=== PATIENT | male | born 1950 | race Native Hawaiian/Other Pacific Islander ===

== ENCOUNTER 2016-12-21 11:11 | Inpatient (IN) | payer OTHER ==
[2016-12-21 12:47] LABS: BASO % 1.1 % (0.0-2.0); EOS # 0.1 K/uL (0.0-0.7); EOS % 1.8 % (0.0-4.0); HEMATOCRIT 31.7 % (35.0-51.0); LYMPH # 0.8 K/uL (1.0-4.3); LYMPH % 20.2 % (20.0-40.0); MEAN CELL VOLUME 88.6 fL (80.0-94.0); MEAN CORPUSCULAR HGB CONC 32.8 g/dL (33.0-37.0); MEAN PLATELET VOLUME 7.1 fL (7.2-11.7); MONO # 0.7 K/uL (0.0-0.8); MONO % 18.1 % (0.0-10.0); NRBC % 0.1 % (0.0-2.0); RED CELL DISTRIBUTION WIDTH 14.4 % (11.5-14.5); WHITE BLOOD COUNT 4.1 K/uL (4.8-10.8)
[2016-12-21 12:57] LABS: INR 1.2
--- NOTE | 2016-12-21 13:04 | C.PDOC ---
History Of Present Illness 66 year old male with Hx of psoriasis, DM, HTN presents to the ED c/o SOB when walking for about a week. Patient was hospitalized on the [facility] for pneumonia approximately 2-3 weeks ago, was D/C there and states he felt better. He arrived in the [place] on Wednesday and since then he has been feeling SOB. Patient had the toes of his left foot amputated because of his DM 5 years ago. Time Seen by Provider: 12/21/16 11:57 Chief Complaint (Nursing): Shortness Of Breath History Per: Patient History/Exam Limitations: no limitations Onset/Duration Of Symptoms: Days Current Symptoms Are (Timing): Still Present Exacerbating Factor(s): Exertion Associated Symptoms: denies: Fever, Chills, Sweating, Dizziness, Tingling In Hands Or Face Reports Recently: Hospitalized (In the [facility] for pneumonia 2/3 weeks ago) Recent travel outside of the [facility]: Yes (Arrived from the [facility] on Wednesday) Additional History Per: Patient Past Medical History Reviewed: Historical Data, Nursing Documentation, Vital Signs Vital Signs: Last Vital Signs Temp 101.3 F H 12/21/16 11:29 Pulse 98 H 12/21/16 18:31 Resp 22 12/21/16 18:31 BP 166/83 H 12/21/16 18:31 Pulse Ox 98 12/21/16 18:31 - Medical History PMH: HTN, Hyperlipidemia, Pneumonia Other Surgeries: Left toes of foot amputated Family History: States: Unknown Family Hx - Social History Hx Alcohol Use: No Hx Substance Use: No Review Of Systems Constitutional: Negative for: Fever, Chills Cardiovascular: Negative for: Chest Pain, Palpitations Respiratory: Positive for: Cough, SOB with Excertion. Negative for: Sputum Gastrointestinal: Negative for: Nausea, Vomiting, Abdominal Pain Physical Exam - Physical Exam Appears: Non-toxic, No Acute Distress Skin: Other (Psoriasis on both lower extremities) Head: Atraumatic, Normacephalic Oral Mucosa: Moist Neck: Normal ROM, Supple Chest: Symmetrical Cardiovascular: Rhythm Regular, No Murmur Respiratory: Decreased Breath Sounds (Bilaterally ), No Accessory Muscle Use, No Rales, No Rhonchi, No Wheezing Gastrointestinal/Abdominal: Soft, No Tenderness Extremity: Normal ROM, Pedal Edema, Other (Lower extremities discoloration) Neurological/Psych: Oriented x3, Normal Speech, Normal Cognition ED Course And Treatment - Laboratory Results Result Diagrams: 12/21/16 12:42 12/21/16 12:42 O2 Sat by Pulse Oximetry: 99 (On RA) Pulse Ox Interpretation: Normal Progress Note: Plan: -EKG, blood work, CXR, ansd UA ordered. -Tylenol 650 mg PO given. -Blood culture collected. -O2 nasal cannula placed - Physician Consult Information Physician Contacted: Chevy Ruelas Outcome Of Conversation: accepted patient for an admission Disposition - Disposition Disposition: HOSPITALIZED Disposition Time: 16:26 Condition: FAIR - Clinical Impression Clinical Impression: Pneumonia - PA / COVER SEAMER / Resident Statement MD/DO has reviewed & agrees with the documentation as recorded. - Scribe Statement The provider has reviewed the documentation as recorded by the Scribe Kevon Guzman All medical record entries made by the Scribe were at my direction and personally dictated by me. I have reviewed the chart and agree that the record accurately reflects my personal performance of the history, physical exam, medical decision making, and the department course for this patient. I have also personally directed, reviewed, and agree with the discharge instructions and disposition. Decision To Admit - Pt Status Changed To: Hospital Disposition Of: Inpatient - Admit Certification Admit to Inpatient:: After my assessment, the patient will require hospitalization for at least two midnights. This is because of the severity of symptoms shown, intensity of services needed, and/or the medical risk in this patient being treated as an outpatient. - InPatient: Physician Admission Certification: I certify that this patient requires 2 or more midnights of care for the following reason:: pt with pneumonia will need more than 2 days of hospitalization - . Bed Request Type: Regular Admitting Physician: Chevy Ruelas Patient Diagnosis: Pneumonia
[2016-12-21 13:07] LABS: CHLORIDE 99 mmol/L (98-107)
[2016-12-21 13:08] LABS: POTASSIUM 3.9 mmol/L (3.6-5.2); SODIUM 131 mmol/L (132-148)
[2016-12-21 13:11] LABS: ALB/GLOB RATIO 0.8 (1.0-2.1); ALKALINE PHOSPHATASE 52 U/L (38-126); ALT/SGPT 42 U/L (21-72); AST/SGOT 31 U/L (17-59); BILIRUBIN,TOTAL 0.7 mg/dL (0.2-1.3); BLOOD UREA NITROGEN 16 mg/dL (9-20); CALCIUM 7.9 mg/dl (8.6-10.4); CARBON DIOXIDE 23 mmol/L (22-30); GFR AFRICAN-AMERICAN > 60; GLUCOSE,RANDOM 193 mg/dL (75-110); TOTAL PROTEIN 7.7 g/dL (6.3-8.3)
[2016-12-21] MEDS ORDERED: Moxifloxacin IV 400mg/250ml NS 400 MG/250 ML BAG IV STA (14:10)
[2016-12-21] MEDS ORDERED: Iodixanol 320 MG/ML 100 ML BOTTLE IV ONE (15:08)
--- NOTE | 2016-12-21 15:13 | RAD ---
HISTORY: SOB, fever COMPARISON: No prior. TECHNIQUE: Chest PA and lateral FINDINGS: LUNGS: Prominent diffuse increased interstitial lung markings throughout both lungs which may represent underlying infiltrate and or edema. More patchy areas of consolidative change seen within the right hilar region and bilateral lung bases. Biapical pleural thickening with upper lobe granulomatous changes. Few scattered nodular densities in both lungs. Bilateral hilar prominence. PLEURA: As above. CARDIOVASCULAR: Mild cardiomegaly. Tortuous ectatic aorta. OSSEOUS STRUCTURES: Degenerative changes in the spine with paravertebral osteophytes. VISUALIZED UPPER ABDOMEN: Normal. OTHER FINDINGS: None. IMPRESSION: Prominent diffuse increased interstitial lung markings throughout both lungs which may represent underlying infiltrate and or edema. More patchy areas of consolidative change seen within the right hilar region and bilateral lung bases. Biapical pleural thickening with upper lobe granulomatous changes. Few scattered nodular densities in both lungs. Bilateral hilar prominence.
--- NOTE | 2016-12-21 16:12 | CT ---
PROCEDURE: CT Chest with contrast (Pulmonary Angiogram) HISTORY: sob, fever, recent long travel, elevated D dimer COMPARISON: None available. TECHNIQUE: Axial computed tomography images were obtained of the chest in the pulmonary arterial phase of enhancement. Coronal and sagittal reformatted images were created and reviewed. Intravenous contrast dose: 100 mL Visipaque 320 Radiation dose: Total exam DLP = 618.58 mGy-cm. This CT exam was performed using one or more of the following dose reduction techniques: Automated exposure control, adjustment of the mA and/or kV according to patient size, and/or use of iterative reconstruction technique. FINDINGS: PULMONARY ARTERIES: Evaluation limited due to timing of scan relative to contrast bolus. Limited evaluation of segmental and subsegmental pulmonary artery branches. No central or lobar pulmonary arterial filling defect identified. AORTA: No acute findings. No thoracic aortic aneurysm. LUNGS: Multifocal infiltrate involving right and left upper and lower lobe sparing only the right middle lobe. Predominantly right upper and lower lobe. No pulmonary mass. PLEURAL SPACES: Small right pleural effusion. No left pleural effusion. No pneumothorax. HEART: Unremarkable. No cardiomegaly. No significant pericardial effusion. LYMPH NODES: Solitary right peritracheal lymph node, 1.9 cm short axis, with central fatty hilum. No other significant mediastinal or hilar lymphadenopathy. BONES, CHEST WALL: Unremarkable. No fracture or destructive lesion OTHER FINDINGS: Unremarkable. IMPRESSION: Limited examination. No evidence of large central pulmonary embolus. Unable to adequately evaluate segmental and subsegmental pulmonary artery branches. Small right pleural effusion. Multifocal bilateral pulmonary infiltrate.
[2016-12-21] MEDS ORDERED: Azithromycin 500 MG in Sodium Chloride 0.9% 250 ML IVPB SCH (18:00)
[2016-12-21 18:07] LABS: RBC URINE 3 /hpf (0-3); URINE BACTERIA RARE (<OCC); URINE BILIRUBIN NEGATIVE (NEGATIVE); URINE COLOR Straw (YELLOW); URINE GLUCOSE (UA) NORMAL (Normal); URINE KETONE NEGATIVE (NEGATIVE); URINE LEUKOCYTE ESTERASE NEG Leu/uL (Negative); URINE PROTEIN 2+ mg/dL (NEGATIVE); URINE UROBILINOGEN NORMAL mg/dL (0.2-1.0); WBC URINE 1 /hpf (0-5)
[2016-12-21 18:18] LABS: URINE BLOOD TRACE (NEGATIVE)
[2016-12-21] MEDS: Piperacill/Tazo 3.375gm in Dex 3.375 GM/50 ML BAG IVPB SCH (18:31)
--- NOTE | 2016-12-21 18:44 | CP.PCM.HP ---
History of Present Illness - History of Present Illness History of Present Illness: Medicine H/P CC: SOB HPI: 66 year old Lebanese male with past medical history of HTN, DM, psoriasis who immigrated from the [facility] 5 years ago is presenting with worsening shortness of breath and cough. The productive cough has worsened 2 weeks ago when the patient went to the [facility]. There he had a hospitalization of 5 days. 3 days in the ICU and 2 days on floor being treated for Community Acquired Pneumonia. During his course he was given antibiotics for 5 days. He was also diagnosed with Congestive Heart Failure in the [facility]. 2D ECHO revealed ejection fraction of >55% and Mitral Valve Prolapse with mild Mitral Regurgitation. Patient states he came back to the [facility] last Wednesday. Patient states his shortness of breath and cough continued to worsen and last Wednesday as he was using the stairs he was really working hard to breathe. The cough is productive and patient states he products small amounts of white sputum. Lemon mykel in hot water improves his cough and shortness of breath while physical activity worsens his symptoms. Patient also states he sleeps using 3 pillows. Patient uses a cane to ambulate and has not had any falls recently. Patient became more SOB as i was examining him. I placed the patient on NC @ 5 liters. He continued to work hard to breath so I called the lockstitch binder to examine the patient. Patient was seen by the intesivist, given 20mg of lasix and started on Vanco and Zosyn. An ABG was ordered and he was placed on BiPAP. ROS: * Complains of: cough (productive), sputum production, shortness of breath, decrease in taste * Denies: fever, chills, nausea, vomiting, constipation, diarrhea, chest pain, palpitations, headaches, weakness, dizziness, change in vision, change in weight , dysphagia, dysuria, change in urinary frequency, hematuria, numbness, tingling PMHx: Community Acquired Pneumonia, Pulmonary Edema, CHF, HTN, CAD, DM, Psiorasis PSHx: Amputation of Toes (digits 1,2,3) of Right Foot (2011) Allergies: NKDA Social: Patient quit smoking 27 years ago. Patient smoked for 22 years (1.5 packs per day) (33 pack year). Patient drinks alcohol socially and denies recreational drug use. Works as an security patrol driver. Lives in an apartment with his and 1 child. Patient has 5 children in total. Family Hx: Mother - denies, DM; Father - lung cancer Code: Full Code Present on Admission - Present on Admission Any Indicators Present on Admission: No Review of Systems - Review of Systems All systems: reviewed and no additional remarkable complaints except (per hpi) Past Patient History - Past Social History Smoking Status: Never Smoked - CARDIAC Hx Hypertension: Yes - PULMONARY Hx Pneumonia: Yes - PSYCHIATRIC Hx Substance Use: No - SURGICAL HISTORY Hx Surgeries: Yes Other/Comment: Right foot - ANESTHESIA Hx Anesthesia: Yes Hx Anesthesia Reactions: No Meds Allergies/Adverse Reactions: Allergies Allergy/AdvReac Type Severity Reaction Status Date / Time No Known Allergies Allergy Unverified 12/21/16 11:26 Physical Exam - Constitutional Appears: Chronically Ill - Head Exam Head Exam: ATRAUMATIC, NORMAL INSPECTION, NORMOCEPHALIC - Eye Exam Eye Exam: EOMI, Normal appearance Pupil Exam: NORMAL ACCOMODATION, PERRL - ENT Exam ENT Exam: Mucous Membranes Moist - Respiratory Exam Respiratory Exam: Accessory Muscle Use, Rales, Rhonchi, Wheezes - Cardiovascular Exam Cardiovascular Exam: Tachycardia, REGULAR RHYTHM - GI/Abdominal Exam GI & Abdominal Exam: Normal Bowel Sounds, Soft. absent: Distended, Tenderness - Extremities Exam Additional comments: psoriasis b/l lower extrem - Neurological Exam Neurological exam: Alert, Oriented x3 - Psychiatric Exam Psychiatric exam: Normal Affect, Normal Mood - Skin Skin Exam: Rash (psoriatic changes), Warm Results - Vital Signs Recent Vital Signs: Last Vital Signs Temp 101.3 F H 12/21/16 11:29 Pulse 94 H 12/21/16 18:07 Resp 26 H 12/21/16 18:07 BP 185/88 H 12/21/16 18:07 Pulse Ox 98 12/21/16 18:07 - Labs Result Diagrams: 12/21/16 12:42 12/21/16 12:42 Labs: Laboratory Results - last 24 hr 12/21/16 12/21/16 12/21/16 12:42 12:42 12:42 WBC 4.1 L RBC 3.58 L Hgb 10.4 L Hct 31.7 L MCV 88.6 MCH 29.0 MCHC 32.8 L RDW 14.4 Plt Count 219 MPV 7.1 L Neut % (Auto) 58.8 Lymph % (Auto) 20.2 Nelson % (Auto) 18.1 H Eos % (Auto) 1.8 Baso % (Auto) 1.1 Neut # 2.4 Lymph # 0.8 L Nelson # 0.7 Eos # 0.1 Baso # 0.0 PT INR APTT D-Dimer, Quantitative Sodium 131 L Potassium 3.9 Chloride 99 Carbon Dioxide 23 Anion Gap 12 BUN 16 Creatinine 1.4 Est GFR ( Amer) > 60 Est GFR (Non-Af Amer) 51 Random Glucose 193 H Lactic Acid 1.1 Calcium 7.9 L Total Bilirubin 0.7 AST 31 ALT 42 Alkaline Phosphatase 52 Total Creatine Kinase 102 CK-MB (Mass) 0.78 Troponin I 0.0770 NT-Pro-B Natriuret Pep 1280 H Total Protein 7.7 Albumin 3.4 L Globulin 4.3 H Albumin/Globulin Ratio 0.8 L Urine Color Urine Clarity Urine pH Ur Specific Bourg Urine Protein Urine Glucose (UA) Urine Ketones Urine Blood Urine Nitrate Urine Bilirubin Urine Urobilinogen Ur Leukocyte Esterase Urine WBC (Auto) Urine RBC (Auto) Urine Bacteria 12/21/16 12/21/16 12:42 17:51 WBC RBC Hgb Hct MCV MCH MCHC RDW Plt Count MPV Neut % (Auto) Lymph % (Auto) Nelson % (Auto) Eos % (Auto) Baso % (Auto) Neut # Lymph # Nelson # Eos # Baso # PT 13.3 H INR 1.2 APTT 36 H D-Dimer, Quantitative 552 H Sodium Potassium Chloride Carbon Dioxide Anion Gap BUN Creatinine Est GFR ( Amer) Est GFR (Non-Af Amer) Random Glucose Lactic Acid Calcium Total Bilirubin AST ALT Alkaline Phosphatase Total Creatine Kinase CK-MB (Mass) Troponin I NT-Pro-B Natriuret Pep Total Protein Albumin Globulin Albumin/Globulin Ratio Urine Color Straw Urine Clarity Clear Urine pH 6.0 Ur Specific Bourg 1.017 Urine Protein 2+ H Urine Glucose (UA) Normal Urine Ketones Negative Urine Blood Trace H Urine Nitrate Negative Urine Bilirubin Negative Urine Urobilinogen Normal Ur Leukocyte Esterase Neg Urine WBC (Auto) 1 Urine RBC (Auto) 3 Urine Bacteria Rare Assessment & Plan (1) Diastolic CHF Assessment and Plan: F/U DORON * 1 - 0.07 * 2 - * 3 - Echo (record in paper chart) - EF 55%, MVP Lipid Panel * TG * Chol * LDL * HDL Meds: * Spironolactone 25mg PO QD * Lasix 20 IV Once * Nitropaste * Crestor 10 PO HS Status: Acute Priority: High (2) Pneumonia Assessment and Plan: ABG - F/U Flu - F/U Blood culture - F/U Sputum culture - F/U Procal - F/U Meds: * Avelox given in ER * Vanco * Zosyn Status: Acute Priority: High (3) Diabetes Assessment and Plan: A1C - F/U ISS High Accucheck Status: Chronic Priority: Medium (4) Prophylactic measure Assessment and Plan: heparin 5000 AC Q12 Status: Chronic Priority: Low
[2016-12-21 20:09] LABS: ABG ALLEN TEST POS; ARTERIAL BLOOD GAS MODE BiPAP; ARTERIAL BLOOD HGB O2 SAT 95.6 % (95.0-98.0); CARBOXYHEMOGLOBIN 1.9 % (0.5-1.5); DRAW SITE RRA; HHB 1.3 % (0.0-5.0); METHEMOGLOBIN 1.2 % (0.0-3.0)
[2016-12-21] MEDS: Vancomycin 1 gm/NS 200 ml 1 GM/200 ML BAG IVPB SCH (21:16)
[2016-12-21] MEDS: (Novolin R) Insulin Human Regular 100 units/ml vial SC SCH (21:17)
[2016-12-22 04:22] LABS: POTASSIUM 4.2 mmol/L (3.6-5.2)
[2016-12-22 04:23] LABS: BASO % 0.5 % (0.0-2.0); EOS % 0.9 % (0.0-4.0); HEMATOCRIT 34.4 % (35.0-51.0); LYMPH # 0.9 K/uL (1.0-4.3); LYMPH % 24.3 % (20.0-40.0); MEAN CELL VOLUME 88.2 fL (80.0-94.0); MEAN CORPUSCULAR HEMOGLOBIN 29.1 pg (27.0-31.0); MEAN PLATELET VOLUME 6.8 fL (7.2-11.7); MONO # 0.6 K/uL (0.0-0.8); MONO % 16.6 % (0.0-10.0); NRBC % 0.1 % (0.0-2.0); RED CELL DISTRIBUTION WIDTH 14.1 % (11.5-14.5); WHITE BLOOD COUNT 3.5 K/uL (4.8-10.8)
[2016-12-22 04:24] LABS: ALB/GLOB RATIO 0.8 (1.0-2.1); TOTAL PROTEIN 7.8 g/dL (6.3-8.3)
[2016-12-22 04:25] LABS: CALCIUM 7.7 mg/dl (8.6-10.4)
[2016-12-22] MEDS: Piperacill/Tazo 3.375gm in Dex 3.375 GM/50 ML BAG IVPB SCH ×3 (05:03→17:38)
[2016-12-22] MEDS: (Novolin R) Insulin Human Regular 100 units/ml vial SC SCH ×4 (07:47→21:38)
[2016-12-22] MEDS ORDERED: Nitroglycerin 0.1 mg/hr Top Patch TD SCH (10:00)
--- NOTE | 2016-12-22 10:59 | CP.PCM.PN ---
Subjective - Date & Time of Evaluation Date of Evaluation: 12/22/16 Time of Evaluation: 10:56 - Subjective Subjective: Patient seen and examined clinically much improved. Working much less hard to breath States he feels much better with less SOB, no other complaints at this time Had a LGF overnight consulted cardio ([place]) continue abx Objective - Vital Signs/Intake and Output Vital Signs (last 24 hours): Temp Pulse Resp BP Pulse Ox 98 F 96 H 18 129/79 98 12/22/16 09:58 12/22/16 07:43 12/22/16 07:20 12/22/16 07:20 12/22/16 07:20 - Medications Medications: Current Medications Acetaminophen (Tylenol 325mg Tab) 650 mg PO Q6 PRN PRN Reason: Fever >100.4 F Last Admin: 12/22/16 08:14 Dose: 650 mg Amlodipine Besylate (Norvasc) 2.5 mg PO DAILY [facility] Last Admin: 12/22/16 09:54 Dose: 2.5 mg Docusate Sodium (Colace) 100 mg PO BID PRN PRN Reason: Constipation Heparin Sodium (Porcine) (Heparin) 5,000 units SC Q12 [facility] Last Admin: 12/22/16 09:55 Dose: 5,000 units Piperacillin Sod/Tazobactam Sod (Zosyn 3.375 Gm Iv Premix) 3.375 gm in 50 mls @ 200 mls/hr IVPB Q8H [facility] Last Admin: 12/22/16 09:56 Dose: 200 mls/hr Vancomycin/Sodium Chloride (Vancomycin 1 Gm/Ns 200 Ml) 1 gm in 200 mls @ 166.7 mls/hr IVPB Q24H [facility] Stop: 12/26/16 19:01 Last Admin: 12/21/16 21:16 Dose: 166.7 mls/hr Ibuprofen (Motrin Tab) 400 mg PO Q6 PRN PRN Reason: Pain, moderate (4-7) Insulin Human Regular (Novolin R) 0 unit SC ACHS [facility] PRN Reason: Protocol Last Admin: 12/22/16 07:47 Dose: Not Given Losartan Potassium (Cozaar) 100 mg PO DAILY [facility] Last Admin: 12/22/16 09:54 Dose: 100 mg Nitroglycerin (Nitro-Dur 0.1 Mg/Hr Patch) 1 patch TD DAILY [facility] Last Admin: 12/22/16 09:55 Dose: 1 patch Ondansetron HCl (Zofran Inj) 4 mg IVP Q6 PRN PRN Reason: Nausea/Vomiting Rosuvastatin Calcium (Crestor) 20 mg PO HS [facility] Last Admin: 12/21/16 22:02 Dose: 20 mg Spironolactone (Aldactone) 25 mg PO DAILY [facility] Last Admin: 12/22/16 09:54 Dose: 25 mg - Labs Labs: 12/22/16 04:08 12/22/16 04:08 PT 13.3 SECONDS (9.7-12.2) H 12/21/16 12:42 INR 1.2 12/21/16 12:42 APTT 36 SECONDS (21-34) H 12/21/16 12:42 - Constitutional Appears: No Acute Distress - Head Exam Head Exam: ATRAUMATIC, NORMAL INSPECTION, NORMOCEPHALIC - Eye Exam Eye Exam: EOMI Pupil Exam: NORMAL ACCOMODATION - ENT Exam ENT Exam: Mucous Membranes Moist - Respiratory Exam Respiratory Exam: Rhonchi, NORMAL BREATHING PATTERN - Cardiovascular Exam Cardiovascular Exam: REGULAR RHYTHM - GI/Abdominal Exam GI & Abdominal Exam: Soft, Normal Bowel Sounds. absent: Distended, Tenderness - Extremities Exam Extremities Exam: Joint Swelling (non pittine edema bilaterly LE) Additional comments: Psoriatic changes bl LE - Neurological Exam Neurological Exam: Alert, Awake, Oriented x3 - Psychiatric Exam Psychiatric exam: Normal Affect, Normal Mood - Skin Skin Exam: Dry, Intact, Normal Color, Warm Assessment and Plan (1) Diastolic CHF Assessment & Plan: Trop * 1 - 0.07 * 2 - 0.07 * 3 - 0.08 Echo (record in paper chart) - EF 55%, MVP Lipid Panel * TG - 58 * Chol - 109Nitro 0.1 TD QD * LDL - 72 * HDL - 28 Meds * Lopressor 25 PO BID * Cozaar 100 PO QD * Aldactone 25 PO QD * Nitro 0.1 TD QD Status: Acute (2) Pneumonia Assessment & Plan: ABG - 7.43, CO2 35, O2 113, Bicarb 24.3 Flu - F/U Blood culture - F/U Sputum culture - F/U Procal - 0.15 Meds: * Avelox given in ER * Vanco * Zosyn Status: Acute (3) Diabetes Assessment & Plan: A1C - 7.5 ISS High Accucheck Status: Chronic (4) Prophylactic measure Assessment & Plan: heparin 5000 AC Q12 Status: Chronic
--- NOTE | 2016-12-22 12:31 | CARD ---
APPROVED REPORT EKG Measurement Heart [id number] <Conclusion> Sinus rhythm with occasional premature ventricular complexes Right bundle branch block Abnormal ECG
[2016-12-22] MEDS ORDERED: Moxifloxacin IV 400mg/250ml NS 400 MG/250 ML BAG IVPB SCH (14:00)
--- NOTE | 2016-12-22 17:46 | CP.PCM.CON ---
History of Present Illness - History of Present Illness History of Present Illness: Cardiology consult note for Dr. Clayton Bermeo DO, PGY-0 Reason For Consult: SOB HPI: 66 singaporean M pertinent PMHx HTN DM, presents with worsening sob and cough. Pt was in [facility] two weeks ago, where he developed similar symptoms and was hospitalized for 5 days. ECHO there showed mild MR and MVP with 55% EF. He states that the doctor there told him to 'travel carefully and not exert himself ,' when he was d/c'd with a dx of CHF. This episode of sob started day before yesterday, and progressively got worse. Pt stated that walking up the stairs made it worse, and since he was working so hard to breathe, he decided to come to the hospital. Of note, patient sleeps using three pillows. Cough is productive with white sputum. Also of note, patient was febrile, was placed on BiPAP, as well as 20 mg of lasix and started on Vanc and Zosyn, when first admitted. At this time, pt denies f/ch/cp/n/v/d/dysuria/frequency/urgency/hematuria/ hematochezia/hematemesis. Is still mildly sob, but feels better. PSHx: Amputation of Toes (digits 1,2,3) of Right Foot (2011) PMHx: Community Acquired Pneumonia, Pulmonary Edema, CHF, HTN, CAD, DM, Psoriasis All: NKDA SocHx: Patient quit smoking 27 years ago. Patient smoked for 22 years (1.5 packs per day) (33 pack year); +social etoh; denies illicits [facility], for URI VS PNA FamHx: Lung CA Meds: ABG ROS: Const'l: pt denies fever, chills, generalized weakness ENT: pt denies dysphagia, otalgia, hearing deficit, rhinorrhea Eyes: pt denies sudden loss of vision, diplopia, blurred vision MSK: pt denies muscle stiffness, joint pain, extremity cramping Cardio: + see hpi Pulm: + productive cough; denies hemoptysis, wheeze GI: pt denies loss of appetite, abdominal pain, constipation, melena, n/v/d : pt denies burning on urination, urinary frequency, hematuria, urinary urgency Neuro: pt denies paresis, paresthesia, dizziness, hanson, numbness, tingling Derm: pt denies skin changes, lesions, nail changes Endo: pt denies intolerance to heat/cold, diaphoresis, night sweats, polydipsia Psych: pt denies anxiety, depression, mood changes Past Patient History - Past Social History Smoking Status: Former Smoker - CARDIAC Hx Hypertension: Yes - PULMONARY Hx Pneumonia: Yes - NEUROLOGICAL Hx Neurological Disorder: No - HEENT Hx HEENT Problems: No - RENAL Hx Chronic Kidney Disease: No - ENDOCRINE/METABOLIC Hx Diabetes Mellitus Type 2: Yes - HEMATOLOGICAL/ONCOLOGICAL Hx Blood Transfusions: No - INTEGUMENTARY Other/Comment: psoriasis. LE color brownish - MUSCULOSKELETAL/RHEUMATOLOGICAL Hx Falls: No - GASTROINTESTINAL Hx Gastrointestinal Disorders: No - GENITOURINARY/GYNECOLOGICAL Hx Genitourinary Disorders: No - PSYCHIATRIC Hx Substance Use: No - SURGICAL HISTORY Hx Surgeries: Yes Other/Comment: Right foot - ANESTHESIA Hx Anesthesia: Yes Hx Anesthesia Reactions: No Hx Malignant Hyperthermia: No Has any member of the family had a problem w/ anesthesia?: No Meds Allergies/Adverse Reactions: Allergies Allergy/AdvReac Type Severity Reaction Status Date / Time No Known Allergies Allergy Unverified 12/21/16 11:26 - Medications Medications: Current Medications Acetaminophen (Tylenol 325mg Tab) 650 mg PO Q6 PRN PRN Reason: Fever >100.4 F Last Admin: 12/22/16 08:14 Dose: 650 mg Docusate Sodium (Colace) 100 mg PO BID PRN PRN Reason: Constipation Furosemide (Lasix) 20 mg IVP DAILY [facility] Heparin Sodium (Porcine) (Heparin) 5,000 units SC Q8 [facility] Last Admin: 12/22/16 14:33 Dose: 5,000 units Piperacillin Sod/Tazobactam Sod (Zosyn 3.375 Gm Iv Premix) 3.375 gm in 50 mls @ 200 mls/hr IVPB Q8H [facility] Last Admin: 12/22/16 17:38 Dose: 200 mls/hr Vancomycin/Sodium Chloride (Vancomycin 1 Gm/Ns 200 Ml) 1 gm in 200 mls @ 166.7 mls/hr IVPB Q24H [facility] Stop: 12/26/16 19:01 Last Admin: 12/21/16 21:16 Dose: 166.7 mls/hr Ibuprofen (Motrin Tab) 400 mg PO Q6 PRN PRN Reason: Pain, moderate (4-7) Insulin Human Regular (Novolin R) 0 unit SC ACHS [facility] PRN Reason: Protocol Last Admin: 12/22/16 17:38 Dose: Not Given Losartan Potassium (Cozaar) 100 mg PO DAILY [facility] Last Admin: 12/22/16 09:54 Dose: 100 mg Metoprolol Tartrate (Lopressor) 25 mg PO BID [facility] Mupirocin (Bactroban Ointment) 1 gm TOP BID [facility] Last Admin: 12/22/16 17:38 Dose: 1 applic Ondansetron HCl (Zofran Inj) 4 mg IVP Q6 PRN PRN Reason: Nausea/Vomiting Rosuvastatin Calcium (Crestor) 20 mg PO HS [facility] Last Admin: 12/21/16 22:02 Dose: 20 mg Spironolactone (Aldactone) 25 mg PO DAILY [facility] Last Admin: 12/22/16 09:54 Dose: 25 mg Physical Exam - Additional Findings Additional findings: Phys Exam: VS as below Const'l: a&o x 4, nad Head/Neck: neck supple, no jvd, trachea midline, carotid midline, no cervical /head mass Eyes: dash, nonicteric sclera, eom intact ENT: auditory acuity grossly intact, throat not congested, no nasal deformity Cardio: rrr, no m/r/g, no carotid bruit, nml s1, s2 Pulm: +2L NC; +Expiratory wheezes diffusely; no accessory muscle use, equal nml breath sounds bilaterally, ctab Abd: s/nt/nd, nbs x 4 q, no palpable masses Derm: no rashes, no ulcers, no lesions Extr: no edema, no cyanosis, no calf tenderness, no lesions, no varicosities Neuro: cn II-XII grossly intact, ue and le 5/5 muscle strength bilaterally, no los ue, le bilaterally and core Results - Vital Signs Recent Vital Signs: Last Vital Signs Temp 98.6 F 12/22/16 15:00 Pulse 20 L 12/22/16 15:00 Resp 20 12/22/16 15:00 BP 94/60 L 12/22/16 15:00 Pulse Ox 98 12/22/16 15:00 - Labs Result Diagrams: 12/23/16 06:47 12/23/16 06:47 Labs: Laboratory Results - last 24 hr 12/21/16 12/21/16 12/21/16 17:51 20:00 20:51 WBC RBC Hgb Hct MCV MCH MCHC RDW Plt Count MPV Neut % (Auto) Lymph % (Auto) [place] % (Auto) Eos % (Auto) Baso % (Auto) Neut # Lymph # [place] # Eos # Baso # Puncture Site Rra pCO2 35 pO2 113 H HCO3 24.3 ABG pH 7.43 ABG Total CO2 24.3 ABG O2 Saturation 98.7 H ABG Base Excess -0.8 ABG Hemoglobin 10.2 L ABG Carboxyhemoglobin 1.9 H POC ABG HHb (Measured) 1.3 ABG Methemoglobin 1.2 Dax Test Pos A-a O2 Difference 57.0 Respiratory Index 0.5 Hgb O2 Saturation 95.6 Vent Mode Bipap FiO2 30.0 Inspiratory BiPAP 12 Expiratory BiPAP 6 Sodium Potassium Chloride Carbon Dioxide Anion Gap BUN Creatinine Est GFR ( Amer) Est GFR (Non-Af Amer) POC Glucose (mg/dL) 135 H Random Glucose Hemoglobin A1c Calcium Total Bilirubin AST ALT Alkaline Phosphatase Total Creatine Kinase CK-MB (Mass) Troponin I, Quant Total Protein Albumin Globulin Albumin/Globulin Ratio Triglycerides Cholesterol LDL Cholesterol Direct HDL Cholesterol Procalcitonin Urine Color Straw Urine Clarity Clear Urine pH 6.0 Ur Specific Custer 1.017 Urine Protein 2+ H Urine Glucose (UA) Normal Urine Ketones Negative Urine Blood Trace H Urine Nitrate Negative Urine Bilirubin Negative Urine Urobilinogen Normal Ur Leukocyte Esterase Neg Urine WBC (Auto) 1 Urine RBC (Auto) 3 Urine Bacteria Rare 12/21/16 12/21/16 12/22/16 21:15 21:15 04:00 WBC RBC Hgb Hct MCV MCH MCHC RDW Plt Count MPV Neut % (Auto) Lymph % (Auto) [place] % (Auto) Eos % (Auto) Baso % (Auto) Neut # Lymph # [place] # Eos # Baso # Puncture Site pCO2 pO2 HCO3 ABG pH ABG Total CO2 ABG O2 Saturation ABG Base Excess ABG Hemoglobin ABG Carboxyhemoglobin POC ABG HHb (Measured) ABG Methemoglobin Dax Test A-a O2 Difference Respiratory Index Hgb O2 Saturation Vent Mode FiO2 Inspiratory BiPAP Expiratory BiPAP Sodium Potassium Chloride Carbon Dioxide Anion Gap BUN Creatinine Est GFR ( Amer) Est GFR (Non-Af Amer) POC Glucose (mg/dL) Random Glucose Hemoglobin A1c 7.5 H Calcium Total Bilirubin AST ALT Alkaline Phosphatase Total Creatine Kinase 149 CK-MB (Mass) 1.14 Troponin I, Quant 0.0750 Total Protein Albumin Globulin Albumin/Globulin Ratio Triglycerides Cholesterol LDL Cholesterol Direct HDL Cholesterol Procalcitonin 0.15 L Urine Color Urine Clarity Urine pH Ur Specific [place] Urine Protein Urine Glucose (UA) Urine Ketones Urine Blood Urine Nitrate Urine Bilirubin Urine Urobilinogen Ur Leukocyte Esterase Urine WBC (Auto) Urine RBC (Auto) Urine Bacteria 12/22/16 12/22/16 12/22/16 04:08 04:08 04:08 WBC 3.5 L RBC 3.90 L Hgb 11.3 L Hct 34.4 L MCV 88.2 MCH 29.1 MCHC 33.0 RDW 14.1 Plt Count 185 MPV 6.8 L Neut % (Auto) 57.7 Lymph % (Auto) 24.3 [place] % (Auto) 16.6 H Eos % (Auto) 0.9 Baso % (Auto) 0.5 Neut # 2.0 Lymph # 0.9 L [place] # 0.6 Eos # 0.0 Baso # 0.0 Puncture Site pCO2 pO2 HCO3 ABG pH ABG Total CO2 ABG O2 Saturation ABG Base Excess ABG Hemoglobin ABG Carboxyhemoglobin POC ABG HHb (Measured) ABG Methemoglobin Dax Test A-a O2 Difference Respiratory Index Hgb O2 Saturation Vent Mode FiO2 Inspiratory BiPAP Expiratory BiPAP Sodium 132 Potassium 4.2 Chloride 100 Carbon Dioxide 23 Anion Gap 13 BUN 16 Creatinine 1.5 Est GFR ( Amer) 57 Est GFR (Non-Af Amer) 47 POC Glucose (mg/dL) Random Glucose 111 H Hemoglobin A1c Calcium 7.7 L Total Bilirubin 1.0 AST 33 ALT 42 Alkaline Phosphatase 51 Total Creatine Kinase 108 CK-MB (Mass) 1.04 Troponin I, Quant 0.0860 Total Protein 7.8 Albumin 3.4 L Globulin 4.4 H Albumin/Globulin Ratio 0.8 L Triglycerides 58 Cholesterol 109 LDL Cholesterol Direct 72 HDL Cholesterol 28 L Procalcitonin Urine Color Urine Clarity Urine pH Ur Specific Custer Urine Protein Urine Glucose (UA) Urine Ketones Urine Blood Urine Nitrate Urine Bilirubin Urine Urobilinogen Ur Leukocyte Esterase Urine WBC (Auto) Urine RBC (Auto) Urine Bacteria 12/22/16 12/22/16 12/22/16 06:31 11:44 16:17 WBC RBC Hgb Hct MCV MCH MCHC RDW Plt Count MPV Neut % (Auto) Lymph % (Auto) [place] % (Auto) Eos % (Auto) Baso % (Auto) Neut # Lymph # [place] # Eos # Baso # Puncture Site pCO2 pO2 HCO3 ABG pH ABG Total CO2 ABG O2 Saturation ABG Base Excess ABG Hemoglobin ABG Carboxyhemoglobin POC ABG HHb (Measured) ABG Methemoglobin Dax Test A-a O2 Difference Respiratory Index Hgb O2 Saturation Vent Mode FiO2 Inspiratory BiPAP Expiratory BiPAP Sodium Potassium Chloride Carbon Dioxide Anion Gap BUN Creatinine Est GFR ( Amer) Est GFR (Non-Af Amer) POC Glucose (mg/dL) 104 159 H 133 H Random Glucose Hemoglobin A1c Calcium Total Bilirubin AST ALT Alkaline Phosphatase Total Creatine Kinase CK-MB (Mass) Troponin I, Quant Total Protein Albumin Globulin Albumin/Globulin Ratio Triglycerides Cholesterol LDL Cholesterol Direct HDL Cholesterol Procalcitonin Urine Color Urine Clarity Urine pH Ur Specific [place] Urine Protein Urine Glucose (UA) Urine Ketones Urine Blood Urine Nitrate Urine Bilirubin Urine Urobilinogen Ur Leukocyte Esterase Urine WBC (Auto) Urine RBC (Auto) Urine Bacteria Assessment & Plan - Assessment and Plan (Free Text) Assessment: A/P 66 M with PMHx pertinent for CHF, HTN, CAD, DM, presenting with SOB. Pt 98% satting on 2L NC. Possible superimposed PNA SOB, likely 2/2 CHF Exacerbation with superimposed PNA - Continue GDMT - ECHO - Will reassess Thank you for this interesting consult. Pawel Bermeo DO, PGY - 1, d/w Dr. Arnold
[2016-12-22] MEDS: Vancomycin 1 gm/NS 200 ml 1 GM/200 ML BAG IVPB SCH (20:00)
[2016-12-23] MEDS: Piperacill/Tazo 3.375gm in Dex 3.375 GM/50 ML BAG IVPB SCH ×2 (03:15→09:37)
[2016-12-23 07:06] LABS: BASO % 0.5 % (0.0-2.0); EOS # 0.2 K/uL (0.0-0.7); EOS % 5.6 % (0.0-4.0); LYMPH # 1.7 K/uL (1.0-4.3); LYMPH % 38.1 % (20.0-40.0); MEAN CELL VOLUME 87.7 fL (80.0-94.0); MEAN CORPUSCULAR HEMOGLOBIN 29.3 pg (27.0-31.0); MEAN CORPUSCULAR HGB CONC 33.4 g/dL (33.0-37.0); MEAN PLATELET VOLUME 7.1 fL (7.2-11.7); MONO # 0.5 K/uL (0.0-0.8); MONO % 12.3 % (0.0-10.0); RED CELL DISTRIBUTION WIDTH 13.9 % (11.5-14.5); WHITE BLOOD COUNT 4.4 K/uL (4.8-10.8)
--- NOTE | 2016-12-23 07:33 | CP.PCM.PN ---
<Everton Mcconnell - Last Filed: 12/23/16 14:41> Subjective - Date & Time of Evaluation Date of Evaluation: 12/23/16 Time of Evaluation: 07:33 - Subjective Subjective: Patient seen and examined at bedside sitting in chair looking comfortable doing well with no complaints at this time wants to get better so he can start work No N/V/D/F, chills, SOB, chest pain Objective - Vital Signs/Intake and Output Vital Signs (last 24 hours): Temp Pulse Resp BP Pulse Ox 98.3 F 73 20 108/77 97 12/22/16 23:45 12/22/16 23:45 12/22/16 23:45 12/22/16 23:45 12/22/16 23:45 Intake and Output: 12/23/16 12/23/16 06:59 18:59 Intake Total 290 Balance 290 - Medications Medications: Current Medications Acetaminophen (Tylenol 325mg Tab) 650 mg PO Q6 PRN PRN Reason: Fever >100.4 F Last Admin: 12/22/16 08:14 Dose: 650 mg Docusate Sodium (Colace) 100 mg PO BID PRN PRN Reason: Constipation Furosemide (Lasix) 20 mg IVP DAILY [facility] Heparin Sodium (Porcine) (Heparin) 5,000 units SC Q8 [facility] Last Admin: 12/23/16 05:54 Dose: 5,000 units Piperacillin Sod/Tazobactam Sod (Zosyn 3.375 Gm Iv Premix) 3.375 gm in 50 mls @ 200 mls/hr IVPB Q8H [facility] Last Admin: 12/23/16 03:15 Dose: 200 mls/hr Vancomycin/Sodium Chloride (Vancomycin 1 Gm/Ns 200 Ml) 1 gm in 200 mls @ 166.7 mls/hr IVPB Q24H [facility] Stop: 12/26/16 19:01 Last Admin: 12/22/16 20:00 Dose: 166.7 mls/hr Ibuprofen (Motrin Tab) 400 mg PO Q6 PRN PRN Reason: Pain, moderate (4-7) Insulin Human Regular (Novolin R) 0 unit SC ACHS [facility] PRN Reason: Protocol Last Admin: 12/22/16 21:38 Dose: Not Given Losartan Potassium (Cozaar) 100 mg PO DAILY [facility] Last Admin: 11/14/17 09:54 Dose: 100 mg Metoprolol Tartrate (Lopressor) 25 mg PO BID [facility] Mupirocin (Bactroban Ointment) 1 gm TOP BID [facility] Last Admin: 12/22/16 17:38 Dose: 1 applic Ondansetron HCl (Zofran Inj) 4 mg IVP Q6 PRN PRN Reason: Nausea/Vomiting Rosuvastatin Calcium (Crestor) 20 mg PO HS [facility] Last Admin: 12/22/16 21:45 Dose: 20 mg Spironolactone (Aldactone) 25 mg PO DAILY [facility] Last Admin: 12/22/16 09:54 Dose: 25 mg - Labs Labs: 12/23/16 06:47 12/22/16 04:08 PT 13.3 SECONDS (9.7-12.2) H 12/21/16 12:42 INR 1.2 12/21/16 12:42 APTT 36 SECONDS (21-34) H 12/21/16 12:42 - Additional Findings Additional findings: - Constitutional Appears: No Acute Distress - Head Exam Head Exam: ATRAUMATIC, NORMAL INSPECTION, NORMOCEPHALIC - Eye Exam Eye Exam: EOMI Pupil Exam: NORMAL ACCOMODATION - ENT Exam ENT Exam: Mucous Membranes Moist - Respiratory Exam Respiratory Exam: Rhonchi, NORMAL BREATHING PATTERN - Cardiovascular Exam Cardiovascular Exam: REGULAR RHYTHM - GI/Abdominal Exam GI & Abdominal Exam: Soft, Normal Bowel Sounds. absent: Distended, Tenderness - Extremities Exam Extremities Exam: Joint Swelling (non pittine edema bilaterly LE) Additional comments: Psoriatic changes bl LE - Neurological Exam Neurological Exam: Alert, Awake, Oriented x3 - Psychiatric Exam Psychiatric exam: Normal Affect, Normal Mood - Skin Skin Exam: Dry, Intact, Normal Color, Warm Assessment and Plan (1) Diastolic CHF Assessment & Plan: Cards (Clayton) Trop * 1 - 0.07 * 2 - 0.07 * 3 - 0.08 Echo (record in paper chart) - EF 55%, MVP F/U Repeat Echo Lipid Panel * TG - 58 * Chol - 109Nitro 0.1 TD QD * LDL - 72 * HDL - 28 Meds * Lopressor 25 PO BID * Cozaar 100 PO QD * Aldactone 25 PO QD * Nitro 0.1 TD QD Status: Acute (2) Pneumonia Assessment & Plan: ABG - 7.43, CO2 35, O2 113, Bicarb 24.3 Blood culture - negative x 24 Sputum culture - negative x 24 Procal - 0.15 Meds: * Avelox given in ER * Vanco * Zosyn Status: Acute (3) CKD stage 3 due to type 2 diabetes mellitus Assessment & Plan: Nephro (Leonidas) F/U Reccs Status: Chronic (4) Diabetes Assessment & Plan: A1C - 7.5 ISS High Accucheck Status: Chronic (5) Prophylactic measure Assessment & Plan: heparin 5000 AC Q8 Status: Chronic <Charissa Webster V - Last Filed: 12/23/16 19:25> Objective - Vital Signs/Intake and Output Vital Signs (last 24 hours): Temp Pulse Resp BP Pulse Ox 98.8 F 58 L 20 104/66 99 12/23/16 15:32 12/23/16 15:32 12/23/16 15:32 12/23/16 18:38 12/23/16 15:32 Intake and Output: 12/23/16 12/24/16 18:59 06:59 Intake Total 750 Balance 750 - Medications Medications: Current Medications Acetaminophen (Tylenol 325mg Tab) 650 mg PO Q6 PRN PRN Reason: Fever >100.4 F Last Admin: 12/22/16 08:14 Dose: 650 mg Albuterol/Ipratropium (Duoneb 3 Mg/0.5 Mg (3 Ml) Ud) 3 ml INH RQ6 [facility] Docusate Sodium (Colace) 100 mg PO BID PRN PRN Reason: Constipation Furosemide (Lasix) 20 mg IVP DAILY [facility] Last Admin: 12/23/16 10:50 Dose: 20 mg Heparin Sodium (Porcine) (Heparin) 5,000 units SC Q8 [facility] Last Admin: 12/23/16 13:38 Dose: 5,000 units Piperacillin Sod/Tazobactam Sod (Zosyn 2.25 Gm Iv Premix) 2.25 gm in 50 mls @ 100 mls/hr IVPB Q8H [facility] Last Admin: 12/23/16 18:39 Dose: 100 mls/hr Linezolid (Zyvox 600mg/300ml D5w) 600 mg in 300 mls @ 200 mls/hr IVPB Q12 [facility] Insulin Human Regular (Novolin R) 0 unit SC ACHS [facility] PRN Reason: Protocol Last Admin: 12/23/16 18:39 Dose: Not Given Metoprolol Tartrate (Lopressor) 25 mg PO BID [facility] Last Admin: 12/23/16 18:38 Dose: Not Given Mupirocin (Bactroban Ointment) 1 gm TOP BID [facility] Last Admin: 12/23/16 18:37 Dose: Not Given Promethazine HCl/Codeine (Phenergan/Codeine Oral Syrup) 5 ml PO Q4 PRN PRN Reason: Cough Last Admin: 12/23/16 18:45 Dose: 5 ml Rosuvastatin Calcium (Crestor) 20 mg PO HS [facility] Last Admin: 12/22/16 21:45 Dose: 20 mg Saccharomyces Boulardii (Florastor) 250 mg PO BID [facility] Last Admin: 12/23/16 18:38 Dose: 250 mg - Labs Labs: 12/23/16 06:47 12/23/16 06:47 PT 13.3 SECONDS (9.7-12.2) H 12/21/16 12:42 INR 1.2 12/21/16 12:42 APTT 36 SECONDS (21-34) H 12/21/16 12:42 Attending/Attestation - Attestation I have personally seen and examined this patient.: Yes I have fully participated in the care of the patient.: Yes I have reviewed all pertinent clinical information, including history, physical exam and plan: Yes Notes (Text): Patient seen, examined, and case discussed with day-time resident. This is my first encounter with the patient. Patient is pleasant fellow with known history of psoarsis, hx of diastolic chf, mitral valve prolapse, recently hospitalized in the [facility] for pneumonia requiring ICU admission but not intubated, who comes in with worsening shortness of breathe, orthopnea. Patient seen today; patient reports breathing is much better. Patient reports he is urinating well, denies difficulty with flow nor dribbling. patient does not take any immunosuppressant therapy for his psoarsis. Upon review of labs, patient Cr alma between yesterday and today; Nephrology consult on the case; discussed with Dr. Lauren who is covering Dr. Deutsch. Given rise of Cr, Vancomycin was discontinued, random Vanco level drawn which was normal and Zosyn was renally dosed. Infectious Disease consult given patient 's pneumonia has not resolved; started on Zyvox. Patient is pending for echocardiogram which is awaiting report. Assessment and Plan (1) Diastolic Congestive Heart Failure, Acute on Chronic Assessment & Plan: * Cardiology on consult (Dr. Arnold)-->help appreciated * Measure daily weight * measure intake and output * DORON: 0.0860-->0.01263-->0770 * Echo (record in paper chart) - EF 55%, MVP * Pending report echocardiogram report * Lipid Panel * TG - 58 * Chol - 109 * LDL - 72 * HDL - 28 Meds * Lopressor 25 PO BID-->switch to Toprol XL 50mg PO daily (equivalent dose) * d/c Cozaar 100 PO QD given acute renal failure * d/c Aldactone 25 PO QD given acute renal failure * Aspirin 81mg PO daily * Lasix 20mg IV daily * Crestor 20mg POqHS Status: Acute (2) Pneumonia Assessment & Plan: * Infectious Disease (Dr. Santoyo) on the case-->help appreciated * Start on Zyvox (active since 12/23/16) * History of pneumonia; requiring ICU admission recently; Treat as health care acquired pneumonia * ABG - 7.43, CO2 35, O2 113, Bicarb 24.3 * Duonebs 3ml INH RQ6H PRN shortness of breathe * Phenergan w codeine 5ml PO Q 4H PRN cough * Blood culture X2 - negative x 48 hours * Sputum culture - negative x 24 * Procal - 0.15 * Meds: * Avelox given in ER * Vanco * Zosyn Status: Acute (3) Acute on Chronic Renal Failure Assessment & Plan: * Nephrology (Dr. Deutsch/Leonidas) on board * held NSAIDS, d/c arb/jairo, d/c vanco * undergoing 24 hours urine * f/u renal US Status: Chronic (4) Diabetes Assessment & Plan: * A1C - 7.5 * ISS High * Accucheck QAC and HS * Crestor 20mg POqHS Status: Chronic (5) Prophylactic measure Assessment & Plan: * heparin 5000 AC Q8H for DVT ppx * protonic 40mg IV q daily for GI ppx * Daily weights * intake and outputs Status: Chronic
[2016-12-23 07:45] LABS: CALCIUM 7.5 mg/dl (8.6-10.4); POTASSIUM 4.3 mmol/L (3.6-5.2); TOTAL PROTEIN 6.9 g/dL (6.3-8.3)
[2016-12-23] MEDS: (Novolin R) Insulin Human Regular 100 units/ml vial SC SCH ×4 (08:18→22:20)
[2016-12-23 08:28] LABS: MAGNESIUM 1.7 mg/dL (1.6-2.3); PHOSPHOROUS 4.9 mg/dL (2.5-4.5)
--- NOTE | 2016-12-23 09:47 | CP.PCM.PN ---
Subjective - Date & Time of Evaluation Date of Evaluation: 12/23/16 Time of Evaluation: 09:45 - Subjective Subjective: Cardiology progress note for Dr. Clayton Bermeo DO PGY - Pt s/e bedside. Still feeling sob, but feels better. No further complaints at this time. Objective - Vital Signs/Intake and Output Vital Signs (last 24 hours): Temp Pulse Resp BP Pulse Ox 98.1 F 70 20 105/64 98 12/23/16 07:20 12/23/16 07:20 12/23/16 07:20 12/23/16 07:20 12/23/16 07:20 Intake and Output: 12/23/16 12/23/16 06:59 18:59 Intake Total 290 Balance 290 - Medications Medications: Current Medications Acetaminophen (Tylenol 325mg Tab) 650 mg PO Q6 PRN PRN Reason: Fever >100.4 F Last Admin: 12/22/16 08:14 Dose: 650 mg Docusate Sodium (Colace) 100 mg PO BID PRN PRN Reason: Constipation Furosemide (Lasix) 20 mg IVP DAILY [facility] Heparin Sodium (Porcine) (Heparin) 5,000 units SC Q8 [facility] Last Admin: 12/23/16 05:54 Dose: 5,000 units Piperacillin Sod/Tazobactam Sod (Zosyn 3.375 Gm Iv Premix) 3.375 gm in 50 mls @ 200 mls/hr IVPB Q8H [facility] Last Admin: 12/23/16 03:15 Dose: 200 mls/hr Vancomycin/Sodium Chloride (Vancomycin 1 Gm/Ns 200 Ml) 1 gm in 200 mls @ 166.7 mls/hr IVPB Q24H [facility] Stop: 12/26/16 19:01 Last Admin: 12/22/16 20:00 Dose: 166.7 mls/hr Ibuprofen (Motrin Tab) 400 mg PO Q6 PRN PRN Reason: Pain, moderate (4-7) Insulin Human Regular (Novolin R) 0 unit SC ACHS [facility] PRN Reason: Protocol Last Admin: 12/23/16 08:18 Dose: Not Given Losartan Potassium (Cozaar) 100 mg PO DAILY [facility] Last Admin: 12/22/16 09:54 Dose: 100 mg Metoprolol Tartrate (Lopressor) 25 mg PO BID [facility] Mupirocin (Bactroban Ointment) 1 gm TOP BID [facility] Last Admin: 12/22/16 17:38 Dose: 1 applic Ondansetron HCl (Zofran Inj) 4 mg IVP Q6 PRN PRN Reason: Nausea/Vomiting Rosuvastatin Calcium (Crestor) 20 mg PO HS [facility] Last Admin: 12/22/16 21:45 Dose: 20 mg Saccharomyces Boulardii (Florastor) 250 mg PO BID [facility] Spironolactone (Aldactone) 25 mg PO DAILY [facility] Last Admin: 12/22/16 09:54 Dose: 25 mg - Labs Labs: 12/23/16 06:47 12/23/16 06:47 PT 13.3 SECONDS (9.7-12.2) H 12/21/16 12:42 INR 1.2 12/21/16 12:42 APTT 36 SECONDS (21-34) H 12/21/16 12:42 - Additional Findings Additional findings: Phys Exam: VS as below Const'l: a&o x 4, nad Head/Neck: neck supple, no jvd, trachea midline, carotid midline, no cervical /head mass Eyes: dash, nonicteric sclera, eom intact ENT: auditory acuity grossly intact, throat not congested, no nasal deformity Cardio: rrr, no m/r/g, no carotid bruit, nml s1, s2 Pulm: +2L NC; +Expiratory wheezes diffusely; no accessory muscle use, equal nml breath sounds bilaterally, ctab Abd: s/nt/nd, nbs x 4 q, no palpable masses Derm: no rashes, no ulcers, no lesions Extr: no edema, no cyanosis, no calf tenderness, no lesions, no varicosities Neuro: cn II-XII grossly intact, ue and le 5/5 muscle strength bilaterally, no los ue, le bilaterally and core Assessment and Plan - Assessment and Plan (Free Text) Assessment: A/P 66 M with PMHx pertinent for CHF, HTN, CAD, DM, presenting with SOB. Pt 98% satting on 2L NC. Possible superimposed PNA SOB, likely 2/2 CHF Exacerbation with superimposed PNA - Continue GDMT - ECHO - Will reassess Thank you for this interesting consult. Pawel Bermeo DO, PGY - 1, d/w Dr. Arnold
[2016-12-23] MEDS ORDERED: Influenza Vaccine 60 mcg/0.5 mL SYR (4YR UP) IM ONE (10:00)
[2016-12-23] MEDS: Piperacill/Tazo 2.25gm in Dex 2.25 GM/50 ML BAG IVPB SCH ×2 (10:49→18:39)
[2016-12-23] MEDS: Saccharomyces Boulardi 250 mg Cap PO SCH ×2 (10:52→18:38)
[2016-12-23 12:36] LABS: TROPONIN I 0.053 ng/mL (0.00-0.120)
--- NOTE | 2016-12-23 14:33 | CP.PCM.CON ---
History of Present Illness - History of Present Illness History of Present Illness: HPI: 66 [place] island[place] M pertinent PMHx HTN DM, presents with worsening sob and cough. Pt was in [facility] two weeks ago, where he developed similar symptoms and was hospitalized for 5 days. ECHO there showed mild MR and MVP with 55% EF. He states that the doctor there told him to 'travel carefully and not exert himself ,' when he was d/c'd with a dx of CHF. This episode of sob started day before yesterday, and progressively got worse. Pt stated that walking up the stairs made it worse, and since he was working so hard to breathe, he decided to come to the hospital. Of note, patient sleeps using three pillows. Cough is productive with white sputum. Also of note, patient was febrile, was placed on BiPAP, as well as 20 mg of lasix and started on Vanc and Zosyn, when first admitted. At this time, pt denies f/ch/cp/n/v/d/dysuria/frequency/urgency/hematuria/ hematochezia/hematemesis. Is still mildly sob, but feels better. PSHx: Amputation of Toes (digits 1,2,3) of Right Foot (2011) PMHx: Community Acquired Pneumonia, Pulmonary Edema, CHF, HTN, CAD, DM 2, Psoriasis, /ckd and proteinuria All: NKDA SocHx: Patient quit smoking 27 years ago. Patient smoked for 22 years (1.5 packs per day) (33 pack year); +social etoh; denies illicits Hosp: [facility], two weeks ago, for URI VS PNA FamHx: Lung CA; no CKD Hosp course- s/p CTA- no pulminary emboli Initial CXR consistent with CHF Review of Systems - Constitutional Constitutional: Weight Gain, Weakness - EENT Eyes: absent: As Per HPI, Blind Spots, Blurred Vision, Change in Vision, Decreased Night Vision, Diplopia, Discharge, Dry Eye, Exophthalmos, Floaters, Irritation, Itchy Eyes, Loss of Peripheral Vision, Pain, Photophobia, Requires Corrective Lenses, Sees Flashes, Spots in Vision, Tunnel Vision, Other Visual Disturbances, Loss of Vision, Other Ears: absent: As Per HPI, Decreased Hearing, Ear Discharge, Ear Pain, Tinnitus, Abnormal Hearing, Disequilibrium, Dizziness, Other Nose/Mouth/Throat: absent: As Per HPI, Epistaxis, Nasal Congestion, Nasal Discharge, Nasal Obstruction, Nasal Trauma, Nose Pain, Post Nasal Drip, Sinus Pain, Sinus Pressure, Bleeding Gums, Change in Voice, Dental Pain, Dry Mouth, Dysphagia, Halitosis, Hoarsness, Lip Swelling, Mouth Lesions, Mouth Pain, Odynophagia, Sore Throat, Throat Swelling, Tongue Swelling, Facial Pain, Neck Pain, Neck Mass, Other - Cardiovascular Cardiovascular: Dyspnea on Exertion, Leg Edema - Respiratory Respiratory: As Per HPI - Gastrointestinal Gastrointestinal: Bloating, Nausea - Genitourinary Genitourinary: Voiding Freq/Small Amts - Musculoskeletal Musculoskeletal: Muscle Weakness, Myalgias - Integumentary Integumentary: absent: As Per HPI, Acne, Alopecia, Bleeding Lesions, Change in Hair, Change in Nails, Change in Pigmentation, Changing Lesions, Dry Skin, Erythema, Furuncle, Hirsutism, Lesions, New Lesions, Non-Healing Lesions, Photosensitivity, Pruritus, Rash, Skin Pain, Skin Ulcer, Sores, Striae, Swelling , Unusual Bruising, Wounds, Jaundice, Other - Neurological Neurological: absent: As Per HPI, Abnormal Gait, Abnormal Hearing, Abnormal Movements, Abnormal Speech, Behavioral Changes, Burning Sensations, Confusion, Convulsions, Disequilibrium, Dizziness, Numbness, Focal Weakness, Frequent Falls , Headaches, Lack of Coordination, Loss of Vision, Memory Loss, Paresthesias, Radicular Pain, Restless Legs, Sensory Deficit, Syncope, Tingling, Tremor, Vertigo, Weakness, Other Visual Disturbances, Other Past Patient History - Past Medical History & Family History Past Family History: Reviewed and not pertinent Pertinent Family History: no CKD - Past Social History Smoking Status: Former Smoker Chewing Tobacco Use: No Cigar Use: No Alcohol: Occasional Drugs: Denies - CARDIAC Hx Hypertension: Yes - PULMONARY Hx Pneumonia: Yes - NEUROLOGICAL Hx Neurological Disorder: No - HEENT Hx HEENT Problems: No - RENAL Hx Chronic Kidney Disease: No - ENDOCRINE/METABOLIC Hx Diabetes Mellitus Type 2: Yes - HEMATOLOGICAL/ONCOLOGICAL Hx Blood Transfusions: No - INTEGUMENTARY Other/Comment: psoriasis. LE color brownish - MUSCULOSKELETAL/RHEUMATOLOGICAL Hx Falls: No - GASTROINTESTINAL Hx Gastrointestinal Disorders: No - GENITOURINARY/GYNECOLOGICAL Hx Genitourinary Disorders: No - PSYCHIATRIC Hx Substance Use: No - SURGICAL HISTORY Hx Surgeries: Yes Other/Comment: Right foot - ANESTHESIA Hx Anesthesia: Yes Hx Anesthesia Reactions: No Hx Malignant Hyperthermia: No Has any member of the family had a problem w/ anesthesia?: No Meds Allergies/Adverse Reactions: Allergies Allergy/AdvReac Type Severity Reaction Status Date / Time No Known Allergies Allergy Unverified 12/21/16 11:26 - Medications Medications: Current Medications Acetaminophen (Tylenol 325mg Tab) 650 mg PO Q6 PRN PRN Reason: Fever >100.4 F Last Admin: 12/22/16 08:14 Dose: 650 mg Docusate Sodium (Colace) 100 mg PO BID PRN PRN Reason: Constipation Furosemide (Lasix) 20 mg IVP DAILY [facility] Last Admin: 12/23/16 10:50 Dose: 20 mg Heparin Sodium (Porcine) (Heparin) 5,000 units SC Q8 [facility] Last Admin: 12/23/16 13:38 Dose: 5,000 units Piperacillin Sod/Tazobactam Sod (Zosyn 2.25 Gm Iv Premix) 2.25 gm in 50 mls @ 100 mls/hr IVPB Q8H [facility] Last Admin: 12/23/16 10:49 Dose: 100 mls/hr Ibuprofen (Motrin Tab) 400 mg PO Q6 PRN PRN Reason: Pain, moderate (4-7) Insulin Human Regular (Novolin R) 0 unit SC ACHS [facility] PRN Reason: Protocol Last Admin: 12/23/16 12:47 Dose: Not Given Losartan Potassium (Cozaar) 100 mg PO DAILY [facility] Last Admin: 12/23/16 10:50 Dose: 100 mg Metoprolol Tartrate (Lopressor) 25 mg PO BID [facility] Last Admin: 12/23/16 10:50 Dose: 25 mg Mupirocin (Bactroban Ointment) 1 gm TOP BID [facility] Last Admin: 12/23/16 10:54 Dose: 1 applic Ondansetron HCl (Zofran Inj) 4 mg IVP Q6 PRN PRN Reason: Nausea/Vomiting Rosuvastatin Calcium (Crestor) 20 mg PO HS [facility] Last Admin: 12/22/16 21:45 Dose: 20 mg Saccharomyces Boulardii (Florastor) 250 mg PO BID [facility] Last Admin: 12/23/16 10:52 Dose: 250 mg Spironolactone (Aldactone) 25 mg PO DAILY [facility] Last Admin: 12/23/16 10:50 Dose: 25 mg Physical Exam - Constitutional Appears: Non-toxic, No Acute Distress, Chronically Ill - Head Exam Head Exam: ATRAUMATIC, NORMAL INSPECTION - Eye Exam Eye Exam: EOMI, Normal appearance - Neck Exam Neck exam: Positive for: Normal Inspection. Negative for: Tenderness - Respiratory Exam Respiratory Exam: Rhonchi, NORMAL BREATHING PATTERN - Cardiovascular Exam Cardiovascular Exam: REGULAR RHYTHM, +S1 - GI/Abdominal Exam GI & Abdominal Exam: Distended, Soft - Extremities Exam Extremities exam: Positive for: pedal edema, tenderness - Neurological Exam Neurological exam: CN II-XII Intact, Oriented x3 - Skin Skin Exam: Rash, Warm Results - Vital Signs Recent Vital Signs: Last Vital Signs Temp 98.1 F 12/23/16 07:20 Pulse 81 12/23/16 13:35 Resp 20 12/23/16 07:20 BP 127/89 12/23/16 10:50 Pulse Ox 98 12/23/16 07:20 - Labs Result Diagrams: 12/23/16 06:47 12/23/16 06:47 Labs: Laboratory Results - last 24 hr 12/22/16 12/22/16 12/23/16 16:17 21:14 06:25 WBC RBC Hgb Hct MCV MCH MCHC RDW Plt Count MPV Neut % (Auto) Lymph % (Auto) Bond % (Auto) Eos % (Auto) Baso % (Auto) Neut # Lymph # Bond # Eos # Baso # Sodium Potassium Chloride Carbon Dioxide Anion Gap BUN Creatinine Est GFR ( Amer) Est GFR (Non-Af Amer) POC Glucose (mg/dL) 133 H 142 H 92 Random Glucose Calcium Phosphorus Magnesium Total Bilirubin AST ALT Alkaline Phosphatase Troponin I NT-Pro-B Natriuret Pep Total Protein Albumin Globulin Albumin/Globulin Ratio Random Vancomycin 12/23/16 12/23/16 12/23/16 06:47 06:47 12:01 WBC 4.4 L RBC 3.65 L Hgb 10.7 L Hct 32.0 L MCV 87.7 MCH 29.3 MCHC 33.4 RDW 13.9 Plt Count 207 MPV 7.1 L Neut % (Auto) 43.5 L Lymph % (Auto) 38.1 Bond % (Auto) 12.3 H Eos % (Auto) 5.6 H Baso % (Auto) 0.5 Neut # 1.9 Lymph # 1.7 Bond # 0.5 Eos # 0.2 Baso # 0.0 Sodium 132 Potassium 4.3 Chloride 98 Carbon Dioxide 24 Anion Gap 13 BUN 25 H Creatinine 2.7 H Est GFR ( Amer) 29 Est GFR (Non-Af Amer) 24 POC Glucose (mg/dL) Random Glucose 93 Calcium 7.5 L Phosphorus 4.9 H Magnesium 1.7 Total Bilirubin 1.0 AST 34 ALT 39 Alkaline Phosphatase 54 Troponin I 0.0530 NT-Pro-B Natriuret Pep 480 Total Protein 6.9 Albumin 3.5 Globulin 3.4 Albumin/Globulin Ratio 1.0 Random Vancomycin 12/23/16 12:39 WBC RBC Hgb Hct MCV MCH MCHC RDW Plt Count MPV Neut % (Auto) Lymph % (Auto) Bond % (Auto) Eos % (Auto) Baso % (Auto) Neut # Lymph # Bond # Eos # Baso # Sodium Potassium Chloride Carbon Dioxide Anion Gap BUN Creatinine Est GFR ( Amer) Est GFR (Non-Af Amer) POC Glucose (mg/dL) Random Glucose Calcium Phosphorus Magnesium Total Bilirubin AST ALT Alkaline Phosphatase Troponin I NT-Pro-B Natriuret Pep Total Protein Albumin Globulin Albumin/Globulin Ratio Random Vancomycin 11.77 Assessment & Plan (1) CKD stage 3 due to type 2 diabetes mellitus Status: Acute (2) PVD (peripheral vascular disease) Status: Acute (3) Diastolic CHF Status: Acute Priority: High (4) Proteinuria Status: Acute - Assessment and Plan (Free Text) Assessment: AMPARO likely from contrast dye from CTA r/o nephrotic syndrome from DM has CKD 3 from DM 2 presentation consistent with CHF Plan: Stop NSAIDs Stop MARLEN I for now Serial chemistries renal US protein excretion rate
--- NOTE | 2016-12-23 16:38 | CP.PCM.CON ---
History of Present Illness - History of Present Illness History of Present Illness: PATIENT REFERRED FOR ID EVAL OF PNEUMONIA 66 year old Malian male is presenting with worsening shortness of breath and cough which worsened 2 weeks ago when the patient went to the [facility]. There he had a hospitalization of 5 days where he was given antibiotics for 5 days. There he was also diagnosed with Congestive Heart Failure Patient states he came [place] to the [place] last Wednesday and his shortness of breath and cough continued to worsen The cough is productive of small amounts of white sputum. Because of recent hospitalization, broad spectrum rx for HCAP was ordered and ID consult requested PMHx: Community Acquired Pneumonia, Pulmonary Edema, CHF, HTN, CAD, DM, Psiorasis PSHx: Amputation of Toes (digits 1,2,3) of Right Foot (2011) Allergies: NKDA Social: Patient quit smoking 27 years ago. Patient smoked for 22 years (1.5 packs per day) (33 pack year). Patient drinks alcohol socially and denies recreational drug use. Works as an storeperson. Lives in an apartment with his and 1 child. Patient has 5 children in total. Family Hx: Mother - denies, DM; Father - lung cancer Review of Systems - Constitutional Constitutional: As Per HPI, Chills, Fever, Malaise - EENT Eyes: absent: As Per HPI, Blind Spots, Blurred Vision, Change in Vision, Decreased Night Vision, Diplopia, Discharge, Dry Eye, Exophthalmos, Floaters, Irritation, Itchy Eyes, Loss of Peripheral Vision, Pain, Photophobia, Requires Corrective Lenses, Sees Flashes, Spots in Vision, Tunnel Vision, Other Visual Disturbances, Loss of Vision, Other Ears: absent: As Per HPI, Decreased Hearing, Ear Discharge, Ear Pain, Tinnitus, Abnormal Hearing, Disequilibrium, Dizziness, Other Nose/Mouth/Throat: absent: As Per HPI, Epistaxis, Nasal Congestion, Nasal Discharge, Nasal Obstruction, Nasal Trauma, Nose Pain, Post Nasal Drip, Sinus Pain, Sinus Pressure, Bleeding Gums, Change in Voice, Dental Pain, Dry Mouth, Dysphagia, Halitosis, Hoarsness, Lip Swelling, Mouth Lesions, Mouth Pain, Odynophagia, Sore Throat, Throat Swelling, Tongue Swelling, Facial Pain, Neck Pain, Neck Mass, Other - Cardiovascular Cardiovascular: As Per HPI - Respiratory Respiratory: As Per HPI, Cough, Dyspnea. absent: Hemoptysis - Gastrointestinal Gastrointestinal: absent: As Per HPI, Abdominal Pain, Belching, Bloating, Change in Bowel Habits, Change in Stool Character, Coffee Ground Emesis, Constipation, Cramping, Diarrhea, Dyspepsia, Dysphagia, Early Satiety, Excessive Flatus, Fecal Incontinence, Heartburn, Hematemesis, Hematochezia, Loose Stools, Melena, Nausea, Odynophagia, Temesmus, Vomiting, Other - Genitourinary Genitourinary: absent: As Per HPI, Change in Urinary Stream, Difficulty Urinating, Dysuria, Flank Pain, Hematuria, Pyuria, Nocturia, Urinary Incontinence, Urinary Frequency, Urinary Hesitance, Urinary Urgency, Voiding Freq/Small Amts, Freq UTI, Hx Renal/Bladder Calculi, Hx /Renal Surgery, Bladder Distension, Other - Musculoskeletal Musculoskeletal: absent: As Per HPI, Abnormal Gait, Arthralgias, Atrophy, Back Pain, Deformity, Joint Swelling, Limited Range of Motion, Loss of Height, Muscle Cramps, Muscle Weakness, Myalgias, Neck Pain, Numbness, Radiating Pain into Limb, Stiffness, Tingling, Other - Integumentary Integumentary: absent: As Per HPI, Acne, Alopecia, Bleeding Lesions, Change in Hair, Change in Nails, Change in Pigmentation, Changing Lesions, Dry Skin, Erythema, Furuncle, Hirsutism, Lesions, New Lesions, Non-Healing Lesions, Photosensitivity, Pruritus, Rash, Skin Pain, Skin Ulcer, Sores, Striae, Swelling , Unusual Bruising, Wounds, Jaundice, Other - Neurological Neurological: absent: As Per HPI, Abnormal Gait, Abnormal Hearing, Abnormal Movements, Abnormal Speech, Behavioral Changes, Burning Sensations, Confusion, Convulsions, Disequilibrium, Dizziness, Numbness, Focal Weakness, Frequent Falls , Headaches, Lack of Coordination, Loss of Vision, Memory Loss, Paresthesias, Radicular Pain, Restless Legs, Sensory Deficit, Syncope, Tingling, Tremor, Vertigo, Weakness, Other Visual Disturbances, Other - Psychiatric Psychiatric: absent: As Per HPI, Abnormal Sleep Pattern, Anhedonia, Anxiety, Auditory Hallucinations, Behavioral Changes, Change in Appetite, Change in Libido, Confusion, Depression, Difficulty Concentrating, Hallucinations, Homicidal Ideation, Hopelessness, Irritability, Memory Loss, Mood Swings, Panic Attacks, Paranoia, Suicidal Ideation, Visual Hallucinations, Tactile Hallucinations, Other - Endocrine Endocrine: absent: As Per HPI, Change in Body Appearance, Change in Libido, Cold Intolorance, Deepening of Voice, Excessive Sweating, Fatigue, Flushing, Heat Intolorance, Increase in Ring/Shoe/Hat Size, Palpitations, Polydipsia, Polyphagia, Polyuria, Other - Hematologic/Lymphatic Hematologic: absent: As Per HPI, Easy Bleeding, Easy Bruising, Lymphadenopathy, Other Past Patient History - Past Medical History & Family History Past Family History: Reviewed and not pertinent - Past Social History Smoking Status: Former Smoker Chewing Tobacco Use: No Cigar Use: No Alcohol: Occasional Drugs: Denies - CARDIAC Hx Hypertension: Yes - PULMONARY Hx Pneumonia: Yes - NEUROLOGICAL Hx Neurological Disorder: No - HEENT Hx HEENT Problems: No - RENAL Hx Chronic Kidney Disease: No - ENDOCRINE/METABOLIC Hx Diabetes Mellitus Type 2: Yes - HEMATOLOGICAL/ONCOLOGICAL Hx Blood Transfusions: No - INTEGUMENTARY Other/Comment: psoriasis. LE color brownish - MUSCULOSKELETAL/RHEUMATOLOGICAL Hx Falls: No - GASTROINTESTINAL Hx Gastrointestinal Disorders: No - GENITOURINARY/GYNECOLOGICAL Hx Genitourinary Disorders: No - PSYCHIATRIC Hx Substance Use: No - SURGICAL HISTORY Hx Surgeries: Yes Other/Comment: Right foot - ANESTHESIA Hx Anesthesia: Yes Hx Anesthesia Reactions: No Hx Malignant Hyperthermia: No Has any member of the family had a problem w/ anesthesia?: No Meds Allergies/Adverse Reactions: Allergies Allergy/AdvReac Type Severity Reaction Status Date / Time No Known Allergies Allergy Unverified 12/21/16 11:26 - Medications Medications: Current Medications Acetaminophen (Tylenol 325mg Tab) 650 mg PO Q6 PRN PRN Reason: Fever >100.4 F Last Admin: 12/22/16 08:14 Dose: 650 mg Albuterol/Ipratropium (Duoneb 3 Mg/0.5 Mg (3 Ml) Ud) 3 ml INH RQ6 [facility] Docusate Sodium (Colace) 100 mg PO BID PRN PRN Reason: Constipation Furosemide (Lasix) 20 mg IVP DAILY [facility] Last Admin: 12/23/16 10:50 Dose: 20 mg Heparin Sodium (Porcine) (Heparin) 5,000 units SC Q8 [facility] Last Admin: 12/23/16 13:38 Dose: 5,000 units Piperacillin Sod/Tazobactam Sod (Zosyn 2.25 Gm Iv Premix) 2.25 gm in 50 mls @ 100 mls/hr IVPB Q8H [facility] Last Admin: 12/23/16 10:49 Dose: 100 mls/hr Insulin Human Regular (Novolin R) 0 unit SC ACHS [facility] PRN Reason: Protocol Last Admin: 12/23/16 12:47 Dose: Not Given Metoprolol Tartrate (Lopressor) 25 mg PO BID [facility] Last Admin: 12/23/16 10:50 Dose: 25 mg Mupirocin (Bactroban Ointment) 1 gm TOP BID [facility] Last Admin: 12/23/16 10:54 Dose: 1 applic Ondansetron HCl (Zofran Inj) 4 mg IVP Q6 PRN PRN Reason: Nausea/Vomiting Promethazine HCl/Codeine (Phenergan/Codeine Oral Syrup) 5 ml PO Q4 PRN PRN Reason: Cough Rosuvastatin Calcium (Crestor) 20 mg PO HS [facility] Last Admin: 12/22/16 21:45 Dose: 20 mg Saccharomyces Boulardii (Florastor) 250 mg PO BID [facility] Last Admin: 12/23/16 10:52 Dose: 250 mg Physical Exam - Constitutional Appears: Non-toxic, Chronically Ill - Head Exam Head Exam: NORMOCEPHALIC - Eye Exam Eye Exam: PERRL. absent: Scleral icterus - ENT Exam ENT Exam: Mucous Membranes Dry, Normal External Ear Exam - Neck Exam Neck exam: Negative for: Lymphadenopathy, Thyromegaly - Respiratory Exam Respiratory Exam: Decreased Breath Sounds, Clear to Auscultation Bilateral - Cardiovascular Exam Cardiovascular Exam: Tachycardia, REGULAR RHYTHM, +S1, +S2, Systolic Murmur - GI/Abdominal Exam GI & Abdominal Exam: Diminished Bowel Sounds, Distended, Soft. absent: Guarding , Rebound, Rigid, Tenderness - Rectal Exam Rectal Exam: Deferred - Exam Exam: NORMAL INSPECTION - Extremities Exam Extremities exam: Positive for: pedal edema, pedal pulses present. Negative for : calf tenderness, tenderness Additional comments: dark discoloration of skin both lower extremities - Back Exam Back exam: absent: CVA tenderness (L), CVA tenderness (R), paraspinal tenderness - Neurological Exam Neurological exam: Alert, CN II-XII Intact, Oriented x3, Reflexes Normal - Psychiatric Exam Psychiatric exam: Normal Affect - Skin Skin Exam: Dry Results - Vital Signs Recent Vital Signs: Last Vital Signs Temp 98.1 F 12/23/16 07:20 Pulse 81 12/23/16 13:35 Resp 20 12/23/16 07:20 BP 127/89 12/23/16 10:50 Pulse Ox 98 12/23/16 07:20 - Labs Result Diagrams: 12/23/16 06:47 12/23/16 06:47 Labs: Laboratory Results - last 24 hr 12/22/16 12/23/16 12/23/16 21:14 06:25 06:47 WBC 4.4 L RBC 3.65 L Hgb 10.7 L Hct 32.0 L MCV 87.7 MCH 29.3 MCHC 33.4 RDW 13.9 Plt Count 207 MPV 7.1 L Neut % (Auto) 43.5 L Lymph % (Auto) 38.1 [place] % (Auto) 12.3 H Eos % (Auto) 5.6 H Baso % (Auto) 0.5 Neut # 1.9 Lymph # 1.7 [place] # 0.5 Eos # 0.2 Baso # 0.0 Sodium Potassium Chloride Carbon Dioxide Anion Gap BUN Creatinine Est GFR ( Amer) Est GFR (Non-Af Amer) POC Glucose (mg/dL) 142 H 92 Random Glucose Calcium Phosphorus Magnesium Total Bilirubin AST ALT Alkaline Phosphatase Troponin I NT-Pro-B Natriuret Pep Total Protein Albumin Globulin Albumin/Globulin Ratio Random Vancomycin 12/23/16 12/23/16 12/23/16 06:47 11:11 12:01 WBC RBC Hgb Hct MCV MCH MCHC RDW Plt Count MPV Neut % (Auto) Lymph % (Auto) [place] % (Auto) Eos % (Auto) Baso % (Auto) Neut # Lymph # [place] # Eos # Baso # Sodium 132 Potassium 4.3 Chloride 98 Carbon Dioxide 24 Anion Gap 13 BUN 25 H Creatinine 2.7 H Est GFR ( Amer) 29 Est GFR (Non-Af Amer) 24 POC Glucose (mg/dL) 127 H Random Glucose 93 Calcium 7.5 L Phosphorus 4.9 H Magnesium 1.7 Total Bilirubin 1.0 AST 34 ALT 39 Alkaline Phosphatase 54 Troponin I 0.0530 NT-Pro-B Natriuret Pep 480 Total Protein 6.9 Albumin 3.5 Globulin 3.4 Albumin/Globulin Ratio 1.0 Random Vancomycin 12/23/16 12:39 WBC RBC Hgb Hct MCV MCH MCHC RDW Plt Count MPV Neut % (Auto) Lymph % (Auto) [place] % (Auto) Eos % (Auto) Baso % (Auto) Neut # Lymph # [place] # Eos # Baso # Sodium Potassium Chloride Carbon Dioxide Anion Gap BUN Creatinine Est GFR ( Amer) Est GFR (Non-Af Amer) POC Glucose (mg/dL) Random Glucose Calcium Phosphorus Magnesium Total Bilirubin AST ALT Alkaline Phosphatase Troponin I NT-Pro-B Natriuret Pep Total Protein Albumin Globulin Albumin/Globulin Ratio Random Vancomycin 11.77 Assessment & Plan (1) Diastolic CHF Status: Acute Priority: High (2) PVD (peripheral vascular disease) Status: Acute (3) Pneumonia Status: Acute Priority: High (4) Proteinuria Status: Acute (5) CKD stage 3 due to type 2 diabetes mellitus Status: Chronic (6) Diabetes Status: Chronic Priority: Medium - Assessment and Plan (Free Text) Assessment: add zyvox to cover MRSA for HCAP pending cultures in view or renal impairment
--- NOTE | 2016-12-23 18:08 | US ---
EXAM: US Retroperitoneal Complete, Renal EXAM DATE/TIME: 12/23/2016 2:40 PM CLINICAL HISTORY: 66 years old, male; Signs and symptoms; Other: Bakari TECHNIQUE: Real-time ultrasound of the retroperitoneum (complete) with image documentation. COMPARISON: There are no prior studies for comparison. FINDINGS: Aorta: Aorta is obscured by bowel gas. Right kidney: Right kidney measures approximately 12.2 x 4.8 x 6 cm.Corticomedullary differentiation is not visualized. There is no pelvocaliectasis. Left kidney: Left kidney measures approximately 11 x 5.5 x 5.5 cm. Cortical medullary differentiation is poorly visualized.There is no pelvocaliectasis. Bladder: Bladder is empty IMPRESSION: Normal size no hydronephrosis; slightly limited evaluation secondary to body habitus
[2016-12-23] MEDS: Promethazine/Cod 6.25mg-10mg/5ml Syr UD PO PRN (18:45)
[2016-12-23] MEDS: Albuterol-Ipratrop 3 mg / 0.5 (3 ml) UD INH SCH (19:56)
[2016-12-23 20:30] LABS: PROCALCITONIN SERUM 0.13 NG/ML (0.19-0.49)
[2016-12-23 20:33] LABS: LEGIONELLA AG URINE NEGATIVE (NEGATIVE)
[2016-12-23] MEDS: Linezolid 600 mg in D5W 300 ml 600 MG/300 ML BAG IVPB SCH (22:22)
[2016-12-24] MEDS: Albuterol-Ipratrop 3 mg / 0.5 (3 ml) UD INH SCH ×4 (01:13→19:34)
[2016-12-24] MEDS: Piperacill/Tazo 2.25gm in Dex 2.25 GM/50 ML BAG IVPB SCH ×3 (02:10→18:09)
[2016-12-24] MEDS: Promethazine/Cod 6.25mg-10mg/5ml Syr UD PO PRN ×2 (02:53→09:49)
--- NOTE | 2016-12-24 05:59 | CARD ---
APPROVED REPORT EXAM: Two-dimensional and M-mode echocardiogram with Doppler and color Doppler. Other Information Quality : GoodRhythm : NSR INDICATION Dyspnea Congestive Heart Failure PNEUMONIA RISK FACTORS Diabetes M-Mode DIMENSIONS RVDd2.50 (2.1-3.2cm)Left Atrium (MM)4.50 (2.5-4.0cm) IVSd1.56 (0.7-1.1cm)Aortic Root3.50 (2.2-3.7cm) LVDd6.29 (4.0-5.6cm)Aortic Cusp Exc.2.33 (1.5-2.0cm) PWd1.21 (0.7-1.1cm)FS (%) 34 % LVDs4.14 (2.0-3.8cm)LVEF (%)62 (>50%) Mitral Valve MV E [id number]/sMV A Zbpaziie50.3cm/sE/A ratio1.5 TDI E/Lateral E'0.0E/Medial E'0.0 Tricuspid Valve TR Peak [id number]/sTR Peak [id number] LEFT VENTRICLE The left ventricle is normal size. There is mild to moderate concentric left ventricular hypertrophy. Left ventricle systolic function is normal. The Ejection Fraction is 60-65%. There is normal LV segmental wall motion. The left ventricular diastolic function is normal. RIGHT VENTRICLE The right ventricle is normal size. There is normal right ventricular wall thickness. The right ventricular systolic function is normal. ATRIA The left atrium is mildly dilated. The right atrium size is normal. The interatrial septum is intact with no evidence for an atrial septal defect. AORTIC VALVE The aortic valve is normal in structure. No aortic regurgitation is present. There is no aortic valvular stenosis. MITRAL VALVE The mitral valve is normal in structure. There is no evidence of mitral valve prolapse. There is no mitral valve stenosis. Mitral regurgitation is mild. TRICUSPID VALVE The tricuspid valve is normal in structure. There is mild tricuspid regurgitation. Right ventricular systolic pressure is estimated at 30-40 mmHg. There is mild pulmonary hypertension. PULMONIC VALVE The pulmonic valve is not well visualized. There is no pulmonic valvular regurgitation. GREAT VESSELS The aortic root is normal in size. PERICARDIAL EFFUSION There is no significant pericardial effusion. <Conclusion> Left ventricle systolic function is normal. The Ejection Fraction is 60-65%. Hypertensive heart disease. No aortic regurgitation is present. Mitral regurgitation is mild. There is mild tricuspid regurgitation. There is mild pulmonary hypertension. There is no pulmonic valvular regurgitation.
[2016-12-24 07:29] LABS: BASO % 0.4 % (0.0-2.0); EOS # 0.3 K/uL (0.0-0.7); EOS % 8.3 % (0.0-4.0); HEMATOCRIT 32.2 % (35.0-51.0); LYMPH # 1.2 K/uL (1.0-4.3); LYMPH % 33.4 % (20.0-40.0); MEAN CELL VOLUME 88.5 fL (80.0-94.0); MEAN CORPUSCULAR HEMOGLOBIN 28.6 pg (27.0-31.0); MEAN CORPUSCULAR HGB CONC 32.4 g/dL (33.0-37.0); MEAN PLATELET VOLUME 7.2 fL (7.2-11.7); MONO # 0.4 K/uL (0.0-0.8); NRBC % 0.1 % (0.0-2.0); RED CELL DISTRIBUTION WIDTH 13.9 % (11.5-14.5); WHITE BLOOD COUNT 3.7 K/uL (4.8-10.8)
--- NOTE | 2016-12-24 07:41 | CP.PCM.PN ---
<Everton Mcconnell - Last Filed: 12/24/16 13:40> Subjective - Date & Time of Evaluation Date of Evaluation: 12/24/16 Time of Evaluation: 07:36 - Subjective Subjective: Patient seen and examined. Breathing much better Still complaining of dry cough No other complaints at this time Objective - Vital Signs/Intake and Output Vital Signs (last 24 hours): Temp Pulse Resp BP Pulse Ox 97.8 F 64 20 102/64 100 12/23/16 23:08 12/23/16 23:36 12/23/16 23:08 12/23/16 23:08 12/23/16 23:08 Intake and Output: 12/24/16 12/24/16 06:59 18:59 Intake Total 410 Balance 410 - Medications Medications: Current Medications Acetaminophen (Tylenol 325mg Tab) 650 mg PO Q6 PRN PRN Reason: Fever >100.4 F Last Admin: 12/22/16 08:14 Dose: 650 mg Albuterol/Ipratropium (Duoneb 3 Mg/0.5 Mg (3 Ml) Ud) 3 ml INH RQ6 [facility] Last Admin: 12/24/16 07:23 Dose: 3 ml Aspirin (Aspirin Chewable) 81 mg PO DAILY [facility] Docusate Sodium (Colace) 100 mg PO BID PRN PRN Reason: Constipation Furosemide (Lasix) 20 mg IVP DAILY [facility] Last Admin: 12/23/16 10:50 Dose: 20 mg Heparin Sodium (Porcine) (Heparin) 5,000 units SC Q8 [facility] Last Admin: 12/24/16 05:43 Dose: 5,000 units Piperacillin Sod/Tazobactam Sod (Zosyn 2.25 Gm Iv Premix) 2.25 gm in 50 mls @ 100 mls/hr IVPB Q8H [facility] Last Admin: 12/24/16 02:10 Dose: 100 mls/hr Linezolid (Zyvox 600mg/300ml D5w) 600 mg in 300 mls @ 200 mls/hr IVPB Q12 [facility] Last Admin: 12/23/16 22:22 Dose: 200 mls/hr Insulin Human Regular (Novolin R) 0 unit SC ACHS [facility] PRN Reason: Protocol Last Admin: 12/23/16 22:20 Dose: Not Given Metoprolol Succinate (Toprol Xl) 50 mg PO DAILY [facility] Mupirocin (Bactroban Ointment) 1 gm TOP BID [facility] Last Admin: 12/23/16 18:37 Dose: Not Given Pantoprazole Sodium (Protonix Ec Tab) 40 mg PO DAILY [facility] Promethazine HCl/Codeine (Phenergan/Codeine Oral Syrup) 5 ml PO Q4 PRN PRN Reason: Cough Last Admin: 12/24/16 02:53 Dose: 5 ml Rosuvastatin Calcium (Crestor) 20 mg PO HS [facility] Last Admin: 12/23/16 22:21 Dose: 20 mg Saccharomyces Boulardii (Florastor) 250 mg PO BID [facility] Last Admin: 12/23/16 18:38 Dose: 250 mg - Labs Labs: 12/23/16 06:47 12/23/16 06:47 PT 13.3 SECONDS (9.7-12.2) H 12/21/16 12:42 INR 1.2 12/21/16 12:42 APTT 36 SECONDS (21-34) H 12/21/16 12:42 - Additional Findings Additional findings: - Additional Findings Additional findings: - Constitutional Appears: No Acute Distress - Head Exam Head Exam: ATRAUMATIC, NORMAL INSPECTION, NORMOCEPHALIC - Eye Exam Eye Exam: EOMI Pupil Exam: NORMAL ACCOMODATION - ENT Exam ENT Exam: Mucous Membranes Moist - Respiratory Exam Respiratory Exam: Rhonchi, NORMAL BREATHING PATTERN - Cardiovascular Exam Cardiovascular Exam: REGULAR RHYTHM - GI/Abdominal Exam GI & Abdominal Exam: Soft, Normal Bowel Sounds. absent: Distended, Tenderness - Extremities Exam Extremities Exam: Joint Swelling (non pittine edema bilaterly LE) Additional comments: Psoriatic changes bl LE - Neurological Exam Neurological Exam: Alert, Awake, Oriented x3 - Psychiatric Exam Psychiatric exam: Normal Affect, Normal Mood - Skin Skin Exam: Dry, Intact, Normal Color, Warm Assessment and Plan (1) Hypertensive heart and chronic kidney disease stage 3 Assessment & Plan: Nephro (Leonidas) ARF due to CTA dye Renal US negative Cards (Clayton) Trop * 1 - 0.07 * 2 - 0.07 * 3 - 0.08 Echo (record in paper chart) - EF 55%, MVP Repeat Echo - No MVP, EF 60-65 Lipid Panel * TG - 58 * Chol - 109Nitro 0.1 TD QD * LDL - 72 * HDL - 28 Meds * Toprol 50 PO QD Status: Chronic (2) Pneumonia Assessment & Plan: ABG - 7.43, CO2 35, O2 113, Bicarb 24.3 Blood culture - negative x 48 Sputum culture - negative x 48 Procal - 0.15 Meds: * Zosyn * Zyvox Status: Acute (3) Diabetes Assessment & Plan: A1C - 7.5 ISS High Accucheck Status: Chronic (4) Prophylactic measure Assessment & Plan: heparin 5000 AC Q8 Status: Chronic <Charissa Webster V - Last Filed: 12/24/16 22:49> Objective - Vital Signs/Intake and Output Vital Signs (last 24 hours): Temp Pulse Resp BP Pulse Ox 97.8 F 67 20 107/69 100 12/24/16 15:48 12/24/16 15:48 12/24/16 15:48 12/24/16 15:48 12/24/16 15:48 Intake and Output: 12/24/16 12/25/16 18:59 06:59 Intake Total 1050 Output Total 800 Balance 250 - Medications Medications: Current Medications Acetaminophen (Tylenol 325mg Tab) 650 mg PO Q6 PRN PRN Reason: Fever >100.4 F Last Admin: 12/22/16 08:14 Dose: 650 mg Albuterol/Ipratropium (Duoneb 3 Mg/0.5 Mg (3 Ml) Ud) 3 ml INH RQ6 [facility] Last Admin: 12/24/16 19:34 Dose: 3 ml Aspirin (Aspirin Chewable) 81 mg PO DAILY [facility] Last Admin: 12/24/16 09:38 Dose: 81 mg Docusate Sodium (Colace) 100 mg PO BID PRN PRN Reason: Constipation Furosemide (Lasix) 20 mg IVP DAILY [facility] Last Admin: 12/24/16 09:38 Dose: 20 mg Heparin Sodium (Porcine) (Heparin) 5,000 units SC Q8 [facility] Last Admin: 12/24/16 21:14 Dose: 5,000 units Insulin Human Regular (Novolin R) 0 unit SC ACHS [facility] PRN Reason: Protocol Last Admin: 12/24/16 21:13 Dose: Not Given Metoprolol Succinate (Toprol Xl) 50 mg PO DAILY [facility] Last Admin: 12/24/16 09:38 Dose: 50 mg Moxifloxacin HCl (Avelox) 400 mg PO DAILY [facility] Stop: 12/31/16 10:01 Mupirocin (Bactroban Ointment) 1 gm TOP BID [facility] Last Admin: 12/24/16 21:20 Dose: 1 applic Pantoprazole Sodium (Protonix Ec Tab) 40 mg PO DAILY [facility] Last Admin: 12/24/16 09:38 Dose: 40 mg Promethazine HCl/Codeine (Phenergan/Codeine Oral Syrup) 5 ml PO Q4 PRN PRN Reason: Cough Last Admin: 12/24/16 09:49 Dose: 5 ml Rosuvastatin Calcium (Crestor) 20 mg PO HS [facility] Last Admin: 12/23/16 22:21 Dose: 20 mg Saccharomyces Boulardii (Florastor) 250 mg PO BID [facility] Last Admin: 12/24/16 18:09 Dose: 250 mg - Labs Labs: 12/24/16 07:20 12/24/16 07:20 PT 13.3 SECONDS (9.7-12.2) H 12/21/16 12:42 INR 1.2 12/21/16 12:42 APTT 36 SECONDS (21-34) H 12/21/16 12:42 Attending/Attestation - Attestation I have personally seen and examined this patient.: Yes I have fully participated in the care of the patient.: Yes I have reviewed all pertinent clinical information, including history, physical exam and plan: Yes Notes (Text): Patient seen, examined, and case discussed with day-time resident. Patient is pleasant fellow with known history of psoarsis, hx of diastolic chf, mitral valve prolapse, recently hospitalized in the [facility] for pneumonia requiring ICU admission but not intubated, who comes in with worsening shortness of breathe, orthopnea. Patient seen this morning. Undergoing 24 hours urine collection. Patient reports breathing is much better since nebulizer treatments and likewise on my exam, patient has improved airway exchange compared to the day prior. Echocardiogram was repeated. EF improved and no comment regarding mitral valve prolapse. Read ID recommendations, stopped Zosyn and Zyvox this evening, started for Avelox in the morning Per nephrology, patient has chronic kidney disease given renal US result; patient to complete 24hour urine collection. Note: I believe weight recording is inaccurate. i do not believe he has gained 9lbs worth of fluid given he is clincially improving, no edema noted on exam and lung exam is improved compared to yesterday. Will follow-up with cardiology, nephrology, and infectious disease in regards to discharge planning. Assessment and Plan (1) Diastolic Congestive Heart Failure, Acute on Chronic Assessment & Plan: * Cardiology on consult (Dr. Arnold)-->help appreciated * Measure daily weight * measure intake and output * DORON: 0.0860-->0.41012-->0770 * Echo (record in paper chart) - EF 55%, MVP * Pending report echocardiogram report * Lipid Panel * TG - 58 * Chol - 109 * LDL - 72 * HDL - 28 Meds * Lopressor 25 PO BID-->switch to Toprol XL 50mg PO daily (equivalent dose) * d/c Cozaar 100 PO QD given acute renal failure * d/c Aldactone 25 PO QD given acute renal failure * Aspirin 81mg PO daily * Lasix 20mg IV daily * Crestor 20mg POqHS Status: Acute (2) Pneumonia Assessment & Plan: * Infectious Disease (Dr. Santoyo) on the case-->help appreciated * Start on Zyvox (active since 12/23/16)-->discontinued * Switched Avelox 400mg PO daily for 7 days (start 12/25/16) * History of pneumonia; requiring ICU admission recently; Treat as health care acquired pneumonia * ABG - 7.43, CO2 35, O2 113, Bicarb 24.3 * Duonebs 3ml INH RQ6H PRN shortness of breathe * Phenergan w codeine 5ml PO Q 4H PRN cough * Blood culture X2 - negative x 3 days X2 * Sputum culture -pending * Mrsa not detected * Procal - 0.15 Status: Acute (3) Acute on Chronic Renal Failure Assessment & Plan: * Nephrology (Dr. Deutsch/Leonidas) on board * held NSAIDS, d/c arb/jairo, d/c vanco * undergoing 24 hours urine * Renal US completed and reviewed by nephrology Status: Chronic (4) Diabetes Assessment & Plan: * A1C - 7.5 * ISS High * Accucheck QAC and HS * Crestor 20mg POqHS Status: Chronic (5) Prophylactic measure Assessment & Plan: * heparin 5000 AC Q8H for DVT ppx * protonic 40mg IV q daily for GI ppx * Daily weights * intake and outputs Status: Chronic
[2016-12-24 08:07] LABS: BILIRUBIN,TOTAL 0.8 mg/dL (0.2-1.3); CALCIUM 7.5 mg/dl (8.6-10.4); PHOSPHOROUS 4.7 mg/dL (2.5-4.5); POTASSIUM 4.1 mmol/L (3.6-5.2)
[2016-12-24] MEDS: (Novolin R) Insulin Human Regular 100 units/ml vial SC SCH ×4 (08:31→21:13)
[2016-12-24] MEDS: Linezolid 600 mg in D5W 300 ml 600 MG/300 ML BAG IVPB SCH ×2 (09:00→21:14)
[2016-12-24] MEDS: Saccharomyces Boulardi 250 mg Cap PO SCH ×2 (09:38→18:09)
[2016-12-24] MEDS: Metoprolol Succinate 50 mg XL Tab PO SCH (09:38)
[2016-12-24] MEDS: Pantoprazole 40 mg EC Tab PO SCH (09:38)
--- NOTE | 2016-12-24 10:18 | CP.PCM.PN ---
Subjective - Date & Time of Evaluation Date of Evaluation: 12/24/16 Time of Evaluation: 10:18 - Subjective Subjective: Cardiology progress note for Dr. Clayton eBrmeo DO PGY - Pt s/e bedside. Still feeling sob, but feels better. COugh has improved. No further complaints at this time. Objective - Vital Signs/Intake and Output Vital Signs (last 24 hours): Temp Pulse Resp BP Pulse Ox 98.0 F 74 20 117/72 99 12/24/16 08:45 12/24/16 08:45 12/24/16 08:45 12/24/16 09:38 12/24/16 08:45 Intake and Output: 12/24/16 12/24/16 06:59 18:59 Intake Total 410 Balance 410 - Medications Medications: Current Medications Acetaminophen (Tylenol 325mg Tab) 650 mg PO Q6 PRN PRN Reason: Fever >100.4 F Last Admin: 12/22/16 08:14 Dose: 650 mg Albuterol/Ipratropium (Duoneb 3 Mg/0.5 Mg (3 Ml) Ud) 3 ml INH RQ6 [facility] Last Admin: 12/24/16 07:23 Dose: 3 ml Aspirin (Aspirin Chewable) 81 mg PO DAILY [facility] Last Admin: 12/24/16 09:38 Dose: 81 mg Docusate Sodium (Colace) 100 mg PO BID PRN PRN Reason: Constipation Furosemide (Lasix) 20 mg IVP DAILY [facility] Last Admin: 12/24/16 09:38 Dose: 20 mg Heparin Sodium (Porcine) (Heparin) 5,000 units SC Q8 [facility] Last Admin: 12/24/16 05:43 Dose: 5,000 units Piperacillin Sod/Tazobactam Sod (Zosyn 2.25 Gm Iv Premix) 2.25 gm in 50 mls @ 100 mls/hr IVPB Q8H [facility] Last Admin: 12/24/16 09:39 Dose: 100 mls/hr Linezolid (Zyvox 600mg/300ml D5w) 600 mg in 300 mls @ 200 mls/hr IVPB Q12 [facility] Last Admin: 12/24/16 09:00 Dose: 200 mls/hr Insulin Human Regular (Novolin R) 0 unit SC ACHS [facility] PRN Reason: Protocol Last Admin: 12/24/16 08:31 Dose: Not Given Metoprolol Succinate (Toprol Xl) 50 mg PO DAILY [facility] Last Admin: 12/24/16 09:38 Dose: 50 mg Mupirocin (Bactroban Ointment) 1 gm TOP BID [facility] Last Admin: 12/23/16 18:37 Dose: Not Given Pantoprazole Sodium (Protonix Ec Tab) 40 mg PO DAILY [facility] Last Admin: 12/24/16 09:38 Dose: 40 mg Promethazine HCl/Codeine (Phenergan/Codeine Oral Syrup) 5 ml PO Q4 PRN PRN Reason: Cough Last Admin: 12/24/16 09:49 Dose: 5 ml Rosuvastatin Calcium (Crestor) 20 mg PO HS [facility] Last Admin: 12/23/16 22:21 Dose: 20 mg Saccharomyces Boulardii (Florastor) 250 mg PO BID [facility] Last Admin: 12/24/16 09:38 Dose: 250 mg - Labs Labs: 12/24/16 07:20 12/24/16 07:20 PT 13.3 SECONDS (9.7-12.2) H 12/21/16 12:42 INR 1.2 12/21/16 12:42 APTT 36 SECONDS (21-34) H 12/21/16 12:42 - Additional Findings Additional findings: Phys Exam: VS as below Const'l: a&o x 4, nad Head/Neck: neck supple, no jvd, trachea midline, carotid midline, no cervical /head mass Eyes: dash, nonicteric sclera, eom intact ENT: auditory acuity grossly intact, throat not congested, no nasal deformity Cardio: rrr, no m/r/g, no carotid bruit, nml s1, s2 Pulm: +2L NC; +Expiratory wheezes diffusely; no accessory muscle use, equal nml breath sounds bilaterally, ctab Abd: s/nt/nd, nbs x 4 q, no palpable masses Derm: no rashes, no ulcers, no lesions Extr: no edema, no cyanosis, no calf tenderness, no lesions, no varicosities Neuro: cn II-XII grossly intact, ue and le 5/5 muscle strength bilaterally, no los ue, le bilaterally and core Assessment and Plan - Assessment and Plan (Free Text) Assessment: A/P 66 M with PMHx pertinent for CHF, HTN, CAD, DM, presenting with SOB. Pt 98% satting on 2L NC. Possible superimposed PNA SOB, likely 2/2 CHF Exacerbation with superimposed PNA - Continue GDMT - per Nephro, stop MARLEN - I at this time 2/2 AMPARO - ECHO: 62% EF, LV Systolic NML; HTNsive heart dz, No AR, Mild MR, Mild TR, Mild Pulm HTN. - Will reassess Thank you for this interesting consult. Pawel Bermeo DO, PGY - 1, d/w Dr. Arnold
--- NOTE | 2016-12-24 10:45 | CP.PCM.PN ---
Subjective - Date & Time of Evaluation Date of Evaluation: 12/24/16 Time of Evaluation: 10:43 - Subjective Subjective: Alert; no new complaint Less dyspnea UO not recorded Creat sl decrease to 2.5 Renal US- no medullary-cortical differentiation- consistent with CKD Objective - Vital Signs/Intake and Output Vital Signs (last 24 hours): Temp Pulse Resp BP Pulse Ox 98.0 F 74 20 117/72 99 12/24/16 08:45 12/24/16 08:45 12/24/16 08:45 12/24/16 09:38 12/24/16 08:45 Intake and Output: 12/24/16 12/24/16 06:59 18:59 Intake Total 410 Balance 410 - Medications Medications: Current Medications Acetaminophen (Tylenol 325mg Tab) 650 mg PO Q6 PRN PRN Reason: Fever >100.4 F Last Admin: 12/22/16 08:14 Dose: 650 mg Albuterol/Ipratropium (Duoneb 3 Mg/0.5 Mg (3 Ml) Ud) 3 ml INH RQ6 [facility] Last Admin: 12/24/16 07:23 Dose: 3 ml Aspirin (Aspirin Chewable) 81 mg PO DAILY [facility] Last Admin: 12/24/16 09:38 Dose: 81 mg Docusate Sodium (Colace) 100 mg PO BID PRN PRN Reason: Constipation Furosemide (Lasix) 20 mg IVP DAILY [facility] Last Admin: 12/24/16 09:38 Dose: 20 mg Heparin Sodium (Porcine) (Heparin) 5,000 units SC Q8 [facility] Last Admin: 12/24/16 05:43 Dose: 5,000 units Piperacillin Sod/Tazobactam Sod (Zosyn 2.25 Gm Iv Premix) 2.25 gm in 50 mls @ 100 mls/hr IVPB Q8H [facility] Last Admin: 12/24/16 09:39 Dose: 100 mls/hr Linezolid (Zyvox 600mg/300ml D5w) 600 mg in 300 mls @ 200 mls/hr IVPB Q12 [facility] Last Admin: 12/24/16 09:00 Dose: 200 mls/hr Insulin Human Regular (Novolin R) 0 unit SC ACHS [facility] PRN Reason: Protocol Last Admin: 12/24/16 08:31 Dose: Not Given Metoprolol Succinate (Toprol Xl) 50 mg PO DAILY [facility] Last Admin: 12/24/16 09:38 Dose: 50 mg Mupirocin (Bactroban Ointment) 1 gm TOP BID [facility] Last Admin: 12/23/16 18:37 Dose: Not Given Pantoprazole Sodium (Protonix Ec Tab) 40 mg PO DAILY [facility] Last Admin: 12/24/16 09:38 Dose: 40 mg Promethazine HCl/Codeine (Phenergan/Codeine Oral Syrup) 5 ml PO Q4 PRN PRN Reason: Cough Last Admin: 12/24/16 09:49 Dose: 5 ml Rosuvastatin Calcium (Crestor) 20 mg PO HS [facility] Last Admin: 12/23/16 22:21 Dose: 20 mg Saccharomyces Boulardii (Florastor) 250 mg PO BID [facility] Last Admin: 12/24/16 09:38 Dose: 250 mg - Labs Labs: 12/24/16 07:20 12/24/16 07:20 PT 13.3 SECONDS (9.7-12.2) H 12/21/16 12:42 INR 1.2 12/21/16 12:42 APTT 36 SECONDS (21-34) H 12/21/16 12:42 - Constitutional Appears: No Acute Distress, Chronically Ill - Head Exam Head Exam: ATRAUMATIC, NORMAL INSPECTION - Eye Exam Eye Exam: EOMI, Normal appearance - Neck Exam Neck Exam: Normal Inspection. absent: Tenderness - Respiratory Exam Respiratory Exam: Rhonchi, NORMAL BREATHING PATTERN - Cardiovascular Exam Cardiovascular Exam: REGULAR RHYTHM, +S1 - GI/Abdominal Exam GI & Abdominal Exam: Soft. absent: Tenderness - Extremities Exam Extremities Exam: Pedal Edema. absent: Tenderness - Neurological Exam Neurological Exam: Alert, CN II-XII Intact - Skin Skin Exam: Dry, Warm Assessment and Plan (1) CKD stage 3 due to type 2 diabetes mellitus Status: Deleted (2) PVD (peripheral vascular disease) Status: Acute (3) Diastolic CHF Status: Deleted (4) Proteinuria Status: Acute (5) AMPARO (acute kidney injury) Status: Acute - Assessment and Plan (Free Text) Plan: Continue renal workup Hold MARLEN I Small dose lasix due to AMPARO will follow up results
--- NOTE | 2016-12-24 18:29 | CP.PCM.PN ---
Subjective - Date & Time of Evaluation Date of Evaluation: 12/24/16 Time of Evaluation: 10:00 - Subjective Subjective: afebrile alert NAD denies fever no sputum Objective - Vital Signs/Intake and Output Vital Signs (last 24 hours): Temp Pulse Resp BP Pulse Ox 97.8 F 67 20 107/69 100 12/24/16 15:48 12/24/16 15:48 12/24/16 15:48 12/24/16 15:48 12/24/16 15:48 Intake and Output: 12/24/16 12/24/16 06:59 18:59 Intake Total 410 1050 Output Total 800 Balance 410 250 - Medications Medications: Current Medications Acetaminophen (Tylenol 325mg Tab) 650 mg PO Q6 PRN PRN Reason: Fever >100.4 F Last Admin: 12/22/16 08:14 Dose: 650 mg Albuterol/Ipratropium (Duoneb 3 Mg/0.5 Mg (3 Ml) Ud) 3 ml INH RQ6 [facility] Last Admin: 12/24/16 13:33 Dose: 3 ml Aspirin (Aspirin Chewable) 81 mg PO DAILY [facility] Last Admin: 12/24/16 09:38 Dose: 81 mg Docusate Sodium (Colace) 100 mg PO BID PRN PRN Reason: Constipation Furosemide (Lasix) 20 mg IVP DAILY [facility] Last Admin: 12/24/16 09:38 Dose: 20 mg Heparin Sodium (Porcine) (Heparin) 5,000 units SC Q8 [facility] Last Admin: 12/24/16 13:01 Dose: 5,000 units Piperacillin Sod/Tazobactam Sod (Zosyn 2.25 Gm Iv Premix) 2.25 gm in 50 mls @ 100 mls/hr IVPB Q8H [facility] Last Admin: 12/24/16 18:09 Dose: 100 mls/hr Linezolid (Zyvox 600mg/300ml D5w) 600 mg in 300 mls @ 200 mls/hr IVPB Q12 [facility] Last Admin: 12/24/16 09:00 Dose: 200 mls/hr Insulin Human Regular (Novolin R) 0 unit SC ACHS [facility] PRN Reason: Protocol Last Admin: 12/24/16 18:08 Dose: Not Given Metoprolol Succinate (Toprol Xl) 50 mg PO DAILY [facility] Last Admin: 12/24/16 09:38 Dose: 50 mg Mupirocin (Bactroban Ointment) 1 gm TOP BID [facility] Last Admin: 12/24/16 18:08 Dose: Not Given Pantoprazole Sodium (Protonix Ec Tab) 40 mg PO DAILY [facility] Last Admin: 12/24/16 09:38 Dose: 40 mg Promethazine HCl/Codeine (Phenergan/Codeine Oral Syrup) 5 ml PO Q4 PRN PRN Reason: Cough Last Admin: 12/24/16 09:49 Dose: 5 ml Rosuvastatin Calcium (Crestor) 20 mg PO HS [facility] Last Admin: 12/23/16 22:21 Dose: 20 mg Saccharomyces Boulardii (Florastor) 250 mg PO BID [facility] Last Admin: 12/24/16 18:09 Dose: 250 mg - Labs Labs: 12/24/16 07:20 12/24/16 07:20 PT 13.3 SECONDS (9.7-12.2) H 12/21/16 12:42 INR 1.2 12/21/16 12:42 APTT 36 SECONDS (21-34) H 12/21/16 12:42 - Constitutional Appears: Non-toxic, Chronically Ill - Head Exam Head Exam: NORMOCEPHALIC - Eye Exam Eye Exam: PERRL - ENT Exam ENT Exam: Mucous Membranes Dry - Neck Exam Neck Exam: absent: Lymphadenopathy - Respiratory Exam Respiratory Exam: Decreased Breath Sounds - Cardiovascular Exam Cardiovascular Exam: REGULAR RHYTHM - GI/Abdominal Exam GI & Abdominal Exam: Distended - Rectal Exam Rectal Exam: Deferred - Exam Exam: NORMAL INSPECTION - Extremities Exam Extremities Exam: absent: Pedal Edema - Back Exam Back Exam: absent: CVA tenderness (L), CVA tenderness (R) - Neurological Exam Neurological Exam: Alert, Awake, Oriented x3 - Psychiatric Exam Psychiatric exam: Depressed - Skin Skin Exam: Dry Assessment and Plan (1) Diastolic CHF Status: Deleted (2) PVD (peripheral vascular disease) Status: Acute (3) Pneumonia Status: Acute (4) Proteinuria Status: Acute (5) CKD stage 3 due to type 2 diabetes mellitus Status: Deleted (6) Diabetes Status: Chronic - Assessment and Plan (Free Text) Assessment: CHF resolving all cultures neg consider switch to po avelox
[2016-12-25] MEDS: Promethazine/Cod 6.25mg-10mg/5ml Syr UD PO PRN ×2 (00:07→09:26)
[2016-12-25] MEDS: Albuterol-Ipratrop 3 mg / 0.5 (3 ml) UD INH SCH ×3 (01:09→13:30)
--- NOTE | 2016-12-25 02:37 | CP.PCM.PN ---
Subjective - Date & Time of Evaluation Date of Evaluation: 12/25/16 Time of Evaluation: 06:30 - Subjective Subjective: Cardiology progress note for Dr. Clayton Bermeo DO PGY - Pt s/e bedside. Still feeling sob, but feels better. COugh has improved. No further complaints at this time. Objective - Vital Signs/Intake and Output Vital Signs (last 24 hours): Temp Pulse Resp BP Pulse Ox 97.8 F 68 20 117/22 L 100 12/24/16 23:10 12/25/16 00:23 12/24/16 23:10 12/24/16 23:10 12/24/16 23:10 Intake and Output: 12/24/16 12/25/16 18:59 06:59 Intake Total 1050 Output Total 800 Balance 250 - Medications Medications: Current Medications Acetaminophen (Tylenol 325mg Tab) 650 mg PO Q6 PRN PRN Reason: Fever >100.4 F Last Admin: 12/22/16 08:14 Dose: 650 mg Albuterol/Ipratropium (Duoneb 3 Mg/0.5 Mg (3 Ml) Ud) 3 ml INH RQ6 [facility] Last Admin: 12/25/16 01:09 Dose: 3 ml Aspirin (Aspirin Chewable) 81 mg PO DAILY [facility] Last Admin: 12/24/16 09:38 Dose: 81 mg Docusate Sodium (Colace) 100 mg PO BID PRN PRN Reason: Constipation Furosemide (Lasix) 20 mg IVP DAILY [facility] Last Admin: 12/24/16 09:38 Dose: 20 mg Heparin Sodium (Porcine) (Heparin) 5,000 units SC Q8 [facility] Last Admin: 12/24/16 21:14 Dose: 5,000 units Insulin Human Regular (Novolin R) 0 unit SC ACHS [facility] PRN Reason: Protocol Last Admin: 12/24/16 21:13 Dose: Not Given Metoprolol Succinate (Toprol Xl) 50 mg PO DAILY [facility] Last Admin: 12/24/16 09:38 Dose: 50 mg Moxifloxacin HCl (Avelox) 400 mg PO DAILY [facility] Stop: 12/31/16 10:01 Mupirocin (Bactroban Ointment) 1 gm TOP BID [facility] Last Admin: 12/24/16 21:20 Dose: 1 applic Pantoprazole Sodium (Protonix Ec Tab) 40 mg PO DAILY [facility] Last Admin: 12/24/16 09:38 Dose: 40 mg Promethazine HCl/Codeine (Phenergan/Codeine Oral Syrup) 5 ml PO Q4 PRN PRN Reason: Cough Last Admin: 12/25/16 00:07 Dose: 5 ml Rosuvastatin Calcium (Crestor) 20 mg PO HS [facility] Last Admin: 12/24/16 23:05 Dose: Not Given Saccharomyces Boulardii (Florastor) 250 mg PO BID [facility] Last Admin: 12/24/16 18:09 Dose: 250 mg - Labs Labs: 12/24/16 07:20 12/24/16 07:20 PT 13.3 SECONDS (9.7-12.2) H 12/21/16 12:42 INR 1.2 12/21/16 12:42 APTT 36 SECONDS (21-34) H 12/21/16 12:42 - Additional Findings Additional findings: Phys Exam: VS as below Const'l: a&o x 4, nad Head/Neck: neck supple, no jvd, trachea midline, carotid midline, no cervical /head mass Eyes: dash, nonicteric sclera, eom intact ENT: auditory acuity grossly intact, throat not congested, no nasal deformity Cardio: rrr, no m/r/g, no carotid bruit, nml s1, s2 Pulm: +2L NC; +Expiratory wheezes diffusely; no accessory muscle use, equal nml breath sounds bilaterally, ctab Abd: s/nt/nd, nbs x 4 q, no palpable masses Derm: no rashes, no ulcers, no lesions Extr: no edema, no cyanosis, no calf tenderness, no lesions, no varicosities Neuro: cn II-XII grossly intact, ue and le 5/5 muscle strength bilaterally, no los ue, le bilaterally and core Assessment and Plan - Assessment and Plan (Free Text) Assessment: 66 M with PMHx pertinent for CHF, HTN, CAD, DM, presenting with SOB. Pt 98% satting on 2L NC. Possible superimposed PNA SOB, likely 2/2 CHF Exacerbation with superimposed PNA - Continue GDMT - per Nephro, stop MARLEN - I at this time 2/2 AMPARO - ECHO: 62% EF, LV Systolic NML; HTNsive heart dz, No AR, Mild MR, Mild TR, Mild Pulm HTN. - BNP on admission - 1280; went down to 480 HTN - Continue GDMT - Hold MARLEN - I in light of AMPARO CAD - Continue GDMT DM - Continue GDMT Dispo: At this time, no further cardiac intervention. Pt will follow outpatient with Dr. Arnold Thank you for this interesting consult. Pawel Bermeo DO, PGY - 1, d/w Dr. Arnold
[2016-12-25] MEDS: (Novolin R) Insulin Human Regular 100 units/ml vial SC SCH ×3 (07:57→16:54)
[2016-12-25 08:17] LABS: BASO % 0.5 % (0.0-2.0); EOS # 0.3 K/uL (0.0-0.7); EOS % 6.8 % (0.0-4.0); HEMATOCRIT 29.8 % (35.0-51.0); LYMPH # 1.5 K/uL (1.0-4.3); LYMPH % 36.5 % (20.0-40.0); MEAN CELL VOLUME 87.5 fL (80.0-94.0); MEAN CORPUSCULAR HEMOGLOBIN 29.6 pg (27.0-31.0); MEAN CORPUSCULAR HGB CONC 33.8 g/dL (33.0-37.0); MEAN PLATELET VOLUME 7.2 fL (7.2-11.7); MONO # 0.5 K/uL (0.0-0.8); MONO % 11.6 % (0.0-10.0); NRBC % 0.1 % (0.0-2.0); RED CELL DISTRIBUTION WIDTH 13.7 % (11.5-14.5); WHITE BLOOD COUNT 4.1 K/uL (4.8-10.8)
[2016-12-25 08:41] LABS: ALB/GLOB RATIO 1.1 (1.0-2.1); BILIRUBIN,TOTAL 0.8 mg/dL (0.2-1.3); CALCIUM 7.8 mg/dl (8.6-10.4); MAGNESIUM 1.9 mg/dL (1.6-2.3); PHOSPHOROUS 3.7 mg/dL (2.5-4.5); POTASSIUM 4.3 mmol/L (3.6-5.2)
[2016-12-25] MEDS: Pantoprazole 40 mg EC Tab PO SCH (09:26)
[2016-12-25] MEDS: Metoprolol Succinate 50 mg XL Tab PO SCH (09:26)
[2016-12-25] MEDS: Saccharomyces Boulardi 250 mg Cap PO SCH ×2 (09:26→17:52)
--- NOTE | 2016-12-25 14:22 | CP.PCM.PN ---
Subjective - Date & Time of Evaluation Date of Evaluation: 12/25/16 Time of Evaluation: 14:18 - Subjective Subjective: Less dyspneic; feels better creat decreased to 2.3 has non-nephrotic range proteinuria likrly has CKD 3 no other new complaits Objective - Vital Signs/Intake and Output Vital Signs (last 24 hours): Temp Pulse Resp BP Pulse Ox 97.9 F 70 18 127/80 100 12/25/16 08:12 12/25/16 11:58 12/25/16 08:12 12/25/16 09:27 12/25/16 08:12 Intake and Output: 12/25/16 12/25/16 06:59 18:59 Intake Total 240 Balance 240 - Medications Medications: Current Medications Acetaminophen (Tylenol 325mg Tab) 650 mg PO Q6 PRN PRN Reason: Fever >100.4 F Last Admin: 12/22/16 08:14 Dose: 650 mg Albuterol/Ipratropium (Duoneb 3 Mg/0.5 Mg (3 Ml) Ud) 3 ml INH RQ6 [facility] Last Admin: 12/25/16 13:30 Dose: 3 ml Aspirin (Aspirin Chewable) 81 mg PO DAILY [facility] Last Admin: 12/25/16 09:26 Dose: 81 mg Docusate Sodium (Colace) 100 mg PO BID PRN PRN Reason: Constipation Furosemide (Lasix) 20 mg IVP DAILY [facility] Last Admin: 12/25/16 09:27 Dose: 20 mg Heparin Sodium (Porcine) (Heparin) 5,000 units SC Q8 [facility] Last Admin: 12/25/16 14:17 Dose: 5,000 units Insulin Human Regular (Novolin R) 0 unit SC ACHS [facility] PRN Reason: Protocol Last Admin: 12/25/16 11:51 Dose: Not Given Metoprolol Succinate (Toprol Xl) 50 mg PO DAILY [facility] Last Admin: 12/25/16 09:26 Dose: 50 mg Moxifloxacin HCl (Avelox) 400 mg PO DAILY [facility] Stop: 12/31/16 10:01 Last Admin: 12/25/16 09:26 Dose: 400 mg Mupirocin (Bactroban Ointment) 1 gm TOP BID [facility] Last Admin: 12/25/16 09:27 Dose: 1 applic Pantoprazole Sodium (Protonix Ec Tab) 40 mg PO DAILY [facility] Last Admin: 12/25/16 09:26 Dose: 40 mg Promethazine HCl/Codeine (Phenergan/Codeine Oral Syrup) 5 ml PO Q4 PRN PRN Reason: Cough Last Admin: 12/25/16 09:26 Dose: 5 ml Rosuvastatin Calcium (Crestor) 20 mg PO HS [facility] Last Admin: 12/24/16 23:05 Dose: Not Given Saccharomyces Boulardii (Florastor) 250 mg PO BID [facility] Last Admin: 12/25/16 09:26 Dose: 250 mg - Labs Labs: 12/25/16 08:08 12/25/16 08:08 PT 13.3 SECONDS (9.7-12.2) H 12/21/16 12:42 INR 1.2 12/21/16 12:42 APTT 36 SECONDS (21-34) H 12/21/16 12:42 - Constitutional Appears: No Acute Distress, Chronically Ill - Head Exam Head Exam: ATRAUMATIC, NORMAL INSPECTION - Eye Exam Eye Exam: EOMI, Normal appearance - Neck Exam Neck Exam: Normal Inspection. absent: Tenderness - Respiratory Exam Respiratory Exam: Clear to Ausculation Bilateral, NORMAL BREATHING PATTERN - Cardiovascular Exam Cardiovascular Exam: REGULAR RHYTHM, +S1 - GI/Abdominal Exam GI & Abdominal Exam: Soft. absent: Tenderness - Extremities Exam Extremities Exam: Normal Inspection. absent: Tenderness - Neurological Exam Neurological Exam: Alert, CN II-XII Intact - Skin Skin Exam: Dry, Warm Assessment and Plan (1) CKD stage 3 due to type 2 diabetes mellitus Status: Deleted (2) PVD (peripheral vascular disease) Status: Acute (3) Diastolic CHF Status: Deleted (4) Proteinuria Status: Acute (5) AMPARO (acute kidney injury) Status: Acute - Assessment and Plan (Free Text) Plan: Continue to avoid MARLEN I Low dose diuretics- eventually switch to oral lasix; renal function slowly improving Recommended renal follow up as outpatient
--- NOTE | 2016-12-25 14:26 | CP.PCM.DIS ---
Provider - Provider Date of Admission: 12/21/16 16:25 Attending physician: Charissa Webster DO Consults: Cards: Claytno Chouro: ghazal Time Spent in preparation of Discharge (in minutes): 45 Diagnosis - Discharge Diagnosis (1) Hypertensive heart and chronic kidney disease stage 3 Status: Chronic (2) Pneumonia Status: Resolved Priority: High (3) Diabetes Status: Chronic Priority: Medium (4) Prophylactic measure Status: Chronic Priority: Low Hospital Course - Lab Results Lab Results: Micro Results 12/23/16 20:22 Sputum Gram Stain - Final 12/23/16 20:22 Sputum Sputum Culture - Final NORMAL ORAL ROB 12/21/16 12:00 Blood Blood Culture - Preliminary NO GROWTH AFTER 3 DAYS 12/21/16 12:30 Blood Blood Culture - Preliminary NO GROWTH AFTER 3 DAYS 12/23/16 20:00 Naris MRSA Culture (Admit) - Final MRSA NOT DETECTED Most Recent Lab Values WBC 4.1 K/uL (4.8-10.8) L 12/25/16 08:08 RBC 3.40 Mil/uL (4.40-5.90) L 12/25/16 08:08 Hgb 10.1 g/dL (12.0-18.0) L 12/25/16 08:08 Hct 29.8 % (35.0-51.0) L 12/25/16 08:08 MCV 87.5 fL (80.0-94.0) 12/25/16 08:08 MCH 29.6 pg (27.0-31.0) 12/25/16 08:08 MCHC 33.8 g/dL (33.0-37.0) 12/25/16 08:08 RDW 13.7 % (11.5-14.5) 12/25/16 08:08 Plt Count 199 K/uL (130-400) 12/25/16 08:08 MPV 7.2 fL (7.2-11.7) 12/25/16 08:08 Neut % (Auto) 44.6 % (50.0-75.0) L 12/25/16 08:08 Lymph % (Auto) 36.5 % (20.0-40.0) 12/25/16 08:08 Butler % (Auto) 11.6 % (0.0-10.0) H 12/25/16 08:08 Eos % (Auto) 6.8 % (0.0-4.0) H 12/25/16 08:08 Baso % (Auto) 0.5 % (0.0-2.0) 12/25/16 08:08 Neut # 1.8 K/uL (1.8-7.0) 12/25/16 08:08 Lymph # 1.5 K/uL (1.0-4.3) 12/25/16 08:08 Butler # 0.5 K/uL (0.0-0.8) 12/25/16 08:08 Eos # 0.3 K/uL (0.0-0.7) 12/25/16 08:08 Baso # 0.0 K/uL (0.0-0.2) 12/25/16 08:08 PT 13.3 SECONDS (9.7-12.2) H 12/21/16 12:42 INR 1.2 12/21/16 12:42 APTT 36 SECONDS (21-34) H 12/21/16 12:42 D-Dimer, Quantitative 552 ng/mlDDU (0-243) H 12/21/16 12:42 Puncture Site Rra 12/21/16 20:00 pCO2 35 mm/Hg (35-45) 12/21/16 20:00 pO2 113 mm/Hg (80-100) H 12/21/16 20:00 HCO3 24.3 mmol/L (21-28) 12/21/16 20:00 ABG pH 7.43 (7.35-7.45) 12/21/16 20:00 ABG Total CO2 24.3 mmol/L (22-28) 12/21/16 20:00 ABG O2 Saturation 98.7 % (95-98) H 12/21/16 20:00 ABG Base Excess -0.8 mmol/L (-2.0-3.0) 12/21/16 20:00 ABG Hemoglobin 10.2 g/dL (11.7-17.4) L 12/21/16 20:00 ABG Carboxyhemoglobin 1.9 % (0.5-1.5) H 12/21/16 20:00 POC ABG HHb (Measured) 1.3 % (0.0-5.0) 12/21/16 20:00 ABG Methemoglobin 1.2 % (0.0-3.0) 12/21/16 20:00 Dax Test Pos 12/21/16 20:00 A-a O2 Difference 57.0 mm/Hg 12/21/16 20:00 Respiratory Index 0.5 12/21/16 20:00 Hgb O2 Saturation 95.6 % (95.0-98.0) 12/21/16 20:00 Vent Mode Bipap 12/21/16 20:00 FiO2 30.0 % 12/21/16 20:00 Inspiratory BiPAP 12 12/21/16 20:00 Expiratory BiPAP 6 12/21/16 20:00 Sodium 131 mmol/L (132-148) L 12/25/16 08:08 Potassium 4.3 mmol/L (3.6-5.2) 12/25/16 08:08 Chloride 95 mmol/L (98-107) L 12/25/16 08:08 Carbon Dioxide 27 mmol/L (22-30) 12/25/16 08:08 Anion Gap 13 (10-20) 12/25/16 08:08 BUN 22 mg/dL (9-20) H 12/25/16 08:08 Creatinine 2.3 mg/dL (0.8-1.5) H 12/25/16 08:08 Est GFR ( Amer) 35 12/25/16 08:08 Est GFR (Non-Af Amer) 29 12/25/16 08:08 POC Glucose (mg/dL) 123 mg/dL (65-110) H 12/25/16 11:29 Random Glucose 103 mg/dL (75-110) 12/25/16 08:08 Hemoglobin A1c 7.5 % (4.2-6.5) H 12/22/16 04:00 Lactic Acid 1.1 mmol/L (0.7-2.1) 12/21/16 12:42 Calcium 7.8 mg/dl (8.6-10.4) L 12/25/16 08:08 Phosphorus 3.7 mg/dL (2.5-4.5) 12/25/16 08:08 Magnesium 1.9 mg/dL (1.6-2.3) 12/25/16 08:08 Total Bilirubin 0.8 mg/dL (0.2-1.3) 12/25/16 08:08 AST 69 U/L (17-59) H D 12/25/16 08:08 ALT 62 U/L (21-72) 12/25/16 08:08 Alkaline Phosphatase 56 U/L (38-126) 12/25/16 08:08 Total Creatine Kinase 108 U/L (55-170) 12/22/16 04:08 CK-MB (Mass) 1.04 ng/mL (0.0-3.38) 12/22/16 04:08 Troponin I 0.0530 ng/mL (0.00-0.120) 12/23/16 12:01 Troponin I, Quant 0.0860 ng/mL (0.00-0.120) 12/22/16 04:08 NT-Pro-B Natriuret Pep 480 pg/mL (0-900) 12/23/16 12:01 Total Protein 7.0 g/dL (6.3-8.3) 12/25/16 08:08 Albumin 3.6 g/dL (3.5-5.0) 12/25/16 08:08 Globulin 3.3 gm/dL (2.2-3.9) 12/25/16 08:08 Albumin/Globulin Ratio 1.1 (1.0-2.1) 12/25/16 08:08 Triglycerides 58 mg/dL (0-149) 12/22/16 04:08 Cholesterol 109 mg/dL (0-199) 12/22/16 04:08 LDL Cholesterol Direct 72 mg/dL (0-129) 12/22/16 04:08 HDL Cholesterol 28 mg/dL (30-70) L 12/22/16 04:08 Procalcitonin 0.13 NG/ML (0.19-0.49) L 12/23/16 19:33 Urine Color Straw (YELLOW) 12/21/16 17:51 Urine Clarity Clear (Clear) 12/21/16 17:51 Urine pH 6.0 (5.0-8.0) 12/21/16 17:51 Ur Specific [place] 1.017 (1.003-1.030) 12/21/16 17:51 Urine Protein 2+ mg/dL (NEGATIVE) H 12/21/16 17:51 Urine Glucose (UA) Normal mg/dL (Normal) 12/21/16 17:51 Urine Ketones Negative mg/dL (NEGATIVE) 12/21/16 17:51 Urine Blood Trace (NEGATIVE) H 12/21/16 17:51 Urine Nitrate Negative (NEGATIVE) 12/21/16 17:51 Urine Bilirubin Negative (NEGATIVE) 12/21/16 17:51 Urine Urobilinogen Normal mg/dL (0.2-1.0) 12/21/16 17:51 Ur Leukocyte Esterase Neg Armando/uL (Negative) 12/21/16 17:51 Urine WBC (Auto) 1 /hpf (0-5) 12/21/16 17:51 Urine RBC (Auto) 3 /hpf (0-3) 12/21/16 17:51 Urine Bacteria Rare (<OCC) 12/21/16 17:51 Urine Collection Time 24 HRS 12/24/16 15:55 Urine Total Volume 2350 mL 12/24/16 15:55 Ur Protein 24 Hr Calc 587.5 mg/24hr (42-225) H 12/24/16 15:55 Random Vancomycin 11.77 ug/mL 12/23/16 12:39 HIV 1&2 Antibody Screen Negative (NEGATIVE) 12/23/16 20:55 Influenza Typ A,B (EIA) Negative for flu a/b (NEGATIVE) 12/23/16 19:33 Ur L.pneumophila Ag Negative (NEGATIVE) 12/23/16 12:01 Mycoplasma pneumon IgM Negative (NEGATIVE) 12/23/16 12:01 - Hospital Course Hospital Course: On Admission: 66 year old [place] male with past medical history of HTN, DM, psoriasis who immigrated from the [facility] 5 years ago is presenting with worsening shortness of breath and cough. The productive cough has worsened 2 weeks ago when the patient went to the [facility]. There he had a hospitalization of 5 days. 3 days in the ICU and 2 days on floor being treated for Community Acquired Pneumonia. During his course he was given antibiotics for 5 days. He was also diagnosed with Congestive Heart Failure in the [facility]. 2D ECHO revealed ejection fraction of >55% and Mitral Valve Prolapse with mild Mitral Regurgitation. Patient states he came back to the [place] last Wednesday. Patient states his shortness of breath and cough continued to worsen and last Wednesday as he was using the stairs he was really working hard to breathe. The cough is productive and patient states he products small amounts of white sputum. Lemon mykel in hot water improves his cough and shortness of breath while physical activity worsens his symptoms. Patient also states he sleeps using 3 pillows. Patient uses a cane to ambulate and has not had any falls recently. Patient became more SOB as i was examining him. I placed the patient on NC @ 5 liters. He continued to work hard to breath so I called the nurse liaison to examine the patient. Patient was seen by the intesivist, given 20mg of lasix and started on Vanco and Zosyn. An ABG was ordered and he was placed on BiPAP. Patient was breathing much better thru the night. The patient was seen by cards and they ordered an echo that showed hypertensive disease with normal valves. The patient was seen by Infectious disease that started him on antibiotics for his pneumonia. The patient went into ARF from the [facility] but his kidney function continued to improve. Nephro was asked to see the patient and later cleared him. The patient continued to improve clinically and was discharged. Discharge Exam - Head Exam Head Exam: ATRAUMATIC, NORMAL INSPECTION, NORMOCEPHALIC - Eye Exam Eye Exam: EOMI Pupil Exam: NORMAL ACCOMODATION - ENT Exam ENT Exam: Mucous Membranes Moist - Respiratory Exam Respiratory Exam: Clear to PA & Lateral, UNREMARKABLE - Cardiovascular Exam Cardiovascular Exam: REGULAR RHYTHM - GI/Abdominal Exam GI & Abdominal Exam: Normal Bowel Sounds, Soft, Unremarkable. absent: Distended , Tenderness - Neurological Exam Neurological exam: Alert, CN II-XII Intact, Oriented x3 - Psychiatric Exam Psychiatric exam: Normal Affect, Normal Mood - Skin Skin Exam: Dry, Intact, Normal Color, Warm Discharge Plan - Discharge Medications Prescriptions: Allopurinol [Zyloprim] 300 mg PO DAILY #30 tab amLODIPine [Norvasc] 2.5 mg PO DAILY #30 tab Aspirin [Aspirin Chewable] 81 mg PO DAILY #30 chew Losartan Potassium 100 mg PO DAILY #30 tablet Moxifloxacin [Avelox] 400 mg PO DAILY #6 tab Simvastatin 40 mg PO DAILY #30 tablet Spironolactone [Aldactone] 25 mg PO DAILY #30 tab - Follow Up Plan Condition: STABLE Disposition: HOME/ ROUTINE Instructions: Allopurinol (By mouth), Spironolactone (By mouth), Aspirin (By mouth), Amlodipine (By mouth), Simvastatin (By mouth), Losartan (By mouth), Moxifloxacin (By mouth), Heart Healthy Diet (DC), Pneumonia (DC) Additional Instructions: Stable and clear for d/c Follow up with Dr. Arnold in his office in 7-10 days. The number to the office is [phone]. Please call to make an appointment. Follow up with Dr. Lauren in his office in 7-10 days. The number to the office is [phone]. Please call to make an appointment. Since you do not have a primary care doctor you may follow up with Dr. Lopez in his office. The number to the office is [phone]. Please come back to the ED if you continue to have symptoms. Referrals: Mayito Lauren MD [Staff Provider] - Corky Arnold MD [Staff Provider] - Da Lopez MD [Staff Provider] -
--- NOTE | 2016-12-25 15:10 | CP.PCM.PN ---
Subjective - Date & Time of Evaluation Date of Evaluation: 12/25/16 Time of Evaluation: 09:00 - Subjective Subjective: improving Objective - Vital Signs/Intake and Output Vital Signs (last 24 hours): Temp Pulse Resp BP Pulse Ox 97.9 F 70 18 127/80 100 12/25/16 08:12 12/25/16 11:58 12/25/16 08:12 12/25/16 09:27 12/25/16 08:12 Intake and Output: 12/25/16 12/25/16 06:59 18:59 Intake Total 240 700 Balance 240 700 - Medications Medications: Current Medications Acetaminophen (Tylenol 325mg Tab) 650 mg PO Q6 PRN PRN Reason: Fever >100.4 F Last Admin: 12/22/16 08:14 Dose: 650 mg Albuterol/Ipratropium (Duoneb 3 Mg/0.5 Mg (3 Ml) Ud) 3 ml INH RQ6 [facility] Last Admin: 12/25/16 13:30 Dose: 3 ml Aspirin (Aspirin Chewable) 81 mg PO DAILY [facility] Last Admin: 12/25/16 09:26 Dose: 81 mg Docusate Sodium (Colace) 100 mg PO BID PRN PRN Reason: Constipation Furosemide (Lasix) 20 mg IVP DAILY [facility] Last Admin: 12/25/16 09:27 Dose: 20 mg Heparin Sodium (Porcine) (Heparin) 5,000 units SC Q8 [facility] Last Admin: 12/25/16 14:17 Dose: 5,000 units Insulin Human Regular (Novolin R) 0 unit SC ACHS [facility] PRN Reason: Protocol Last Admin: 12/25/16 11:51 Dose: Not Given Metoprolol Succinate (Toprol Xl) 50 mg PO DAILY [facility] Last Admin: 12/25/16 09:26 Dose: 50 mg Moxifloxacin HCl (Avelox) 400 mg PO DAILY [facility] Stop: 12/31/16 10:01 Last Admin: 12/25/16 09:26 Dose: 400 mg Mupirocin (Bactroban Ointment) 1 gm TOP BID [facility] Last Admin: 12/25/16 09:27 Dose: 1 applic Pantoprazole Sodium (Protonix Ec Tab) 40 mg PO DAILY [facility] Last Admin: 12/25/16 09:26 Dose: 40 mg Promethazine HCl/Codeine (Phenergan/Codeine Oral Syrup) 5 ml PO Q4 PRN PRN Reason: Cough Last Admin: 12/25/16 09:26 Dose: 5 ml Rosuvastatin Calcium (Crestor) 20 mg PO [facility] Last Admin: 12/24/16 23:05 Dose: Not Given Saccharomyces Boulardii (Florastor) 250 mg PO BID [facility] Last Admin: 12/25/16 09:26 Dose: 250 mg - Labs Labs: 12/25/16 08:08 12/25/16 08:08 PT 13.3 SECONDS (9.7-12.2) H 12/21/16 12:42 INR 1.2 12/21/16 12:42 APTT 36 SECONDS (21-34) H 12/21/16 12:42 - Constitutional Appears: Non-toxic, Chronically Ill - Head Exam Head Exam: NORMOCEPHALIC - Eye Exam Eye Exam: PERRL - ENT Exam ENT Exam: Mucous Membranes Dry - Neck Exam Neck Exam: absent: Lymphadenopathy - Respiratory Exam Respiratory Exam: Decreased Breath Sounds - Cardiovascular Exam Cardiovascular Exam: REGULAR RHYTHM - GI/Abdominal Exam GI & Abdominal Exam: Distended, Soft Assessment and Plan (1) Diastolic CHF Status: Deleted (2) PVD (peripheral vascular disease) Status: Acute (3) Pneumonia Status: Acute (4) Proteinuria Status: Acute (5) CKD stage 3 due to type 2 diabetes mellitus Status: Deleted (6) Diabetes Status: Chronic - Assessment and Plan (Free Text) Assessment: cont rx as out pt
[2016-12-25 15:53] VITALS: BP 150/81; PULSE 89; RESP 20; TEMP 97.8; O2SAT 93
== END 2016-12-25 20:06 | disposition home or self-care (01) | DRG 541 ==
LOC: C.ER 11:11 → C.9E 16:25 → C.6T 18:52
PROVIDERS: ADMIT Internal Medicine; ATTEND Hospitalist
DX: J18.9 Pneumonia, unspecified organism (principal); I50.33 Acute on chronic diastolic (congestive) heart failure; N17.9 Acute kidney failure, unspecified; E11.22 Type 2 diabetes mellitus with diabetic chronic kidney disease; E11.51 Type 2 diabetes mellitus with diabetic peripheral angiopathy without gangrene; N18.3 Chronic kidney disease, stage 3 (moderate); I13.0 Hypertensive heart and chronic kidney disease with heart failure and stage 1 through stage 4 chronic kidney disease, or unspecified chronic kidney disease; T50.8X1A Poisoning by diagnostic agents, accidental (unintentional), initial encounter; N14.4 Toxic nephropathy, not elsewhere classified; E78.5 Hyperlipidemia, unspecified; I25.10 Atherosclerotic heart disease of native coronary artery without angina pectoris; I34.0 Nonrheumatic mitral (valve) insufficiency; I34.1 Nonrheumatic mitral (valve) prolapse; Z80.1 Family history of malignant neoplasm of trachea, bronchus and lung; Z83.3 Family history of diabetes mellitus; Z87.891 Personal history of nicotine dependence

== ENCOUNTER 2017-03-29 14:13 | Emergency (ER) | payer OTHER ==
[2017-03-29 14:30] VITALS: BP 178/83; PULSE 93; RESP 24; TEMP 98.3; O2SAT 95
--- NOTE | 2017-03-29 18:08 | C.PDOC ---
History Of Present Illness 66 year old male presents to the ED seeking medication refills for 7 medications. Patient states that he was discharged from here with medications for CHF, DM, and gout. He states that he ran out of these medications a month ago. Time Seen by Provider: 03/29/17 18:02 Chief Complaint (Nursing): Shortness Of Breath History Per: Patient History/Exam Limitations: no limitations Onset/Duration Of Symptoms: Days Current Respiratory Medications: See Home Med List Past Medical History Reviewed: Historical Data, Nursing Documentation, Vital Signs Vital Signs: Last Vital Signs Temp 98.3 F 03/29/17 14:27 Pulse 93 H 03/29/17 14:27 Resp 24 03/29/17 14:27 BP 178/83 H 03/29/17 14:27 Pulse Ox 95 03/29/17 18:14 - Medical History PMH: HTN, Hyperlipidemia, Pneumonia Denies: Chronic Kidney Disease Family History: States: Unknown Family Hx - Social History Hx Alcohol Use: No Hx Substance Use: No Review Of Systems Except As Marked, All Systems Reviewed And Found Negative. Constitutional: Negative for: Fever, Chills ENT: Negative for: Ear Pain, Throat Pain Cardiovascular: Negative for: Chest Pain Respiratory: Negative for: Shortness of Breath Gastrointestinal: Negative for: Nausea, Vomiting, Abdominal Pain, Diarrhea Skin: Negative for: Rash Neurological: Negative for: Headache Physical Exam - Physical Exam Appears: Well, No Acute Distress, Other (Tall, morbidly obese ) Skin: Normal Color, Warm, Dry Head: Atraumatic, Normacephalic Eye(s): bilateral: Normal Inspection, PERRL, EOMI Oral Mucosa: Moist Tongue: Normal Appearing Lips: Normal Appearing Neck: Normal, Normal ROM, Other Cardiovascular: Rhythm Regular Respiratory: Normal Breath Sounds Gastrointestinal/Abdominal: Soft (obese ), No Tenderness Extremity: Normal ROM, No Deformity, Other (chronic 4/4 pitting edema, bilateral lower extremities with venous stasis dermatitis ) Neurological/Psych: Oriented x3, Normal Speech ED Course And Treatment O2 Sat by Pulse Oximetry: 95 Medical Decision Making Medical Decision Making: med refills asymptomatic defer w/u for no acute issues and high risk exposures in ED during Flu epidemic. 7 meds refilled, hold metformin for creat >1.5 (2.3 prior eval) Disposition Doctor Will See Patient In The: Office Counseled Patient/Family Regarding: Studies Performed, Diagnosis - Disposition Referrals: [facility] [Outside] Disposition: HOME/ ROUTINE Disposition Time: 18:07 Condition: GOOD Additional Instructions: restart your daily meds Fluid restriction to avoid increasing leg edema. Metformin suspended for creat >1.5 (2.3 H) Follow-up in our outpatient Clinic as scheduled. Prescriptions: Allopurinol [Zyloprim] 300 mg PO DAILY #30 tab amLODIPine [Norvasc] 5 mg PO DAILY #30 tab Aspirin [Aspirin Chewable] 81 mg PO DAILY #30 ctb Losartan Potassium [Cozaar] 100 mg PO DAILY #30 tablet Pioglitazone [Actos] 30 mg PO DAILY #30 tab Simvastatin 40 mg PO HS #30 tablet Spironolactone [Aldactone] 25 mg PO DAILY #30 tablet Instructions: Type 2 Diabetes, High Blood Pressure (DC) Forms: [employer] (Surinamese) - Clinical Impression Clinical Impression: Medication refill - Scribe Statement The provider has reviewed the documentation as recorded by the Scribe The provider has reviewed the documentation as recorded by the Scribe (Dg Vail) Provider Attestation: All medical record entries made by the Scribe were at my direction and personally dictated by me. I have reviewed the chart and agree that the record accurately reflects my personal performance of the history, physical exam, medical decision making, and the department course for this patient. I have also personally directed, reviewed, and agree with the discharge instructions and disposition.
--- NOTE | 2017-03-30 12:31 | CARD ---
APPROVED REPORT EKG Measurement Heart [id number] <Conclusion> Sinus rhythm with 1st degree AV block Right bundle branch block Abnormal ECG
== END 2017-03-29 18:35 | disposition home or self-care (01) ==
LOC: C.ER 14:13
DX: Z76.0 Encounter for issue of repeat prescription (principal); I11.0 Hypertensive heart disease with heart failure; I50.9 Heart failure, unspecified; E11.9 Type 2 diabetes mellitus without complications; M10.9 Gout, unspecified; Z87.891 Personal history of nicotine dependence

== ENCOUNTER 2017-11-08 00:38 | Inpatient (IN) | payer MEDICAID, OTHER ==
[2017-11-08 01:19] LABS: HEMOGLOBIN 10.3 g/dL (12.0-18.0); LYMPH # 0.3 K/uL (1.0-4.3); LYMPH % 2.3 % (20.0-40.0); MEAN CELL VOLUME 88.7 fL (80.0-94.0); MEAN CORPUSCULAR HEMOGLOBIN 29.1 pg (27.0-31.0); MEAN CORPUSCULAR HGB CONC 32.8 g/dL (33.0-37.0); MEAN PLATELET VOLUME 8.1 fL (7.2-11.7); MONO # 0.6 K/uL (0.0-0.8); MONO % 5.6 % (0.0-10.0); NEUT # 10.2 K/uL (1.8-7.0); NEUT % 92.1 % (50.0-75.0); NRBC % 0.1 % (0.0-2.0); PLATELET COUNT 126 K/uL (130-400); RBC 3.53 Mil/uL (4.40-5.90); RED CELL DISTRIBUTION WIDTH 17.4 % (11.5-14.5); WHITE BLOOD COUNT 11.1 K/uL (4.8-10.8)
[2017-11-08 01:20] LABS: INR 1.4; PROTHROMBIN TIME 15.2 SECONDS (9.7-12.2)
--- NOTE | 2017-11-08 01:20 | C.PDOC ---
History Of Present Illness 67 year old male with PMHx CHF presents to the ED c/o SOB for the past few days that worsened tonight. Patient reports he took his diuretic. Patient denies fever, chills, nausea, vomit, recent travel, sick contacts. <Fabricio Morrison Ana - Last Filed: 11/08/17 06:04> History Per: Patient History/Exam Limitations: no limitations Onset/Duration Of Symptoms: Days Current Symptoms Are (Timing): Still Present Initiating Event: Upper Respiratory Illness Quality: Tightness Current Respiratory Medications: See Home Med List Associated Symptoms: Ankle/Leg Swelling Recent travel outside of the [place]: No Additional History Per: Patient <PrinceFabricio R - Last Filed: 11/08/17 06:04> <Nishi Adams - Last Filed: 11/10/17 07:42> Chief Complaint (Nursing): Shortness Of Breath Past Medical History Reviewed: Historical Data, Nursing Documentation, Vital Signs Vital Signs: Last Vital Signs Temp 98.6 F 11/08/17 00:50 Pulse 95 H 11/08/17 00:50 Resp 22 11/08/17 00:55 BP 90/56 L 11/08/17 00:50 Pulse Ox 95 11/08/17 00:55 - Medical History PMH: CHF, HTN, Hyperlipidemia, Pneumonia Denies: Chronic Kidney Disease Surgical History: No Surg Hx Family History: States: Unknown Family Hx - Social History Hx Alcohol Use: No Hx Substance Use: No - Immunization History Hx Tetanus Toxoid Vaccination: No Hx Influenza Vaccination: No Hx Pneumococcal Vaccination: No <MorrisonFabricio R - Last Filed: 11/08/17 06:04> Vital Signs: Last Vital Signs Temp 98.7 F 11/08/17 07:21 Pulse 60 11/08/17 07:21 Resp 17 11/08/17 07:21 BP 99/51 L 11/08/17 07:21 Pulse Ox 100 11/08/17 07:21 <Nishi Adams A - Last Filed: 11/10/17 07:42> Review Of Systems Constitutional: Negative for: Fever, Chills Cardiovascular: Negative for: Chest Pain Respiratory: Positive for: Shortness of Breath. Negative for: Cough Gastrointestinal: Negative for: Nausea, Vomiting, Abdominal Pain Musculoskeletal: Negative for: Leg Pain Skin: Negative for: Rash Neurological: Negative for: Weakness, Numbness <Fabricio Morrison R - Last Filed: 11/08/17 06:04> Physical Exam - Physical Exam Appears: Non-toxic, In Acute Distress Skin: Normal Color, Warm, Dry Head: Atraumatic, Normacephalic Eye(s): bilateral: Normal Inspection Oral Mucosa: Moist Neck: Normal ROM, Supple Chest: Symmetrical Cardiovascular: Rhythm Regular Respiratory: Rales (bilateral ), No Rhonchi, No Wheezing, Other (mild dyspnic) Gastrointestinal/Abdominal: Soft, No Tenderness, No Guarding, No Rebound Extremity: Normal ROM, No Tenderness, Pedal Edema (3+ bilaterally ), Capillary Refill (< 2 seconds) Neurological/Psych: Oriented x3, Normal Speech, Normal Cognition Gait: With Assistance (cane) <Fabricio Morrison - Last Filed: 11/08/17 06:04> ED Course And Treatment - Laboratory Results Result Diagrams: 11/08/17 01:09 11/08/17 01:09 ECG: Interpreted By Me, Viewed By Me ECG Rhythm: Sinus Rhythm, R BBB ECG Interpretation: No Acute Changes, Abnormal Interpretation Of ECG: NSR with PVC's, CRBBB with secondary ST-T changes., abnormal tracings. Rate From EC O2 Sat by Pulse Oximetry: 95 (ON RA) Pulse Ox Interpretation: Normal - Radiology CXR: Interpreted by Me, Viewed By Me CXR Interpretation: Yes: Cardiomegaly, Other (CHF) <Fabricio Morrison R - Last Filed: 11/08/17 06:04> - Laboratory Results Result Diagrams: 11/10/17 06:15 11/10/17 06:15 <Nishi Adams - Last Filed: 11/10/17 07:42> Central Line Placement - Central Line Placement Indication: Emergent IV Access Central Line Placement: Right: Femoral The Area Was Thoroughly Prepared With: Chlorhexidine Procedure: Triple Lumen, Placed Using Standard Seldinger Technique, Catheter Was Sewn Into Place, Sterile Dressing Placed Over Line, Procedure Tolerated Well <Nishi Adams - Last Filed: 11/10/17 07:42> Critical Care Time - Critical Care Note Total Time (in mins): 60 Documented critical care: time excludes all time spent performing seperately billable procedures. <Nishi Adams - Last Filed: 11/10/17 07:42> Medical Decision Making Medical Decision Making: Plan: * EKG * Labs * CXR Dr. Yaz tyler, states Dr. Lopez will see and evaluate the patient in the morning <Fabricio Morrison - Last Filed: 11/08/17 06:04> Disposition Discussed With Dr.: Kirk Monreal Doctor Will See Patient In The: Hospital Counseled Patient/Family Regarding: Diagnosis - Disposition Disposition Time: 05:27 <Fabricio Morrison - Last Filed: 11/08/17 06:04> <Nishi Adams - Last Filed: 11/10/17 07:42> - Disposition Disposition: HOSPITALIZED Condition: STABLE - Clinical Impression Clinical Impression: CHF (congestive heart failure), Chest pain, Non-ST elevation FL (NSTEMI), Diabetes mellitus, Renal insufficiency - Scribe Statement The provider has reviewed the documentation as recorded by the Scribe Kevon Guzman All medical record entries made by the Scribe were at my direction and personally dictated by me. I have reviewed the chart and agree that the record accurately reflects my personal performance of the history, physical exam, medical decision making, and the department course for this patient. I have also personally directed, reviewed, and agree with the discharge instructions and disposition. <Fabricio Morrison - Last Filed: 11/08/17 06:04> Addendum Addendum: 11/08/17 07:48 Patient signed out to be by Dr. Morrison. Currently resting comfortably, states he has been having exertional SOB since wednesday, denies any chest pain or palpitations. Pmhx of HTN, hyperlipidemia, CHF, pneumonia. EKG unchanged from prior 03/29/17 11/08/17 08:45 Discussed patient with hospitalist Dr. Webster, patient pending ICU by Dr. Lopez 11/08/17 09:53 Patient accepted for ICU admission by Dr. Lopez. 11/10/17 07:41 Correction- No central line placed in this patient, note added in error. <Nishi Adams - Last Filed: 11/10/17 07:42>
[2017-11-08 01:24] LABS: ALBUMIN 4.1 g/dL (3.5-5.0); CALCIUM 8.8 mg/dl (8.6-10.4)
[2017-11-08 01:44] LABS: TROPONIN I 0.346 ng/mL (0.00-0.120)
[2017-11-08 02:00] LABS: ANISOCYTOSIS SLIGHT; BANDS 2 % (0-2); LYMPHOCYTE 4 % (20-40); MONOCYTE 6 % (0-10); NEUTROPHIL 88 % (50-75); PLATELET ESTIMATE SLIGHTLY DECREASED (NORMAL); POIKILOCYTOSIS SLIGHT; TOTAL CELLS COUNTED 100
[2017-11-08 09:00] LABS: ABG ALLEN TEST POS; ARTERIAL BLOOD GAS HCO3 18.4 mmol/L (21-28); ARTERIAL BLOOD GAS PCO2 25 mm/Hg (35-45); ARTERIAL BLOOD GAS PH 7.38 (7.35-7.45); ARTERIAL BLOOD GAS PO2 163 mm/Hg (80-100); ARTERIAL BLOOD GAS TCO2 15.6 mmol/L (22-28)
[2017-11-08] MEDS ORDERED: Piperacill/Tazo 2.25gm in Dex 2.25 GM/50 ML BAG IVPB ONE (09:00)
--- NOTE | 2017-11-08 10:40 | RAD ---
Date of service: 11/08/2017 HISTORY: SOB COMPARISON: 12/21/2016. FINDINGS: LUNGS: The lungs are well inflated and clear. PLEURA: No significant pleural effusion identified, no pneumothorax apparent. CARDIOVASCULAR: There is severe cardiomegaly. OSSEOUS STRUCTURES: No significant abnormalities. VISUALIZED UPPER ABDOMEN: Normal. OTHER FINDINGS: None. IMPRESSION: Severe cardiomegaly. No acute findings.
--- NOTE | 2017-11-08 11:26 | CP.PCM.CON ---
History of Present Illness - History of Present Illness History of Present Illness: 67 y/o man presents with fevers, chills, SOB last PM and presents this AM with hypotension, possible pneumonia. Has vague h/o CKD per patient. PMH: DM 2 CHF HX HTN PVD DL PSH: 3 TOES AMPUTATED LEFT FOOT 2009 Review of Systems - Constitutional Constitutional: Chills, Fever, Weakness - EENT Eyes: absent: As Per HPI, Blind Spots, Blurred Vision, Change in Vision, Decreased Night Vision, Diplopia, Discharge, Dry Eye, Exophthalmos, Floaters, Irritation, Itchy Eyes, Loss of Peripheral Vision, Pain, Photophobia, Requires Corrective Lenses, Sees Flashes, Spots in Vision, Tunnel Vision, Other Visual Disturbances, Loss of Vision, Other Ears: absent: As Per HPI, Decreased Hearing, Ear Discharge, Ear Pain, Tinnitus, Abnormal Hearing, Disequilibrium, Dizziness, Other Nose/Mouth/Throat: absent: As Per HPI, Epistaxis, Nasal Congestion, Nasal Discharge, Nasal Obstruction, Nasal Trauma, Nose Pain, Post Nasal Drip, Sinus Pain, Sinus Pressure, Bleeding Gums, Change in Voice, Dental Pain, Dry Mouth, Dysphagia, Halitosis, Hoarsness, Lip Swelling, Mouth Lesions, Mouth Pain, Odynophagia, Sore Throat, Throat Swelling, Tongue Swelling, Facial Pain, Neck Pain, Neck Mass, Other - Cardiovascular Cardiovascular: Dyspnea on Exertion, Leg Edema - Respiratory Respiratory: Dyspnea on Exertion - Gastrointestinal Gastrointestinal: absent: As Per HPI, Abdominal Pain, Belching, Bloating, Change in Bowel Habits, Change in Stool Character, Coffee Ground Emesis, Constipation, Cramping, Diarrhea, Dyspepsia, Dysphagia, Early Satiety, Excessive Flatus, Fecal Incontinence, Heartburn, Hematemesis, Hematochezia, Loose Stools, Melena, Nausea, Odynophagia, Temesmus, Vomiting, Other - Genitourinary Genitourinary: Change in Urinary Stream - Musculoskeletal Musculoskeletal: Muscle Cramps, Muscle Weakness - Neurological Neurological: Weakness Past Patient History - Infectious Disease Hx of Infectious Diseases: None - Past Medical History & Family History Past Family History: Reviewed and not pertinent - Past Social History Smoking Status: Former Smoker Chewing Tobacco Use: No Cigar Use: No Alcohol: None Drugs: Denies - CARDIAC Hx Congestive Heart Failure: Yes Hx Hypertension: Yes - PULMONARY Hx Pneumonia: Yes - NEUROLOGICAL Hx Neurological Disorder: No - HEENT Hx HEENT Problems: No - RENAL Hx Chronic Kidney Disease: No - ENDOCRINE/METABOLIC Hx Diabetes Mellitus Type 2: Yes - HEMATOLOGICAL/ONCOLOGICAL Hx Blood Transfusions: No - INTEGUMENTARY Other/Comment: psoriasis. LE color brownish - MUSCULOSKELETAL/RHEUMATOLOGICAL Hx Falls: No - GASTROINTESTINAL Hx Gastrointestinal Disorders: No - GENITOURINARY/GYNECOLOGICAL Hx Genitourinary Disorders: No - PSYCHIATRIC Hx Substance Use: No - SURGICAL HISTORY Hx Surgeries: Yes Other/Comment: Right foot 3 DIGITS AMPUTATED - ANESTHESIA Hx Anesthesia: Yes Hx Anesthesia Reactions: No Hx Malignant Hyperthermia: No Meds Allergies/Adverse Reactions: Allergies Allergy/AdvReac Type Severity Reaction Status Date / Time No Known Allergies Allergy Unverified 11/08/17 00:47 - Medications Medications: Current Medications Allopurinol (Zyloprim) 150 mg PO DAILY [facility] Aspirin (Aspirin Chewable) 81 mg PO DAILY [facility] Clopidogrel Bisulfate (Plavix) 75 mg PO DAILY [facility] Heparin Sodium (Porcine) (Heparin) 5,000 units SC Q8 [facility] Home Med (Simvastatin [Simvastatin]) 40 mg PO HS [facility] Sodium Chloride (Sodium Chloride 0.9%) 1,000 mls @ 50 mls/hr IV .Q20H [facility] Piperacillin Sod/Tazobactam Sod (Zosyn 2.25 Gm Iv Premix) 2.25 gm in 50 mls @ 100 mls/hr IVPB Q8H [facility]; Protocol Physical Exam - Constitutional Appears: No Acute Distress, Chronically Ill - Head Exam Head Exam: ATRAUMATIC, NORMAL INSPECTION - Eye Exam Eye Exam: EOMI, Normal appearance - Neck Exam Neck exam: Positive for: Normal Inspection. Negative for: Tenderness - Respiratory Exam Respiratory Exam: Clear to Auscultation Bilateral, NORMAL BREATHING PATTERN - Cardiovascular Exam Cardiovascular Exam: REGULAR RHYTHM, +S1 - GI/Abdominal Exam GI & Abdominal Exam: Soft. absent: Tenderness - Extremities Exam Extremities exam: Positive for: normal inspection. Negative for: tenderness - Neurological Exam Neurological exam: Alert, CN II-XII Intact - Skin Skin Exam: Dry, Warm Results - Vital Signs Recent Vital Signs: Last Vital Signs Temp 102.3 F H 11/08/17 09:35 Pulse 88 11/08/17 09:50 Resp 20 11/08/17 09:50 BP 134/72 11/08/17 09:50 Pulse Ox 100 11/08/17 09:50 - Labs Result Diagrams: 11/08/17 01:09 11/08/17 01:09 Labs: Laboratory Results - last 24 hr 11/08/17 11/08/17 11/08/17 00:52 01:09 01:09 WBC 11.1 H D RBC 3.53 L Hgb 10.3 L Hct 31.4 L MCV 88.7 MCH 29.1 MCHC 32.8 L RDW 17.4 H Plt Count 126 L D MPV 8.1 Neut % (Auto) 92.1 H Lymph % (Auto) 2.3 L Davidson % (Auto) 5.6 Eos % (Auto) 0.0 Baso % (Auto) 0.0 Neut # (Auto) 10.2 H Lymph # (Auto) 0.3 L Davidson # (Auto) 0.6 Eos # (Auto) 0.0 Baso # (Auto) 0.0 Neutrophils % (Manual) 88 H Band Neutrophils % 2 Lymphocytes % (Manual) 4 L Monocytes % (Manual) 6 Platelet Estimate Slightly decreased L Poikilocytosis (manual Slight Anisocytosis (manual) Slight PT INR APTT Puncture Site pCO2 pO2 HCO3 ABG pH ABG Total CO2 ABG O2 Saturation ABG Base Excess Dax Test ABG Potassium A-a O2 Difference Respiratory Index Glucose Lactate Liter Flow FiO2 Sodium 138 Potassium 5.0 Chloride 109 H Carbon Dioxide 12 L Anion Gap 22 H BUN 43 H Creatinine 2.8 H Est GFR ( Amer) 28 Est GFR (Non-Af Amer) 23 POC Glucose (mg/dL) 148 H Random Glucose 147 H Calcium 8.8 Total Bilirubin 1.6 H AST 69 H ALT 36 Alkaline Phosphatase 120 Troponin I 0.3460 H* NT-Pro-B Natriuret Pep 84984 H Total Protein 7.9 Albumin 4.1 Globulin 3.9 Albumin/Globulin Ratio 1.0 Arterial Blood Potassium 11/08/17 11/08/17 01:09 08:54 WBC RBC Hgb Hct MCV MCH MCHC RDW Plt Count MPV Neut % (Auto) Lymph % (Auto) Davidson % (Auto) Eos % (Auto) Baso % (Auto) Neut # (Auto) Lymph # (Auto) Davidson # (Auto) Eos # (Auto) Baso # (Auto) Neutrophils % (Manual) Band Neutrophils % Lymphocytes % (Manual) Monocytes % (Manual) Platelet Estimate Poikilocytosis (manual Anisocytosis (manual) PT 15.2 H INR 1.4 APTT 35 H Puncture Site Lra pCO2 25 L pO2 163 H HCO3 18.4 L ABG pH 7.38 ABG Total CO2 15.6 L ABG O2 Saturation 100.0 H ABG Base Excess -8.5 L Dax Test Pos ABG Potassium 4.8 A-a O2 Difference 5.0 Respiratory Index 0 Glucose 129 H Lactate 1.0 Liter Flow 2.0 FiO2 28.0 Sodium 138.0 Potassium Chloride 110.0 H Carbon Dioxide Anion Gap BUN Creatinine Est GFR ( Amer) Est GFR (Non-Af Amer) POC Glucose (mg/dL) Random Glucose Calcium Total Bilirubin AST ALT Alkaline Phosphatase Troponin I NT-Pro-B Natriuret Pep Total Protein Albumin Globulin Albumin/Globulin Ratio Arterial Blood Potassium 4.8 Assessment & Plan (1) DM type 2 (diabetes mellitus, type 2) Status: Acute (2) CKD (chronic kidney disease) stage 3, GFR 30-59 ml/min Status: Acute (3) CHF (congestive heart failure) Status: Acute (4) Non-ST elevation FL (NSTEMI) Status: Acute (5) AMPARO (acute kidney injury) Status: Acute (6) PVD (peripheral vascular disease) Status: Acute (7) Pneumonia Status: Acute - Assessment and Plan (Free Text) Plan: treatment for pneumonia as per ICU team evaluate for AMI renal US check ua, urine na evaluate for proteinuria serial chemistries degree of AMPARO uncertain- stage CKD unclear ARB use might be exacerbating AMPARO- agree to hold this Milld IV fluids - monitor for CHF as pt with cardiomegaly
[2017-11-08] MEDS: Sodium Chloride 0.9% 1,000 ML IV SCH (11:35)
[2017-11-08] MEDS ORDERED: Piperacill/Tazo 2.25gm in Dex 2.25 GM/50 ML BAG IVPB SCH (12:00)
--- NOTE | 2017-11-08 12:55 | CP.PCM.HP ---
<Chandler Main - Last Filed: 11/08/17 14:37> History of Present Illness - History of Present Illness History of Present Illness: Resident History & Physical for Hospitalist Service Patient is a 67 year old male with past medical history of HTN, hyperlipidemia, T2DM, diastolic CHF, psoriasis, gout presenting with chief complaint of shortness of breath that began about two days prior, accompanied by a mildly productive cough, shortness of breath, subjective fever, and chills. He also admits to one episode of diarrhea yesterday. Patient has been admitted a year prior for similar symptoms and was treated for acute exacerbation of CHF and CAP. He has also been admitted to ICU in the [facility] for similar symptoms however was not intubated at that time. Patient does not follow up with a PMD secondary to insurance issues, however he is able to refill his medications by coming to the ED and states that he has been compliant. He denies nausea, vomiting, headache, chest pain, myalgias, abdominal pain, dysuria. 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 1.5 PPD for 22 years, quit 24 years ago. FHx: Father (lung cancer), Mother (none) Allergies: NKDA PMD: none Present on Admission - Present on Admission Any Indicators Present on Admission: No Review of Systems - Constitutional Constitutional: Chills, Fever. absent: Headache - EENT Eyes: absent: Change in Vision Ears: absent: Abnormal Hearing - Cardiovascular Cardiovascular: absent: Chest Pain, Diaphoresis, Palpitations - Respiratory Respiratory: Cough, Dyspnea - Gastrointestinal Gastrointestinal: Diarrhea. absent: Abdominal Pain, Hematochezia - Genitourinary Genitourinary: absent: Dysuria - Musculoskeletal Musculoskeletal: absent: Myalgias, Numbness, Tingling - Neurological Neurological: absent: Dizziness, Headaches, Syncope Past Patient History - Infectious Disease Hx of Infectious Diseases: None - Past Medical History & Family History Past Family History: Reviewed and not pertinent - Past Social History Smoking Status: Former Smoker Chewing Tobacco Use: No Cigar Use: No Alcohol: None Drugs: Denies - CARDIAC Hx Congestive Heart Failure: Yes Hx Hypertension: Yes - PULMONARY Hx Pneumonia: Yes - NEUROLOGICAL Hx Neurological Disorder: No - HEENT Hx HEENT Problems: No - RENAL Hx Chronic Kidney Disease: No - ENDOCRINE/METABOLIC Hx Diabetes Mellitus Type 2: Yes - HEMATOLOGICAL/ONCOLOGICAL Hx Blood Transfusions: No - INTEGUMENTARY Other/Comment: psoriasis. LE color brownish - MUSCULOSKELETAL/RHEUMATOLOGICAL Hx Falls: No - GASTROINTESTINAL Hx Gastrointestinal Disorders: No - GENITOURINARY/GYNECOLOGICAL Hx Genitourinary Disorders: No - PSYCHIATRIC Hx Substance Use: No - SURGICAL HISTORY Hx Surgeries: Yes Other/Comment: Right foot 3 DIGITS AMPUTATED - ANESTHESIA Hx Anesthesia: Yes Hx Anesthesia Reactions: No Hx Malignant Hyperthermia: No Meds Allergies/Adverse Reactions: Allergies Allergy/AdvReac Type Severity Reaction Status Date / Time No Known Allergies Allergy Unverified 11/08/17 00:47 Physical Exam - Constitutional Appears: Non-toxic, No Acute Distress - Head Exam Head Exam: ATRAUMATIC, NORMOCEPHALIC - Eye Exam Eye Exam: EOMI, Normal appearance, PERRL - ENT Exam ENT Exam: Mucous Membranes Moist, Normal Exam - Neck Exam Neck exam: Positive for: Normal Inspection. Negative for: Lymphadenopathy, Tenderness - Respiratory Exam Respiratory Exam: Decreased Breath Sounds (on the left), NORMAL BREATHING PATTERN - Cardiovascular Exam Cardiovascular Exam: RRR, +S1, +S2 - GI/Abdominal Exam GI & Abdominal Exam: Normal Bowel Sounds, Soft. absent: Distended, Rebound, Rigid, Tenderness - Extremities Exam Extremities exam: Positive for: pedal edema. Negative for: calf tenderness, tenderness Additional comments: chronic venous stasis changes - Neurological Exam Neurological exam: Alert, CN II-XII Intact, Oriented x3, Reflexes Normal - Psychiatric Exam Psychiatric exam: Normal Affect, Normal Mood - Skin Skin Exam: Dry, Intact, Warm Results - Vital Signs Recent Vital Signs: Last Vital Signs Temp 102.5 F H 11/08/17 12:40 Pulse 88 11/08/17 09:50 Resp 20 11/08/17 09:50 BP 134/72 11/08/17 09:50 Pulse Ox 100 11/08/17 09:50 - Labs Result Diagrams: 11/08/17 01:09 11/08/17 01:09 Labs: Laboratory Results - last 24 hr 11/08/17 11/08/17 11/08/17 00:52 01:09 01:09 WBC 11.1 H D RBC 3.53 L Hgb 10.3 L Hct 31.4 L MCV 88.7 MCH 29.1 MCHC 32.8 L RDW 17.4 H Plt Count 126 L D MPV 8.1 Neut % (Auto) 92.1 H Lymph % (Auto) 2.3 L Karnes % (Auto) 5.6 Eos % (Auto) 0.0 Baso % (Auto) 0.0 Neut # (Auto) 10.2 H Lymph # (Auto) 0.3 L Karnes # (Auto) 0.6 Eos # (Auto) 0.0 Baso # (Auto) 0.0 Neutrophils % (Manual) 88 H Band Neutrophils % 2 Lymphocytes % (Manual) 4 L Monocytes % (Manual) 6 Platelet Estimate Slightly decreased L Poikilocytosis (manual Slight Anisocytosis (manual) Slight PT INR APTT Puncture Site pCO2 pO2 HCO3 ABG pH ABG Total CO2 ABG O2 Saturation ABG Base Excess Dax Test ABG Potassium A-a O2 Difference Respiratory Index Glucose Lactate Liter Flow FiO2 Sodium 138 Potassium 5.0 Chloride 109 H Carbon Dioxide 12 L Anion Gap 22 H BUN 43 H Creatinine 2.8 H Est GFR ( Amer) 28 Est GFR (Non-Af Amer) 23 POC Glucose (mg/dL) 148 H Random Glucose 147 H Calcium 8.8 Total Bilirubin 1.6 H AST 69 H ALT 36 Alkaline Phosphatase 120 Troponin I 0.3460 H* NT-Pro-B Natriuret Pep 97762 H Total Protein 7.9 Albumin 4.1 Globulin 3.9 Albumin/Globulin Ratio 1.0 Arterial Blood Potassium 11/08/17 11/08/17 01:09 08:54 WBC RBC Hgb Hct MCV MCH MCHC RDW Plt Count MPV Neut % (Auto) Lymph % (Auto) Karnes % (Auto) Eos % (Auto) Baso % (Auto) Neut # (Auto) Lymph # (Auto) Karnes # (Auto) Eos # (Auto) Baso # (Auto) Neutrophils % (Manual) Band Neutrophils % Lymphocytes % (Manual) Monocytes % (Manual) Platelet Estimate Poikilocytosis (manual Anisocytosis (manual) PT 15.2 H INR 1.4 APTT 35 H Puncture Site Lra pCO2 25 L pO2 163 H HCO3 18.4 L ABG pH 7.38 ABG Total CO2 15.6 L ABG O2 Saturation 100.0 H ABG Base Excess -8.5 L Dax Test Pos ABG Potassium 4.8 A-a O2 Difference 5.0 Respiratory Index 0 Glucose 129 H Lactate 1.0 Liter Flow 2.0 FiO2 28.0 Sodium 138.0 Potassium Chloride 110.0 H Carbon Dioxide Anion Gap BUN Creatinine Est GFR ( Amer) Est GFR (Non-Af Amer) POC Glucose (mg/dL) Random Glucose Calcium Total Bilirubin AST ALT Alkaline Phosphatase Troponin I NT-Pro-B Natriuret Pep Total Protein Albumin Globulin Albumin/Globulin Ratio Arterial Blood Potassium 4.8 Assessment & Plan - Assessment and Plan (Free Text) Assessment: Patient is a 67 year old male with past medical history of HTN, hyperlipidemia, T2DM, diastolic CHF, psoriasis, gout presenting with chief complaint of shortness of breath that began about two days prior, accompanied by a mildly productive cough, shortness of breath, subjective fever, and chills. Plan: Dyspnea - Likely due to mixed acute on chronic diastolic CHF (acute on chronic) and CAP - Febrile at 102.5, WBC count 11.1 - Troponins elevated at 0.3460 - CXR shows severe cardiomegaly - Aspirin 81 mg PO daily - Plavix 75 mg PO daily - 1 dose of vancomycin 500 mg given - 1 dose of Lasix 20 mg given - Zosyn 2.25 gm IV Q8H - Tylenol 650 mg PO Q6 PRN for fever - Admitted to ICU, further management per ICU - Cardiology consulted. Appreciate recs. - Followup CT chest w/o contrast - Followup ECHO - Followup blood cultures, urine cultures - Followup DORON panel x2 CKD - Creatinine 2.8 - GFR 23 - NS at 50 ccs/hr - Nephrology consulted. Recs appreciated. - Followup UA, renal ultrasound results T2DM - Hgba1c in 2017 was 7.5 - ISS High - Accuchecks ACHS Hyperlipidemia - Continue home rosuvastatin 10 mg PO HS Gout - Continue home allopurinol 100 mg PO daily Prophylaxis - Heparin 5000 units SC Q8 - GI prophylaxis not indicated at this time Chandler Main PGY-1 - Date & Time Date: 11/08/17 Time: 12:00 <Charissa Webster V - Last Filed: 11/14/17 20:50> Results - Vital Signs Recent Vital Signs: Last Vital Signs Temp 97.7 F 11/14/17 20:00 Pulse 113 H 11/14/17 20:08 Resp 12 11/14/17 20:08 BP 114/60 11/14/17 20:08 Pulse Ox 99 11/14/17 20:08 - Labs Result Diagrams: 11/14/17 06:33 11/14/17 06:33 Labs: Laboratory Results - last 24 hr 11/13/17 11/14/17 11/14/17 21:44 06:33 06:33 WBC 7.7 RBC 3.75 L Hgb 10.4 L Hct 32.8 L MCV 87.4 MCH 27.8 MCHC 31.8 L RDW 17.2 H Plt Count 242 MPV 7.9 Neut % (Auto) 66.0 Lymph % (Auto) 16.3 L Karnes % (Auto) 15.6 H Eos % (Auto) 1.2 Baso % (Auto) 0.9 Neut # (Auto) 5.1 Lymph # (Auto) 1.2 Karnes # (Auto) 1.2 H Eos # (Auto) 0.1 Baso # (Auto) 0.1 Sodium 135 Potassium 3.8 Chloride 104 Carbon Dioxide 19 L Anion Gap 15 BUN 33 H Creatinine 1.7 H Est GFR ( Amer) 49 Est GFR (Non-Af Amer) 41 POC Glucose (mg/dL) 141 H Random Glucose 130 H Calcium 8.6 Phosphorus 3.5 Magnesium 1.7 Total Bilirubin 0.8 AST 90 H ALT 50 Alkaline Phosphatase 261 H Total Protein 6.6 Albumin 2.7 L Globulin 3.9 Albumin/Globulin Ratio 0.7 L 11/14/17 11/14/17 11/14/17 07:39 11:52 16:30 WBC RBC Hgb Hct MCV MCH MCHC RDW Plt Count MPV Neut % (Auto) Lymph % (Auto) Karnes % (Auto) Eos % (Auto) Baso % (Auto) Neut # (Auto) Lymph # (Auto) Karnes # (Auto) Eos # (Auto) Baso # (Auto) Sodium Potassium Chloride Carbon Dioxide Anion Gap BUN Creatinine Est GFR ( Amer) Est GFR (Non-Af Amer) POC Glucose (mg/dL) 132 H 194 H 164 H Random Glucose Calcium Phosphorus Magnesium Total Bilirubin AST ALT Alkaline Phosphatase Total Protein Albumin Globulin Albumin/Globulin Ratio Assessment & Plan (1) CKD (chronic kidney disease) stage 3, GFR 30-59 ml/min Status: Acute (2) DM type 2 (diabetes mellitus, type 2) Status: Acute (3) Pneumonia Status: Acute (4) Prophylactic measure Status: Chronic Priority: Low Attending/Attestation - Attestation I have personally seen and examined this patient.: Yes I have fully participated in the care of the patient.: Yes I have reviewed all pertinent clinical information: Yes Notes (Text): This is a late computer entry for 11/08/2017. Patient seen, examined, case discussed with medical assistant ob gyn. Patient came back from the [facility] approximately 1 month ago. Patient reporting for the past few days chest pain with associated chest congestion as well as chills. A she reports he went to [facility] but did not receive any pill for diuresis. Patient denies chest pain. Case discussed with ICU, will be admitted to ICU for acute on chronic diastolic congestive heart exacerbation, acute on chronic renal failure, suspicion of sepsis possible pneumonia. We'll consult both cardiology and nephrology. Patient received a small dose of Lasix has had about 10-20 mL output of urine. Will check bladder scan to make sure there is no urinary retention. Patient given for dose first doses of IV antibiotic to cover. We'll draw blood cultures and urine cultures well. Patient admitted to ICU ordered for CT chest and gentle hydration 1. Acute on chronic diastolic CHF exacerbation non-STEMI Assessment/plan * Cardiology asw/asuw tactical air controller help appreciated * CT chest without contrast * Order for new echo prior echo from one year ago shows diastolic congestive heart failure. * Initial Chacho is positive in light of renal failure we'll continue to trend * Continue aspirin 81 mg once a day * Continue Plavix 75 mg once a day * Unable to start beta nitin secondary to low blood pressure * Unable to start Yves/arb are given renal failure and low blood pressure * Monitor daily weights * Monitor intake and output * Patient received one dose of Lasix 20 milligram IV however given low to normal blood pressure and unable to diurese further 2. community-acquired pneumonia assessment/plan * Received first dose of Zosyn and vancomycin the ED * c/w IV abx * Order for blood cultures * chest x-ray showing cardiomegaly * order for strep pneumonia, legionella, mycoplasma IgM 3. acute on chronic renal disease assessment/plan * Creatinine 2.8 * GFR 23 * NS at 50 ccs/hr * Nephrology consulted. Recs appreciated. * Followup UA, renal ultrasound results * fall bladder scan * Risk factors hypertension, diabetes 4. T2DM assessment/plan * Hgba1c in 2017 was 7.5 * ISS High * Accuchecks ACHS * Continue home rosuvastatin 10 mg PO HS * Unable to start Yves/arb are given renal failure and low blood pressure 5. Hyperlipidemia assessment/plan * Continue home rosuvastatin 10 mg PO HS 6. Gout assessment/plan * Continue home allopurinol 100 mg PO daily 7. Prophylaxis * Heparin 5000 units SC Q8 * GI prophylaxis not indicated at this time
--- NOTE | 2017-11-08 14:40 | CP.PCM.CON ---
<Chandler Mani - Last Filed: 11/08/17 14:59> History of Present Illness - History of Present Illness History of Present Illness: Resident Critical Care Consult Note Patient is a 67 year old male with past medical history of HTN, hyperlipidemia, T2DM, diastolic CHF, psoriasis, gout presenting with chief complaint of shortness of breath that began about two days prior, accompanied by a mildly productive cough, shortness of breath, subjective fever, and chills. He also admits to one episode of diarrhea yesterday. Patient has been admitted a year prior for similar symptoms and was treated for acute exacerbation of CHF and CAP. He has also been admitted to ICU in the [facility] for similar symptoms however was not intubated at that time. Patient does not follow up with a PMD secondary to insurance issues, however he is able to refill his medications by coming to the ED and states that he has been compliant. He denies nausea, vomiting, headache, chest pain, myalgias, abdominal pain, dysuria. 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 1.5 PPD for 22 years, quit 24 years ago. FHx: Father (lung cancer), Mother (none) Allergies: NKDA PMD: none Review of Systems - Review of Systems All systems: reviewed and no additional remarkable complaints except (as stated in HPI) Past Patient History - Infectious Disease Hx of Infectious Diseases: None - Past Medical History & Family History Past Family History: Reviewed and not pertinent - Past Social History Smoking Status: Former Smoker Chewing Tobacco Use: No Cigar Use: No Alcohol: None Drugs: Denies - CARDIAC Hx Congestive Heart Failure: Yes Hx Hypertension: Yes - PULMONARY Hx Pneumonia: Yes - NEUROLOGICAL Hx Neurological Disorder: No - HEENT Hx HEENT Problems: No - RENAL Hx Chronic Kidney Disease: No - ENDOCRINE/METABOLIC Hx Diabetes Mellitus Type 2: Yes - HEMATOLOGICAL/ONCOLOGICAL Hx Blood Transfusions: No - INTEGUMENTARY Other/Comment: psoriasis. LE color brownish - MUSCULOSKELETAL/RHEUMATOLOGICAL Hx Falls: No - GASTROINTESTINAL Hx Gastrointestinal Disorders: No - GENITOURINARY/GYNECOLOGICAL Hx Genitourinary Disorders: No - PSYCHIATRIC Hx Substance Use: No - SURGICAL HISTORY Hx Surgeries: Yes Other/Comment: Right foot 3 DIGITS AMPUTATED - ANESTHESIA Hx Anesthesia: Yes Hx Anesthesia Reactions: No Hx Malignant Hyperthermia: No Meds Allergies/Adverse Reactions: Allergies Allergy/AdvReac Type Severity Reaction Status Date / Time No Known Allergies Allergy Unverified 11/08/17 00:47 - Medications Medications: Current Medications Acetaminophen (Tylenol 325mg Tab) 650 mg PO Q6 PRN PRN Reason: for temperature >100.4 Last Admin: 11/08/17 12:40 Dose: 650 mg Allopurinol (Zyloprim) 100 mg PO DAILY [facility] Last Admin: 11/08/17 14:32 Dose: 100 mg Aspirin (Aspirin Chewable) 81 mg PO DAILY [facility] Clopidogrel Bisulfate (Plavix) 75 mg PO DAILY [facility] Heparin Sodium (Porcine) (Heparin) 5,000 units SC Q8 [facility] Last Admin: 11/08/17 14:32 Dose: 5,000 units Sodium Chloride (Sodium Chloride 0.9%) 1,000 mls @ 50 mls/hr IV .Q20H [facility] Last Admin: 11/08/17 11:35 Dose: 50 mls/hr Piperacillin Sod/Tazobactam Sod (Zosyn 2.25 Gm Iv Premix) 2.25 gm in 50 mls @ 100 mls/hr IVPB Q8H [facility]; Protocol Rosuvastatin Calcium (Crestor) 10 mg PO HS [facility] Physical Exam - Constitutional Appears: Non-toxic, No Acute Distress - Head Exam Head Exam: ATRAUMATIC, NORMOCEPHALIC - Eye Exam Eye Exam: EOMI, Normal appearance, PERRL - ENT Exam ENT Exam: Mucous Membranes Moist, Normal Exam - Neck Exam Neck exam: Positive for: Normal Inspection. Negative for: Lymphadenopathy, Tenderness, Thyromegaly - Respiratory Exam Respiratory Exam: Decreased Breath Sounds (on left lower lung riley), NORMAL BREATHING PATTERN. absent: Accessory Muscle Use, Rales, Rhonchi, Wheezes, Respiratory Distress - Cardiovascular Exam Cardiovascular Exam: RRR, +S1, +S2 - GI/Abdominal Exam GI & Abdominal Exam: Normal Bowel Sounds, Soft. absent: Organomegaly, Rebound, Rigid, Tenderness - Extremities Exam Extremities exam: Positive for: pedal edema. Negative for: calf tenderness, tenderness Additional comments: chronic venous stasis changes - Neurological Exam Neurological exam: Alert, CN II-XII Intact, Oriented x3, Reflexes Normal - Psychiatric Exam Psychiatric exam: Normal Affect, Normal Mood - Skin Skin Exam: Dry, Intact, Warm Results - Vital Signs Recent Vital Signs: Last Vital Signs Temp 102.5 F H 11/08/17 12:40 Pulse 88 11/08/17 09:50 Resp 20 11/08/17 09:50 BP 134/72 11/08/17 09:50 Pulse Ox 100 11/08/17 09:50 - Labs Result Diagrams: 11/08/17 01:09 11/08/17 01:09 Labs: Laboratory Results - last 24 hr 11/08/17 11/08/17 11/08/17 00:52 01:09 01:09 WBC 11.1 H D RBC 3.53 L Hgb 10.3 L Hct 31.4 L MCV 88.7 MCH 29.1 MCHC 32.8 L RDW 17.4 H Plt Count 126 L D MPV 8.1 Neut % (Auto) 92.1 H Lymph % (Auto) 2.3 L [place] % (Auto) 5.6 Eos % (Auto) 0.0 Baso % (Auto) 0.0 Neut # (Auto) 10.2 H Lymph # (Auto) 0.3 L [place] # (Auto) 0.6 Eos # (Auto) 0.0 Baso # (Auto) 0.0 Neutrophils % (Manual) 88 H Band Neutrophils % 2 Lymphocytes % (Manual) 4 L Monocytes % (Manual) 6 Platelet Estimate Slightly decreased L Poikilocytosis (manual Slight Anisocytosis (manual) Slight PT INR APTT Puncture Site pCO2 pO2 HCO3 ABG pH ABG Total CO2 ABG O2 Saturation ABG Base Excess Dax Test ABG Potassium A-a O2 Difference Respiratory Index Glucose Lactate Liter Flow FiO2 Sodium 138 Potassium 5.0 Chloride 109 H Carbon Dioxide 12 L Anion Gap 22 H BUN 43 H Creatinine 2.8 H Est GFR ( Amer) 28 Est GFR (Non-Af Amer) 23 POC Glucose (mg/dL) 148 H Random Glucose 147 H Calcium 8.8 Total Bilirubin 1.6 H AST 69 H ALT 36 Alkaline Phosphatase 120 Troponin I 0.3460 H* NT-Pro-B Natriuret Pep 08640 H Total Protein 7.9 Albumin 4.1 Globulin 3.9 Albumin/Globulin Ratio 1.0 Arterial Blood Potassium Ur Random Sodium 11/08/17 11/08/17 11/08/17 01:09 08:54 13:39 WBC RBC Hgb Hct MCV MCH MCHC RDW Plt Count MPV Neut % (Auto) Lymph % (Auto) [place] % (Auto) Eos % (Auto) Baso % (Auto) Neut # (Auto) Lymph # (Auto) [place] # (Auto) Eos # (Auto) Baso # (Auto) Neutrophils % (Manual) Band Neutrophils % Lymphocytes % (Manual) Monocytes % (Manual) Platelet Estimate Poikilocytosis (manual Anisocytosis (manual) PT 15.2 H INR 1.4 APTT 35 H Puncture Site Lra pCO2 25 L pO2 163 H HCO3 18.4 L ABG pH 7.38 ABG Total CO2 15.6 L ABG O2 Saturation 100.0 H ABG Base Excess -8.5 L Dax Test Pos ABG Potassium 4.8 A-a O2 Difference 5.0 Respiratory Index 0 Glucose 129 H Lactate 1.0 Liter Flow 2.0 FiO2 28.0 Sodium 138.0 Potassium Chloride 110.0 H Carbon Dioxide Anion Gap BUN Creatinine Est GFR ( Amer) Est GFR (Non-Af Amer) POC Glucose (mg/dL) Random Glucose Calcium Total Bilirubin AST ALT Alkaline Phosphatase Troponin I NT-Pro-B Natriuret Pep Total Protein Albumin Globulin Albumin/Globulin Ratio Arterial Blood Potassium 4.8 Ur Random Sodium 49 Assessment & Plan - Assessment and Plan (Free Text) Assessment: Patient is a 67 year old male with past medical history of HTN, hyperlipidemia, T2DM, diastolic CHF, psoriasis, gout presenting with chief complaint of shortness of breath that began about two days prior, accompanied by a mildly productive cough, shortness of breath, subjective fever, and chills. Plan: Neuro: - AAO x3 Pulm: - SOB likely due to mixed acute on chronic diastolic CHF (acute on chronic) and CAP - 1 dose of Lasix 20 mg given - Nasal cannula as tolerated - Maintain SPO2 > 92% - Followup CT chest w/o contrast CV: - Currently hemodynamically stable - Troponins elevated at 0.3460 - CXR shows severe cardiomegaly - Continue home rosuvastatin 10 mg PO HS - Aspirin 81 mg PO daily - Plavix 75 mg PO daily - Cardiology consulted. Appreciate recs. - Followup ECHO - Followup DORON panel x2 GI: - HHD Renal: - CKD stage 3 - Creatinine 2.8, GFR 23 - NS at 50 ccs/hr - Followup UA, renal ultrasound results - Monitor I and O - Replete electrolytes as needed - Nephrology consulted. Recs appreciated. ID: - Febrile at 102.5, WBC count 11.1 - 1 dose of vancomycin 500 mg given - Zosyn 2.25 gm IV Q8H - Tylenol 650 mg PO Q6 PRN for fever - Followup blood cultures, urine cultures Heme/Onc - Monitor H&H Endo: - Maintain euglycemia PPX: Heparin 5000 units SC Q8, GI prophylaxis not indicated at this time Case and plan was reviewed and discussed with Dr. Jessica Main PGY-1 - Date & Time Date: 11/08/17 Time: 13:00 <Da Lopez - Last Filed: 11/08/17 19:24> Meds - Medications Medications: Current Medications Acetaminophen (Tylenol 325mg Tab) 650 mg PO Q6 PRN PRN Reason: for temperature >100.4 Last Admin: 11/08/17 12:40 Dose: 650 mg Allopurinol (Zyloprim) 100 mg PO DAILY [facility] Last Admin: 11/08/17 14:32 Dose: 100 mg Aspirin (Aspirin Chewable) 81 mg PO DAILY [facility] Clopidogrel Bisulfate (Plavix) 75 mg PO DAILY [facility] Heparin Sodium (Porcine) (Heparin) 5,000 units SC Q8 [facility] Last Admin: 11/08/17 14:32 Dose: 5,000 units Sodium Chloride (Sodium Chloride 0.9%) 1,000 mls @ 50 mls/hr IV .Q20H [facility] Last Admin: 11/08/17 11:35 Dose: 50 mls/hr Piperacillin Sod/Tazobactam Sod (Zosyn 2.25 Gm Iv Premix) 2.25 gm in 50 mls @ 100 mls/hr IVPB Q8H [facility]; Protocol Last Admin: 11/08/17 17:20 Dose: 100 mls/hr Influenza Virus Vaccine (Fluzone Quad [id number]) 60 mcg IM .ONCE ONE Stop: 11/11/17 10:01 Pneumococcal Polyvalent Vaccine (Pneumovax 23 Vaccine) 0.5 ml IM .ONCE ONE Stop: 11/11/17 10:01 Rosuvastatin Calcium (Crestor) 10 mg PO HS [facility] Results - Vital Signs Recent Vital Signs: Last Vital Signs Temp 99.2 F 11/08/17 16:00 Pulse 74 11/08/17 18:42 Resp 22 11/08/17 18:42 BP 98/53 L 11/08/17 18:42 Pulse Ox 99 11/08/17 18:42 - Labs Result Diagrams: 11/08/17 14:57 11/08/17 14:57 Labs: Laboratory Results - last 24 hr 11/08/17 11/08/17 11/08/17 00:52 01:09 01:09 WBC 11.1 H D RBC 3.53 L Hgb 10.3 L Hct 31.4 L MCV 88.7 MCH 29.1 MCHC 32.8 L RDW 17.4 H Plt Count 126 L D MPV 8.1 Neut % (Auto) 92.1 H Lymph % (Auto) 2.3 L [place] % (Auto) 5.6 Eos % (Auto) 0.0 Baso % (Auto) 0.0 Neut # (Auto) 10.2 H Lymph # (Auto) 0.3 L [place] # (Auto) 0.6 Eos # (Auto) 0.0 Baso # (Auto) 0.0 Neutrophils % (Manual) 88 H Band Neutrophils % 2 Lymphocytes % (Manual) 4 L Monocytes % (Manual) 6 Platelet Estimate Slightly decreased L Hypochromasia (manual) Poikilocytosis (manual Slight Anisocytosis (manual) Slight Ovalocytes [place] Cells PT INR APTT Puncture Site pCO2 pO2 HCO3 ABG pH ABG Total CO2 ABG O2 Saturation ABG Base Excess Dax Test ABG Potassium A-a O2 Difference Respiratory Index Glucose Lactate Liter Flow FiO2 Sodium 138 Potassium 5.0 Chloride 109 H Carbon Dioxide 12 L Anion Gap 22 H BUN 43 H Creatinine 2.8 H Est GFR ( Amer) 28 Est GFR (Non-Af Amer) 23 POC Glucose (mg/dL) 148 H Random Glucose 147 H Calcium 8.8 Phosphorus Magnesium Total Bilirubin 1.6 H AST 69 H ALT 36 Alkaline Phosphatase 120 Total Creatine Kinase CK-MB (Mass) Troponin I 0.3460 H* NT-Pro-B Natriuret Pep 85896 H Total Protein 7.9 Albumin 4.1 Globulin 3.9 Albumin/Globulin Ratio 1.0 Arterial Blood Potassium U Random Total Protein Ur Random Sodium 11/08/17 11/08/17 11/08/17 01:09 08:54 12:09 WBC RBC Hgb Hct MCV MCH MCHC RDW Plt Count MPV Neut % (Auto) Lymph % (Auto) [place] % (Auto) Eos % (Auto) Baso % (Auto) Neut # (Auto) Lymph # (Auto) [place] # (Auto) Eos # (Auto) Baso # (Auto) Neutrophils % (Manual) Band Neutrophils % Lymphocytes % (Manual) Monocytes % (Manual) Platelet Estimate Hypochromasia (manual) Poikilocytosis (manual Anisocytosis (manual) Ovalocytes Patti Cells PT 15.2 H INR 1.4 APTT 35 H Puncture Site Lra pCO2 25 L pO2 163 H HCO3 18.4 L ABG pH 7.38 ABG Total CO2 15.6 L ABG O2 Saturation 100.0 H ABG Base Excess -8.5 L Dax Test Pos ABG Potassium 4.8 A-a O2 Difference 5.0 Respiratory Index 0 Glucose 129 H Lactate 1.0 Liter Flow 2.0 FiO2 28.0 Sodium 138.0 Potassium Chloride 110.0 H Carbon Dioxide Anion Gap BUN Creatinine Est GFR ( Amer) Est GFR (Non-Af Amer) POC Glucose (mg/dL) 122 H Random Glucose Calcium Phosphorus Magnesium Total Bilirubin AST ALT Alkaline Phosphatase Total Creatine Kinase CK-MB (Mass) Troponin I NT-Pro-B Natriuret Pep Total Protein Albumin Globulin Albumin/Globulin Ratio Arterial Blood Potassium 4.8 U Random Total Protein Ur Random Sodium 11/08/17 11/08/17 11/08/17 13:39 13:39 14:57 WBC RBC Hgb Hct MCV MCH MCHC RDW Plt Count MPV Neut % (Auto) Lymph % (Auto) [place] % (Auto) Eos % (Auto) Baso % (Auto) Neut # (Auto) Lymph # (Auto) [place] # (Auto) Eos # (Auto) Baso # (Auto) Neutrophils % (Manual) Band Neutrophils % Lymphocytes % (Manual) Monocytes % (Manual) Platelet Estimate Hypochromasia (manual) Poikilocytosis (manual Anisocytosis (manual) Ovalocytes Patti Cells PT INR APTT Puncture Site pCO2 pO2 HCO3 ABG pH ABG Total CO2 ABG O2 Saturation ABG Base Excess Dax Test ABG Potassium A-a O2 Difference Respiratory Index Glucose Lactate Liter Flow FiO2 Sodium 136 Potassium 5.1 Chloride 108 H Carbon Dioxide 15 L Anion Gap 18 BUN 50 H Creatinine 2.8 H Est GFR ( Amer) 28 Est GFR (Non-Af Amer) 23 POC Glucose (mg/dL) Random Glucose 89 Calcium 8.4 L Phosphorus 3.5 Magnesium 1.9 Total Bilirubin 1.6 H AST 118 H D ALT 44 Alkaline Phosphatase 89 Total Creatine Kinase 4899 H CK-MB (Mass) 3.75 H Troponin I 0.2820 H* NT-Pro-B Natriuret Pep Total Protein 7.1 Albumin 3.4 L Globulin 3.7 Albumin/Globulin Ratio 0.9 L Arterial Blood Potassium U Random Total Protein Cancelled 156.0 H Ur Random Sodium 49 11/08/17 11/08/17 14:57 16:11 WBC 7.0 RBC 3.39 L Hgb 9.9 L Hct 30.0 L MCV 88.5 MCH 29.3 MCHC 33.1 RDW 17.3 H Plt Count 106 L D MPV 7.6 Neut % (Auto) 92.7 H Lymph % (Auto) 2.2 L [place] % (Auto) 4.8 Eos % (Auto) 0.0 Baso % (Auto) 0.3 Neut # (Auto) 6.5 Lymph # (Auto) 0.2 L [place] # (Auto) 0.3 Eos # (Auto) 0.0 Baso # (Auto) 0.0 Neutrophils % (Manual) 87 H Band Neutrophils % 9 H Lymphocytes % (Manual) 2 L Monocytes % (Manual) 2 Platelet Estimate Slightly decreased L Hypochromasia (manual) Slight Poikilocytosis (manual Slight Anisocytosis (manual) Slight Ovalocytes Slight Patti Cells Slight PT INR APTT Puncture Site pCO2 pO2 HCO3 ABG pH ABG Total CO2 ABG O2 Saturation ABG Base Excess Dax Test ABG Potassium A-a O2 Difference Respiratory Index Glucose Lactate Liter Flow FiO2 Sodium Potassium Chloride Carbon Dioxide Anion Gap BUN Creatinine Est GFR ( Amer) Est GFR (Non-Af Amer) POC Glucose (mg/dL) 100 Random Glucose Calcium Phosphorus Magnesium Total Bilirubin AST ALT Alkaline Phosphatase Total Creatine Kinase CK-MB (Mass) Troponin I NT-Pro-B Natriuret Pep Total Protein Albumin Globulin Albumin/Globulin Ratio Arterial Blood Potassium U Random Total Protein Ur Random Sodium Attending/Attestation - Attestation I have personally seen and examined this patient.: Yes I have fully participated in the care of the patient.: Yes I have reviewed all pertinent clinical information: Yes Notes (Text): 11/08/17 19:23 Patient admitted with a possibly pneumonia. Acute renal failure. Also admitted with a non-ST elevation ME. Possible heart failure. Currently an antibiotic. Gentle hydration. Renal function monitoring. ICU monitoring
--- NOTE | 2017-11-08 14:59 | CT ---
Date of service: 11/08/2017 PROCEDURE: CT Chest without contrast HISTORY: Evaluate pneumonia COMPARISON: Comparison made with prior chest CTA chest dated 12/21/2016. TECHNIQUE: Contiguous axial images were obtained through the chest without intravenous contrast enhancement. Sagittal and coronal reconstructions were performed. Radiation dose (DLP): 908.93 mGy-cm. This CT exam was performed using one or more of the following dose reduction techniques: Automated exposure control, adjustment of the mA and/or kV according to patient size, and/or use of iterative reconstruction technique. FINDINGS: LUNGS: Right-sided effusion and atelectasis as described below.. Trace left-sided effusion atelectasis and/or scarring changes left lingular region. MEDIASTINUM: Heart is enlarged. No significant pericardial effusion. Ascending thoracic aorta measures approximately 3.9 cm and descending thoracic aorta measures approximately 3.0 cm. Pulmonary trunk is dilated measuring approximately 4.5 cm; rule out underlying pulmonary arterial hypertension. The proximal/mid aspect of the right main pulmonary artery also exhibits large caliber There are multiple small nonspecific mediastinal lymph nodes. Evaluation for hilar adenopathy is limited due to the lack of circulating intravenous contrast material. Central airways midline and patent. No large central endoluminal lesions. Intermittent air seen throughout the esophagus. PLEURA: Small to medium size right-sided effusion with mild right basilar atelectasis. Trace left-sided effusion. Small amount of fluid is also seen along the superior margin right major fissure. No evidence of pneumothorax.. BONES: Mild multilevel degenerative spondylosis of the thoracic spine. There are no acute compression fractures no retropulsed fragments. Vertebral bodies exhibit normal stature. UPPER ABDOMEN: Grossly unremarkable. OTHER FINDINGS: Mild bilateral gynecomastia changes. IMPRESSION: Small to medium size right-sided effusion with mild right basilar atelectasis. Trace left effusion. Minor atelectasis and or scarring left lingular region. Cardiomegaly with mild dilatation of the ascending thoracic aorta. Marked enlargement of the pulmonary trunk; rule out underlying pulmonary arterial hypertension.
[2017-11-08 15:04] LABS: BASO % 0.3 % (0.0-2.0); HEMOGLOBIN 9.9 g/dL (12.0-18.0); LYMPH # 0.2 K/uL (1.0-4.3); LYMPH % 2.2 % (20.0-40.0); MEAN CELL VOLUME 88.5 fL (80.0-94.0); MEAN CORPUSCULAR HEMOGLOBIN 29.3 pg (27.0-31.0); MEAN CORPUSCULAR HGB CONC 33.1 g/dL (33.0-37.0); MEAN PLATELET VOLUME 7.6 fL (7.2-11.7); MONO # 0.3 K/uL (0.0-0.8); MONO % 4.8 % (0.0-10.0); NEUT # 6.5 K/uL (1.8-7.0); NEUT % 92.7 % (50.0-75.0); NRBC % 0.1 % (0.0-2.0); RBC 3.39 Mil/uL (4.40-5.90); RED CELL DISTRIBUTION WIDTH 17.3 % (11.5-14.5)
[2017-11-08 15:06] LABS: PLATELET COUNT 106 K/uL (130-400)
[2017-11-08 15:17] LABS: ALB/GLOB RATIO 0.9 (1.0-2.1); ALBUMIN 3.4 g/dL (3.5-5.0); CALCIUM 8.4 mg/dl (8.6-10.4)
[2017-11-08 15:35] LABS: ANISOCYTOSIS SLIGHT; BANDS 9 % (0-2); BURR CELLS SLIGHT; HYPOCHROMIC SLIGHT; LYMPHOCYTE 2 % (20-40); MONOCYTE 2 % (0-10); NEUTROPHIL 87 % (50-75); OVALOCYTES SLIGHT; PLATELET ESTIMATE SLIGHTLY DECREASED (NORMAL); POIKILOCYTOSIS SLIGHT; TOTAL CELLS COUNTED 100
[2017-11-08 15:42] LABS: CK-MB 3.75 ng/mL (0.0-3.38); TROPONIN I 0.282 ng/mL (0.00-0.120)
--- NOTE | 2017-11-08 16:12 | US ---
Renal ultrasound HISTORY: Acute renal insufficiency. COMPARISON: None available. TECHNIQUE: Real-time sonography was performed through the kidneys. FINDINGS: Right kidney: 10.9 x 5.6 x 5.2 centimeters. Increased echogenicity of the renal parenchymal cortex suggestive for medical renal disease. No calculi or hydronephrosis. Left Kidney: 11.4 x 5.8 x 5.5 centimeters. Increased echogenicity of the renal parenchymal cortex suggestive for medical renal disease. No calculi or hydronephrosis. Visualized aorta grossly preserved. Underdistended urinary bladder limits evaluation. IMPRESSION: 1. Increased echogenicity of the bilateral renal parenchymal cortices suggestive for medical renal disease. Clinical correlation. 2. Underdistended urinary bladder.
[2017-11-08] MEDS: Piperacill/Tazo 2.25gm in Dex 2.25 GM/50 ML BAG IVPB SCH (17:20)
[2017-11-08 19:54] VITALS: BMI 33.2
[2017-11-08 21:08] LABS: CK-MB 2.42 ng/mL (0.0-3.38)
[2017-11-08 21:11] LABS: TROPONIN I 0.228 ng/mL (0.00-0.120)
--- NOTE | 2017-11-08 23:55 | CP.PCM.CON ---
History of Present Illness - History of Present Illness History of Present Illness: 67 M with hx of CAD, diastolic CHF HTN, Diabetes admitted for dyspnea Elevated ProBNP and Abnromal Trops Check ECHO CHF/CAD/CKD mgt Past Patient History - Infectious Disease Hx of Infectious Diseases: None - Past Medical History & Family History Past Family History: Reviewed and not pertinent - Past Social History Smoking Status: Former Smoker Chewing Tobacco Use: No Cigar Use: No Alcohol: None Drugs: Denies - CARDIAC Hx Congestive Heart Failure: Yes Hx Hypertension: Yes - PULMONARY Hx Pneumonia: Yes - NEUROLOGICAL Hx Neurological Disorder: No - HEENT Hx HEENT Problems: No - RENAL Hx Chronic Kidney Disease: No - ENDOCRINE/METABOLIC Hx Diabetes Mellitus Type 2: Yes - HEMATOLOGICAL/ONCOLOGICAL Hx Blood Transfusions: No - INTEGUMENTARY Other/Comment: psoriasis. LE color brownish - MUSCULOSKELETAL/RHEUMATOLOGICAL Hx Falls: No - GASTROINTESTINAL Hx Gastrointestinal Disorders: No - GENITOURINARY/GYNECOLOGICAL Hx Genitourinary Disorders: No - PSYCHIATRIC Hx Substance Use: No - SURGICAL HISTORY Hx Surgeries: Yes Other/Comment: Right foot 3 DIGITS AMPUTATED - ANESTHESIA Hx Anesthesia: Yes Hx Anesthesia Reactions: No Hx Malignant Hyperthermia: No Meds Allergies/Adverse Reactions: Allergies Allergy/AdvReac Type Severity Reaction Status Date / Time No Known Allergies Allergy Unverified 11/08/17 00:47 - Medications Medications: Current Medications Acetaminophen (Tylenol 325mg Tab) 650 mg PO Q6 PRN PRN Reason: for temperature >100.4 Last Admin: 11/08/17 20:38 Dose: 650 mg Allopurinol (Zyloprim) 100 mg PO DAILY [facility] Last Admin: 11/08/17 14:32 Dose: 100 mg Aspirin (Aspirin Chewable) 81 mg PO DAILY [facility] Clopidogrel Bisulfate (Plavix) 75 mg PO DAILY [facility] Heparin Sodium (Porcine) (Heparin) 5,000 units SC Q8 [facility] Last Admin: 11/08/17 14:32 Dose: 5,000 units Sodium Chloride (Sodium Chloride 0.9%) 1,000 mls @ 50 mls/hr IV .Q20H [facility] Last Admin: 11/08/17 11:35 Dose: 50 mls/hr Piperacillin Sod/Tazobactam Sod (Zosyn 2.25 Gm Iv Premix) 2.25 gm in 50 mls @ 100 mls/hr IVPB Q8H [facility]; Protocol Last Admin: 11/08/17 17:20 Dose: 100 mls/hr Influenza Virus Vaccine (Fluzone Quad [id number]) 60 mcg IM .ONCE ONE Stop: 11/11/17 10:01 Pneumococcal Polyvalent Vaccine (Pneumovax 23 Vaccine) 0.5 ml IM .ONCE ONE Stop: 11/11/17 10:01 Rosuvastatin Calcium (Crestor) 10 mg PO HS [facility] Last Admin: 11/08/17 22:21 Dose: 10 mg Results - Vital Signs Recent Vital Signs: Last Vital Signs Temp 99.4 F 11/08/17 21:38 Pulse 72 11/08/17 23:15 Resp 20 11/08/17 23:15 BP 91/49 L 11/08/17 23:15 Pulse Ox 99 11/08/17 23:15 - Labs Result Diagrams: 11/08/17 14:57 11/08/17 14:57 Labs: Laboratory Results - last 24 hr 11/08/17 11/08/17 11/08/17 00:52 01:09 01:09 WBC 11.1 H D RBC 3.53 L Hgb 10.3 L Hct 31.4 L MCV 88.7 MCH 29.1 MCHC 32.8 L RDW 17.4 H Plt Count 126 L D MPV 8.1 Neut % (Auto) 92.1 H Lymph % (Auto) 2.3 L [place] % (Auto) 5.6 Eos % (Auto) 0.0 Baso % (Auto) 0.0 Neut # (Auto) 10.2 H Lymph # (Auto) 0.3 L [place] # (Auto) 0.6 Eos # (Auto) 0.0 Baso # (Auto) 0.0 Neutrophils % (Manual) 88 H Band Neutrophils % 2 Lymphocytes % (Manual) 4 L Monocytes % (Manual) 6 Platelet Estimate Slightly decreased L Hypochromasia (manual) Poikilocytosis (manual Slight Anisocytosis (manual) Slight Ovalocytes [place]atti Cells PT INR APTT Puncture Site pCO2 pO2 HCO3 ABG pH ABG Total CO2 ABG O2 Saturation ABG Base Excess Dax Test ABG Potassium A-a O2 Difference Respiratory Index Glucose Lactate Liter Flow FiO2 Sodium 138 Potassium 5.0 Chloride 109 H Carbon Dioxide 12 L Anion Gap 22 H BUN 43 H Creatinine 2.8 H Est GFR ( Amer) 28 Est GFR (Non-Af Amer) 23 POC Glucose (mg/dL) 148 H Random Glucose 147 H Calcium 8.8 Phosphorus Magnesium Total Bilirubin 1.6 H AST 69 H ALT 36 Alkaline Phosphatase 120 Total Creatine Kinase CK-MB (Mass) Troponin I 0.3460 H* NT-Pro-B Natriuret Pep 41059 H Total Protein 7.9 Albumin 4.1 Globulin 3.9 Albumin/Globulin Ratio 1.0 Arterial Blood Potassium U Random Total Protein Ur Random Sodium Random Vancomycin Influenza Typ A,B (EIA) 11/08/17 11/08/17 11/08/17 01:09 08:54 12:09 WBC RBC Hgb Hct MCV MCH MCHC RDW Plt Count MPV Neut % (Auto) Lymph % (Auto) [place] % (Auto) Eos % (Auto) Baso % (Auto) Neut # (Auto) Lymph # (Auto) [place] # (Auto) Eos # (Auto) Baso # (Auto) Neutrophils % (Manual) Band Neutrophils % Lymphocytes % (Manual) Monocytes % (Manual) Platelet Estimate Hypochromasia (manual) Poikilocytosis (manual Anisocytosis (manual) Ovalocytes [place] Cells PT 15.2 H INR 1.4 APTT 35 H Puncture Site Lra pCO2 25 L pO2 163 H HCO3 18.4 L ABG pH 7.38 ABG Total CO2 15.6 L ABG O2 Saturation 100.0 H ABG Base Excess -8.5 L Dax Test Pos ABG Potassium 4.8 A-a O2 Difference 5.0 Respiratory Index 0 Glucose 129 H Lactate 1.0 Liter Flow 2.0 FiO2 28.0 Sodium 138.0 Potassium Chloride 110.0 H Carbon Dioxide Anion Gap BUN Creatinine Est GFR ( Amer) Est GFR (Non-Af Amer) POC Glucose (mg/dL) 122 H Random Glucose Calcium Phosphorus Magnesium Total Bilirubin AST ALT Alkaline Phosphatase Total Creatine Kinase CK-MB (Mass) Troponin I NT-Pro-B Natriuret Pep Total Protein Albumin Globulin Albumin/Globulin Ratio Arterial Blood Potassium 4.8 U Random Total Protein Ur Random Sodium Random Vancomycin Influenza Typ A,B (EIA) 11/08/17 11/08/17 11/08/17 13:39 13:39 14:57 WBC RBC Hgb Hct MCV MCH MCHC RDW Plt Count MPV Neut % (Auto) Lymph % (Auto) [place] % (Auto) Eos % (Auto) Baso % (Auto) Neut # (Auto) Lymph # (Auto) [place] # (Auto) Eos # (Auto) Baso # (Auto) Neutrophils % (Manual) Band Neutrophils % Lymphocytes % (Manual) Monocytes % (Manual) Platelet Estimate Hypochromasia (manual) Poikilocytosis (manual Anisocytosis (manual) Ovalocytes [place] Cells PT INR APTT Puncture Site pCO2 pO2 HCO3 ABG pH ABG Total CO2 ABG O2 Saturation ABG Base Excess Dax Test ABG Potassium A-a O2 Difference Respiratory Index Glucose Lactate Liter Flow FiO2 Sodium 136 Potassium 5.1 Chloride 108 H Carbon Dioxide 15 L Anion Gap 18 BUN 50 H Creatinine 2.8 H Est GFR ( Amer) 28 Est GFR (Non-Af Amer) 23 POC Glucose (mg/dL) Random Glucose 89 Calcium 8.4 L Phosphorus 3.5 Magnesium 1.9 Total Bilirubin 1.6 H AST 118 H D ALT 44 Alkaline Phosphatase 89 Total Creatine Kinase 4899 H CK-MB (Mass) 3.75 H Troponin I 0.2820 H* NT-Pro-B Natriuret Pep Total Protein 7.1 Albumin 3.4 L Globulin 3.7 Albumin/Globulin Ratio 0.9 L Arterial Blood Potassium U Random Total Protein Cancelled 156.0 H Ur Random Sodium 49 Random Vancomycin Influenza Typ A,B (EIA) 11/08/17 11/08/17 11/08/17 14:57 16:11 20:35 WBC 7.0 RBC 3.39 L Hgb 9.9 L Hct 30.0 L MCV 88.5 MCH 29.3 MCHC 33.1 RDW 17.3 H Plt Count 106 L D MPV 7.6 Neut % (Auto) 92.7 H Lymph % (Auto) 2.2 L [place] % (Auto) 4.8 Eos % (Auto) 0.0 Baso % (Auto) 0.3 Neut # (Auto) 6.5 Lymph # (Auto) 0.2 L [place] # (Auto) 0.3 Eos # (Auto) 0.0 Baso # (Auto) 0.0 Neutrophils % (Manual) 87 H Band Neutrophils % 9 H Lymphocytes % (Manual) 2 L Monocytes % (Manual) 2 Platelet Estimate Slightly decreased L Hypochromasia (manual) Slight Poikilocytosis (manual Slight Anisocytosis (manual) Slight Ovalocytes Slight [place] Cells Slight PT INR APTT Puncture Site pCO2 pO2 HCO3 ABG pH ABG Total CO2 ABG O2 Saturation ABG Base Excess Dax Test ABG Potassium A-a O2 Difference Respiratory Index Glucose Lactate Liter Flow FiO2 Sodium Potassium Chloride Carbon Dioxide Anion Gap BUN Creatinine Est GFR ( Amer) Est GFR (Non-Af Amer) POC Glucose (mg/dL) 100 Random Glucose Calcium Phosphorus Magnesium Total Bilirubin AST ALT Alkaline Phosphatase Total Creatine Kinase 4180 H CK-MB (Mass) 2.42 Troponin I 0.2280 H* NT-Pro-B Natriuret Pep Total Protein Albumin Globulin Albumin/Globulin Ratio Arterial Blood Potassium U Random Total Protein Ur Random Sodium Random Vancomycin Influenza Typ A,B (EIA) 11/08/17 11/08/17 11/08/17 20:54 20:56 23:10 WBC RBC Hgb Hct MCV MCH MCHC RDW Plt Count MPV Neut % (Auto) Lymph % (Auto) [place] % (Auto) Eos % (Auto) Baso % (Auto) Neut # (Auto) Lymph # (Auto) [place] # (Auto) Eos # (Auto) Baso # (Auto) Neutrophils % (Manual) Band Neutrophils % Lymphocytes % (Manual) Monocytes % (Manual) Platelet Estimate Hypochromasia (manual) Poikilocytosis (manual Anisocytosis (manual) Ovalocytes [place] Cells PT INR APTT Puncture Site pCO2 pO2 HCO3 ABG pH ABG Total CO2 ABG O2 Saturation ABG Base Excess Dax Test ABG Potassium A-a O2 Difference Respiratory Index Glucose Lactate Liter Flow FiO2 Sodium Potassium Chloride Carbon Dioxide Anion Gap BUN Creatinine Est GFR ( Amer) Est GFR (Non-Af Amer) POC Glucose (mg/dL) 147 H Random Glucose Calcium Phosphorus Magnesium Total Bilirubin AST ALT Alkaline Phosphatase Total Creatine Kinase CK-MB (Mass) Troponin I NT-Pro-B Natriuret Pep Total Protein Albumin Globulin Albumin/Globulin Ratio Arterial Blood Potassium U Random Total Protein Ur Random Sodium Random Vancomycin < 5.0 Influenza Typ A,B (EIA) Negative for flu a/b
[2017-11-09] MEDS ORDERED: Vancomycin 1 gm/NS 200 ml 1 GM/200 ML BAG IVPB SCH (01:00)
[2017-11-09] MEDS: Piperacill/Tazo 2.25gm in Dex 2.25 GM/50 ML BAG IVPB SCH ×3 (01:11→18:55)
[2017-11-09] MEDS ORDERED: Vancomycin 1 gm/NS 200 ml 1 GM/200 ML BAG IVPB STA (01:22)
[2017-11-09 01:37] LABS: SQUAMOUS EPITHIAL < 1 /hpf (0-5); URINE BACTERIA RARE (<OCC); URINE BILIRUBIN NEGATIVE (NEGATIVE); URINE CLARITY Hazy (Clear); URINE COLOR Yellow (YELLOW); URINE GLUCOSE (UA) NORMAL (Normal); URINE LEUKOCYTE ESTERASE NEG Leu/uL (Negative); URINE PROTEIN 2+ mg/dL (NEGATIVE); URINE UROBILINOGEN NORMAL mg/dL (0.2-1.0); WBC CLUMPS FEW /hpf
[2017-11-09 01:38] LABS: URINE BLOOD NEGATIVE (NEGATIVE)
[2017-11-09 06:20] LABS: BASO % 0.3 % (0.0-2.0); EOS % 0.2 % (0.0-4.0); LYMPH # 0.4 K/uL (1.0-4.3); LYMPH % 4.1 % (20.0-40.0); MEAN CORPUSCULAR HEMOGLOBIN 29.1 pg (27.0-31.0); MEAN CORPUSCULAR HGB CONC 32.7 g/dL (33.0-37.0); MEAN PLATELET VOLUME 8.3 fL (7.2-11.7); MONO # 0.7 K/uL (0.0-0.8); MONO % 8.2 % (0.0-10.0); NEUT % 87.2 % (50.0-75.0); NRBC % 0.2 % (0.0-2.0); PLATELET COUNT 119 K/uL (130-400); RBC 3.42 Mil/uL (4.40-5.90); RED CELL DISTRIBUTION WIDTH 17.6 % (11.5-14.5); WHITE BLOOD COUNT 9.1 K/uL (4.8-10.8)
[2017-11-09 06:42] LABS: ALB/GLOB RATIO 0.9 (1.0-2.1); ALT/SGPT 44 U/L (21-72); AST/SGOT 115 U/L (17-59); BLOOD UREA NITROGEN 50 mg/dL (9-20); CALCIUM 7.8 mg/dl (8.6-10.4); GFR NON-AFRICAN AMERICAN 23; HDL CHOLESTEROL 32 mg/dL (30-70)
[2017-11-09 06:45] LABS: LDL CHOLESTEROL < 30 mg/dL (0-129)
[2017-11-09] MEDS: Sodium Chloride 0.9% 1,000 ML IV SCH ×2 (07:27→09:39)
[2017-11-09 08:26] LABS: ANISOCYTOSIS SLIGHT; BANDS 16 % (0-2); LYMPHOCYTE 5 % (20-40); MONOCYTE 7 % (0-10); NEUTROPHIL 72 % (50-75); PLATELET ESTIMATE SLIGHTLY DECREASED (NORMAL); TOTAL CELLS COUNTED 100
[2017-11-09 08:27] LABS: POIKILOCYTOSIS SLIGHT
[2017-11-09 08:28] LABS: BURR CELLS SLIGHT; TOXIC GRANULATION PRESENT
--- NOTE | 2017-11-09 09:54 | CP.PCM.PN ---
Subjective - Date & Time of Evaluation Date of Evaluation: 11/09/17 Time of Evaluation: 09:53 - Subjective Subjective: seen and examined c/o b/l shoulder and chest pain since last week no n/v/d/sob/dizziness/cough GPC in blood noted renal US w/ chronicity Objective - Vital Signs/Intake and Output Vital Signs (last 24 hours): Temp Pulse Resp BP Pulse Ox 98.9 F 75 15 104/47 L 100 11/09/17 04:00 11/09/17 07:00 11/09/17 07:00 11/09/17 06:42 11/09/17 07:00 Intake and Output: 11/09/17 11/09/17 06:59 18:59 Intake Total 1100 100 Output Total 650 0 Balance 450 100 - Medications Medications: Current Medications Acetaminophen (Tylenol 325mg Tab) 650 mg PO Q6 PRN PRN Reason: for temperature >100.4 Last Admin: 11/08/17 20:38 Dose: 650 mg Allopurinol (Zyloprim) 100 mg PO DAILY [facility] Last Admin: 11/09/17 09:28 Dose: 100 mg Aspirin (Aspirin Chewable) 81 mg PO DAILY [facility] Last Admin: 11/09/17 09:28 Dose: 81 mg Clopidogrel Bisulfate (Plavix) 75 mg PO DAILY [facility] Last Admin: 11/09/17 09:28 Dose: 75 mg Heparin Sodium (Porcine) (Heparin) 5,000 units SC Q8 [facility] Last Admin: 11/08/17 14:32 Dose: 5,000 units Sodium Chloride (Sodium Chloride 0.9%) 1,000 mls @ 50 mls/hr IV .Q20H [facility] Last Admin: 11/09/17 09:39 Dose: 50 mls/hr Piperacillin Sod/Tazobactam Sod (Zosyn 2.25 Gm Iv Premix) 2.25 gm in 50 mls @ 100 mls/hr IVPB Q8H [facility]; Protocol Last Admin: 11/09/17 09:28 Dose: 100 mls/hr Influenza Virus Vaccine (Fluzone Quad [id number]) 60 mcg IM .ONCE ONE Stop: 11/11/17 10:01 Pneumococcal Polyvalent Vaccine (Pneumovax 23 Vaccine) 0.5 ml IM .ONCE ONE Stop: 11/11/17 10:01 Rosuvastatin Calcium (Crestor) 10 mg PO HS [facility] Last Admin: 11/08/17 22:21 Dose: 10 mg - Labs Labs: 11/09/17 06:11 11/09/17 06:11 PT 15.2 SECONDS (9.7-12.2) H 11/08/17 01:09 INR 1.4 11/08/17 01:09 APTT 35 SECONDS (21-34) H 11/08/17 01:09 - Constitutional Appears: No Acute Distress, Chronically Ill - Head Exam Head Exam: NORMAL INSPECTION, NORMOCEPHALIC - Eye Exam Eye Exam: Normal appearance, PERRL - ENT Exam ENT Exam: Mucous Membranes Moist, Normal Exam - Neck Exam Neck Exam: Full ROM, Normal Inspection - Respiratory Exam Respiratory Exam: Decreased Breath Sounds, NORMAL BREATHING PATTERN - Cardiovascular Exam Cardiovascular Exam: REGULAR RHYTHM, RRR - GI/Abdominal Exam GI & Abdominal Exam: Distended, Soft - Extremities Exam Extremities Exam: Normal Inspection, Pedal Edema - Neurological Exam Neurological Exam: Alert, Awake, Oriented x3 - Psychiatric Exam Psychiatric exam: Normal Affect, Normal Mood - Skin Skin Exam: Dry, Intact Assessment and Plan (1) DM type 2 (diabetes mellitus, type 2) Status: Acute (2) Non-ST elevation UT (NSTEMI) Status: Acute (3) Pneumonia Status: Acute (4) Renal insufficiency Status: Acute - Assessment and Plan (Free Text) Assessment: # ckd 4 w/ proteinuria / DM nephropathy? # sepsis # troponin leak/ demand ischemia - unclear significance # pneumonia plan: gentle iv fluids no acei/ arb antibiotics and supportive care
[2017-11-09] MEDS ORDERED: Influenza Vaccine 60 MCG/0.5 ML SYR (3 yr & up) IM ONE (10:00)
[2017-11-09 11:41] LABS: LEGIONELLA AG URINE NEGATIVE (NEGATIVE)
[2017-11-09 11:46] LABS: N MENINGITIS ACY/W135 NEGATIVE (NEGATIVE); N MENINGITIS B/ECOLI K1 NEGATIVE (NEGATIVE); STREP PNEUMONIAE NEGATIVE (NEGATIVE); STREPTOCOCCUS B NEGATIVE (NEGATIVE)
--- NOTE | 2017-11-09 16:36 | CP.CCUPN ---
CCU Subjective - Physician Review Subjective (Free Text): Critical Care Progress Note Patient examined at bedside. States that he is having some shoulder and wrist pain, however this is unchanged from prior and is reproducible with palpation. He also admits to some dysuria, which he now has relief from after catheter placement. Denies fever, chills, headache, dizziness, chest pain, shortness of breath, abdominal pain. Critical Care Time Spent (in minutes): 35 CCU Objective - Vital Signs / Intake & Output Vital Signs (Last 4 hours): Vital Signs Pulse Resp BP Pulse Ox 11/09/17 15:30 66 19 98 11/09/17 15:12 71 16 97/43 L 98 11/09/17 13:42 74 18 99/47 L 100 11/09/17 12:42 72 17 106/58 L 100 Intake and Output (Last 8hrs): Intake & Output 11/09/17 11/09/17 11/09/17 06:59 14:59 22:59 Intake Total 650 300 Output Total 450 200 Balance 200 100 Weight 246 lb 9.6 oz Intake: Intake, IV Amount 550 200 Right Forearm 550 200 Oral 100 100 Output: Urine 450 200 Straight 250 200 Urine, Voided 200 0 Other: # Voids Urine, Voided 0 0 # Bowel Movements 0 0 - Physical Exam Head: Positive for: Atraumatic, Normocephalic Pupils: Positive for: PERRL Extroacular Muscles: Positive for: EOMI Conjunctiva: Positive for: Normal Mouth: Positive for: Moist Mucous Membranes Respiratory/Chest: Positive for: Decreased Breath Sounds. Negative for: Respiratory Distress, Wheezes, Rhonchi Cardiovascular: Positive for: Regular Rate and Rhythm, Normal S1, S2 Abdomen: Positive for: Normal Bowel Sounds. Negative for: Tenderness, Distention, Guarding Upper Extremity: Positive for: Normal Inspection Lower Extremity: Positive for: Edema, Other (chronic venous stasis changes ). Negative for: CALF TENDERNESS Neurological: Positive for: GCS=15, CN II-XII Intact, Speech Normal Skin: Positive for: Warm, Dry, Normal Color Psychiatric: Positive for: Alert, Oriented x 3, Normal Insight, Normal Concentration - Medications Active Medications: Active Medications Generic Name Dose Route Start Last Admin Trade Name Freq PRN Reason Stop Dose Admin Acetaminophen 650 mg 11/08/17 11:33 11/08/17 20:38 Tylenol 325mg Tab PO 650 mg Q6 PRN Administration for temperature >100.4 Acetaminophen 650 mg 11/09/17 13:15 11/09/17 13:23 Tylenol 325mg Tab PO 650 mg Q6 PRN Administration Pain, Mild (1-3) Allopurinol 100 mg 11/08/17 10:00 11/09/17 09:28 Zyloprim PO 100 mg DAILY HOWARD Administration Aspirin 81 mg 11/09/17 10:00 11/09/17 09:28 Aspirin Chewable PO 81 mg DAILY HOWARD Administration Clopidogrel Bisulfate 75 mg 11/09/17 10:00 11/09/17 09:28 Plavix PO 75 mg DAILY HOWARD Administration Heparin Sodium (Porcine) 5,000 units 11/08/17 14:00 11/08/17 14:32 Heparin SC 5,000 units Q8 HOWARD Administration Sodium Chloride 1,000 mls @ 50 mls/hr 11/08/17 11:15 11/09/17 09:39 Sodium Chloride 0.9% IV 50 mls/hr .Q20H HOWARD Administration Piperacillin Sod/Tazobactam Sod 2.25 gm in 50 mls @ 100 mls/hr 11/08/17 17:00 11/09/17 09:28 Zosyn 2.25 Gm Iv Premix IVPB 100 mls/hr Q8H HOWARD Administration Protocol Azithromycin 500 mg/ Sodium 250 mls @ 250 mls/hr 11/09/17 16:45 Chloride IVPB DAILY HOWARD Protocol Influenza Virus Vaccine 60 mcg 11/11/17 10:00 Fluzone Quad [id number] IM 11/11/17 10:01 .ONCE ONE Pneumococcal Polyvalent Vaccine 0.5 ml 11/11/17 10:00 Pneumovax 23 Vaccine IM 11/11/17 10:01 .ONCE ONE Rosuvastatin Calcium 10 mg 11/08/17 22:00 11/08/17 22:21 Crestor PO 10 mg HS HOWARD Administration - Patient Studies Lab Studies: Microbiology Studies 11/08/17 10:10 Blood Culture - Preliminary Blood Group G Streptococcus Gram Stain - Final 11/08/17 09:28 Blood Culture - Preliminary Blood Group G Streptococcus Gram Stain - Final Lab Studies 11/09/17 11/09/17 11/09/17 Range/Units 07:27 06:11 06:11 WBC (4.8-10.8) K/uL RBC (4.40-5.90) Mil/uL Hgb (12.0-18.0) g/dL Hct (35.0-51.0) % MCV (80.0-94.0) fL MCH (27.0-31.0) pg MCHC (33.0-37.0) g/dL RDW (11.5-14.5) % Plt Count (130-400) K/uL MPV (7.2-11.7) fL Neut % (Auto) (50.0-75.0) % Lymph % (Auto) (20.0-40.0) % Emmons % (Auto) (0.0-10.0) % Eos % (Auto) (0.0-4.0) % Baso % (Auto) (0.0-2.0) % Neut # (Auto) (1.8-7.0) K/uL Lymph # (Auto) (1.0-4.3) K/uL Emmons # (Auto) (0.0-0.8) K/uL Eos # (Auto) (0.0-0.7) K/uL Baso # (Auto) (0.0-0.2) K/uL Neutrophils % (Manual) (50-75) % Band Neutrophils % (0-2) % Lymphocytes % (Manual) (20-40) % Monocytes % (Manual) (0-10) % Toxic Granulation Dohle Bodies Platelet Estimate (NORMAL) Poikilocytosis (manual Anisocytosis (manual) Patti Cells Sodium (132-148) mmol/L Potassium (3.6-5.2) mmol/L Chloride (98-107) mmol/L Carbon Dioxide (22-30) mmol/L Anion Gap (10-20) BUN (9-20) mg/dL Creatinine (0.8-1.5) mg/dL Est GFR ( Amer) Est GFR (Non-Af Amer) POC Glucose (mg/dL) 105 (65-110) mg/dL Random Glucose (75-110) mg/dL Hemoglobin A1c 6.7 H (4.2-6.5) % Calcium (8.6-10.4) mg/dl Phosphorus (2.5-4.5) mg/dL Magnesium (1.6-2.3) mg/dL Total Bilirubin (0.2-1.3) mg/dL AST (17-59) U/L ALT (21-72) U/L Alkaline Phosphatase (38-126) U/L Total Creatine Kinase (55-170) U/L CK-MB (Mass) (0.0-3.38) ng/mL Troponin I (0.00-0.120) ng/mL Total Protein (6.3-8.3) g/dL Albumin (3.5-5.0) g/dL Globulin (2.2-3.9) gm/dL Albumin/Globulin Ratio (1.0-2.1) Triglycerides (0-149) mg/dL Cholesterol (0-199) mg/dL LDL Cholesterol Direct (0-129) mg/dL HDL Cholesterol (30-70) mg/dL Procalcitonin > 200.00 H (0.19-0.49) NG/ML Urine Color (YELLOW) Urine Clarity (Clear) Urine pH (5.0-8.0) Ur Specific [place] (1.003-1.030) Urine Protein (NEGATIVE) mg/dL Urine Glucose (UA) (Normal) mg/dL Urine Ketones (NEGATIVE) mg/dL Urine Blood (NEGATIVE) Urine Nitrate (NEGATIVE) Urine Bilirubin (NEGATIVE) Urine Urobilinogen (0.2-1.0) mg/dL Ur Leukocyte Esterase (Negative) Armando/uL Urine WBC (Auto) (0-5) /hpf Urine RBC (Auto) (0-3) /hpf Urine WBC Clumps (Auto) (NONE) /hpf Ur Squamous Epith Cells (0-5) /hpf Urine Bacteria (<OCC) Urine Yeast (Budding) (NEGATIVE) /hpf Random Vancomycin ug/mL Influenza Typ A,B (EIA) (NEGATIVE) H.influenzae Type B Ag (NEGATIVE) Ur L.pneumophila Ag (NEGATIVE) N.meningitidis ACY/W135 (NEGATIVE) N.meningi B/E.coli K1 Ag (NEGATIVE) Group B Strep Antigen (NEGATIVE) S. pneumoniae Antigen (NEGATIVE) 11/09/17 11/09/17 11/09/17 Range/Units 06:11 06:11 01:22 WBC 9.1 (4.8-10.8) K/uL RBC 3.42 L (4.40-5.90) Mil/uL Hgb 10.0 L (12.0-18.0) g/dL Hct 30.4 L (35.0-51.0) % MCV 89.0 (80.0-94.0) fL MCH 29.1 (27.0-31.0) pg MCHC 32.7 L (33.0-37.0) g/dL RDW 17.6 H (11.5-14.5) % Plt Count 119 L (130-400) K/uL MPV 8.3 (7.2-11.7) fL Neut % (Auto) 87.2 H (50.0-75.0) % Lymph % (Auto) 4.1 L (20.0-40.0) % Emmons % (Auto) 8.2 (0.0-10.0) % Eos % (Auto) 0.2 (0.0-4.0) % Baso % (Auto) 0.3 (0.0-2.0) % Neut # (Auto) 8.0 H (1.8-7.0) K/uL Lymph # (Auto) 0.4 L (1.0-4.3) K/uL Emmons # (Auto) 0.7 (0.0-0.8) K/uL Eos # (Auto) 0.0 (0.0-0.7) K/uL Baso # (Auto) 0.0 (0.0-0.2) K/uL Neutrophils % (Manual) 72 (50-75) % Band Neutrophils % 16 H* (0-2) % Lymphocytes % (Manual) 5 L (20-40) % Monocytes % (Manual) 7 (0-10) % Toxic Granulation Present Dohle Bodies Present Platelet Estimate Slightly decreased L (NORMAL) Poikilocytosis (manual Slight Anisocytosis (manual) Slight [place] Cells Slight Sodium 136 (132-148) mmol/L Potassium 5.0 (3.6-5.2) mmol/L Chloride 109 H (98-107) mmol/L Carbon Dioxide 17 L (22-30) mmol/L Anion Gap 16 (10-20) BUN 50 H (9-20) mg/dL Creatinine 2.8 H (0.8-1.5) mg/dL Est GFR ( Amer) 28 Est GFR (Non-Af Amer) 23 POC Glucose (mg/dL) (65-110) mg/dL Random Glucose 110 (75-110) mg/dL Hemoglobin A1c (4.2-6.5) % Calcium 7.8 L (8.6-10.4) mg/dl Phosphorus 4.3 (2.5-4.5) mg/dL Magnesium 2.1 (1.6-2.3) mg/dL Total Bilirubin 1.1 (0.2-1.3) mg/dL AST 115 H (17-59) U/L ALT 44 (21-72) U/L Alkaline Phosphatase 81 (38-126) U/L Total Creatine Kinase (55-170) U/L CK-MB (Mass) (0.0-3.38) ng/mL Troponin I (0.00-0.120) ng/mL Total Protein 6.4 (6.3-8.3) g/dL Albumin 3.0 L (3.5-5.0) g/dL Globulin 3.4 (2.2-3.9) gm/dL Albumin/Globulin Ratio 0.9 L (1.0-2.1) Triglycerides 76 D (0-149) mg/dL Cholesterol 85 (0-199) mg/dL LDL Cholesterol Direct < 30 (0-129) mg/dL HDL Cholesterol 32 (30-70) mg/dL Procalcitonin (0.19-0.49) NG/ML Urine Color Yellow (YELLOW) Urine Clarity Hazy (Clear) Urine pH 5.0 (5.0-8.0) Ur Specific [place] 1.017 (1.003-1.030) Urine Protein 2+ H (NEGATIVE) mg/dL Urine Glucose (UA) Normal (Normal) mg/dL Urine Ketones Negative (NEGATIVE) mg/dL Urine Blood Negative (NEGATIVE) Urine Nitrate Negative (NEGATIVE) Urine Bilirubin Negative (NEGATIVE) Urine Urobilinogen Normal (0.2-1.0) mg/dL Ur Leukocyte Esterase Neg (Negative) Armando/uL Urine WBC (Auto) 12 H (0-5) /hpf Urine RBC (Auto) 4 H (0-3) /hpf Urine WBC Clumps (Auto) Few H (NONE) /hpf Ur Squamous Epith Cells < 1 (0-5) /hpf Urine Bacteria Rare (<OCC) Urine Yeast (Budding) Mod H (NEGATIVE) /hpf Random Vancomycin ug/mL Influenza Typ A,B (EIA) (NEGATIVE) H.influenzae Type B Ag (NEGATIVE) Ur L.pneumophila Ag (NEGATIVE) N.meningitidis ACY/W135 (NEGATIVE) N.meningi B/E.coli K1 Ag (NEGATIVE) Group B Strep Antigen (NEGATIVE) S. pneumoniae Antigen (NEGATIVE) 11/08/17 11/08/17 11/08/17 Range/Units 23:10 23:10 20:56 WBC (4.8-10.8) K/uL RBC (4.40-5.90) Mil/uL Hgb (12.0-18.0) g/dL Hct (35.0-51.0) % MCV (80.0-94.0) fL MCH (27.0-31.0) pg MCHC (33.0-37.0) g/dL RDW (11.5-14.5) % Plt Count (130-400) K/uL MPV (7.2-11.7) fL Neut % (Auto) (50.0-75.0) % Lymph % (Auto) (20.0-40.0) % Emmons % (Auto) (0.0-10.0) % Eos % (Auto) (0.0-4.0) % Baso % (Auto) (0.0-2.0) % Neut # (Auto) (1.8-7.0) K/uL Lymph # (Auto) (1.0-4.3) K/uL Emmons # (Auto) (0.0-0.8) K/uL Eos # (Auto) (0.0-0.7) K/uL Baso # (Auto) (0.0-0.2) K/uL Neutrophils % (Manual) (50-75) % Band Neutrophils % (0-2) % Lymphocytes % (Manual) (20-40) % Monocytes % (Manual) (0-10) % Toxic Granulation Dohle Bodies Platelet Estimate (NORMAL) Poikilocytosis (manual Anisocytosis (manual) [place] Cells Sodium (132-148) mmol/L Potassium (3.6-5.2) mmol/L Chloride (98-107) mmol/L Carbon Dioxide (22-30) mmol/L Anion Gap (10-20) BUN (9-20) mg/dL Creatinine (0.8-1.5) mg/dL Est GFR ( Amer) Est GFR (Non-Af Amer) POC Glucose (mg/dL) (65-110) mg/dL Random Glucose (75-110) mg/dL Hemoglobin A1c (4.2-6.5) % Calcium (8.6-10.4) mg/dl Phosphorus (2.5-4.5) mg/dL Magnesium (1.6-2.3) mg/dL Total Bilirubin (0.2-1.3) mg/dL AST (17-59) U/L ALT (21-72) U/L Alkaline Phosphatase (38-126) U/L Total Creatine Kinase (55-170) U/L CK-MB (Mass) (0.0-3.38) ng/mL Troponin I (0.00-0.120) ng/mL Total Protein (6.3-8.3) g/dL Albumin (3.5-5.0) g/dL Globulin (2.2-3.9) gm/dL Albumin/Globulin Ratio (1.0-2.1) Triglycerides (0-149) mg/dL Cholesterol (0-199) mg/dL LDL Cholesterol Direct (0-129) mg/dL HDL Cholesterol (30-70) mg/dL Procalcitonin (0.19-0.49) NG/ML Urine Color (YELLOW) Urine Clarity (Clear) Urine pH (5.0-8.0) Ur Specific [place] (1.003-1.030) Urine Protein (NEGATIVE) mg/dL Urine Glucose (UA) (Normal) mg/dL Urine Ketones (NEGATIVE) mg/dL Urine Blood (NEGATIVE) Urine Nitrate (NEGATIVE) Urine Bilirubin (NEGATIVE) Urine Urobilinogen (0.2-1.0) mg/dL Ur Leukocyte Esterase (Negative) Armando/uL Urine WBC (Auto) (0-5) /hpf Urine RBC (Auto) (0-3) /hpf Urine WBC Clumps (Auto) (NONE) /hpf Ur Squamous Epith Cells (0-5) /hpf Urine Bacteria (<OCC) Urine Yeast (Budding) (NEGATIVE) /hpf Random Vancomycin < 5.0 ug/mL Influenza Typ A,B (EIA) Negative for flu a/b (NEGATIVE) H.influenzae Type B Ag Negative (NEGATIVE) Ur L.pneumophila Ag Negative (NEGATIVE) N.meningitidis ACY/W135 Negative (NEGATIVE) N.meningi B/E.coli K1 Ag Negative (NEGATIVE) Group B Strep Antigen Negative (NEGATIVE) S. pneumoniae Antigen Negative (NEGATIVE) 11/08/17 11/08/17 Range/Units 20:54 20:35 WBC (4.8-10.8) K/uL RBC (4.40-5.90) Mil/uL Hgb (12.0-18.0) g/dL Hct (35.0-51.0) % MCV (80.0-94.0) fL MCH (27.0-31.0) pg MCHC (33.0-37.0) g/dL RDW (11.5-14.5) % Plt Count (130-400) K/uL MPV (7.2-11.7) fL Neut % (Auto) (50.0-75.0) % Lymph % (Auto) (20.0-40.0) % Emm[place] % (Auto) (0.0-10.0) % Eos % (Auto) (0.0-4.0) % Baso % (Auto) (0.0-2.0) % Neut # (Auto) (1.8-7.0) K/uL Lymph # (Auto) (1.0-4.3) K/uL Emmons # (Auto) (0.0-0.8) K/uL Eos # (Auto) (0.0-0.7) K/uL Baso # (Auto) (0.0-0.2) K/uL Neutrophils % (Manual) (50-75) % Band Neutrophils % (0-2) % Lymphocytes % (Manual) (20-40) % Monocytes % (Manual) (0-10) % Toxic Granulation Dohle Bodies Platelet Estimate (NORMAL) Poikilocytosis (manual Anisocytosis (manual) Patti Cells Sodium (132-148) mmol/L Potassium (3.6-5.2) mmol/L Chloride (98-107) mmol/L Carbon Dioxide (22-30) mmol/L Anion Gap (10-20) BUN (9-20) mg/dL Creatinine (0.8-1.5) mg/dL Est GFR ( Amer) Est GFR (Non-Af Amer) POC Glucose (mg/dL) 147 H (65-110) mg/dL Random Glucose (75-110) mg/dL Hemoglobin A1c (4.2-6.5) % Calcium (8.6-10.4) mg/dl Phosphorus (2.5-4.5) mg/dL Magnesium (1.6-2.3) mg/dL Total Bilirubin (0.2-1.3) mg/dL AST (17-59) U/L ALT (21-72) U/L Alkaline Phosphatase (38-126) U/L Total Creatine Kinase 4180 H (55-170) U/L CK-MB (Mass) 2.42 (0.0-3.38) ng/mL Troponin I 0.2280 H* (0.00-0.120) ng/mL Total Protein (6.3-8.3) g/dL Albumin (3.5-5.0) g/dL Globulin (2.2-3.9) gm/dL Albumin/Globulin Ratio (1.0-2.1) Triglycerides (0-149) mg/dL Cholesterol (0-199) mg/dL LDL Cholesterol Direct (0-129) mg/dL HDL Cholesterol (30-70) mg/dL Procalcitonin (0.19-0.49) NG/ML Urine Color (YELLOW) Urine Clarity (Clear) Urine pH (5.0-8.0) Ur Specific [place] (1.003-1.030) Urine Protein (NEGATIVE) mg/dL Urine Glucose (UA) (Normal) mg/dL Urine Ketones (NEGATIVE) mg/dL Urine Blood (NEGATIVE) Urine Nitrate (NEGATIVE) Urine Bilirubin (NEGATIVE) Urine Urobilinogen (0.2-1.0) mg/dL Ur Leukocyte Esterase (Negative) Armando/uL Urine WBC (Auto) (0-5) /hpf Urine RBC (Auto) (0-3) /hpf Urine WBC Clumps (Auto) (NONE) /hpf Ur Squamous Epith Cells (0-5) /hpf Urine Bacteria (<OCC) Urine Yeast (Budding) (NEGATIVE) /hpf Random Vancomycin ug/mL Influenza Typ A,B (EIA) (NEGATIVE) H.influenzae Type B Ag (NEGATIVE) Ur L.pneumophila Ag (NEGATIVE) N.meningitidis ACY/W135 (NEGATIVE) N.meningi B/E.coli K1 Ag (NEGATIVE) Group B Strep Antigen (NEGATIVE) S. pneumoniae Antigen (NEGATIVE) Laboratory Results - last 24 hr 11/08/17 11/08/17 11/08/17 20:35 20:54 20:56 WBC RBC Hgb Hct MCV MCH MCHC RDW Plt Count MPV Neut % (Auto) Lymph % (Auto) Emmons % (Auto) Eos % (Auto) Baso % (Auto) Neut # (Auto) Lymph # (Auto) Emm[place] # (Auto) Eos # (Auto) Baso # (Auto) Neutrophils % (Manual) Band Neutrophils % Lymphocytes % (Manual) Monocytes % (Manual) Toxic Granulation Dohle Bodies Platelet Estimate Poikilocytosis (manual Anisocytosis (manual) [place] Cells Sodium Potassium Chloride Carbon Dioxide Anion Gap BUN Creatinine Est GFR ( Amer) Est GFR (Non-Af Amer) POC Glucose (mg/dL) 147 H Random Glucose Hemoglobin A1c Calcium Phosphorus Magnesium Total Bilirubin AST ALT Alkaline Phosphatase Total Creatine Kinase 4180 H CK-MB (Mass) 2.42 Troponin I 0.2280 H* Total Protein Albumin Globulin Albumin/Globulin Ratio Triglycerides Cholesterol LDL Cholesterol Direct HDL Cholesterol Procalcitonin Urine Color Urine Clarity Urine pH Ur Specific [place] Urine Protein Urine Glucose (UA) Urine Ketones Urine Blood Urine Nitrate Urine Bilirubin Urine Urobilinogen Ur Leukocyte Esterase Urine WBC (Auto) Urine RBC (Auto) Urine WBC Clumps (Auto) Ur Squamous Epith Cells Urine Bacteria Urine Yeast (Budding) Random Vancomycin Influenza Typ A,B (EIA) Negative for flu a/b H.influenzae Type B Ag Ur L.pneumophila Ag N.meningitidis ACY/W135 N.meningi B/E.coli K1 Ag Group B Strep Antigen S. pneumoniae Antigen 11/08/17 11/08/17 11/09/17 23:10 23:10 01:22 WBC RBC Hgb Hct MCV MCH MCHC RDW Plt Count MPV Neut % (Auto) Lymph % (Auto) Emm[place] % (Auto) Eos % (Auto) Baso % (Auto) Neut # (Auto) Lymph # (Auto) Emm[place] # (Auto) Eos # (Auto) Baso # (Auto) Neutrophils % (Manual) Band Neutrophils % Lymphocytes % (Manual) Monocytes % (Manual) Toxic Granulation Dohle Bodies Platelet Estimate Poikilocytosis (manual Anisocytosis (manual) Patti Cells Sodium Potassium Chloride Carbon Dioxide Anion Gap BUN Creatinine Est GFR ( Amer) Est GFR (Non-Af Amer) POC Glucose (mg/dL) Random Glucose Hemoglobin A1c Calcium Phosphorus Magnesium Total Bilirubin AST ALT Alkaline Phosphatase Total Creatine Kinase CK-MB (Mass) Troponin I Total Protein Albumin Globulin Albumin/Globulin Ratio Triglycerides Cholesterol LDL Cholesterol Direct HDL Cholesterol Procalcitonin Urine Color Yellow Urine Clarity Hazy Urine pH 5.0 Ur Specific [place] 1.017 Urine Protein 2+ H Urine Glucose (UA) Normal Urine Ketones Negative Urine Blood Negative Urine Nitrate Negative Urine Bilirubin Negative Urine Urobilinogen Normal Ur Leukocyte Esterase Neg Urine WBC (Auto) 12 H Urine RBC (Auto) 4 H Urine WBC Clumps (Auto) Few H Ur Squamous Epith Cells < 1 Urine Bacteria Rare Urine Yeast (Budding) Mod H Random Vancomycin < 5.0 Influenza Typ A,B (EIA) H.influenzae Type B Ag Negative Ur L.pneumophila Ag Negative N.meningitidis ACY/W135 Negative N.meningi B/E.coli K1 Ag Negative Group B Strep Antigen Negative S. pneumoniae Antigen Negative 11/09/17 11/09/17 11/09/17 06:11 06:11 06:11 WBC 9.1 RBC 3.42 L Hgb 10.0 L Hct 30.4 L MCV 89.0 MCH 29.1 MCHC 32.7 L RDW 17.6 H Plt Count 119 L MPV 8.3 Neut % (Auto) 87.2 H Lymph % (Auto) 4.1 L [place] % (Auto) 8.2 Eos % (Auto) 0.2 Baso % (Auto) 0.3 Neut # (Auto) 8.0 H Lymph # (Auto) 0.4 L Emmons # (Auto) 0.7 Eos # (Auto) 0.0 Baso # (Auto) 0.0 Neutrophils % (Manual) 72 Band Neutrophils % 16 H* Lymphocytes % (Manual) 5 L Monocytes % (Manual) 7 Toxic Granulation Present Dohle Bodies Present Platelet Estimate Slightly decreased L Poikilocytosis (manual Slight Anisocytosis (manual) Slight [place] Cells Slight Sodium 136 Potassium 5.0 Chloride 109 H Carbon Dioxide 17 L Anion Gap 16 BUN 50 H Creatinine 2.8 H Est GFR ( Amer) 28 Est GFR (Non-Af Amer) 23 POC Glucose (mg/dL) Random Glucose 110 Hemoglobin A1c Calcium 7.8 L Phosphorus 4.3 Magnesium 2.1 Total Bilirubin 1.1 AST 115 H ALT 44 Alkaline Phosphatase 81 Total Creatine Kinase CK-MB (Mass) Troponin I Total Protein 6.4 Albumin 3.0 L Globulin 3.4 Albumin/Globulin Ratio 0.9 L Triglycerides 76 D Cholesterol 85 LDL Cholesterol Direct < 30 HDL Cholesterol 32 Procalcitonin > 200.00 H Urine Color Urine Clarity Urine pH Ur Specific [place] Urine Protein Urine Glucose (UA) Urine Ketones Urine Blood Urine Nitrate Urine Bilirubin Urine Urobilinogen Ur Leukocyte Esterase Urine WBC (Auto) Urine RBC (Auto) Urine WBC Clumps (Auto) Ur Squamous Epith Cells Urine Bacteria Urine Yeast (Budding) Random Vancomycin Influenza Typ A,B (EIA) H.influenzae Type B Ag Ur L.pneumophila Ag N.meningitidis ACY/W135 N.meningi B/E.coli K1 Ag Group B Strep Antigen S. pneumoniae Antigen 11/09/17 11/09/17 06:11 07:27 WBC RBC Hgb Hct MCV MCH MCHC RDW Plt Count MPV Neut % (Auto) Lymph % (Auto) [place] % (Auto) Eos % (Auto) Baso % (Auto) Neut # (Auto) Lymph # (Auto) [place] # (Auto) Eos # (Auto) Baso # (Auto) Neutrophils % (Manual) Band Neutrophils % Lymphocytes % (Manual) Monocytes % (Manual) Toxic Granulation Dohle Bodies Platelet Estimate Poikilocytosis (manual Anisocytosis (manual) [place] Cells Sodium Potassium Chloride Carbon Dioxide Anion Gap BUN Creatinine Est GFR ( Amer) Est GFR (Non-Af Amer) POC Glucose (mg/dL) 105 Random Glucose Hemoglobin A1c 6.7 H Calcium Phosphorus Magnesium Total Bilirubin AST ALT Alkaline Phosphatase Total Creatine Kinase CK-MB (Mass) Troponin I Total Protein Albumin Globulin Albumin/Globulin Ratio Triglycerides Cholesterol LDL Cholesterol Direct HDL Cholesterol Procalcitonin Urine Color Urine Clarity Urine pH Ur Specific [place] Urine Protein Urine Glucose (UA) Urine Ketones Urine Blood Urine Nitrate Urine Bilirubin Urine Urobilinogen Ur Leukocyte Esterase Urine WBC (Auto) Urine RBC (Auto) Urine WBC Clumps (Auto) Ur Squamous Epith Cells Urine Bacteria Urine Yeast (Budding) Random Vancomycin Influenza Typ A,B (EIA) H.influenzae Type B Ag Ur L.pneumophila Ag N.meningitidis ACY/W135 N.meningi B/E.coli K1 Ag Group B Strep Antigen S. pneumoniae Antigen Fingerstick Blood Sugar Results: 147 Review of Systems - Review of Systems All systems: reviewed and no additional remarkable complaints except (as mentioned in HPI) Critical Care Progress Note - Extremities/Vascular Does the Patient have a Central Venous Catheter?: No - Prophylaxis GI Prophylaxis GI: Not Indicated - Prophylaxis DVT Prophylaxis DVT: Not Indicated (held due to thrombocytopenia ) - Nutrition Nutrition: Nutrition Category Date Time Status Heart Healthy Diet [DIET] Diets 11/08/17 Lunch Active Assessment/Plan - Assessment and Plan (Free Text) Plan: Patient is a 67 year old male with past medical history of HTN, hyperlipidemia, T2DM, diastolic CHF, psoriasis, gout presenting with chief complaint of shortness of breath that began about two days prior, accompanied by a mildly productive cough, shortness of breath, subjective fever, and chills. Neuro: - AAO x3 Pulm: - SOB likely due to mixed acute on chronic diastolic CHF (acute on chronic) and CAP - 1 dose of Lasix 20 mg given - Nasal cannula as tolerated - Maintain SPO2 > 92% - CT chest shows small-medium right sided effusions w/mild right basilar atelectasis. Trace left effusion. Minor atelectasis and or scarring left lingular region. Cardiomegaly, marked enlargement of pulmonary trunk - Flu, legionella, mycoplasma, N. meningitidis, GBS, S. pneumo negative CV: - Currently hemodynamically stable - Troponins elevated x3 - CXR shows severe cardiomegaly - Continue home rosuvastatin 10 mg PO HS - Aspirin 81 mg PO daily - Plavix 75 mg PO daily - Cardiology consulted. Appreciate recs. - Followup ECHO GI: - HHD Renal: - CKD stage 4 - Creatinine 2.8, GFR 23 - NS at 50 ccs/hr - UA shows 12 WBCs, 4 RBCs, moderate yeast, 2+ protein - Renal ultrasound shows increased echogenicity bilaterally suggestive for medical renal disease. No calculi or hydronephrosis. - Monitor I and O - Replete electrolytes as needed - Nephrology consulted. Recs appreciated. ID: - Tmax overnight 100.9, WBC count trending down - 1 dose of vancomycin 500 mg given - Zosyn 2.25 gm IV Q8H - Tylenol 650 mg PO Q6 PRN for fever - Blood cultures show Group G strep x2 - Azithromycin 500 mg IV daily added Heme/Onc - Monitor H&H - SC heparin on hold 2/2 thrombocytopenia Endo: - Maintain euglycemia PPX: DVT/GI prophylaxis not indicated at this time. SCDs contraindicated due to PVD. Case and plan was reviewed and discussed with Dr. Altaf Main PGY-1 - Date & Time Date: 11/09/17 Time: 09:00
[2017-11-09] MEDS ORDERED: Azithromycin 500 MG in Sodium Chloride 0.9% 250 ML IVPB SCH (16:45)
[2017-11-09] MEDS: Azithromycin 500 MG in Sodium Chloride 0.9% 250 ML IVPB SCH (17:45)
[2017-11-09] MEDS ORDERED: Albumin Human 25% (12.5 gm/50 ml) IV ONE (18:19)
--- NOTE | 2017-11-09 18:48 | CP.PCM.PN ---
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 weekend her stays in bed able to go to bathroom he has had slowly increasing lower ext swelling Objective - Vital Signs/Intake and Output Vital Signs (last 24 hours): Temp Pulse Resp BP Pulse Ox 98.4 F 66 19 97/43 L 98 11/09/17 16:00 11/09/17 15:30 11/09/17 15:30 11/09/17 15:12 11/09/17 16:00 Intake and Output: 11/09/17 11/09/17 06:59 18:59 Intake Total 1100 300 Output Total 650 200 Balance 450 100 - Medications Medications: Current Medications Acetaminophen (Tylenol 325mg Tab) 650 mg PO Q6 PRN PRN Reason: for temperature >100.4 Last Admin: 11/08/17 20:38 Dose: 650 mg Acetaminophen (Tylenol 325mg Tab) 650 mg PO Q6 PRN PRN Reason: Pain, Mild (1-3) Last Admin: 11/09/17 13:23 Dose: 650 mg Allopurinol (Zyloprim) 100 mg PO DAILY [facility] Last Admin: 11/09/17 09:28 Dose: 100 mg Aspirin (Aspirin Chewable) 81 mg PO DAILY [facility] Last Admin: 11/09/17 09:28 Dose: 81 mg Clopidogrel Bisulfate (Plavix) 75 mg PO DAILY [facility] Last Admin: 11/09/17 09:28 Dose: 75 mg Furosemide (Lasix) 40 mg IVP DAILY [facility] Heparin Sodium (Porcine) (Heparin) 5,000 units SC Q8 [facility] Last Admin: 11/08/17 14:32 Dose: 5,000 units Sodium Chloride (Sodium Chloride 0.9%) 1,000 mls @ 50 mls/hr IV .Q20H [facility] Last Admin: 11/09/17 09:39 Dose: 50 mls/hr Piperacillin Sod/Tazobactam Sod (Zosyn 2.25 Gm Iv Premix) 2.25 gm in 50 mls @ 100 mls/hr IVPB Q8H [facility]; Protocol Last Admin: 11/09/17 09:28 Dose: 100 mls/hr Azithromycin 500 mg/ Sodium (Chloride) 250 mls @ 250 mls/hr IVPB Q24H [facility]; Protocol Last Admin: 11/09/17 17:45 Dose: 250 mls/hr Influenza Virus Vaccine (Fluzone Quad [id number]) 60 mcg IM .ONCE ONE Stop: 11/11/17 10:01 Pneumococcal Polyvalent Vaccine (Pneumovax 23 Vaccine) 0.5 ml IM .ONCE ONE Stop: 11/11/17 10:01 Rosuvastatin Calcium (Crestor) 10 mg PO HS [facility] Last Admin: 11/08/17 22:21 Dose: 10 mg - Labs Labs: 11/09/17 06:11 11/09/17 06:11 PT 15.2 SECONDS (9.7-12.2) H 11/08/17 01:09 INR 1.4 11/08/17 01:09 APTT 35 SECONDS (21-34) H 11/08/17 01:09 - Constitutional Appears: Non-toxic, No Acute Distress - Head Exam Head Exam: ATRAUMATIC - Eye Exam Eye Exam: Normal appearance - ENT Exam ENT Exam: Mucous Membranes Moist - Respiratory Exam Respiratory Exam: Rales, NORMAL BREATHING PATTERN. absent: Accessory Muscle Use - Cardiovascular Exam Cardiovascular Exam: REGULAR RHYTHM, +S1, +S2. absent: Murmur - GI/Abdominal Exam GI & Abdominal Exam: Soft, Normal Bowel Sounds. absent: Tenderness Additional comments: obese - Extremities Exam Extremities Exam: Pedal Edema - Neurological Exam Neurological Exam: Alert, Awake, Oriented x3 Assessment and Plan - Assessment and Plan (Free Text) Assessment: Patient is a 67 year old male with past medical history of HTN, hyperlipidemia, T2DM, diastolic CHF, psoriasis, gout presenting with chief complaint of shortness of breath that began about two days prior, accompanied by a mildly productive cough, shortness of breath, subjective fever, and chills. SOB likely due to mixed acute on chronic diastolic CHF (acute on chronic) CAP Acute renal Failure on ckd stage 4. Spoke with . 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
[2017-11-10] MEDS: Piperacill/Tazo 2.25gm in Dex 2.25 GM/50 ML BAG IVPB SCH ×3 (01:30→18:21)
[2017-11-10] MEDS: Sodium Chloride 0.9% 1,000 ML IV SCH (04:13)
[2017-11-10 06:26] LABS: BASO % 0.4 % (0.0-2.0); EOS % 0.1 % (0.0-4.0); HEMOGLOBIN 9.6 g/dL (12.0-18.0); LYMPH # 0.5 K/uL (1.0-4.3); LYMPH % 5.9 % (20.0-40.0); MEAN CELL VOLUME 89.3 fL (80.0-94.0); MEAN CORPUSCULAR HEMOGLOBIN 28.8 pg (27.0-31.0); MEAN CORPUSCULAR HGB CONC 32.2 g/dL (33.0-37.0); MEAN PLATELET VOLUME 8.9 fL (7.2-11.7); MONO # 0.8 K/uL (0.0-0.8); MONO % 10.2 % (0.0-10.0); NEUT # 6.7 K/uL (1.8-7.0); NEUT % 83.4 % (50.0-75.0); NRBC % 0.1 % (0.0-2.0); PLATELET COUNT 116 K/uL (130-400); RBC 3.34 Mil/uL (4.40-5.90); RED CELL DISTRIBUTION WIDTH 17.9 % (11.5-14.5)
[2017-11-10 06:47] LABS: ALB/GLOB RATIO 0.8 (1.0-2.1); ALBUMIN 2.9 g/dL (3.5-5.0); CALCIUM 7.6 mg/dl (8.6-10.4)
[2017-11-10 08:16] LABS: ANISOCYTOSIS SLIGHT; BANDS 1 % (0-2); HYPOCHROMIC SLIGHT; LYMPHOCYTE 5 % (20-40); MONOCYTE 13 % (0-10); NEUTROPHIL 81 % (50-75); PLATELET ESTIMATE SLIGHTLY DECREASED (NORMAL); POIKILOCYTOSIS SLIGHT; TOTAL CELLS COUNTED 100
[2017-11-10 08:17] LABS: MICROCYTOSIS SLIGHT; TARGET CELLS SLIGHT; TEARDROP CELLS SLIGHT
[2017-11-10 08:18] LABS: BURR CELLS SLIGHT; HELMET CELLS SLIGHT; OVALOCYTES SLIGHT
[2017-11-10] MEDS ORDERED: Sod Polystyrene Sulf 15 gm/60 ml Susp PO ONE (11:15)
[2017-11-10] MEDS: guaiFENesin DM 200 mg-20 mg/10 ml UD PO PRN ×2 (12:20→20:38)
--- NOTE | 2017-11-10 12:22 | CARD ---
APPROVED REPORT Date of service: 11/09/2017 EXAM: Two-dimensional and M-mode echocardiogram with Doppler and color Doppler. Other Information Quality : GoodRhythm : INDICATION Dyspnea Chest Pain Congestive Heart Failure POSITIVE TROPONIN RISK FACTORS Diabetes 2D DIMENSIONS IVSd1.5 (0.7-1.1cm)LVDd5.8 (3.9-5.9cm) PWd1.3 (0.7-1.1cm)LA [id number] (18-58mL) LVDs4.8 (2.5-4.0cm)FS (%) 18.0 % LVEF (%)38.0 (>50%)LVEF (Madsen's)41.60 % IVC2.7 cm M-Mode DIMENSIONS RVDd2.88 (2.1-3.2cm)Left Atrium (MM)5.15 (2.5-4.0cm) IVSd1.66 (0.7-1.1cm)Aortic Root3.34 (2.2-3.7cm) LVDd5.75 (4.0-5.6cm)Aortic Cusp Exc.2.15 (1.5-2.0cm) PWd1.25 (0.7-1.1cm)FS (%) 19 % LVDs4.65 (2.0-3.8cm)TAPSE1.5 cm LVEF (%)39 (>50%) Mitral Valve MV E Usbnnlwx064.5cm/sMV A Bpbcivgi325.9cm/sE/A ratio1.2 KGQK257.02 cm/s TDI Lateral E' Peak V14.68cm/sMedial E' Peak V8.16cm/sE/Lateral E'9.0 E/Medial E'16.2 Tricuspid Valve TR Peak Xenbxltr026mj/sTR Peak Gr.[id number] LEFT VENTRICLE The left ventricle is normal size. There is normal left ventricular wall thickness. The systolic function is mildly impaired. The left ventricular diastolic function is normal. RIGHT VENTRICLE The right ventricle is normal size. ATRIA The left atrium is moderately dilated. The right atrium size is normal. AORTIC VALVE The aortic valve is normal in structure. MITRAL VALVE Mitral regurgitation is mild-moderte with eccentric jet. TRICUSPID VALVE There is mild tricuspid regurgitation. <Conclusion> Mild LV systolic dysfunction. Dilated LA Mild-moderate MR with eccentric jet. Mild TR.
--- NOTE | 2017-11-10 12:51 | CARD ---
APPROVED REPORT Date of service: 11/08/2017 EKG Measurement Heart [id number] <Conclusion> Sinus rhythm with occasional premature ventricular complexes Right bundle branch block Abnormal ECG
--- NOTE | 2017-11-10 13:18 | CP.PCM.PN ---
Subjective - Date & Time of Evaluation Date of Evaluation: 11/10/17 Time of Evaluation: 13:15 - Subjective Subjective: Bacteremia noted Renal US consistent with CKD Has significant proteinuria Hyperkalemia now- needs treatment Met acidosis still present Less dyspneic Objective - Vital Signs/Intake and Output Vital Signs (last 24 hours): Temp Pulse Resp BP Pulse Ox 98.3 F 69 20 106/59 L 97 11/10/17 12:00 11/10/17 12:00 11/10/17 12:00 11/10/17 11:10 11/10/17 12:00 Intake and Output: 11/10/17 11/10/17 06:59 18:59 Intake Total 690 Output Total 180 Balance 510 - Medications Medications: Current Medications Acetaminophen (Tylenol 325mg Tab) 650 mg PO Q6 PRN PRN Reason: for temperature >100.4 Last Admin: 11/10/17 10:57 Dose: 650 mg Acetaminophen (Tylenol 325mg Tab) 650 mg PO Q6 PRN PRN Reason: Pain, Mild (1-3) Last Admin: 11/09/17 13:23 Dose: 650 mg Allopurinol (Zyloprim) 100 mg PO DAILY [facility] Last Admin: 11/10/17 09:37 Dose: 100 mg Aspirin (Aspirin Chewable) 81 mg PO DAILY [facility] Last Admin: 11/10/17 09:37 Dose: 81 mg Clopidogrel Bisulfate (Plavix) 75 mg PO DAILY [facility] Last Admin: 11/10/17 09:37 Dose: 75 mg Famotidine (Pepcid) 20 mg PO DAILY [facility] Last Admin: 11/10/17 09:37 Dose: 20 mg Furosemide (Lasix) 40 mg IVP DAILY [facility] Last Admin: 11/10/17 11:10 Dose: 40 mg Guaifenesin/Dextromethorphan (Robitussin Dm) 10 ml PO Q4H PRN PRN Reason: Cough and congestion Last Admin: 11/10/17 12:20 Dose: 10 ml Heparin Sodium (Porcine) (Heparin) 5,000 units SC Q8 [facility] Last Admin: 11/08/17 14:32 Dose: 5,000 units Piperacillin Sod/Tazobactam Sod (Zosyn 2.25 Gm Iv Premix) 2.25 gm in 50 mls @ 100 mls/hr IVPB Q8H [facility]; Protocol Last Admin: 11/10/17 09:37 Dose: 100 mls/hr Azithromycin 500 mg/ Sodium (Chloride) 250 mls @ 250 mls/hr IVPB Q24H [facility]; Protocol Last Admin: 11/09/17 17:45 Dose: 250 mls/hr Influenza Virus Vaccine (Fluzone Quad [id number]) 60 mcg IM .ONCE ONE Stop: 11/11/17 10:01 Pneumococcal Polyvalent Vaccine (Pneumovax 23 Vaccine) 0.5 ml IM .ONCE ONE Stop: 11/11/17 10:01 Rosuvastatin Calcium (Crestor) 10 mg PO HS [facility] Last Admin: 11/09/17 22:03 Dose: 10 mg - Labs Labs: 11/10/17 06:15 11/10/17 06:15 PT 15.2 SECONDS (9.7-12.2) H 11/08/17 01:09 INR 1.4 11/08/17 01:09 APTT 35 SECONDS (21-34) H 11/08/17 01:09 - Constitutional Appears: No Acute Distress, Chronically Ill - Head Exam Head Exam: ATRAUMATIC, NORMAL INSPECTION - Eye Exam Eye Exam: EOMI, Normal appearance - Neck Exam Neck Exam: Normal Inspection. absent: Tenderness - Respiratory Exam Respiratory Exam: Clear to Ausculation Bilateral, NORMAL BREATHING PATTERN - Cardiovascular Exam Cardiovascular Exam: REGULAR RHYTHM, +S1 - GI/Abdominal Exam GI & Abdominal Exam: Soft. absent: Tenderness - Extremities Exam Extremities Exam: Normal Inspection. absent: Tenderness - Neurological Exam Neurological Exam: Awake, CN II-XII Intact - Skin Skin Exam: Dry, Warm Assessment and Plan (1) DM type 2 (diabetes mellitus, type 2) Status: Acute (2) CKD (chronic kidney disease) stage 3, GFR 30-59 ml/min Status: Acute (3) CHF (congestive heart failure) Status: Acute (4) Non-ST elevation [place] (NSTEMI) Status: Acute (5) AMPARO (acute kidney injury) Status: Acute (6) PVD (peripheral vascular disease) Status: Acute (7) Pneumonia Status: Acute - Assessment and Plan (Free Text) Plan: Treat hyperkalemia Add na bicarb evaluate for nephrotic syndrome IV ABs for pneumonia/bacteremia
[2017-11-10] MEDS: Azithromycin 500 MG in Sodium Chloride 0.9% 250 ML IVPB SCH (18:21)
[2017-11-10] MEDS ORDERED: Glucagon Recombinant 1 mg Inj IM PRN (19:20)
[2017-11-10] MEDS ORDERED: Dextrose 50% SYRINGE Inj (50 ml) IV PRN (19:20)
--- NOTE | 2017-11-10 20:52 | CP.PCM.PN ---
Subjective - Date & Time of Evaluation Date of Evaluation: 11/10/17 Time of Evaluation: 09:40 - Subjective Subjective: PGY-[address] Ruelas Patient is seen and examined sitting in chair. Patient admits to right shoulder and left wrist pain, 7/10, of sharp quality. Patient states it is better but it continues to bother him. Patient states shortness of breath has improved and states he had cough last night. Patient denies fever, chills, nausea, vomiting, diarrhea or constipation. Patient is out of bed and tolerating diet. Objective - Vital Signs/Intake and Output Vital Signs (last 24 hours): Temp Pulse Resp BP Pulse Ox 98.4 F 69 20 106/59 L 97 11/10/17 15:37 11/10/17 12:00 11/10/17 15:37 11/10/17 11:10 11/10/17 12:00 Intake and Output: 11/10/17 11/11/17 18:59 06:59 Intake Total 1040 Output Total 950 Balance 90 - Medications Medications: Current Medications Acetaminophen (Tylenol 325mg Tab) 650 mg PO Q6 PRN PRN Reason: for temperature >100.4 Last Admin: 11/10/17 18:25 Dose: 650 mg Acetaminophen (Tylenol 325mg Tab) 650 mg PO Q6 PRN PRN Reason: Pain, Mild (1-3) Last Admin: 11/09/17 13:23 Dose: 650 mg Allopurinol (Zyloprim) 100 mg PO DAILY [facility] Last Admin: 11/10/17 09:37 Dose: 100 mg Aspirin (Aspirin Chewable) 81 mg PO DAILY [facility] Last Admin: 11/10/17 09:37 Dose: 81 mg Clopidogrel Bisulfate (Plavix) 75 mg PO DAILY [facility] Last Admin: 11/10/17 09:37 Dose: 75 mg Dextrose (Dextrose 50% Inj) 0 ml IV STAT PRN; Protocol PRN Reason: Hypoglycemia Protocol Dextrose (Glutose 15) 0 gm PO ONCE PRN; Protocol PRN Reason: Hypoglycemia Protocol Famotidine (Pepcid) 20 mg PO DAILY [facility] Last Admin: 11/10/17 09:37 Dose: 20 mg Furosemide (Lasix) 40 mg IVP DAILY [facility] Last Admin: 11/10/17 11:10 Dose: 40 mg Glucagon (Glucagen Diagnostic Kit) 0 mg IM STAT PRN; Protocol PRN Reason: Hypoglycemia Protocol Guaifenesin/Dextromethorphan (Robitussin Dm) 10 ml PO Q4H PRN PRN Reason: Cough and congestion Last Admin: 11/10/17 12:20 Dose: 10 ml Heparin Sodium (Porcine) (Heparin) 5,000 units SC Q8 [facility] Last Admin: 11/08/17 14:32 Dose: 5,000 units Piperacillin Sod/Tazobactam Sod (Zosyn 2.25 Gm Iv Premix) 2.25 gm in 50 mls @ 100 mls/hr IVPB Q8H [facility]; Protocol Last Admin: 11/10/17 18:21 Dose: 100 mls/hr Azithromycin 500 mg/ Sodium (Chloride) 250 mls @ 250 mls/hr IVPB Q24H [facility]; Protocol Last Admin: 11/10/17 18:21 Dose: 250 mls/hr Dextrose (Dextrose 5% In Water 1000 Ml) 1,000 mls @ 0 mls/hr IV .Q0M PRN; Protocol PRN Reason: Hypoglycemia Protocol Influenza Virus Vaccine (Fluzone Quad [id number]) 60 mcg IM .ONCE ONE Stop: 11/11/17 10:01 Insulin Aspart (Novolog) 0 unit SC ACHS [facility]; Protocol Pneumococcal Polyvalent Vaccine (Pneumovax 23 Vaccine) 0.5 ml IM .ONCE ONE Stop: 11/11/17 10:01 Rosuvastatin Calcium (Crestor) 10 mg PO HS [facility] Last Admin: 11/09/17 22:03 Dose: 10 mg Sodium Bicarbonate (Sodium Bicarbonate Tab) 650 mg PO Q6 [facility] Last Admin: 11/10/17 18:23 Dose: 650 mg - Labs Labs: 11/10/17 06:15 11/10/17 15:13 PT 15.2 SECONDS (9.7-12.2) H 11/08/17 01:09 INR 1.4 11/08/17 01:09 APTT 35 SECONDS (21-34) H 11/08/17 01:09 - Constitutional Appears: Non-toxic, No Acute Distress, Chronically Ill - Head Exam Head Exam: ATRAUMATIC, NORMAL INSPECTION, NORMOCEPHALIC - Eye Exam Eye Exam: EOMI, Normal appearance - ENT Exam ENT Exam: Normal Exam - Neck Exam Neck Exam: Full ROM, Normal Inspection - Respiratory Exam Respiratory Exam: Clear to Ausculation Bilateral, NORMAL BREATHING PATTERN - Cardiovascular Exam Cardiovascular Exam: +S1, +S2 - GI/Abdominal Exam GI & Abdominal Exam: Soft - Extremities Exam Additional comments: edema on bilateral lower extremities erythema on distal right and left lower extremities. - Neurological Exam Neurological Exam: Alert, Awake, Oriented x3 - Psychiatric Exam Psychiatric exam: Normal Affect, Normal Mood - Skin Skin Exam: Dry, Intact, Normal Color, Warm Assessment and Plan - Assessment and Plan (Free Text) Plan: mixed acute on chronic diastolic CHF -CT chest shows small-medium right sided effusions w/mild right basilar atelectasis. Trace left effusion. Minor atelectasis and or scarring left lingular region. Cardiomegaly, marked enlargement of pulmonary trunk -Nasal cannula as tolerated, Maintain SPO2 > 92% -Lasix 40 mg IVP daily CAP - CT chest: small to medium size right sided effusion with mild right basilar atelectasis - Blood cx: Group G streptococcus - Consult placed for Dr Odell, Infectious disease - follow up recs - MId line ordered for patient for possible care home antibiotic treatment - follow up am labs Meds: - Azithromycin IVP Q24hrs - Zosyn 2.25 gm IVPB Q8hrs - robitussin 10ml PO Q4hrs PRN for cough Acute renal failure on CKD stage 4 - Dr Lauren consulted - follow recs: Renal US consistent with CKD, Has significant proteinuria, Hyperkalemia now- needs treatment, Met acidosis still present, Less dyspneic - treat hyperkalemia, add na bicarb, evaluate for nephrotic syndrome, IV abs for pneumonia/bacteremia -continue to follow up am labs Hyperkalemia - am potassium 6.1 - Kyaxelate 15 gm - follow up K 3-4 hours after Kyaxelate - 5.1 -Continue to monitor CMP in the am hx of DMII - ISS low - continue Accucheck ACHS ppx: -Pepcid 20mg Po daily -heparin 5, 000 units held, SCds contraindicated due to edema of lower extremity -altered GI diet, soft 2 gm sodium, low fat, moderate consistency diet, fluid restriction at 1.5 L - Pain management: tylenol 650 mg PO Q6 PRN for mild pain (1-3) - fever: tylenol 650 mg po Q6 PRN for fever > 100.4 - follow up PT, consulted - NS @ 50 cc - stopped Plan discussed with Dr Jessenia Oliva, PGY-1
[2017-11-10] MEDS: (Novolog) Insulin Aspart, Recombinant 100 u/ml 10 ml vial SC SCH (22:31)
[2017-11-11] MEDS: Piperacill/Tazo 2.25gm in Dex 2.25 GM/50 ML BAG IVPB SCH ×3 (00:28→16:50)
[2017-11-11 06:17] LABS: BASO # 0.1 K/uL (0.0-0.2); BASO % 0.8 % (0.0-2.0); EOS % 0.2 % (0.0-4.0); LYMPH # 1.2 K/uL (1.0-4.3); LYMPH % 14.4 % (20.0-40.0); MEAN CELL VOLUME 88.7 fL (80.0-94.0); MEAN CORPUSCULAR HEMOGLOBIN 29.1 pg (27.0-31.0); MEAN CORPUSCULAR HGB CONC 32.8 g/dL (33.0-37.0); MEAN PLATELET VOLUME 8.5 fL (7.2-11.7); MONO % 11.8 % (0.0-10.0); NEUT % 72.8 % (50.0-75.0); NRBC % 0.3 % (0.0-2.0); RBC 3.78 Mil/uL (4.40-5.90); RED CELL DISTRIBUTION WIDTH 17.8 % (11.5-14.5); WHITE BLOOD COUNT 8.2 K/uL (4.8-10.8)
[2017-11-11 06:29] LABS: ALB/GLOB RATIO 0.9 (1.0-2.1); ALBUMIN 3.3 g/dL (3.5-5.0); CALCIUM 8.2 mg/dl (8.6-10.4)
[2017-11-11] MEDS: (Novolog) Insulin Aspart, Recombinant 100 u/ml 10 ml vial SC SCH ×4 (07:30→22:13)
--- NOTE | 2017-11-11 09:36 | CP.PCM.PN ---
Subjective - Date & Time of Evaluation Date of Evaluation: 11/11/17 Time of Evaluation: 09:33 - Subjective Subjective: alert, claims to feel better hyperkalemia corrected on na bicarb for persistent met acidosis bicarb, lasix hopefully will control hyperkalemia renal function same- has CKD 4 not dyspneic appears to be in afib vs atrial arrythmias Objective - Vital Signs/Intake and Output Vital Signs (last 24 hours): Temp Pulse Resp BP Pulse Ox 99.5 F 65 17 103/54 L 99 11/11/17 08:00 11/11/17 04:00 11/11/17 04:00 11/11/17 00:00 11/11/17 08:00 - Medications Medications: Current Medications Acetaminophen (Tylenol 325mg Tab) 650 mg PO Q6 PRN PRN Reason: for temperature >100.4 Last Admin: 11/11/17 07:39 Dose: 650 mg Acetaminophen (Tylenol 325mg Tab) 650 mg PO Q6 PRN PRN Reason: Pain, Mild (1-3) Last Admin: 11/09/17 13:23 Dose: 650 mg Allopurinol (Zyloprim) 100 mg PO DAILY [facility] Last Admin: 11/10/17 09:37 Dose: 100 mg Aspirin (Aspirin Chewable) 81 mg PO DAILY [facility] Last Admin: 11/10/17 09:37 Dose: 81 mg Clopidogrel Bisulfate (Plavix) 75 mg PO DAILY [facility] Last Admin: 11/10/17 09:37 Dose: 75 mg Dextrose (Dextrose 50% Inj) 0 ml IV STAT PRN; Protocol PRN Reason: Hypoglycemia Protocol Dextrose (Glutose 15) 0 gm PO ONCE PRN; Protocol PRN Reason: Hypoglycemia Protocol Famotidine (Pepcid) 20 mg PO DAILY [facility] Last Admin: 11/10/17 09:37 Dose: 20 mg Furosemide (Lasix) 40 mg IVP DAILY [facility] Last Admin: 11/10/17 11:10 Dose: 40 mg Glucagon (Glucagen Diagnostic Kit) 0 mg IM STAT PRN; Protocol PRN Reason: Hypoglycemia Protocol Guaifenesin/Dextromethorphan (Robitussin Dm) 10 ml PO Q4H PRN PRN Reason: Cough and congestion Last Admin: 11/10/17 20:38 Dose: 10 ml Heparin Sodium (Porcine) (Heparin) 5,000 units SC Q8 [facility] Last Admin: 11/08/17 14:32 Dose: 5,000 units Piperacillin Sod/Tazobactam Sod (Zosyn 2.25 Gm Iv Premix) 2.25 gm in 50 mls @ 100 mls/hr IVPB Q8H [facility]; Protocol Last Admin: 11/11/17 00:28 Dose: 100 mls/hr Azithromycin 500 mg/ Sodium (Chloride) 250 mls @ 250 mls/hr IVPB Q24H [facility]; Protocol Last Admin: 11/10/17 18:21 Dose: 250 mls/hr Dextrose (Dextrose 5% In Water 1000 Ml) 1,000 mls @ 0 mls/hr IV .Q0M PRN; Protocol PRN Reason: Hypoglycemia Protocol Influenza Virus Vaccine (Fluzone Quad [id number]) 60 mcg IM .ONCE ONE Stop: 11/11/17 10:01 Insulin Aspart (Novolog) 0 unit SC ACHS [facility]; Protocol Last Admin: 11/11/17 07:30 Dose: Not Given Pneumococcal Polyvalent Vaccine (Pneumovax 23 Vaccine) 0.5 ml IM .ONCE ONE Stop: 11/11/17 10:01 Rosuvastatin Calcium (Crestor) 10 mg PO HS [facility] Last Admin: 11/10/17 22:44 Dose: 10 mg Sodium Bicarbonate (Sodium Bicarbonate Tab) 650 mg PO Q6 [facility] Last Admin: 11/11/17 07:30 Dose: 650 mg - Labs Labs: 11/11/17 05:53 11/11/17 05:53 PT 15.2 SECONDS (9.7-12.2) H 11/08/17 01:09 INR 1.4 11/08/17 01:09 APTT 35 SECONDS (21-34) H 11/08/17 01:09 - Constitutional Appears: No Acute Distress, Confused, Chronically Ill - Head Exam Head Exam: ATRAUMATIC, NORMAL INSPECTION - Eye Exam Eye Exam: EOMI, Normal appearance - Neck Exam Neck Exam: Normal Inspection. absent: Tenderness - Respiratory Exam Respiratory Exam: Clear to Ausculation Bilateral, NORMAL BREATHING PATTERN - Cardiovascular Exam Cardiovascular Exam: Irregular Rhythm, +S1 - GI/Abdominal Exam GI & Abdominal Exam: Soft. absent: Tenderness - Extremities Exam Extremities Exam: Normal Inspection. absent: Tenderness - Neurological Exam Neurological Exam: Awake, CN II-XII Intact - Skin Skin Exam: Dry, Warm Assessment and Plan (1) DM type 2 (diabetes mellitus, type 2) Status: Acute (2) CKD (chronic kidney disease) stage 3, GFR 30-59 ml/min Status: Acute (3) CHF (congestive heart failure) Status: Acute (4) Non-ST elevation [place] (NSTEMI) Status: Acute (5) AMPARO (acute kidney injury) Status: Acute (6) PVD (peripheral vascular disease) Status: Acute (7) Pneumonia Status: Acute - Assessment and Plan (Free Text) Plan: continue bicarb, lasix check protein excretion rate follow up lytes, check PTH cardio follow up
[2017-11-11] MEDS ORDERED: Influenza Vaccine 60 MCG/0.5 ML SYR (3 yr & up) IM ONE (10:00)
[2017-11-11] MEDS ORDERED: Pneumococcal 23-Valent Vaccine IM ONE (10:00)
[2017-11-11 11:53] LABS: MYCOPLASMA PNEUMONIAE IGM NEGATIVE (NEGATIVE)
[2017-11-11] MEDS ORDERED: Sod Polystyrene Sulf 15 gm/60 ml Susp PO ONE ×2 (13:30→15:00)
[2017-11-11] MEDS: guaiFENesin DM 200 mg-20 mg/10 ml UD PO PRN (16:19)
[2017-11-11] MEDS: Azithromycin 500 MG in Sodium Chloride 0.9% 250 ML IVPB SCH (17:25)
--- NOTE | 2017-11-11 17:43 | CP.PCM.PN ---
Subjective - Date & Time of Evaluation Date of Evaluation: 11/11/17 Time of Evaluation: 09:10 - Subjective Subjective: Medicine Progress Note for Hospitalist Service Pt seen and examined at bedside this am. States he is still having R shoulder pain and R wrist pain but that it is improving. Denies chest pain or shortness of breath currently. No concerns with bowel or bladder function at this time. 12-point ROS obtained, otherwise neg as per pt. Objective - Vital Signs/Intake and Output Vital Signs (last 24 hours): Temp Pulse Resp BP Pulse Ox 98.6 F 69 14 125/64 98 11/11/17 16:00 11/11/17 17:00 11/11/17 17:00 11/11/17 16:32 11/11/17 17:00 Intake and Output: 11/11/17 11/11/17 06:59 18:59 Intake Total 230 Output Total 130 Balance 100 - Medications Medications: Current Medications Acetaminophen (Tylenol 325mg Tab) 650 mg PO Q6 PRN PRN Reason: for temperature >100.4 Last Admin: 11/11/17 07:39 Dose: 650 mg Acetaminophen (Tylenol 325mg Tab) 650 mg PO Q6 PRN PRN Reason: Pain, Mild (1-3) Last Admin: 11/09/17 13:23 Dose: 650 mg Allopurinol (Zyloprim) 100 mg PO DAILY [facility] Last Admin: 11/11/17 10:40 Dose: 100 mg Aspirin (Aspirin Chewable) 81 mg PO DAILY [facility] Last Admin: 11/11/17 10:40 Dose: 81 mg Clopidogrel Bisulfate (Plavix) 75 mg PO DAILY [facility] Last Admin: 11/11/17 10:40 Dose: 75 mg Dextrose (Dextrose 50% Inj) 0 ml IV STAT PRN; Protocol PRN Reason: Hypoglycemia Protocol Dextrose (Glutose 15) 0 gm PO ONCE PRN; Protocol PRN Reason: Hypoglycemia Protocol Famotidine (Pepcid) 20 mg PO DAILY [facility] Last Admin: 11/11/17 10:40 Dose: 20 mg Furosemide (Lasix) 40 mg IVP DAILY [facility] Last Admin: 11/11/17 10:37 Dose: 40 mg Glucagon (Glucagen Diagnostic Kit) 0 mg IM STAT PRN; Protocol PRN Reason: Hypoglycemia Protocol Guaifenesin/Dextromethorphan (Robitussin Dm) 10 ml PO Q4H PRN PRN Reason: Cough and congestion Last Admin: 11/11/17 16:19 Dose: 10 ml Heparin Sodium (Porcine) (Heparin) 5,000 units SC Q8 [facility] Last Admin: 11/08/17 14:32 Dose: 5,000 units Piperacillin Sod/Tazobactam Sod (Zosyn 2.25 Gm Iv Premix) 2.25 gm in 50 mls @ 100 mls/hr IVPB Q8H [facility]; Protocol Last Admin: 11/11/17 16:50 Dose: 100 mls/hr Azithromycin 500 mg/ Sodium (Chloride) 250 mls @ 250 mls/hr IVPB Q24H [facility]; Protocol Last Admin: 11/11/17 17:25 Dose: 250 mls/hr Dextrose (Dextrose 5% In Water 1000 Ml) 1,000 mls @ 0 mls/hr IV .Q0M PRN; Protocol PRN Reason: Hypoglycemia Protocol Insulin Aspart (Novolog) 0 unit SC ACHS [facility]; Protocol Last Admin: 11/11/17 17:24 Dose: 1 u Rosuvastatin Calcium (Crestor) 10 mg PO HS [facility] Last Admin: 11/10/17 22:44 Dose: 10 mg Sodium Bicarbonate (Sodium Bicarbonate Tab) 650 mg PO Q6 [facility] Last Admin: 11/11/17 17:25 Dose: 650 mg - Labs Labs: 11/11/17 05:53 11/11/17 05:53 PT 15.2 SECONDS (9.7-12.2) H 11/08/17 01:09 INR 1.4 11/08/17 01:09 APTT 35 SECONDS (21-34) H 11/08/17 01:09 - Constitutional Appears: Non-toxic, No Acute Distress, Chronically Ill - Head Exam Head Exam: ATRAUMATIC, NORMOCEPHALIC - Eye Exam Eye Exam: EOMI, Normal appearance, PERRL - ENT Exam ENT Exam: Mucous Membranes Moist - Respiratory Exam Respiratory Exam: Clear to Ausculation Bilateral, NORMAL BREATHING PATTERN. absent: Rales, Rhonchi, Wheezes - Cardiovascular Exam Cardiovascular Exam: REGULAR RHYTHM. absent: Tachycardia, +S1, +S2 - GI/Abdominal Exam GI & Abdominal Exam: Soft, Normal Bowel Sounds. absent: Distended, Firm, Guarding, Rigid, Tenderness, Organomegaly - Extremities Exam Extremities Exam: Full ROM, Normal Capillary Refill, Normal Inspection. absent: Calf Tenderness Additional comments: Improving LE edema b/l - Psychiatric Exam Psychiatric exam: Normal Affect, Normal Mood - Skin Skin Exam: Dry, Intact, Normal Color, Warm Assessment and Plan - Assessment and Plan (Free Text) Plan: Mixed acute on chronic CHF -CT chest shows small-medium right sided effusions w/mild right basilar atelectasis. Trace left effusion. Minor atelectasis and or scarring left lingular region. Cardiomegaly, marked enlargement of pulmonary trunk -Nasal cannula as tolerated, Maintain SPO2 > 92% -Lasix 40 mg IVP daily -Echo 11/08 demonstrated mild LV systolic dysfunction, dilated L atrium, mild-mod MR with eccentric jet, and mild TR, EF 38% CAP - CT chest: small to medium size right sided effusion with mild right basilar atelectasis - Blood cx: Group G streptococcus - Consult placed for Dr Odell, Infectious disease - follow up recs - MId line ordered for patient for possible emt intermediate antibiotic treatment - follow up am labs Meds: - Azithromycin IVP Q24hrs - Zosyn 2.25 gm IVPB Q8hrs - robitussin 10ml PO Q4hrs PRN for cough Acute renal failure on CKD stage 4 - Dr Lauren consulted - follow recs: Renal US consistent with CKD, Has significant proteinuria, Hyperkalemia now- needs treatment, Met acidosis still present, Less dyspneic - treat hyperkalemia, add na bicarb, evaluate for nephrotic syndrome, IV abs for pneumonia/bacteremia -continue to follow up am labs -F/u 24 hr urine Hyperkalemia - Am potassium 5.1 - Kayxelate 15 gm x1 today -Continue to monitor CMP Hx of DMII - ISS low - continue Accucheck ACHS PPX: -Pepcid 20mg Po daily -heparin 5,000 units held, SCds contraindicated due to edema of lower extremity -altered GI diet, soft 2 gm sodium, low fat, moderate consistency diet, fluid restriction at 1.5 L - Pain management: tylenol 650 mg PO Q6 PRN for mild pain (1-3) - fever: tylenol 650 mg po Q6 PRN for fever > 100.4 - PT dispo: sub-acute rehab - NS @ 50 cc - stopped Pt seen, examined with, and plan discussed with Dr. Ruelas, attending. Gary Herron DO PGY-1, [employer] Pager #[phone]
--- NOTE | 2017-11-11 23:13 | CP.PCM.PN ---
Subjective - Date & Time of Evaluation Date of Evaluation: 11/11/17 Time of Evaluation: 14:00 - Subjective Subjective: dictated Objective - Vital Signs/Intake and Output Vital Signs (last 24 hours): Temp Pulse Resp BP Pulse Ox 98.6 F 68 19 111/51 L 98 11/11/17 16:00 11/11/17 19:00 11/11/17 19:00 11/11/17 18:33 11/11/17 19:00 Intake and Output: 11/11/17 11/12/17 18:59 06:59 Intake Total 730 Output Total 430 Balance 300 - Medications Medications: Current Medications Acetaminophen (Tylenol 325mg Tab) 650 mg PO Q6 PRN PRN Reason: for temperature >100.4 Last Admin: 11/11/17 17:44 Dose: 650 mg Acetaminophen (Tylenol 325mg Tab) 650 mg PO Q6 PRN PRN Reason: Pain, Mild (1-3) Last Admin: 11/09/17 13:23 Dose: 650 mg Allopurinol (Zyloprim) 100 mg PO DAILY [facility] Last Admin: 11/11/17 10:40 Dose: 100 mg Aspirin (Aspirin Chewable) 81 mg PO DAILY [facility] Last Admin: 11/11/17 10:40 Dose: 81 mg Clopidogrel Bisulfate (Plavix) 75 mg PO DAILY [facility] Last Admin: 11/11/17 10:40 Dose: 75 mg Dextrose (Dextrose 50% Inj) 0 ml IV STAT PRN; Protocol PRN Reason: Hypoglycemia Protocol Dextrose (Glutose 15) 0 gm PO ONCE PRN; Protocol PRN Reason: Hypoglycemia Protocol Famotidine (Pepcid) 20 mg PO DAILY [facility] Last Admin: 11/11/17 10:40 Dose: 20 mg Furosemide (Lasix) 40 mg IVP DAILY [facility] Last Admin: 11/11/17 10:37 Dose: 40 mg Glucagon (Glucagen Diagnostic Kit) 0 mg IM STAT PRN; Protocol PRN Reason: Hypoglycemia Protocol Guaifenesin/Dextromethorphan (Robitussin Dm) 10 ml PO Q4H PRN PRN Reason: Cough and congestion Last Admin: 11/11/17 16:19 Dose: 10 ml Heparin Sodium (Porcine) (Heparin) 5,000 units SC Q8 [facility] Last Admin: 11/08/17 14:32 Dose: 5,000 units Piperacillin Sod/Tazobactam Sod (Zosyn 2.25 Gm Iv Premix) 2.25 gm in 50 mls @ 100 mls/hr IVPB Q8H [facility]; Protocol Last Admin: 11/11/17 16:50 Dose: 100 mls/hr Azithromycin 500 mg/ Sodium (Chloride) 250 mls @ 250 mls/hr IVPB Q24H [facility]; Protocol Last Admin: 11/11/17 17:25 Dose: 250 mls/hr Dextrose (Dextrose 5% In Water 1000 Ml) 1,000 mls @ 0 mls/hr IV .Q0M PRN; Protocol PRN Reason: Hypoglycemia Protocol Insulin Aspart (Novolog) 0 unit SC ACHS [facility]; Protocol Last Admin: 11/11/17 22:13 Dose: Not Given Rosuvastatin Calcium (Crestor) 10 mg PO HS [facility] Last Admin: 11/10/17 22:44 Dose: 10 mg Sodium Bicarbonate (Sodium Bicarbonate Tab) 650 mg PO Q6 [facility] Last Admin: 11/11/17 17:25 Dose: 650 mg - Labs Labs: 11/11/17 05:53 11/11/17 05:53 PT 15.2 SECONDS (9.7-12.2) H 11/08/17 01:09 INR 1.4 11/08/17 01:09 APTT 35 SECONDS (21-34) H 11/08/17 01:09
--- NOTE | 2017-11-11 23:15 | CP.PCM.CON ---
History of Present Illness - History of Present Illness History of Present Illness: dictated Past Patient History - Infectious Disease Hx of Infectious Diseases: None - Past Medical History & Family History Past Family History: Reviewed and not pertinent - Past Social History Smoking Status: Former Smoker Chewing Tobacco Use: No Cigar Use: No Alcohol: None Drugs: Denies - CARDIAC Hx Congestive Heart Failure: Yes Hx Hypertension: Yes - PULMONARY Hx Pneumonia: Yes - NEUROLOGICAL Hx Neurological Disorder: No - HEENT Hx HEENT Problems: No - RENAL Hx Chronic Kidney Disease: No - ENDOCRINE/METABOLIC Hx Diabetes Mellitus Type 2: Yes - HEMATOLOGICAL/ONCOLOGICAL Hx Blood Transfusions: No - INTEGUMENTARY Other/Comment: psoriasis. LE color brownish - MUSCULOSKELETAL/RHEUMATOLOGICAL Hx Falls: No - GASTROINTESTINAL Hx Gastrointestinal Disorders: No - GENITOURINARY/GYNECOLOGICAL Hx Genitourinary Disorders: No - PSYCHIATRIC Hx Substance Use: No - SURGICAL HISTORY Hx Surgeries: Yes Other/Comment: Right foot 3 DIGITS AMPUTATED - ANESTHESIA Hx Anesthesia: Yes Hx Anesthesia Reactions: No Hx Malignant Hyperthermia: No Meds Allergies/Adverse Reactions: Allergies Allergy/AdvReac Type Severity Reaction Status Date / Time No Known Allergies Allergy Unverified 11/08/17 00:47 - Medications Medications: Current Medications Acetaminophen (Tylenol 325mg Tab) 650 mg PO Q6 PRN PRN Reason: for temperature >100.4 Last Admin: 11/11/17 17:44 Dose: 650 mg Acetaminophen (Tylenol 325mg Tab) 650 mg PO Q6 PRN PRN Reason: Pain, Mild (1-3) Last Admin: 11/09/17 13:23 Dose: 650 mg Allopurinol (Zyloprim) 100 mg PO DAILY [facility] Last Admin: 11/11/17 10:40 Dose: 100 mg Aspirin (Aspirin Chewable) 81 mg PO DAILY [facility] Last Admin: 11/11/17 10:40 Dose: 81 mg Clopidogrel Bisulfate (Plavix) 75 mg PO DAILY [facility] Last Admin: 11/11/17 10:40 Dose: 75 mg Dextrose (Dextrose 50% Inj) 0 ml IV STAT PRN; Protocol PRN Reason: Hypoglycemia Protocol Dextrose (Glutose 15) 0 gm PO ONCE PRN; Protocol PRN Reason: Hypoglycemia Protocol Famotidine (Pepcid) 20 mg PO DAILY [facility] Last Admin: 11/11/17 10:40 Dose: 20 mg Furosemide (Lasix) 40 mg IVP DAILY [facility] Last Admin: 11/11/17 10:37 Dose: 40 mg Glucagon (Glucagen Diagnostic Kit) 0 mg IM STAT PRN; Protocol PRN Reason: Hypoglycemia Protocol Guaifenesin/Dextromethorphan (Robitussin Dm) 10 ml PO Q4H PRN PRN Reason: Cough and congestion Last Admin: 11/11/17 16:19 Dose: 10 ml Heparin Sodium (Porcine) (Heparin) 5,000 units SC Q8 [facility] Last Admin: 11/08/17 14:32 Dose: 5,000 units Piperacillin Sod/Tazobactam Sod (Zosyn 2.25 Gm Iv Premix) 2.25 gm in 50 mls @ 100 mls/hr IVPB Q8H [facility]; Protocol Last Admin: 11/11/17 16:50 Dose: 100 mls/hr Azithromycin 500 mg/ Sodium (Chloride) 250 mls @ 250 mls/hr IVPB Q24H [facility]; Protocol Last Admin: 11/11/17 17:25 Dose: 250 mls/hr Dextrose (Dextrose 5% In Water 1000 Ml) 1,000 mls @ 0 mls/hr IV .Q0M PRN; Protocol PRN Reason: Hypoglycemia Protocol Insulin Aspart (Novolog) 0 unit SC ACHS [facility]; Protocol Last Admin: 11/11/17 22:13 Dose: Not Given Rosuvastatin Calcium (Crestor) 10 mg PO HS [facility] Last Admin: 11/10/17 22:44 Dose: 10 mg Sodium Bicarbonate (Sodium Bicarbonate Tab) 650 mg PO Q6 [facility] Last Admin: 11/11/17 17:25 Dose: 650 mg Results - Vital Signs Recent Vital Signs: Last Vital Signs Temp 98.6 F 11/11/17 16:00 Pulse 68 11/11/17 19:00 Resp 19 11/11/17 19:00 BP 111/51 L 11/11/17 18:33 Pulse Ox 98 11/11/17 19:00 - Labs Result Diagrams: 11/11/17 05:53 11/11/17 05:53 Labs: Laboratory Results - last 24 hr 11/08/17 11/10/17 11/11/17 23:10 21:19 05:53 WBC 8.2 RBC 3.78 L Hgb 11.0 L Hct 33.5 L MCV 88.7 MCH 29.1 MCHC 32.8 L RDW 17.8 H Plt Count 114 L MPV 8.5 Neut % (Auto) 72.8 Lymph % (Auto) 14.4 L Hood % (Auto) 11.8 H Eos % (Auto) 0.2 Baso % (Auto) 0.8 Neut # (Auto) 6.0 Lymph # (Auto) 1.2 Hood # (Auto) 1.0 H Eos # (Auto) 0.0 Baso # (Auto) 0.1 Differential Comment Sodium Potassium Chloride Carbon Dioxide Anion Gap BUN Creatinine Est GFR ( Amer) Est GFR (Non-Af Amer) POC Glucose (mg/dL) 206 H Random Glucose Calcium Phosphorus Magnesium % Saturation Ferritin Total Bilirubin AST ALT Alkaline Phosphatase Total Protein Albumin Globulin Albumin/Globulin Ratio Urine Collection Time Urine Total Volume Ur Protein 24 Hr Calc Mycoplasma pneumon IgM Negative 11/11/17 11/11/17 11/11/17 05:53 07:29 11:12 WBC RBC Hgb Hct MCV MCH MCHC RDW Plt Count MPV Neut % (Auto) Lymph % (Auto) Hood % (Auto) Eos % (Auto) Baso % (Auto) Neut # (Auto) Lymph # (Auto) Hood # (Auto) Eos # (Auto) Baso # (Auto) Differential Comment Sodium 136 Potassium 5.1 Chloride 107 Carbon Dioxide 17 L Anion Gap 17 BUN 53 H Creatinine 2.6 H Est GFR ( Amer) 30 Est GFR (Non-Af Amer) 25 POC Glucose (mg/dL) 127 H 221 H Random Glucose 136 H Calcium 8.2 L Phosphorus 3.4 Magnesium 2.4 H % Saturation Ferritin Total Bilirubin 1.0 AST 140 H ALT 56 Alkaline Phosphatase 222 H D Total Protein 7.0 Albumin 3.3 L Globulin 3.7 Albumin/Globulin Ratio 0.9 L Urine Collection Time Urine Total Volume Ur Protein 24 Hr Calc Mycoplasma pneumon IgM 11/11/17 11/11/17 11/11/17 16:18 16:18 16:35 WBC RBC Hgb Hct MCV MCH MCHC RDW Plt Count MPV Neut % (Auto) Lymph % (Auto) Hood % (Auto) Eos % (Auto) Baso % (Auto) Neut # (Auto) Lymph # (Auto) Hood # (Auto) Eos # (Auto) Baso # (Auto) Differential Comment Sodium Potassium Chloride Carbon Dioxide Anion Gap BUN Creatinine Est GFR ( Amer) Est GFR (Non-Af Amer) POC Glucose (mg/dL) 155 H Random Glucose Calcium Phosphorus Magnesium % Saturation 13 L Ferritin 141.0 Total Bilirubin AST ALT Alkaline Phosphatase Total Protein Albumin Globulin Albumin/Globulin Ratio Urine Collection Time Urine Total Volume Ur Protein 24 Hr Calc Mycoplasma pneumon IgM 11/11/17 11/11/17 18:00 21:28 WBC RBC Hgb Hct MCV MCH MCHC RDW Plt Count MPV Neut % (Auto) Lymph % (Auto) Hood % (Auto) Eos % (Auto) Baso % (Auto) Neut # (Auto) Lymph # (Auto) Hood # (Auto) Eos # (Auto) Baso # (Auto) Differential Comment Sodium Potassium Chloride Carbon Dioxide Anion Gap BUN Creatinine Est GFR ( Amer) Est GFR (Non-Af Amer) POC Glucose (mg/dL) 153 H Random Glucose Calcium Phosphorus Magnesium % Saturation Ferritin Total Bilirubin AST ALT Alkaline Phosphatase Total Protein Albumin Globulin Albumin/Globulin Ratio Urine Collection Time 24 Urine Total Volume 1000 Ur Protein 24 Hr Calc 670.0 H Mycoplasma pneumon IgM
--- NOTE | 2017-11-11 23:18 | CP.PCM.PN ---
Subjective - Date & Time of Evaluation Date of Evaluation: 11/11/17 Time of Evaluation: 23:16 - Subjective Subjective: Patient scheduled for ML in am r/o Endocarditis D/W patient Objective - Vital Signs/Intake and Output Vital Signs (last 24 hours): Temp Pulse Resp BP Pulse Ox 98.6 F 68 19 111/51 L 98 11/11/17 16:00 11/11/17 19:00 11/11/17 19:00 11/11/17 18:33 11/11/17 19:00 Intake and Output: 11/11/17 11/12/17 18:59 06:59 Intake Total 730 Output Total 430 Balance 300 - Medications Medications: Current Medications Acetaminophen (Tylenol 325mg Tab) 650 mg PO Q6 PRN PRN Reason: for temperature >100.4 Last Admin: 11/11/17 17:44 Dose: 650 mg Acetaminophen (Tylenol 325mg Tab) 650 mg PO Q6 PRN PRN Reason: Pain, Mild (1-3) Last Admin: 11/09/17 13:23 Dose: 650 mg Allopurinol (Zyloprim) 100 mg PO DAILY [facility] Last Admin: 11/11/17 10:40 Dose: 100 mg Aspirin (Aspirin Chewable) 81 mg PO DAILY [facility] Last Admin: 11/11/17 10:40 Dose: 81 mg Clopidogrel Bisulfate (Plavix) 75 mg PO DAILY [facility] Last Admin: 11/11/17 10:40 Dose: 75 mg Dextrose (Dextrose 50% Inj) 0 ml IV STAT PRN; Protocol PRN Reason: Hypoglycemia Protocol Dextrose (Glutose 15) 0 gm PO ONCE PRN; Protocol PRN Reason: Hypoglycemia Protocol Famotidine (Pepcid) 20 mg PO DAILY [facility] Last Admin: 11/11/17 10:40 Dose: 20 mg Furosemide (Lasix) 40 mg IVP DAILY [facility] Last Admin: 11/11/17 10:37 Dose: 40 mg Glucagon (Glucagen Diagnostic Kit) 0 mg IM STAT PRN; Protocol PRN Reason: Hypoglycemia Protocol Guaifenesin/Dextromethorphan (Robitussin Dm) 10 ml PO Q4H PRN PRN Reason: Cough and congestion Last Admin: 11/11/17 16:19 Dose: 10 ml Heparin Sodium (Porcine) (Heparin) 5,000 units SC Q8 [facility] Last Admin: 11/08/17 14:32 Dose: 5,000 units Piperacillin Sod/Tazobactam Sod (Zosyn 2.25 Gm Iv Premix) 2.25 gm in 50 mls @ 100 mls/hr IVPB Q8H [facility]; Protocol Last Admin: 11/11/17 16:50 Dose: 100 mls/hr Azithromycin 500 mg/ Sodium (Chloride) 250 mls @ 250 mls/hr IVPB Q24H [facility]; Protocol Last Admin: 11/11/17 17:25 Dose: 250 mls/hr Dextrose (Dextrose 5% In Water 1000 Ml) 1,000 mls @ 0 mls/hr IV .Q0M PRN; Protocol PRN Reason: Hypoglycemia Protocol Insulin Aspart (Novolog) 0 unit SC ACHS [facility]; Protocol Last Admin: 11/11/17 22:13 Dose: Not Given Rosuvastatin Calcium (Crestor) 10 mg PO HS [facility] Last Admin: 11/10/17 22:44 Dose: 10 mg Sodium Bicarbonate (Sodium Bicarbonate Tab) 650 mg PO Q6 [facility] Last Admin: 11/11/17 17:25 Dose: 650 mg - Labs Labs: 11/11/17 05:53 11/11/17 05:53 PT 15.2 SECONDS (9.7-12.2) H 11/08/17 01:09 INR 1.4 11/08/17 01:09 APTT 35 SECONDS (21-34) H 11/08/17 01:09
[2017-11-12] MEDS: Piperacill/Tazo 2.25gm in Dex 2.25 GM/50 ML BAG IVPB SCH ×3 (00:08→16:08)
[2017-11-12 06:35] LABS: BASO % 0.3 % (0.0-2.0); EOS # 0.1 K/uL (0.0-0.7); EOS % 0.9 % (0.0-4.0); HEMOGLOBIN 9.9 g/dL (12.0-18.0); LYMPH # 1.1 K/uL (1.0-4.3); LYMPH % 13.6 % (20.0-40.0); MEAN CELL VOLUME 87.6 fL (80.0-94.0); MEAN CORPUSCULAR HEMOGLOBIN 29.3 pg (27.0-31.0); MEAN CORPUSCULAR HGB CONC 33.5 g/dL (33.0-37.0); MONO # 1.1 K/uL (0.0-0.8); MONO % 13.9 % (0.0-10.0); NEUT # 5.7 K/uL (1.8-7.0); NEUT % 71.3 % (50.0-75.0); NRBC % 0.1 % (0.0-2.0); RBC 3.38 Mil/uL (4.40-5.90); RED CELL DISTRIBUTION WIDTH 17.8 % (11.5-14.5)
[2017-11-12 06:47] LABS: ALB/GLOB RATIO 0.8 (1.0-2.1); ALBUMIN 2.9 g/dL (3.5-5.0); CALCIUM 8.3 mg/dl (8.6-10.4)
[2017-11-12 07:26] LABS: INR 1.2; PROTHROMBIN TIME 12.6 SECONDS (9.7-12.2)
[2017-11-12] MEDS: (Novolog) Insulin Aspart, Recombinant 100 u/ml 10 ml vial SC SCH ×4 (08:20→22:00)
--- NOTE | 2017-11-12 09:46 | CON ---
DATE: 11/11/2017INFECTIOUS DISEASE CONSULT REQUESTED BY: Dr. Webster. HISTORY OF PRESENT ILLNESS: This patient is a 67-year-old male, who has history of hypertension, diabetes type 2, CHF, psoriasis, and hypertension. He was admitted with shortness of breath, fever, and chills, and cough, and now, I am asked to see him. As he came in, he has Streptococcus group G in the blood, and he also has renal insufficiency. He was admitted in ICU in the [facility] for similar prior symptoms, was not intubated at that time. He does have history of CHF. Has community-acquired pneumonia. He also suffers from groin rash which was very worse when he was admitted. Now, the nurse says it is a lot better. He does suffer from psoriasis and has multiple scarring on both lower extremities. The patient is feeling little better right now. He remains in contact precaution at this time. He remains in isolation this time. PAST MEDICAL HISTORY: Significant for hypertension, hyperlipidemia, diabetes, CHF, psoriasis, and gout. 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 SOCIAL HISTORY: Negative for smoking or drinking now. He used to smoke one pack per day for 22 years and quit smoking 24 years back. FAMILY HISTORY: Significant for father having lung cancer. Mother has no medical problems. ALLERGIES: HE IS NOT ALLERGIC TO ANY MEDICINE. REVIEW OF SYSTEMS: When he was admitted, he was admitted with chills, cough, fever, and diarrhea. He had the skin problems on both groins, and he had no urinary symptoms, no joint pains, and right now, he is little better. MEDICATIONS: He is on Tylenol. He is on Zyloprim 100 mg, aspirin. He is on Zithromax 250 mg every 24 hours. He is on Plavix, dextrose. . He is on famotidine. He is also on furosemide for the CHF, guaifenesin, heparin subcu, insulin, and he is on Zosyn 2.25 every 8 hours as he has renal insufficiency, also on Crestor and sodium bicarbonate tablets which are given 650 p.o. every 6 hours. He is also being followed by renal attending. PHYSICAL EXAMINATION: VITAL SIGNS: On examination, I find his temperature is 98.6, pulse is 72, blood pressure 129/57, and respirations are 20. HEAD: Atraumatic, normocephalic. NECK: Supple. LUNGS: There are decreased breath sounds bilaterally. He has oxygen on, and he still has right shoulder pain. He suffers from gout. HEART: S1, S2 are regular at this time, and no tachycardia. LUNGS: Clear. Decreased breath sounds bilaterally. ABDOMEN: Soft, flabby, nontender. GROIN: Rash is coming down. EXTREMITIES: Remain with less edema, still has bilateral discolorations from previous scar. LABORATORY DATA: At this time, white count is 8.2, hemoglobin 11, hematocrit is 33.5, platelet count is 114 . ASSESSMENT AND PLAN: He does have acute on chronic congestive heart failure. He has pneumonia. He has Streptococcus group G. He does have renal insufficiency with creatinine was 2.6. Cannot give other antibiotics at this time. He had a chest CT. Chest CT is evaluated for pneumonia, and we will follow and he is going to get a LM done because he has Streptococcus, and we will follow with the resident. Driss Odell MD
[2017-11-12] MEDS ORDERED: Etomidate 20 mg/10ml Inj IV ONE ×2 (10:21)
[2017-11-12] MEDS ORDERED: Propofol 10 mg/ml Inj (20 ML) ONE (10:21)
[2017-11-12] MEDS ORDERED: Lidocaine 4% (Laryng-O-Jet) Kit MM ONE (10:25)
--- NOTE | 2017-11-12 12:51 | CP.PCM.PN ---
Subjective - Date & Time of Evaluation Date of Evaluation: 11/12/17 Time of Evaluation: 12:49 - Subjective Subjective: s/p LM now Renal function improved- creat decreased to 2.3 K controlled with lasix, na bicarb has non-nephrotic range proteinuria more alert discussed with about CKD at bedside On IV ABs for bacteremia Objective - Vital Signs/Intake and Output Vital Signs (last 24 hours): Temp Pulse Resp BP Pulse Ox 97.9 F 105 H 15 105/65 99 11/12/17 12:00 11/12/17 12:00 11/12/17 12:00 11/12/17 11:09 11/12/17 12:00 Intake and Output: 11/12/17 11/12/17 06:59 18:59 Intake Total 50 50 Output Total 600 400 Balance -550 -350 - Medications Medications: Current Medications Acetaminophen (Tylenol 325mg Tab) 650 mg PO Q6 PRN PRN Reason: for temperature >100.4 Last Admin: 11/12/17 00:15 Dose: 650 mg Acetaminophen (Tylenol 325mg Tab) 650 mg PO Q6 PRN PRN Reason: Pain, Mild (1-3) Last Admin: 11/09/17 13:23 Dose: 650 mg Allopurinol (Zyloprim) 100 mg PO DAILY [facility] Last Admin: 11/12/17 09:06 Dose: 100 mg Aspirin (Aspirin Chewable) 81 mg PO DAILY [facility] Last Admin: 11/12/17 09:06 Dose: 81 mg Clopidogrel Bisulfate (Plavix) 75 mg PO DAILY [facility] Last Admin: 11/12/17 09:06 Dose: 75 mg Dextrose (Dextrose 50% Inj) 0 ml IV STAT PRN; Protocol PRN Reason: Hypoglycemia Protocol Dextrose (Glutose 15) 0 gm PO ONCE PRN; Protocol PRN Reason: Hypoglycemia Protocol Famotidine (Pepcid) 20 mg PO DAILY [facility] Last Admin: 11/12/17 09:06 Dose: 20 mg Furosemide (Lasix) 40 mg IVP DAILY [facility] Last Admin: 11/12/17 09:06 Dose: 40 mg Glucagon (Glucagen Diagnostic Kit) 0 mg IM STAT PRN; Protocol PRN Reason: Hypoglycemia Protocol Guaifenesin/Dextromethorphan (Robitussin Dm) 10 ml PO Q4H PRN PRN Reason: Cough and congestion Last Admin: 11/11/17 16:19 Dose: 10 ml Heparin Sodium (Porcine) (Heparin) 5,000 units SC Q8 [facility] Last Admin: 11/08/17 14:32 Dose: 5,000 units Piperacillin Sod/Tazobactam Sod (Zosyn 2.25 Gm Iv Premix) 2.25 gm in 50 mls @ 100 mls/hr IVPB Q8H [facility]; Protocol Last Admin: 11/12/17 09:05 Dose: 100 mls/hr Azithromycin 500 mg/ Sodium (Chloride) 250 mls @ 250 mls/hr IVPB Q24H [facility]; Protocol Last Admin: 11/11/17 17:25 Dose: 250 mls/hr Dextrose (Dextrose 5% In Water 1000 Ml) 1,000 mls @ 0 mls/hr IV .Q0M PRN; Protocol PRN Reason: Hypoglycemia Protocol Insulin Aspart (Novolog) 0 unit SC ACHS [facility]; Protocol Last Admin: 11/12/17 11:45 Dose: Not Given Rosuvastatin Calcium (Crestor) 10 mg PO HS [facility] Last Admin: 11/11/17 22:08 Dose: 10 mg Sodium Bicarbonate (Sodium Bicarbonate Tab) 650 mg PO Q6 [facility] Last Admin: 11/12/17 11:50 Dose: 650 mg - Labs Labs: 11/12/17 06:21 11/12/17 06:19 PT 12.6 SECONDS (9.7-12.2) H 11/12/17 06:21 INR 1.2 11/12/17 06:21 APTT 35 SECONDS (21-34) H 11/08/17 01:09 - Constitutional Appears: No Acute Distress, Chronically Ill - Head Exam Head Exam: ATRAUMATIC, NORMAL INSPECTION - Eye Exam Eye Exam: EOMI, Normal appearance - Neck Exam Neck Exam: Normal Inspection. absent: Tenderness - Respiratory Exam Respiratory Exam: Clear to Ausculation Bilateral, NORMAL BREATHING PATTERN - Cardiovascular Exam Cardiovascular Exam: Tachycardia, Irregular Rhythm - GI/Abdominal Exam GI & Abdominal Exam: Soft. absent: Tenderness - Extremities Exam Extremities Exam: Normal Inspection. absent: Tenderness - Neurological Exam Neurological Exam: Altered, CN II-XII Intact - Skin Skin Exam: Dry, Warm Assessment and Plan (1) DM type 2 (diabetes mellitus, type 2) Status: Acute (2) CKD (chronic kidney disease) stage 3, GFR 30-59 ml/min Status: Acute (3) CHF (congestive heart failure) Status: Acute (4) Non-ST elevation [place] (NSTEMI) Status: Acute (5) AMPARO (acute kidney injury) Status: Acute (6) PVD (peripheral vascular disease) Status: Acute (7) Pneumonia Status: Acute - Assessment and Plan (Free Text) Plan: K controlled eventually decrease bicarb dose, change to oral lasix monitor renal function still IV ABs for bacteremia
[2017-11-12] MEDS: Azithromycin 500 MG in Sodium Chloride 0.9% 250 ML IVPB SCH (18:16)
--- NOTE | 2017-11-12 20:25 | CP.PCM.PN ---
Subjective - Date & Time of Evaluation Date of Evaluation: 11/12/17 Time of Evaluation: 16:20 - Subjective Subjective: Patient s/p LM Mitral valve endocarditis (Posterior leaflet) Moderate MR Normal EF PFO with bubble cross over Full report to follow Recommendations: Endocarditis medical treatment as per ID protocol ASA 81 daily for PFO Objective - Vital Signs/Intake and Output Vital Signs (last 24 hours): Temp Pulse Resp BP Pulse Ox 98.7 F 105 H 12 99/64 L 100 11/12/17 16:00 11/12/17 19:00 11/12/17 19:00 11/12/17 16:31 11/12/17 19:00 Intake and Output: 11/12/17 11/13/17 18:59 06:59 Intake Total 800 Output Total 1200 Balance -400 - Medications Medications: Current Medications Acetaminophen (Tylenol 325mg Tab) 650 mg PO Q6 PRN PRN Reason: for temperature >100.4 Last Admin: 11/12/17 00:15 Dose: 650 mg Acetaminophen (Tylenol 325mg Tab) 650 mg PO Q6 PRN PRN Reason: Pain, Mild (1-3) Last Admin: 11/12/17 16:09 Dose: 650 mg Allopurinol (Zyloprim) 100 mg PO DAILY [facility] Last Admin: 11/12/17 09:06 Dose: 100 mg Aspirin (Aspirin Chewable) 81 mg PO DAILY [facility] Last Admin: 11/12/17 09:06 Dose: 81 mg Clopidogrel Bisulfate (Plavix) 75 mg PO DAILY [facility] Last Admin: 11/12/17 09:06 Dose: 75 mg Dextrose (Dextrose 50% Inj) 0 ml IV STAT PRN; Protocol PRN Reason: Hypoglycemia Protocol Dextrose (Glutose 15) 0 gm PO ONCE PRN; Protocol PRN Reason: Hypoglycemia Protocol Famotidine (Pepcid) 20 mg PO DAILY [facility] Last Admin: 11/12/17 09:06 Dose: 20 mg Furosemide (Lasix) 40 mg IVP DAILY [facility] Last Admin: 11/12/17 09:06 Dose: 40 mg Glucagon (Glucagen Diagnostic Kit) 0 mg IM STAT PRN; Protocol PRN Reason: Hypoglycemia Protocol Guaifenesin/Dextromethorphan (Robitussin Dm) 10 ml PO Q4H PRN PRN Reason: Cough and congestion Last Admin: 11/11/17 16:19 Dose: 10 ml Heparin Sodium (Porcine) (Heparin) 5,000 units SC Q8 [facility] Last Admin: 11/08/17 14:32 Dose: 5,000 units Piperacillin Sod/Tazobactam Sod (Zosyn 2.25 Gm Iv Premix) 2.25 gm in 50 mls @ 100 mls/hr IVPB Q8H [facility]; Protocol Last Admin: 11/12/17 16:08 Dose: 100 mls/hr Azithromycin 500 mg/ Sodium (Chloride) 250 mls @ 250 mls/hr IVPB Q24H [facility]; Protocol Last Admin: 11/12/17 18:16 Dose: 250 mls/hr Dextrose (Dextrose 5% In Water 1000 Ml) 1,000 mls @ 0 mls/hr IV .Q0M PRN; Protocol PRN Reason: Hypoglycemia Protocol Insulin Aspart (Novolog) 0 unit SC ACHS [facility]; Protocol Last Admin: 11/12/17 17:10 Dose: 1 u Rosuvastatin Calcium (Crestor) 10 mg PO HS [facility] Last Admin: 11/11/17 22:08 Dose: 10 mg Sodium Bicarbonate (Sodium Bicarbonate Tab) 650 mg PO Q6 [facility] Last Admin: 11/12/17 18:16 Dose: 650 mg - Labs Labs: 11/12/17 06:21 11/12/17 06:19 PT 12.6 SECONDS (9.7-12.2) H 11/12/17 06:21 INR 1.2 11/12/17 06:21 APTT 35 SECONDS (21-34) H 11/08/17 01:09
--- NOTE | 2017-11-12 21:07 | CP.PCM.PN ---
Subjective - Date & Time of Evaluation Date of Evaluation: 11/12/17 Time of Evaluation: 09:15 - Subjective Subjective: PGY-[address] Ruelas Pt seen and examined at bedside . States denies pain in R shoulder pain, but continues to experience some R wrist pain. Denies chest pain or shortness of breath currently. Patient states he is gassy at this time, and having a loose bowel movement early in the morning. Patient denies fever, chills, nausea, vomiting or dysuria. Objective - Vital Signs/Intake and Output Vital Signs (last 24 hours): Temp Pulse Resp BP Pulse Ox 98.7 F 105 H 12 99/64 L 100 11/12/17 16:00 11/12/17 19:00 11/12/17 19:00 11/12/17 16:31 11/12/17 19:00 Intake and Output: 11/12/17 11/13/17 18:59 06:59 Intake Total 800 Output Total 1200 Balance -400 - Medications Medications: Current Medications Acetaminophen (Tylenol 325mg Tab) 650 mg PO Q6 PRN PRN Reason: for temperature >100.4 Last Admin: 11/12/17 00:15 Dose: 650 mg Acetaminophen (Tylenol 325mg Tab) 650 mg PO Q6 PRN PRN Reason: Pain, Mild (1-3) Last Admin: 11/12/17 16:09 Dose: 650 mg Allopurinol (Zyloprim) 100 mg PO DAILY [facility] Last Admin: 11/12/17 09:06 Dose: 100 mg Aspirin (Aspirin Chewable) 81 mg PO DAILY [facility] Last Admin: 11/12/17 09:06 Dose: 81 mg Clopidogrel Bisulfate (Plavix) 75 mg PO DAILY [facility] Last Admin: 11/12/17 09:06 Dose: 75 mg Dextrose (Dextrose 50% Inj) 0 ml IV STAT PRN; Protocol PRN Reason: Hypoglycemia Protocol Dextrose (Glutose 15) 0 gm PO ONCE PRN; Protocol PRN Reason: Hypoglycemia Protocol Famotidine (Pepcid) 20 mg PO DAILY [facility] Last Admin: 11/12/17 09:06 Dose: 20 mg Furosemide (Lasix) 40 mg IVP DAILY [facility] Last Admin: 11/12/17 09:06 Dose: 40 mg Glucagon (Glucagen Diagnostic Kit) 0 mg IM STAT PRN; Protocol PRN Reason: Hypoglycemia Protocol Guaifenesin/Dextromethorphan (Robitussin Dm) 10 ml PO Q4H PRN PRN Reason: Cough and congestion Last Admin: 11/11/17 16:19 Dose: 10 ml Heparin Sodium (Porcine) (Heparin) 5,000 units SC Q8 [facility] Last Admin: 11/08/17 14:32 Dose: 5,000 units Piperacillin Sod/Tazobactam Sod (Zosyn 2.25 Gm Iv Premix) 2.25 gm in 50 mls @ 100 mls/hr IVPB Q8H [facility]; Protocol Last Admin: 11/12/17 16:08 Dose: 100 mls/hr Azithromycin 500 mg/ Sodium (Chloride) 250 mls @ 250 mls/hr IVPB Q24H [facility]; Protocol Last Admin: 11/12/17 18:16 Dose: 250 mls/hr Dextrose (Dextrose 5% In Water 1000 Ml) 1,000 mls @ 0 mls/hr IV .Q0M PRN; Protocol PRN Reason: Hypoglycemia Protocol Insulin Aspart (Novolog) 0 unit SC ACHS [facility]; Protocol Last Admin: 11/12/17 17:10 Dose: 1 u Rosuvastatin Calcium (Crestor) 10 mg PO HS [facility] Last Admin: 11/11/17 22:08 Dose: 10 mg Sodium Bicarbonate (Sodium Bicarbonate Tab) 650 mg PO Q6 [facility] Last Admin: 11/12/17 18:16 Dose: 650 mg - Labs Labs: 11/12/17 06:21 11/12/17 06:19 PT 12.6 SECONDS (9.7-12.2) H 11/12/17 06:21 INR 1.2 11/12/17 06:21 APTT 35 SECONDS (21-34) H 11/08/17 01:09 - Constitutional Appears: Non-toxic, No Acute Distress, Chronically Ill - Head Exam Head Exam: ATRAUMATIC, NORMAL INSPECTION, NORMOCEPHALIC - Eye Exam Eye Exam: EOMI, Normal appearance - ENT Exam ENT Exam: Mucous Membranes Moist - Respiratory Exam Respiratory Exam: Clear to Ausculation Bilateral, NORMAL BREATHING PATTERN. absent: Accessory Muscle Use, Rales, Rhonchi, Wheezes, Respiratory Distress - Cardiovascular Exam Cardiovascular Exam: REGULAR RHYTHM - GI/Abdominal Exam GI & Abdominal Exam: Soft, Normal Bowel Sounds. absent: Distended, Tenderness - Extremities Exam Extremities Exam: absent: Tenderness Additional comments: Bilateral lower extremity edema - Neurological Exam Neurological Exam: Alert, Awake, Oriented x3 - Psychiatric Exam Psychiatric exam: Normal Affect, Normal Mood - Skin Skin Exam: Dry, Intact, Normal Color, Warm Assessment and Plan - Assessment and Plan (Free Text) Plan: Mixed acute on chronic CHF -CT chest shows small-medium right sided effusions w/mild right basilar atelectasis. Trace left effusion. Minor atelectasis and or scarring left lingular region. Cardiomegaly, marked enlargement of pulmonary trunk -Nasal cannula as tolerated, Maintain SPO2 > 92% -Lasix 40 mg IVP daily -Echo 11/08 demonstrated mild LV systolic dysfunction, dilated L atrium, mild-mod MR with eccentric jet, and mild TR, EF 38% CAP - CT chest: small to medium size right sided effusion with mild right basilar atelectasis - Blood cx: Group G streptococcus - Consult placed for Dr Odell, Infectious disease - follow up recs - follow up am labs Meds: - Azithromycin IVP Q24hrs - Zosyn 2.25 gm IVPB Q8hrs - robitussin 10ml PO Q4hrs PRN for cough bacteriemia R/O bacterial endocarditis - Patient to go to LM today - f/u results - f/u Dr Hennessy cardio recs - F/U Dr Odell recs Acute renal failure on CKD stage 4 - Dr Lauren consulted - follow recs: Renal function improved- creat decreased to 2.3. K controlled with lasix, na bicarb. has non-nephrotic range proteinuria more alert. discussed with about CKD at bedside. On IV ABs for bacteremia -continue to follow up am labs -F/u 24 hr urine Hyperkalemia - Am potassium 4.1 -Continue to monitor CMP Hx of DMII - ISS low - continue Accucheck ACHS PPX: -Pepcid 20mg Po daily -heparin 5,000 units held, SCds contraindicated due to edema of lower extremity -altered GI diet, soft 2 gm sodium, low fat, moderate consistency diet, fluid restriction at 1.5 L - Pain management: tylenol 650 mg PO Q6 PRN for mild pain (1-3) - fever: tylenol 650 mg po Q6 PRN for fever > 100.4 - PT dispo: sub-acute rehab Plan discussed with Dr Jessenia Oliva, PGY-1
[2017-11-13] MEDS: Piperacill/Tazo 2.25gm in Dex 2.25 GM/50 ML BAG IVPB SCH ×2 (01:04→11:40)
--- NOTE | 2017-11-13 05:54 | PN ---
DATE: 11/12/2017 SUBJECTIVE: The patient, Jesse Torres, was seen today, was feeling little better. He had a ML done, and LM surprisingly has shown mitral valve vegetation on the posterior cusp. PHYSICAL EXAMINATION: VITAL SIGNS: T-max is 98.7, heart rate of 106, blood pressure 99/64, and respirations are 15. HEENT: Head is atraumatic, normocephalic. NECK: Supple. LUNGS: Decreased breath sounds. HEART: S1 and S2 remain tachy. ABDOMEN: Soft, flabby, nontender. GROIN: Rash is improving. ASSESSMENT AND PLAN: We will order Lotrimin cream for the groin as it looks like fungal rash at this time and we will follow. The patient's medications, I will change to Rocephin as that will cover the endocarditis 2 g daily and will discontinue Zosyn from the morning. Driss Odell MD
[2017-11-13 06:27] LABS: BASO # 0.1 K/uL (0.0-0.2); BASO % 0.7 % (0.0-2.0); EOS # 0.1 K/uL (0.0-0.7); EOS % 0.8 % (0.0-4.0); HEMOGLOBIN 10.9 g/dL (12.0-18.0); LYMPH # 1.2 K/uL (1.0-4.3); LYMPH % 13.3 % (20.0-40.0); MEAN CELL VOLUME 87.6 fL (80.0-94.0); MEAN CORPUSCULAR HEMOGLOBIN 28.5 pg (27.0-31.0); MEAN CORPUSCULAR HGB CONC 32.5 g/dL (33.0-37.0); MEAN PLATELET VOLUME 7.9 fL (7.2-11.7); MONO # 1.3 K/uL (0.0-0.8); NEUT # 6.4 K/uL (1.8-7.0); NEUT % 71.2 % (50.0-75.0); NRBC % 0.2 % (0.0-2.0); RBC 3.84 Mil/uL (4.40-5.90); RED CELL DISTRIBUTION WIDTH 17.7 % (11.5-14.5)
[2017-11-13 06:59] LABS: ALB/GLOB RATIO 0.8 (1.0-2.1); ALBUMIN 2.9 g/dL (3.5-5.0); CALCIUM 8.7 mg/dl (8.6-10.4)
[2017-11-13] MEDS: (Novolog) Insulin Aspart, Recombinant 100 u/ml 10 ml vial SC SCH ×4 (07:30→22:23)
[2017-11-13] MEDS ORDERED: cefTRIAXone 2 GM IN NS 2 GM/100 ML BAG IVPB SCH (08:00)
--- NOTE | 2017-11-13 09:22 | CP.PCM.PN ---
Subjective - Date & Time of Evaluation Date of Evaluation: 11/13/17 Time of Evaluation: 08:00 - Subjective Subjective: PGY-1 progress note for hospitalist service. Patient seen and evaluated at bedside. Complains of chronic pain to L wrist and shoulder. Denies chest pain, shortness of breath, and generalized weakness. Objective - Vital Signs/Intake and Output Vital Signs (last 24 hours): Temp Pulse Resp BP Pulse Ox 98 F 109 H 13 117/72 100 11/13/17 08:00 11/13/17 08:00 11/13/17 08:00 11/13/17 07:09 11/13/17 08:00 Intake and Output: 11/13/17 11/13/17 06:59 18:59 Output Total 1200 Balance -1200 - Medications Medications: Current Medications Acetaminophen (Tylenol 325mg Tab) 650 mg PO Q6 PRN PRN Reason: for temperature >100.4 Last Admin: 11/13/17 01:09 Dose: 650 mg Acetaminophen (Tylenol 325mg Tab) 650 mg PO Q6 PRN PRN Reason: Pain, Mild (1-3) Last Admin: 11/12/17 16:09 Dose: 650 mg Allopurinol (Zyloprim) 100 mg PO DAILY [facility] Last Admin: 11/12/17 09:06 Dose: 100 mg Aspirin (Aspirin Chewable) 81 mg PO DAILY [facility] Last Admin: 11/12/17 09:06 Dose: 81 mg Clopidogrel Bisulfate (Plavix) 75 mg PO DAILY [facility] Last Admin: 11/12/17 09:06 Dose: 75 mg Dextrose (Dextrose 50% Inj) 0 ml IV STAT PRN; Protocol PRN Reason: Hypoglycemia Protocol Dextrose (Glutose 15) 0 gm PO ONCE PRN; Protocol PRN Reason: Hypoglycemia Protocol Famotidine (Pepcid) 20 mg PO DAILY [facility] Last Admin: 11/12/17 09:06 Dose: 20 mg Furosemide (Lasix) 40 mg IVP DAILY [facility] Last Admin: 11/12/17 09:06 Dose: 40 mg Glucagon (Glucagen Diagnostic Kit) 0 mg IM STAT PRN; Protocol PRN Reason: Hypoglycemia Protocol Guaifenesin/Dextromethorphan (Robitussin Dm) 10 ml PO Q4H PRN PRN Reason: Cough and congestion Last Admin: 11/11/17 16:19 Dose: 10 ml Heparin Sodium (Porcine) (Heparin) 5,000 units SC Q8 [facility] Last Admin: 11/08/17 14:32 Dose: 5,000 units Piperacillin Sod/Tazobactam Sod (Zosyn 2.25 Gm Iv Premix) 2.25 gm in 50 mls @ 100 mls/hr IVPB Q8H [facility]; Protocol Last Admin: 11/13/17 01:04 Dose: 100 mls/hr Azithromycin 500 mg/ Sodium (Chloride) 250 mls @ 250 mls/hr IVPB Q24H [facility]; Protocol Last Admin: 11/12/17 18:16 Dose: 250 mls/hr Dextrose (Dextrose 5% In Water 1000 Ml) 1,000 mls @ 0 mls/hr IV .Q0M PRN; Protocol PRN Reason: Hypoglycemia Protocol Ceftriaxone Sodium (Rocephin 2 Gm Ivpb) 2 gm in 100 mls @ 100 mls/hr IVPB Q24H [facility]; Protocol Insulin Aspart (Novolog) 0 unit SC ACHS [facility]; Protocol Last Admin: 11/12/17 22:00 Dose: Not Given Rosuvastatin Calcium (Crestor) 10 mg PO HS [facility] Last Admin: 11/12/17 22:15 Dose: 10 mg Sodium Bicarbonate (Sodium Bicarbonate Tab) 650 mg PO Q6 [facility] Last Admin: 11/13/17 05:13 Dose: 650 mg - Labs Labs: 11/13/17 06:21 11/13/17 06:21 PT 12.6 SECONDS (9.7-12.2) H 11/12/17 06:21 INR 1.2 11/12/17 06:21 APTT 35 SECONDS (21-34) H 11/08/17 01:09 - Head Exam Head Exam: ATRAUMATIC, NORMOCEPHALIC - Eye Exam Eye Exam: EOMI - ENT Exam ENT Exam: Mucous Membranes Moist - Neck Exam Neck Exam: Normal Inspection - Respiratory Exam Respiratory Exam: absent: Rales, Rhonchi, Wheezes - Cardiovascular Exam Cardiovascular Exam: REGULAR RHYTHM, +S1, +S2 - GI/Abdominal Exam GI & Abdominal Exam: Soft. absent: Guarding, Tenderness, Rebound - Extremities Exam Extremities Exam: absent: Pedal Edema, Tenderness Additional comments: Chronic venous stasis changes bilateral lower extremities. R foot deformity - Neurological Exam Neurological Exam: Awake, Oriented x3 - Psychiatric Exam Psychiatric exam: Normal Affect, Normal Mood - Skin Skin Exam: Dry, Intact, Warm Assessment and Plan - Assessment and Plan (Free Text) Plan: Acute on chronic CHF -CT chest shows small-medium right sided effusions w/mild right basilar atelectasis. Trace left effusion. Minor atelectasis and or scarring left lingular region. Cardiomegaly, marked enlargement of pulmonary trunk -Nasal cannula as tolerated, Maintain SPO2 > 92% -Lasix 40 mg IVP daily -Echo 11/08 demonstrated mild LV systolic dysfunction, dilated L atrium, mild-mod MR with eccentric jet, and mild TR, EF 38% CAP - CT chest: small to medium size right sided effusion with mild right basilar atelectasis - Blood cx: Group G streptococcus - Consult placed for Dr Odell, Infectious disease - follow up recs - follow up am labs Meds: - Azithromycin IVP Q24hrs - Zosyn 2.25 gm IVPB Q8hrs - robitussin 10ml PO Q4hrs PRN for cough Mitral Valve endocarditis - LM: mitral valve posterior leaflet endocarditis, moderate MR, normal EF, PFO with bubble cross over - f/u Dr Hennessy cardio recs - F/U Dr Odell recs: Rocephin 2g daily Acute renal failure on CKD stage 4 - Dr Lauren consulted - follow recs: Renal function improving- creat decreased to 2.0. K controlled with lasix, na bicarb. has non-nephrotic range proteinuria more alert. Continue abx, avoid hypotension, avoid MARLEN and ARB -continue to monitor Hyperkalemia - Improved to 3.8 -Continue to monitor CMP Hx of DMII - ISS low - continue Accucheck ACHS PPX: -Pepcid 20mg Po daily -Restart heparin 5,000 units Q8, PLTs improved - SCDs contraindicated due to edema of lower extremity -altered GI diet, soft 2 gm sodium, low fat, moderate consistency diet, fluid restriction at 1.5 L - Pain management: tylenol 650 mg PO Q6 PRN for mild pain (1-3) - fever: tylenol 650 mg po Q6 PRN for fever > 100.4 - PT dispo: sub-acute rehab
--- NOTE | 2017-11-13 09:35 | CP.PCM.PN ---
Subjective - Date & Time of Evaluation Date of Evaluation: 11/13/17 Time of Evaluation: 09:32 - Subjective Subjective: feels well no CP or SOB afebrile BP on low side but asymptomatic ROS- as per HPI, other than that 10 point ROS negative Objective - Vital Signs/Intake and Output Vital Signs (last 24 hours): Temp Pulse Resp BP Pulse Ox 98 F 109 H 13 117/72 100 11/13/17 08:00 11/13/17 08:00 11/13/17 08:00 11/13/17 07:09 11/13/17 08:00 Intake and Output: 11/13/17 11/13/17 06:59 18:59 Output Total 1200 Balance -1200 - Medications Medications: Current Medications Acetaminophen (Tylenol 325mg Tab) 650 mg PO Q6 PRN PRN Reason: for temperature >100.4 Last Admin: 11/13/17 01:09 Dose: 650 mg Acetaminophen (Tylenol 325mg Tab) 650 mg PO Q6 PRN PRN Reason: Pain, Mild (1-3) Last Admin: 11/12/17 16:09 Dose: 650 mg Allopurinol (Zyloprim) [address] [facility] Last Admin: 11/12/17 09:06 Dose: 100 mg Aspirin (Aspirin Chewable) [address] [facility] Last Admin: 11/12/17 09:06 Dose: 81 mg Clopidogrel Bisulfate (Plavix) [address] [facility] Last Admin: 11/12/17 09:06 Dose: 75 mg Dextrose (Dextrose 50% Inj) 0 ml IV STAT PRN; Protocol PRN Reason: Hypoglycemia Protocol Dextrose (Glutose 15) 0 gm PO ONCE PRN; Protocol PRN Reason: Hypoglycemia Protocol Famotidine (Pepcid) [address] [facility] Last Admin: 11/12/17 09:06 Dose: 20 mg Furosemide (Lasix) [address] [facility] Last Admin: 11/12/17 09:06 Dose: 40 mg Glucagon (Glucagen Diagnostic Kit) 0 mg IM STAT PRN; Protocol PRN Reason: Hypoglycemia Protocol Guaifenesin/Dextromethorphan (Robitussin Dm) 10 ml PO Q4H PRN PRN Reason: Cough and congestion Last Admin: 11/11/17 16:19 Dose: 10 ml Heparin Sodium (Porcine) (Heparin) 5,[address] [facility] Last Admin: 11/08/17 14:32 Dose: 5,000 units Piperacillin Sod/Tazobactam Sod (Zosyn 2.25 Gm Iv Premix) 2.25 gm in 50 mls @ 100 mls/hr IVPB Q8H [facility]; Protocol Last Admin: 11/13/17 01:04 Dose: 100 mls/hr Azithromycin 500 mg/ Sodium (Chloride) 250 mls @ 250 mls/hr IVPB Q24H [facility]; Protocol Last Admin: 11/12/17 18:16 Dose: 250 mls/hr Dextrose (Dextrose 5% In Water 1000 Ml) 1,000 mls @ 0 mls/hr IV .Q0M PRN; Protocol PRN Reason: Hypoglycemia Protocol Ceftriaxone Sodium (Rocephin 2 Gm Ivpb) 2 gm in 100 mls @ 100 mls/hr IVPB Q24H [facility]; Protocol Insulin Aspart (Novolog) 0 unit SC ACHS [facility]; Protocol Last Admin: 11/12/17 22:00 Dose: Not Given Rosuvastatin Calcium (Crestor) [address] [facility] Last Admin: 11/12/17 22:15 Dose: 10 mg Sodium Bicarbonate (Sodium Bicarbonate Tab) [address] [facility] Last Admin: 11/13/17 05:13 Dose: 650 mg - Labs Labs: 11/13/17 06:21 11/13/17 06:21 PT 12.6 SECONDS (9.7-12.2) H 11/12/17 06:21 INR 1.2 11/12/17 06:21 APTT 35 SECONDS (21-34) H 11/08/17 01:09 - Constitutional Appears: Well, Non-toxic - Head Exam Head Exam: ATRAUMATIC, NORMOCEPHALIC - Eye Exam Eye Exam: EOMI, PERRL - ENT Exam ENT Exam: Mucous Membranes Moist - Neck Exam Neck Exam: absent: Lymphadenopathy - Respiratory Exam Respiratory Exam: Clear to Ausculation Bilateral. absent: Rhonchi, Wheezes - Cardiovascular Exam Cardiovascular Exam: REGULAR RHYTHM, +S1, +S2 - GI/Abdominal Exam GI & Abdominal Exam: Soft. absent: Distended, Tenderness - Extremities Exam Extremities Exam: absent: Joint Swelling, Pedal Edema - Neurological Exam Neurological Exam: Alert, Awake, Oriented x3 - Psychiatric Exam Psychiatric exam: Normal Affect, Normal Mood Assessment and Plan (1) CKD (chronic kidney disease) stage 3, GFR 30-59 ml/min Status: Acute (2) DM type 2 (diabetes mellitus, type 2) Status: Acute (3) AMPARO (acute kidney injury) Status: Acute (4) PVD (peripheral vascular disease) Status: Acute (5) Proteinuria Status: Acute - Assessment and Plan (Free Text) Plan: improving clinically renal function improving as well cr down to 2.0 continue ABx avoid hypotension no MARLEN or ARB for now
[2017-11-13] MEDS: cefTRIAXone 2 GM in Sodium Chloride 0.9% 100 ML IVPB SCH (11:29)
--- NOTE | 2017-11-13 16:16 | CP.PCM.PN ---
Subjective - Date & Time of Evaluation Date of Evaluation: 11/13/17 Time of Evaluation: 14:15 - Subjective Subjective: dictated Objective - Vital Signs/Intake and Output Vital Signs (last 24 hours): Temp Pulse Resp BP Pulse Ox 98.3 F 111 H 10 L 118/76 100 11/13/17 12:00 11/13/17 12:00 11/13/17 12:00 11/13/17 11:28 11/13/17 12:00 Intake and Output: 11/13/17 11/13/17 06:59 18:59 Output Total 1200 Balance -1200 - Medications Medications: Current Medications Acetaminophen (Tylenol 325mg Tab) 650 mg PO Q6 PRN PRN Reason: for temperature >100.4 Last Admin: 11/13/17 11:25 Dose: 650 mg Acetaminophen (Tylenol 325mg Tab) 650 mg PO Q6 PRN PRN Reason: Pain, Mild (1-3) Last Admin: 11/12/17 16:09 Dose: 650 mg Allopurinol (Zyloprim) 100 mg PO DAILY [facility] Last Admin: 11/13/17 11:19 Dose: 100 mg Aspirin (Aspirin Chewable) 81 mg PO DAILY [facility] Last Admin: 11/13/17 11:25 Dose: 81 mg Clopidogrel Bisulfate (Plavix) 75 mg PO DAILY [facility] Last Admin: 11/13/17 11:19 Dose: 75 mg Dextrose (Dextrose 50% Inj) 0 ml IV STAT PRN; Protocol PRN Reason: Hypoglycemia Protocol Dextrose (Glutose 15) 0 gm PO ONCE PRN; Protocol PRN Reason: Hypoglycemia Protocol Famotidine (Pepcid) 20 mg PO DAILY [facility] Last Admin: 11/13/17 11:19 Dose: 20 mg Furosemide (Lasix) 40 mg IVP DAILY [facility] Last Admin: 11/13/17 11:28 Dose: 40 mg Glucagon (Glucagen Diagnostic Kit) 0 mg IM STAT PRN; Protocol PRN Reason: Hypoglycemia Protocol Guaifenesin/Dextromethorphan (Robitussin Dm) 10 ml PO Q4H PRN PRN Reason: Cough and congestion Last Admin: 11/11/17 16:19 Dose: 10 ml Heparin Sodium (Porcine) (Heparin) 5,000 units SC Q8 [facility] Last Admin: 11/08/17 14:32 Dose: 5,000 units Azithromycin 500 mg/ Sodium (Chloride) 250 mls @ 250 mls/hr IVPB Q24H [facility]; Protocol Last Admin: 11/12/17 18:16 Dose: 250 mls/hr Dextrose (Dextrose 5% In Water 1000 Ml) 1,000 mls @ 0 mls/hr IV .Q0M PRN; Protocol PRN Reason: Hypoglycemia Protocol Ceftriaxone Sodium 2 gm/ (Sodium Chloride) 100 mls @ 100 mls/hr IVPB Q24H [facility]; Protocol Last Admin: 11/13/17 11:29 Dose: 100 mls/hr Insulin Aspart (Novolog) 0 unit SC ACHS [facility]; Protocol Last Admin: 11/13/17 14:33 Dose: 1 u Rosuvastatin Calcium (Crestor) 10 mg PO HS [facility] Last Admin: 11/12/17 22:15 Dose: 10 mg Sodium Bicarbonate (Sodium Bicarbonate Tab) 650 mg PO Q6 [facility] Last Admin: 11/13/17 11:19 Dose: 650 mg - Labs Labs: 11/13/17 06:21 11/13/17 06:21 PT 12.6 SECONDS (9.7-12.2) H 11/12/17 06:21 INR 1.2 11/12/17 06:21 APTT 35 SECONDS (21-34) H 11/08/17 01:09
[2017-11-13] MEDS: Azithromycin 500 MG in Sodium Chloride 0.9% 250 ML IVPB SCH (17:42)
--- NOTE | 2017-11-13 19:42 | PN ---
DATE: 11/13/2017 SUBJECTIVE: The patient was seen. He is still in the ICU. He was . The was at the bedside, said that the patient was feeling little better. I told her about vegetation on the mitral valve and she was not aware of it. PHYSICAL EXAMINATION: VITAL SIGNS: Temperature is 98.3, heart rate of 111, respiratory rate is 12 and saturations 100%. HEENT: Head is atraumatic and normocephalic. NECK: Supple. LUNGS: Have decreased breath sounds bilaterally. HEART: S1 and S2 are regular. ABDOMEN: Soft and nontender. No guarding, no rigidity present. EXTREMITIES: Have edema. LABORATORY DATA: Labs are noted. Labs show white count is 9, hemoglobin 10.9, hematocrit 33.6 and platelet count is 184. Creatinine remains at 2, BUN is 39, alkaline phosphatase is 269. Meditations, I have switched him to Rocephin 2 gm a day and Zithromax and will continue that for now. ASSESSMENT AND PLAN: So, he is on Rocephin and Zithromax now, he might need for four weeks for endocarditis and will follow with Dr. Hennessy how big will the vegetation and whether he needs any Cardiothoracic consult. Driss Odell MD
[2017-11-14 06:36] LABS: BASO # 0.1 K/uL (0.0-0.2); BASO % 0.9 % (0.0-2.0); EOS # 0.1 K/uL (0.0-0.7); EOS % 1.2 % (0.0-4.0); HEMOGLOBIN 10.4 g/dL (12.0-18.0); LYMPH # 1.2 K/uL (1.0-4.3); LYMPH % 16.3 % (20.0-40.0); MEAN CELL VOLUME 87.4 fL (80.0-94.0); MEAN CORPUSCULAR HEMOGLOBIN 27.8 pg (27.0-31.0); MEAN CORPUSCULAR HGB CONC 31.8 g/dL (33.0-37.0); MEAN PLATELET VOLUME 7.9 fL (7.2-11.7); MONO # 1.2 K/uL (0.0-0.8); MONO % 15.6 % (0.0-10.0); NEUT # 5.1 K/uL (1.8-7.0); NRBC % 0.1 % (0.0-2.0); RBC 3.75 Mil/uL (4.40-5.90); RED CELL DISTRIBUTION WIDTH 17.2 % (11.5-14.5); WHITE BLOOD COUNT 7.7 K/uL (4.8-10.8)
[2017-11-14 07:04] LABS: ALB/GLOB RATIO 0.7 (1.0-2.1); ALBUMIN 2.7 g/dL (3.5-5.0); CALCIUM 8.6 mg/dl (8.6-10.4)
[2017-11-14] MEDS: (Novolog) Insulin Aspart, Recombinant 100 u/ml 10 ml vial SC SCH ×4 (07:52→22:47)
--- NOTE | 2017-11-14 08:46 | CP.PCM.PN ---
Subjective - Date & Time of Evaluation Date of Evaluation: 11/14/17 Time of Evaluation: 08:40 - Subjective Subjective: Medical Attending Note: patient seen at bedside. patient reports constant cough. Patient denies fever, denies chills, denies rigors, eating breakfast at bedside, denies abdominal pain, denies nausea, denies vomitting, denies dysuria. Objective - Vital Signs/Intake and Output Vital Signs (last 24 hours): Temp Pulse Resp BP Pulse Ox 98.1 F 112 H 13 121/73 100 11/14/17 04:00 11/14/17 06:00 11/14/17 06:00 11/14/17 04:32 11/14/17 06:00 Intake and Output: 11/14/17 11/14/17 06:59 18:59 Intake Total 120 Output Total 1200 Balance -1080 - Medications Medications: Current Medications Acetaminophen (Tylenol 325mg Tab) 650 mg PO Q6 PRN PRN Reason: for temperature >100.4 Last Admin: 11/13/17 11:25 Dose: 650 mg Acetaminophen (Tylenol 325mg Tab) 650 mg PO Q6 PRN PRN Reason: Pain, Mild (1-3) Last Admin: 11/13/17 22:34 Dose: 650 mg Allopurinol (Zyloprim) 100 mg PO DAILY [facility] Last Admin: 11/13/17 11:19 Dose: 100 mg Aspirin (Aspirin Chewable) 81 mg PO DAILY [facility] Last Admin: 11/13/17 11:25 Dose: 81 mg Clopidogrel Bisulfate (Plavix) 75 mg PO DAILY [facility] Last Admin: 11/13/17 11:19 Dose: 75 mg Dextrose (Dextrose 50% Inj) 0 ml IV STAT PRN; Protocol PRN Reason: Hypoglycemia Protocol Dextrose (Glutose 15) 0 gm PO ONCE PRN; Protocol PRN Reason: Hypoglycemia Protocol Famotidine (Pepcid) 20 mg PO DAILY [facility] Last Admin: 11/13/17 11:19 Dose: 20 mg Furosemide (Lasix) 40 mg IVP DAILY [facility] Last Admin: 11/13/17 11:28 Dose: 40 mg Glucagon (Glucagen Diagnostic Kit) 0 mg IM STAT PRN; Protocol PRN Reason: Hypoglycemia Protocol Guaifenesin/Dextromethorphan (Robitussin Dm) 10 ml PO Q4H PRN PRN Reason: Cough and congestion Last Admin: 11/11/17 16:19 Dose: 10 ml Heparin Sodium (Porcine) (Heparin) 5,000 units SC Q8 [facility] Last Admin: 11/14/17 08:14 Dose: 5,000 units Azithromycin 500 mg/ Sodium (Chloride) 250 mls @ 250 mls/hr IVPB Q24H [facility]; Protocol Last Admin: 11/13/17 17:42 Dose: 250 mls/hr Dextrose (Dextrose 5% In Water 1000 Ml) 1,000 mls @ 0 mls/hr IV .Q0M PRN; Protocol PRN Reason: Hypoglycemia Protocol Ceftriaxone Sodium 2 gm/ (Sodium Chloride) 100 mls @ 100 mls/hr IVPB Q24H [facility]; Protocol Last Admin: 11/13/17 11:29 Dose: 100 mls/hr Insulin Aspart (Novolog) 0 unit SC ACHS [facility]; Protocol Last Admin: 11/14/17 07:52 Dose: Not Given Rosuvastatin Calcium (Crestor) 10 mg PO HS [facility] Last Admin: 11/13/17 22:30 Dose: 10 mg Sodium Bicarbonate (Sodium Bicarbonate Tab) 650 mg PO Q6 [facility] Last Admin: 11/14/17 06:35 Dose: 650 mg - Labs Labs: 11/14/17 06:33 11/14/17 06:33 PT 12.6 SECONDS (9.7-12.2) H 11/12/17 06:21 INR 1.2 11/12/17 06:21 APTT 35 SECONDS (21-34) H 11/08/17 01:09 - Constitutional Appears: Non-toxic, No Acute Distress - Head Exam Head Exam: NORMAL INSPECTION - Eye Exam Eye Exam: EOMI - ENT Exam ENT Exam: Mucous Membranes Moist - Respiratory Exam Respiratory Exam: Clear to Ausculation Bilateral, NORMAL BREATHING PATTERN. absent: Rales, Rhonchi, Wheezes - Cardiovascular Exam Cardiovascular Exam: Tachycardia, +S1, +S2 - GI/Abdominal Exam GI & Abdominal Exam: Soft, Normal Bowel Sounds. absent: Distended, Firm, Guarding, Rigid, Tenderness, Rebound - Extremities Exam Extremities Exam: Pedal Edema (trace) Additional comments: chronic venous stasis changes pigementated papules over b/l lower extremities - Neurological Exam Neurological Exam: Alert, Awake, Oriented x3 - Psychiatric Exam Psychiatric exam: Normal Affect, Normal Mood - Skin Skin Exam: Dry, Intact, Normal Color, Warm Assessment and Plan (1) Acute on chronic diastolic heart failure Status: Acute (2) CKD (chronic kidney disease) stage 3, GFR 30-59 ml/min Status: Acute (3) DM type 2 (diabetes mellitus, type 2) Status: Acute (4) Pneumonia Status: Acute (5) Prophylactic measure Status: Chronic Attending/Attestation - Attestation I have personally seen and examined this patient.: Yes I have fully participated in the care of the patient.: Yes I have reviewed all pertinent clinical information, including history, physical exam and plan: Yes Notes (Text): 1) Acute on chronic diastolic CHF Assessment/Plan * Cardiology (Dr. Hennessy) on case-->help appreciated * Aspirin 81mg Po daily * Lasix 40mg IVP daily * Plavix 75mg PO daily * Crestor 10mg POqHS * CT chest shows small-medium right sided effusions w/mild right basilar atelectasis. Trace left effusion. Minor atelectasis and or scarring left lingular region. Cardiomegaly, marked enlargement of pulmonary trunk * Nasal cannula as tolerated, Maintain SPO2 > 92% * Echo 11/08 demonstrated mild LV systolic dysfunction, dilated L atrium, mild- mod MR with eccentric jet, and mild TR, EF 38% * no MARLEN or ARB for now per nephrology * monitor daily weights * monitor intake and output 2) Bacteremia Mitral Valve Endocarditis Assessment/Plan * Infectious Disease (Dr. Odell) on consult * Blood cx: Group G streptococcus X2 * Blood cx: no growth after 48 hours X2 * Echo (11/14/17): left ventricular function, left ventricular ejection fraction, right ventricle is mildly to moderalte, PFO with buble cross coverm moderate posterior mitral valve prolapse is present. vegetation of the mitral velve is moderate 3) Acute renal failure on CKD stage 4 Assessment/Plan * Nephrology (Dr. Lauren) on consult-->help appreciated * sodium bicarbonate tabs 4) Pneumonia Assessment/Plan * Azithromycin 500mg IVPB Q24h (active since 11/09/17) * Rocephin 2m IVPB Q24 (active since 27/07/17) 5) Hyperkalemia * monitor 6) Hx of DMII * ISS low * continue Accucheck ACHS * Hypoglycemic protocol * Aspirin 81mg PO daily * hgba1c: 6.7 * Crestor 10mg POqHS * Aspirin 81mg PO daily 7) PPX: * Pepcid 20mg Po daily * Restart heparin 5,000 units Q8, PLTs improve * SCDs contraindicated due to edema of lower extremity * altered GI diet, soft 2 gm sodium, low fat, moderate consistency diet, fluid restriction at 1.5 L * Pain management: tylenol 650 mg PO Q6 PRN for mild pain (1-3) * fever: tylenol 650 mg po Q6 PRN for fever > 100.4 * PT dispo: sub-acute rehab * PICC line right upper extremity
[2017-11-14] MEDS ORDERED: Metoprolol 1 mg/ml Inj IVP ONE ×2 (08:48→13:15)
--- NOTE | 2017-11-14 08:53 | CARD ---
APPROVED REPORT Date of service: 11/12/2017 EXAM: Transesophageal echocardiogram with color flow Doppler. INDICATION Infection : Rule out subacute bacterial endocarditis Congestive Heart Failure Echo Enhancing Agent Indication: Rule Out Septal Defect Agent/Amount Used: Agitated Saline Reason For Test : Rule out endocarditis. PROCEDURE After obtaining informed consent, patient underwent transesophageal echo in the [employer]. Type of Sedation : Conscious Sedation Sedation was provided by anesthesiologist. Sedation was achieved with intravenously. The LM was performed complications. Throughout the procedure, the blood pressure, pulse oximetry, cardiac rhythm, and rate were monitored. The patient tolerated the procedure without adverse effects. Recovery from conscious sedation was uneventful and vital signs were stable. LEFT VENTRICLE The left ventricle is normal size. The left ventricular function is normal. The left ventricular ejection fraction is within the normal range. The left ventricular diastolic function is normal. No left ventricle thrombus noted on this study. There is no ventricular septal defect visualized. RIGHT VENTRICLE The right ventricle is mildly to moderately dilated. The right ventricular systolic function is normal. ATRIA The left atrium is moderately dilated. The right atrium is moderately dilated. PFO with bubble cross over noted AORTIC VALVE The aortic valve is normal in structure. No aortic regurgitation is present. There is no aortic valvular stenosis. There is no aortic valvular vegetation. MITRAL VALVE A moderate posterior mitral valve prolapse is present. A vegetation of the mitral valve is moderate (Posterior Mitral leaflet) There is no mitral valve stenosis. Mitral regurgitation is moderate. GREAT VESSELS The aortic root is normal in size. <Conclusion> The left ventricular function is normal. The left ventricular ejection fraction is within the normal range. The right ventricle is mildly to moderately dilated. The left atrium is moderately dilated. The right atrium is moderately dilated. PFO with bubble cross over noted The aortic valve is normal in structure. Mitral regurgitation is moderate. A moderate posterior mitral valve prolapse is present. A vegetation of the mitral valve is moderate (Posterior Mitral leaflet)
[2017-11-14] MEDS: guaiFENesin DM 200 mg-20 mg/10 ml UD PO PRN (10:24)
[2017-11-14] MEDS: cefTRIAXone 2 GM in Sodium Chloride 0.9% 100 ML IVPB SCH (12:25)
[2017-11-14] MEDS: Azithromycin 500 MG in Sodium Chloride 0.9% 250 ML IVPB SCH (17:21)
[2017-11-15 05:52] LABS: BASO # 0.1 K/uL (0.0-0.2); BASO % 0.9 % (0.0-2.0); EOS # 0.1 K/uL (0.0-0.7); EOS % 1.1 % (0.0-4.0); HEMOGLOBIN 10.5 g/dL (12.0-18.0); LYMPH # 1.9 K/uL (1.0-4.3); LYMPH % 19.9 % (20.0-40.0); MEAN CELL VOLUME 87.4 fL (80.0-94.0); MEAN CORPUSCULAR HEMOGLOBIN 28.6 pg (27.0-31.0); MEAN CORPUSCULAR HGB CONC 32.7 g/dL (33.0-37.0); MEAN PLATELET VOLUME 7.8 fL (7.2-11.7); MONO % 10.2 % (0.0-10.0); NEUT # 6.5 K/uL (1.8-7.0); NEUT % 67.9 % (50.0-75.0); RBC 3.69 Mil/uL (4.40-5.90); RED CELL DISTRIBUTION WIDTH 16.9 % (11.5-14.5); WHITE BLOOD COUNT 9.5 K/uL (4.8-10.8)
[2017-11-15 06:10] LABS: ALB/GLOB RATIO 0.7 (1.0-2.1); ALBUMIN 2.9 g/dL (3.5-5.0); CALCIUM 8.6 mg/dl (8.6-10.4)
[2017-11-15] MEDS: (Novolog) Insulin Aspart, Recombinant 100 u/ml 10 ml vial SC SCH ×4 (07:44→21:28)
[2017-11-15] MEDS ORDERED: Potassium Chloride 20 mEq ER Tab PO ONE (08:01)
[2017-11-15] MEDS: Magnesium Oxide 400 mg Tab UD PO SCH ×2 (09:13→17:30)
[2017-11-15] MEDS: Metoprolol Succinate 12.5 mg XL Tab PO SCH (09:14)
[2017-11-15] MEDS ORDERED: Azithromycin 500 MG in Sodium Chloride 0.9% 250 ML IVPB SCH (10:00)
--- NOTE | 2017-11-15 10:44 | CP.PCM.PN ---
Subjective - Date & Time of Evaluation Date of Evaluation: 11/15/17 Time of Evaluation: 10:43 - Subjective Subjective: seen and examined up in chair c/o pain in left hand, prior iv site no n/v/d/dizziness/headache/cp/sob rest 10 point ROS negative on iv lasix Objective - Vital Signs/Intake and Output Vital Signs (last 24 hours): Temp Pulse Resp BP Pulse Ox 99.4 F 101 H 16 118/73 100 11/15/17 08:00 11/15/17 08:08 11/15/17 08:08 11/15/17 09:11 11/15/17 08:08 Intake and Output: 11/15/17 11/15/17 06:59 18:59 Intake Total 240 Output Total 1000 Balance -760 - Medications Medications: Current Medications Acetaminophen (Tylenol 325mg Tab) 650 mg PO Q6 PRN PRN Reason: for temperature >100.4 Last Admin: 11/13/17 11:25 Dose: 650 mg Acetaminophen (Tylenol 325mg Tab) 650 mg PO Q6 PRN PRN Reason: Pain, Mild (1-3) Last Admin: 11/15/17 09:31 Dose: 650 mg Allopurinol (Zyloprim) 100 mg PO DAILY [facility] Last Admin: 11/15/17 09:14 Dose: 100 mg Aspirin (Aspirin Chewable) 81 mg PO DAILY [facility] Last Admin: 11/15/17 09:11 Dose: 81 mg Benzonatate (Tessalon Perles) 100 mg PO TID [facility] Last Admin: 11/15/17 09:14 Dose: 100 mg Clopidogrel Bisulfate (Plavix) 75 mg PO DAILY [facility] Last Admin: 11/15/17 09:13 Dose: 75 mg Dextrose (Dextrose 50% Inj) 0 ml IV STAT PRN; Protocol PRN Reason: Hypoglycemia Protocol Dextrose (Glutose 15) 0 gm PO ONCE PRN; Protocol PRN Reason: Hypoglycemia Protocol Famotidine (Pepcid) 20 mg PO DAILY [facility] Last Admin: 11/15/17 09:13 Dose: 20 mg Furosemide (Lasix) 40 mg IVP DAILY [facility] Last Admin: 11/15/17 09:11 Dose: 40 mg Glucagon (Glucagen Diagnostic Kit) 0 mg IM STAT PRN; Protocol PRN Reason: Hypoglycemia Protocol Guaifenesin/Dextromethorphan (Robitussin Dm) 10 ml PO Q4H PRN PRN Reason: Cough and congestion Last Admin: 11/14/17 10:24 Dose: 10 ml Heparin Sodium (Porcine) (Heparin) 5,000 units SC Q8 [facility] Last Admin: 11/15/17 05:08 Dose: 5,000 units Dextrose (Dextrose 5% In Water 1000 Ml) 1,000 mls @ 0 mls/hr IV .Q0M PRN; Prot ocol PRN Reason: Hypoglycemia Protocol Ceftriaxone Sodium 2 gm/ (Sodium Chloride) 100 mls @ 100 mls/hr IVPB Q24H [facility]; Protocol Last Admin: 11/14/17 12:25 Dose: 100 mls/hr Azithromycin 500 mg/ Sodium (Chloride) 250 mls @ 166.667 mls/hr IVPB DAILY [facility]; Protocol Last Admin: 11/15/17 09:14 Dose: 166.667 mls/hr Insulin Aspart (Novolog) 0 unit SC ACHS [facility]; Protocol Last Admin: 11/15/17 07:44 Dose: Not Given Magnesium Oxide (Mag-Ox) 400 mg PO BID [facility] Last Admin: 11/15/17 09:13 Dose: 400 mg Metoprolol Succinate (Toprol Xl) 12.5 mg PO DAILY [facility] Last Admin: 11/15/17 09:14 Dose: 12.5 mg Rosuvastatin Calcium (Crestor) 10 mg PO HS [facility] Last Admin: 11/14/17 23:34 Dose: 10 mg Sodium Bicarbonate (Sodium Bicarbonate Tab) 650 mg PO Q6 [facility] Last Admin: 11/15/17 05:08 Dose: 650 mg - Labs Labs: 11/15/17 05:39 11/15/17 05:39 PT 12.6 SECONDS (9.7-12.2) H 11/12/17 06:21 INR 1.2 11/12/17 06:21 APTT 35 SECONDS (21-34) H 11/08/17 01:09 - Constitutional Appears: No Acute Distress, Chronically Ill - Head Exam Head Exam: NORMAL INSPECTION, NORMOCEPHALIC - Eye Exam Eye Exam: Normal appearance, PERRL - ENT Exam ENT Exam: Mucous Membranes Moist, Normal Exam - Neck Exam Neck Exam: Full ROM, Normal Inspection - Respiratory Exam Respiratory Exam: Clear to Ausculation Bilateral, NORMAL BREATHING PATTERN - Cardiovascular Exam Cardiovascular Exam: REGULAR RHYTHM, RRR - GI/Abdominal Exam GI & Abdominal Exam: Distended, Soft, Normal Bowel Sounds - Extremities Exam Extremities Exam: Normal Inspection Additional comments: chronic stasis, edema improved - Neurological Exam Neurological Exam: Alert, Awake, Oriented x3 - Psychiatric Exam Psychiatric exam: Normal Affect, Normal Mood - Skin Skin Exam: Dry, Intact Assessment and Plan (1) DM type 2 (diabetes mellitus, type 2) Status: Acute (2) Non-ST elevation PR (NSTEMI) Status: Acute (3) Pneumonia Status: Acute (4) Renal insufficiency Status: Acute - Assessment and Plan (Free Text) 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
[2017-11-15] MEDS: cefTRIAXone 2 GM in Sodium Chloride 0.9% 100 ML IVPB SCH (14:07)
--- NOTE | 2017-11-15 15:40 | CP.PCM.PN ---
<Av Feliciano - Last Filed: 11/15/17 21:15> Subjective - Date & Time of Evaluation Date of Evaluation: 11/15/17 Time of Evaluation: 10:00 - Subjective Subjective: Av Feliciano PGY-1, Medicine progress note Pt was seen and examined at bedside. Pt is resting comfortably upon starting of interview. Pt reports that he is feeling better than yesterday. No acute events overnight. Pt has no complaints at this time. Pt denies fever, chills, headache, dizzziness, weakness, chest pain, sob, abdominal pain, n/v/d. Objective - Vital Signs/Intake and Output Vital Signs (last 24 hours): Temp Pulse Resp BP Pulse Ox 99.4 F 101 H 16 118/73 100 11/15/17 08:00 11/15/17 08:08 11/15/17 08:08 11/15/17 09:11 11/15/17 08:08 Intake and Output: 11/15/17 11/15/17 06:59 18:59 Intake Total 240 Output Total 1000 Balance -760 - Medications Medications: Current Medications Acetaminophen (Tylenol 325mg Tab) 650 mg PO Q6 PRN PRN Reason: for temperature >100.4 Last Admin: 11/13/17 11:25 Dose: 650 mg Acetaminophen (Tylenol 325mg Tab) 650 mg PO Q6 PRN PRN Reason: Pain, Mild (1-3) Last Admin: 11/15/17 09:31 Dose: 650 mg Allopurinol (Zyloprim) 100 mg PO DAILY [facility] Last Admin: 11/15/17 09:14 Dose: 100 mg Aspirin (Aspirin Chewable) 81 mg PO DAILY [facility] Last Admin: 11/15/17 09:11 Dose: 81 mg Benzonatate (Tessalon Perles) 100 mg PO TID [facility] Last Admin: 11/15/17 14:06 Dose: 100 mg Clopidogrel Bisulfate (Plavix) 75 mg PO DAILY [facility] Last Admin: 11/15/17 09:13 Dose: 75 mg Dextrose (Dextrose 50% Inj) 0 ml IV STAT PRN; Protocol PRN Reason: Hypoglycemia Protocol Dextrose (Glutose 15) 0 gm PO ONCE PRN; Protocol PRN Reason: Hypoglycemia Protocol Famotidine (Pepcid) 20 mg PO DAILY [facility] Last Admin: 11/15/17 09:13 Dose: 20 mg Furosemide (Lasix) 40 mg PO DAILY [facility] Last Admin: 11/15/17 12:47 Dose: Not Given Glucagon (Glucagen Diagnostic Kit) 0 mg IM STAT PRN; Protocol PRN Reason: Hypoglycemia Protocol Guaifenesin/Dextromethorphan (Robitussin Dm) 10 ml PO Q4H PRN PRN Reason: Cough and congestion Last Admin: 11/14/17 10:24 Dose: 10 ml Heparin Sodium (Porcine) (Heparin) 5,000 units SC Q8 [facility] Last Admin: 11/15/17 14:05 Dose: 5,000 units Dextrose (Dextrose 5% In Water 1000 Ml) 1,000 mls @ 0 mls/hr IV .Q0M PRN; Protocol PRN Reason: Hypoglycemia Protocol Ceftriaxone Sodium 2 gm/ (Sodium Chloride) 100 mls @ 100 mls/hr IVPB Q24H [facility]; Protocol Last Admin: 11/15/17 14:07 Dose: 100 mls/hr Insulin Aspart (Novolog) 0 unit SC ACHS [facility]; Protocol Last Admin: 11/15/17 13:00 Dose: 1 u Magnesium Oxide (Mag-Ox) 400 mg PO BID [facility] Last Admin: 11/15/17 09:13 Dose: 400 mg Metoprolol Succinate (Toprol Xl) 12.5 mg PO DAILY [facility] Last Admin: 11/15/17 09:14 Dose: 12.5 mg Rosuvastatin Calcium (Crestor) 10 mg PO HS [facility] Last Admin: 11/14/17 23:34 Dose: 10 mg - Labs Labs: 11/15/17 05:39 11/15/17 05:39 PT 12.6 SECONDS (9.7-12.2) H 11/12/17 06:21 INR 1.2 11/12/17 06:21 APTT 35 SECONDS (21-34) H 11/08/17 01:09 - Constitutional Appears: Non-toxic, No Acute Distress - Head Exam Head Exam: NORMAL INSPECTION, NORMOCEPHALIC - Eye Exam Eye Exam: EOMI, Normal appearance - ENT Exam ENT Exam: Mucous Membranes Moist - Neck Exam Neck Exam: Normal Inspection - Respiratory Exam Respiratory Exam: absent: Rales, Rhonchi, Wheezes, Respiratory Distress - Cardiovascular Exam Cardiovascular Exam: REGULAR RHYTHM, +S1, Murmur (systolic murmur, 3/6) - GI/Abdominal Exam GI & Abdominal Exam: Soft, Normal Bowel Sounds. absent: Distended, Firm, Guarding, Rigid, Tenderness - Extremities Exam Extremities Exam: Pedal Edema (trace bilateral pitting edema) - Psychiatric Exam Psychiatric exam: Normal Affect, Normal Mood - Skin Skin Exam: Dry, Warm Additional comments: (+) chronic venous stasis changes bilateral lower extremities with dark pigmentated papules Assessment and Plan - Assessment and Plan (Free Text) Assessment: This is a 67 year old male with PMH of HTN, hyperlipidemia, T2DM, diastolic CHF, psoriasis, gout who presented to the ED with sob found to have endocarditis. Plan: Acute on chronic diastolic CHF * Cardiology, Dr. Hennessy, consulted * Aspirin 81mg Po daily * Lasix 40mg IVP daily * Plavix 75mg PO daily * Crestor 10mg POqHS * CT chest shows small-medium right sided effusions w/mild right basilar atelectasis. Trace left effusion. Minor atelectasis and or scarring left lingular region. Cardiomegaly, marked enlargement of pulmonary trunk * Nasal cannula as tolerated, Maintain SPO2 > 92% * Echo 11/08 demonstrated mild LV systolic dysfunction, dilated L atrium, mild- mod MR with eccentric jet, and mild TR, EF 38% * no MARLEN or ARB for now per nephrology * monitor daily weights * monitor intake and output Bacteremia Mitral Valve Endocarditis * Infectious Disease (Dr. Odell) on consult * pt will need rocephin 2g IVPB q24h for four months * Blood cx: Group G streptococcus X2 * Blood cx 11/11: no growth after 4 days x2 * Echo (11/14/17): left ventricular function, left ventricular ejection fraction, right ventricle is mildly to moderate, PFO with bubble crossover noted. Moderate posterior mitral valve prolapse is present. Vegetation of the mitral valve is moderate. Tachycardia * Will start metoprolol xl 12.5 mg PO * no leukocytosis, pt remains afebrile Acute renal failure on CKD stage 4 * Nephrology (Dr. Lauren) on consult * continue sodium bicarbonate tabs * creatinine is improving * continue to avoid nephrotoxic medications wherever possible Pneumonia * tessalon perles added for cough * Azithromycin 500mg IVPB Q24h (active since 11/09/17) * discontinued 11/15/17 * pt has completed recommended treatment * Rocephin 2m IVPB Q24 (active since 11/13/17) * will be continued for treatment of endocarditis Hypokalemia * magnesium of 1.5 repleted on 11/15/17 * continue to monitor Hypokalemia * potassium of 2.6 repleted with kdur 20 meq on 11/15/17 * continue to monitor Hyperkalemia resolved * continue to monitor Hx of DMII * ISS low * continue Accucheck ACHS * Hypoglycemic protocol * Aspirin 81mg PO daily * hgba1c: 6.7 * Crestor 10mg POqHS * Aspirin 81mg PO daily PPX: * Pepcid 20mg Po daily * Continue Heparin 5,000 units Q8, PLTs improved * SCDs contraindicated due to edema of lower extremity * Altered GI diet, soft 2 gm sodium, low fat, moderate consistency diet, fluid restriction at 1.5 L * Pain management: tylenol 650 mg PO Q6 PRN for mild pain (1-3) * Fever: tylenol 650 mg po Q6 PRN for fever > 100.4 * PT dispo: sub-acute rehab * PICC line right upper extremity Dispo: Pt can follow up in outpatient clinic for daily Rocephin infusions. Case was reviewed and discussed with attending physician, Dr. Eleanor feliciano PGY-1 <Charissa Webster V - Last Filed: 11/17/17 23:17> Objective - Vital Signs/Intake and Output Vital Signs (last 24 hours): Temp Pulse Resp BP Pulse Ox 99.3 F 110 H 20 104/72 97 11/17/17 15:00 11/17/17 15:00 11/17/17 15:00 11/17/17 15:00 11/17/17 15:00 Intake and Output: 11/17/17 11/18/17 18:59 06:59 Intake Total 100 Output Total 150 Balance -50 - Medications Medications: Current Medications Acetaminophen (Tylenol 325mg Tab) 650 mg PO Q6 PRN PRN Reason: for temperature >100.4 Last Admin: 11/13/17 11:25 Dose: 650 mg Acetaminophen (Tylenol 325mg Tab) 650 mg PO Q6 PRN PRN Reason: Pain, Mild (1-3) Last Admin: 11/16/17 21:53 Dose: 650 mg Allopurinol (Zyloprim) 100 mg PO DAILY [facility] Last Admin: 11/17/17 09:18 Dose: 100 mg Aspirin (Aspirin Chewable) 81 mg PO DAILY [facility] Last Admin: 11/17/17 09:21 Dose: 81 mg Benzonatate (Tessalon Perles) 100 mg PO TID [facility] Last Admin: 11/17/17 18:20 Dose: 100 mg Clopidogrel Bisulfate (Plavix) 75 mg PO DAILY [facility] Last Admin: 11/17/17 09:18 Dose: 75 mg Dextrose (Dextrose 50% Inj) 0 ml IV STAT PRN; Protocol PRN Reason: Hypoglycemia Protocol Dextrose (Glutose 15) 0 gm PO ONCE PRN; Protocol PRN Reason: Hypoglycemia Protocol Famotidine (Pepcid) 20 mg PO DAILY [facility] Last Admin: 11/17/17 09:18 Dose: 20 mg Furosemide (Lasix) 40 mg PO DAILY [facility] Last Admin: 11/17/17 09:21 Dose: 40 mg Glucagon (Glucagen Diagnostic Kit) 0 mg IM STAT PRN; Protocol PRN Reason: Hypoglycemia Protocol Guaifenesin/Dextromethorphan (Robitussin Dm) 10 ml PO Q4H PRN PRN Reason: Cough and congestion Last Admin: 11/17/17 09:17 Dose: 10 ml Ceftriaxone Sodium 2 gm/ (Sodium Chloride) 100 mls @ 100 mls/hr IVPB Q24H [facility]; Protocol Last Admin: 11/17/17 10:40 Dose: 100 mls/hr Insulin Aspart (Novolog) 0 unit SC ACHS [facility]; Protocol Last Admin: 11/17/17 21:35 Dose: Not Given Metoprolol Succinate (Toprol Xl) 12.5 mg PO DAILY [facility] Last Admin: 11/17/17 09:18 Dose: 12.5 mg Rosuvastatin Calcium (Crestor) 10 mg PO HS [facility] Last Admin: 11/17/17 21:36 Dose: 10 mg - Labs Labs: 11/17/17 06:59 11/17/17 06:59 PT 12.6 SECONDS (9.7-12.2) H 11/12/17 06:21 INR 1.2 11/12/17 06:21 APTT 35 SECONDS (21-34) H 11/08/17 01:09 Assessment and Plan (1) CKD (chronic kidney disease) stage 3, GFR 30-59 ml/min Status: Acute (2) DM type 2 (diabetes mellitus, type 2) Status: Acute (3) Pneumonia Status: Acute (4) Prophylactic measure Status: Chronic Attending/Attestation - Attestation I have personally seen and examined this patient.: Yes I have fully participated in the care of the patient.: Yes I have reviewed all pertinent clinical information, including history, physical exam and plan: Yes Notes (Text): This is a late computer entry for 11/16/2017. Patient seen, examined, case discussed with medical screener. Patient is doing well. Back to work with physical therapy. Case management working with outpatient transfusion center to set up patient for 4 weeks of Rocephin. Patient does have a midline however is not suggested to keep the midline more than 2 weeks and unable to draw labs if needed to monitor while on antibiotic. We'll place for PICC line placement with either PICC line nurse or with IR where is available to plan for to eat discharge planning. [facility] cardio is as stated patient is stable for now. Will need to be followed up by cardiology as outpatient to monitor vegetation noted on mitral valve. Case discussed with infectious disease as well patient will need to complete IV antibiotic for endocarditis. 1) Acute on chronic diastolic CHF Assessment/Plan * Cardiology (Dr. Hennessy) on case-->help appreciated * Aspirin 81mg Po daily * Lasix 40mg IVP daily * Plavix 75mg PO daily * Crestor 10mg POqHS * Lasix 40 mg by mouth once a day * Toprol-XL 12.5 mg by mouth once a day * CT chest shows small-medium right sided effusions w/mild right basilar atelectasis. Trace left effusion. Minor atelectasis and or scarring left lingular region. Cardiomegaly, marked enlargement of pulmonary trunk * Nasal cannula as tolerated, Maintain SPO2 > 92% * Echo 11/08 demonstrated mild LV systolic dysfunction, dilated L atrium, mild- mod MR with eccentric jet, and mild TR, EF 38% * no MARLEN or ARB for now per nephrology * monitor daily weights * monitor intake and output 2) Bacteremia Mitral Valve Endocarditis Assessment/Plan * Infectious Disease (Dr. Odell) on consult * Blood cx: Group G streptococcus X2 * Blood cx: no growth after 5 days 2 * Echo (11/14/17): left ventricular function, left ventricular ejection fraction, right ventricle is mildly to moderalte, PFO with buble cross coverm moderate posterior mitral valve prolapse is present. vegetation of the mitral velve is moderate * Ceftin 2 g IV every 24 for 4 weeks. With weekly labs including CBC, CMP, ESR, CRP while on antibiotic treatment * Patient is awaiting PICC line placement to be set up for the outpatient transfusion center 3) Acute renal failure on CKD stage 4 Assessment/Plan * Nephrology (Dr. Lauren) on consult-->help appreciated * Renal function is improving. 4) Pneumonia Assessment/Plan * Completed Azithromycin 500mg IVPB Q24h * Rocephin 2m IVPB Q24 (active since 27/07/17) 5) Hyperkalemia * monitor 6) Hx of DMII * ISS low * continue Accucheck ACHS * Hypoglycemic protocol * Aspirin 81mg PO daily * hgba1c: 6.7 * Crestor 10mg POqHS * Aspirin 81mg PO daily 7) PPX: * Pepcid 20mg Po daily * heparin 5,000 units Q8 * SCDs contraindicated due to edema of lower extremity * altered GI diet, soft 2 gm sodium, low fat, moderate consistency diet, fluid restriction at 1.5 L * Pain management: tylenol 650 mg PO Q6 PRN for mild pain (1-3) * fever: tylenol 650 mg po Q6 PRN for fever > 100.4 * PT dispo: Home pending establishment at the transfusion center * As midline awaiting PICC line PICC line right upper extremity Disposition pending PICC line placement. Case management has set up patient for outpatient transfusion center. Patient has PICC line can be discharge. Will need 4 weeks of antibiotics with weekly labs. Will need repeat echo per ID prior to removal PICC line to make sure improvement in regards vegetation over the mitral valve.
[2017-11-15 23:53] VITALS: RESP 20
[2017-11-16 08:05] LABS: BASO % 0.5 % (0.0-2.0); EOS # 0.1 K/uL (0.0-0.7); EOS % 1.1 % (0.0-4.0); HEMOGLOBIN 9.9 g/dL (12.0-18.0); LYMPH # 1.2 K/uL (1.0-4.3); LYMPH % 18.7 % (20.0-40.0); MEAN CELL VOLUME 87.5 fL (80.0-94.0); MEAN CORPUSCULAR HEMOGLOBIN 28.9 pg (27.0-31.0); MEAN PLATELET VOLUME 7.5 fL (7.2-11.7); MONO # 0.8 K/uL (0.0-0.8); MONO % 12.3 % (0.0-10.0); NEUT # 4.4 K/uL (1.8-7.0); NEUT % 67.4 % (50.0-75.0); NRBC % 0.1 % (0.0-2.0); RBC 3.41 Mil/uL (4.40-5.90); RED CELL DISTRIBUTION WIDTH 17.2 % (11.5-14.5); WHITE BLOOD COUNT 6.6 K/uL (4.8-10.8)
[2017-11-16 08:25] LABS: ALB/GLOB RATIO 0.7 (1.0-2.1); ALBUMIN 2.9 g/dL (3.5-5.0)
--- NOTE | 2017-11-16 09:04 | CP.PCM.PN ---
Objective - Vital Signs/Intake and Output Vital Signs (last 24 hours): Temp Pulse Resp BP Pulse Ox 98.3 F 101 H 20 109/72 100 11/16/17 07:58 11/16/17 07:58 11/16/17 07:58 11/16/17 07:58 11/16/17 07:58 - Medications Medications: Current Medications Acetaminophen (Tylenol 325mg Tab) 650 mg PO Q6 PRN PRN Reason: for temperature >100.4 Last Admin: 11/13/17 11:25 Dose: 650 mg Acetaminophen (Tylenol 325mg Tab) 650 mg PO Q6 PRN PRN Reason: Pain, Mild (1-3) Last Admin: 11/15/17 23:01 Dose: 650 mg Allopurinol (Zyloprim) 100 mg PO DAILY [facility] Last Admin: 11/15/17 09:14 Dose: 100 mg Aspirin (Aspirin Chewable) 81 mg PO DAILY [facility] Last Admin: 11/15/17 09:11 Dose: 81 mg Benzonatate (Tessalon Perles) 100 mg PO TID [facility] Last Admin: 11/15/17 17:30 Dose: 100 mg Clopidogrel Bisulfate (Plavix) 75 mg PO DAILY [facility] Last Admin: 11/15/17 09:13 Dose: 75 mg Dextrose (Dextrose 50% Inj) 0 ml IV STAT PRN; Protocol PRN Reason: Hypoglycemia Protocol Dextrose (Glutose 15) 0 gm PO ONCE PRN; Protocol PRN Reason: Hypoglycemia Protocol Famotidine (Pepcid) 20 mg PO DAILY [facility] Last Admin: 11/15/17 09:13 Dose: 20 mg Furosemide (Lasix) 40 mg PO DAILY [facility] Last Admin: 11/15/17 12:47 Dose: Not Given Glucagon (Glucagen Diagnostic Kit) 0 mg IM STAT PRN; Protocol PRN Reason: Hypoglycemia Protocol Guaifenesin/Dextromethorphan (Robitussin Dm) 10 ml PO Q4H PRN PRN Reason: Cough and congestion Last Admin: 11/14/17 10:24 Dose: 10 ml Heparin Sodium (Porcine) (Heparin) 5,000 units SC Q8 [facility] Last Admin: 11/16/17 05:39 Dose: 5,000 units Dextrose (Dextrose 5% In Water 1000 Ml) 1,000 mls @ 0 mls/hr IV .Q0M PRN; Protocol PRN Reason: Hypoglycemia Protocol Ceftriaxone Sodium 2 gm/ (Sodium Chloride) 100 mls @ 100 mls/hr IVPB Q24H [facility]; Protocol Last Admin: 11/15/17 14:07 Dose: 100 mls/hr Insulin Aspart (Novolog) 0 unit SC ACHS [facility]; Protocol Last Admin: 11/15/17 21:28 Dose: Not Given Magnesium Oxide (Mag-Ox) 400 mg PO BID [facility] Last Admin: 11/15/17 17:30 Dose: 400 mg Metoprolol Succinate (Toprol Xl) 12.5 mg PO DAILY [facility] Last Admin: 11/15/17 09:14 Dose: 12.5 mg Rosuvastatin Calcium (Crestor) 10 mg PO HS [facility] Last Admin: 11/15/17 22:59 Dose: 10 mg - Labs Labs: 11/16/17 07:45 11/16/17 07:45 PT 12.6 SECONDS (9.7-12.2) H 11/12/17 06:21 INR 1.2 11/12/17 06:21 APTT 35 SECONDS (21-34) H 11/08/17 01:09
--- NOTE | 2017-11-16 09:59 | CP.PCM.PN ---
Subjective - Date & Time of Evaluation Date of Evaluation: 11/16/17 Time of Evaluation: 09:57 - Subjective Subjective: seen and examined no events, on floor now afebrile, hemodynamically stable 10 point ROS obtained and negative good uop Objective - Vital Signs/Intake and Output Vital Signs (last 24 hours): Temp Pulse Resp BP Pulse Ox 98.3 F 101 H 20 109/72 100 11/16/17 07:58 11/16/17 07:58 11/16/17 07:58 11/16/17 07:58 11/16/17 07:58 - Medications Medications: Current Medications Acetaminophen (Tylenol 325mg Tab) 650 mg PO Q6 PRN PRN Reason: for temperature >100.4 Last Admin: 11/13/17 11:25 Dose: 650 mg Acetaminophen (Tylenol 325mg Tab) 650 mg PO Q6 PRN PRN Reason: Pain, Mild (1-3) Last Admin: 11/15/17 23:01 Dose: 650 mg Allopurinol (Zyloprim) 100 mg PO DAILY [facility] Last Admin: 11/15/17 09:14 Dose: 100 mg Aspirin (Aspirin Chewable) 81 mg PO DAILY [facility] Last Admin: 11/15/17 09:11 Dose: 81 mg Benzonatate (Tessalon Perles) 100 mg PO TID [facility] Last Admin: 11/15/17 17:30 Dose: 100 mg Clopidogrel Bisulfate (Plavix) 75 mg PO DAILY [facility] Last Admin: 11/15/17 09:13 Dose: 75 mg Dextrose (Dextrose 50% Inj) 0 ml IV STAT PRN; Protocol PRN Reason: Hypoglycemia Protocol Dextrose (Glutose 15) 0 gm PO ONCE PRN; Protocol PRN Reason: Hypoglycemia Protocol Famotidine (Pepcid) 20 mg PO DAILY [facility] Last Admin: 11/15/17 09:13 Dose: 20 mg Furosemide (Lasix) 40 mg PO DAILY [facility] Last Admin: 11/15/17 12:47 Dose: Not Given Glucagon (Glucagen Diagnostic Kit) 0 mg IM STAT PRN; Protocol PRN Reason: Hypoglycemia Protocol Guaifenesin/Dextromethorphan (Robitussin Dm) 10 ml PO Q4H PRN PRN Reason: Cough and congestion Last Admin: 11/14/17 10:24 Dose: 10 ml Heparin Sodium (Porcine) (Heparin) 5,000 units SC Q8 [facility] Last Admin: 11/16/17 05:39 Dose: 5,000 units Dextrose (Dextrose 5% In Water 1000 Ml) 1,000 mls @ 0 mls/hr IV .Q0M PRN; Protocol PRN Reason: Hypoglycemia Protocol Ceftriaxone Sodium 2 gm/ (Sodium Chloride) 100 mls @ 100 mls/hr IVPB Q24H [facility]; Protocol Last Admin: 11/15/17 14:07 Dose: 100 mls/hr Insulin Aspart (Novolog) 0 unit SC ACHS [facility]; Protocol Last Admin: 11/15/17 21:28 Dose: Not Given Magnesium Oxide (Mag-Ox) 400 mg PO BID [facility] Stop: 11/16/17 13:00 Last Admin: 11/15/17 17:30 Dose: 400 mg Metoprolol Succinate (Toprol Xl) 12.5 mg PO DAILY [facility] Last Admin: 11/15/17 09:14 Dose: 12.5 mg Potassium Chloride (K-Dur 20 Meq Er Tab) 40 meq PO DAILY [facility] Stop: 11/17/17 10:01 Rosuvastatin Calcium (Crestor) 10 mg PO HS [facility] Last Admin: 11/15/17 22:59 Dose: 10 mg - Labs Labs: 11/16/17 07:45 11/16/17 07:45 PT 12.6 SECONDS (9.7-12.2) H 11/12/17 06:21 INR 1.2 11/12/17 06:21 APTT 35 SECONDS (21-34) H 11/08/17 01:09 - Constitutional Appears: No Acute Distress, Chronically Ill - Head Exam Head Exam: NORMAL INSPECTION, NORMOCEPHALIC - Eye Exam Eye Exam: Normal appearance, PERRL - ENT Exam ENT Exam: Mucous Membranes Moist, Normal Exam - Respiratory Exam Respiratory Exam: Clear to Ausculation Bilateral, NORMAL BREATHING PATTERN - Cardiovascular Exam Cardiovascular Exam: REGULAR RHYTHM, RRR - GI/Abdominal Exam GI & Abdominal Exam: Soft, Normal Bowel Sounds - Extremities Exam Extremities Exam: Normal Inspection (b/l chronic skin changes, venous stasis) - Neurological Exam Neurological Exam: Alert, Awake, Oriented x3 - Psychiatric Exam Psychiatric exam: Normal Affect, Normal Mood - Skin Skin Exam: Dry, Intact Assessment and Plan (1) DM type 2 (diabetes mellitus, type 2) Status: Acute (2) Non-ST elevation [place] (NSTEMI) Status: Acute (3) Pneumonia Status: Acute (4) Renal insufficiency Status: Acute - Assessment and Plan (Free Text) Assessment: 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
[2017-11-16] MEDS ORDERED: Potassium Chloride 20 mEq ER Tab PO SCH (10:00)
[2017-11-16] MEDS: Magnesium Oxide 400 mg Tab UD PO SCH (10:25)
[2017-11-16] MEDS: Metoprolol Succinate 12.5 mg XL Tab PO SCH (10:26)
[2017-11-16] MEDS: (Novolog) Insulin Aspart, Recombinant 100 u/ml 10 ml vial SC SCH ×4 (10:26→23:16)
[2017-11-16] MEDS: guaiFENesin DM 200 mg-20 mg/10 ml UD PO PRN ×2 (10:33→21:53)
[2017-11-16] MEDS: cefTRIAXone 2 GM in Sodium Chloride 0.9% 100 ML IVPB SCH (11:33)
--- NOTE | 2017-11-16 14:23 | CP.PCM.DIS ---
Provider - Provider Date of Admission: 11/08/17 09:51 Attending physician: Charissa Webster DO Time Spent in preparation of Discharge (in minutes): 35 Diagnosis - Discharge Diagnosis (1) Endocarditis Status: Acute (2) AMPARO (acute kidney injury) Status: Acute (3) Acute on chronic diastolic heart failure Status: Acute (4) Pneumonia Status: Acute (5) Diabetes Status: Chronic Priority: Medium Hospital Course - Lab Results Lab Results: Micro Results 11/11/17 11:35 Blood Blood Culture - Final NO GROWTH AFTER 5 DAYS 11/11/17 11:35 Blood Gram Stain - Final TEST NOT PERFORMED 11/10/17 11:52 Blood Blood Culture - Final NO GROWTH AFTER 5 DAYS 11/10/17 11:52 Blood Gram Stain - Final TEST NOT PERFORMED 11/08/17 09:28 Urine Urine Culture - Final 50-100,000 CFU/ML. MULTIPLE SPECIES. SUGGEST REPEAT SPECIMEN. 11/08/17 10:10 Blood Blood Culture - Final Group G Streptococcus 11/08/17 10:10 Blood Gram Stain - Final 11/08/17 09:28 Blood Blood Culture - Final Group G Streptococcus 11/08/17 09:28 Blood Gram Stain - Final 11/08/17 14:57 Naris MRSA Culture (Admit) - Final MRSA NOT DETECTED Most Recent Lab Values WBC 6.6 K/uL (4.8-10.8) 11/16/17 07:45 RBC 3.41 Mil/uL (4.40-5.90) L 11/16/17 07:45 Hgb 9.9 g/dL (12.0-18.0) L 11/16/17 07:45 Hct 29.9 % (35.0-51.0) L 11/16/17 07:45 MCV 87.5 fL (80.0-94.0) 11/16/17 07:45 MCH 28.9 pg (27.0-31.0) 11/16/17 07:45 MCHC 33.0 g/dL (33.0-37.0) 11/16/17 07:45 RDW 17.2 % (11.5-14.5) H 11/16/17 07:45 Plt Count 300 K/uL (130-400) 11/16/17 07:45 MPV 7.5 fL (7.2-11.7) 11/16/17 07:45 Neut % (Auto) 67.4 % (50.0-75.0) 11/16/17 07:45 Lymph % (Auto) 18.7 % (20.0-40.0) L 11/16/17 07:45 Rich % (Auto) 12.3 % (0.0-10.0) H 11/16/17 07:45 Eos % (Auto) 1.1 % (0.0-4.0) 11/16/17 07:45 Baso % (Auto) 0.5 % (0.0-2.0) 11/16/17 07:45 Neut # (Auto) 4.4 K/uL (1.8-7.0) 11/16/17 07:45 Lymph # (Auto) 1.2 K/uL (1.0-4.3) 11/16/17 07:45 Rich # (Auto) 0.8 K/uL (0.0-0.8) 11/16/17 07:45 Eos # (Auto) 0.1 K/uL (0.0-0.7) 11/16/17 07:45 Baso # (Auto) 0.0 K/uL (0.0-0.2) 11/16/17 07:45 Neutrophils % (Manual) 81 % (50-75) H 11/10/17 06:15 Band Neutrophils % 1 % (0-2) 11/10/17 06:15 Lymphocytes % (Manual) 5 % (20-40) L 11/10/17 06:15 Monocytes % (Manual) 13 % (0-10) H 11/10/17 06:15 Differential Comment 11/11/17 05:53 Toxic Granulation Present 11/09/17 06:11 Dohle Bodies Present 11/09/17 06:11 Platelet Estimate Slightly decreased (NORMAL) L 11/10/17 06:15 Hypochromasia (manual) Slight 11/10/17 06:15 Poikilocytosis (manual Slight 11/10/17 06:15 Anisocytosis (manual) Slight 11/10/17 06:15 Microcytosis (manual) Slight 11/10/17 06:15 Macrocytosis (manual) Slight 11/10/17 06:15 Target Cells Slight 11/10/17 06:15 Tear Drop Cells Slight 11/10/17 06:15 Ovalocytes Slight 11/10/17 06:15 Helmet Cells Slight 11/10/17 06:15 [place] Cells Slight 11/10/17 06:15 PT 12.6 SECONDS (9.7-12.2) H 11/12/17 06:21 INR 1.2 11/12/17 06:21 APTT 35 SECONDS (21-34) H 11/08/17 01:09 Puncture Site Lra 11/08/17 08:54 pCO2 25 mm/Hg (35-45) L 11/08/17 08:54 pO2 163 mm/Hg (80-100) H 11/08/17 08:54 HCO3 18.4 mmol/L (21-28) L 11/08/17 08:54 ABG pH 7.38 (7.35-7.45) 11/08/17 08:54 ABG Total CO2 15.6 mmol/L (22-28) L 11/08/17 08:54 ABG O2 Saturation 100.0 % (95-98) H 11/08/17 08:54 ABG Base Excess -8.5 mmol/L (-2.0-3.0) L 11/08/17 08:54 Dax Test Pos 11/08/17 08:54 ABG Potassium 4.8 mmol/L (3.6-5.2) 11/08/17 08:54 A-a O2 Difference 5.0 mm/Hg 11/08/17 08:54 Respiratory Index 0 11/08/17 08:54 Sodium 138.0 mmol/l (132-148) 11/08/17 08:54 Chloride 110.0 mmol/L (98-107) H 11/08/17 08:54 Glucose 129 mg/dl (75-110) H 11/08/17 08:54 Lactate 1.0 mmol/L (0.7-2.1) 11/08/17 08:54 Liter Flow 2.0 11/08/17 08:54 FiO2 28.0 % 11/08/17 08:54 Sodium 138 mmol/L (132-148) 11/16/17 07:45 Potassium 3.5 mmol/L (3.6-5.2) L 11/16/17 07:45 Chloride 100 mmol/L (98-107) 11/16/17 07:45 Carbon Dioxide 29 mmol/L (22-30) 11/16/17 07:45 Anion Gap 13 (10-20) 11/16/17 07:45 BUN 29 mg/dL (9-20) H 11/16/17 07:45 Creatinine 1.6 mg/dL (0.8-1.5) H 11/16/17 07:45 Est GFR ( Amer) 53 11/16/17 07:45 Est GFR (Non-Af Amer) 44 11/16/17 07:45 POC Glucose (mg/dL) 186 mg/dL (65-110) H 11/16/17 11:12 Random Glucose 124 mg/dL (75-110) H 11/16/17 07:45 Hemoglobin A1c 6.7 % (4.2-6.5) H 11/09/17 06:11 Calcium 9.0 mg/dl (8.6-10.4) 11/16/17 07:45 Phosphorus 3.2 mg/dL (2.5-4.5) 11/16/17 07:45 Magnesium 1.7 mg/dL (1.6-2.3) 11/16/17 07:45 % Saturation 13 (20-55) L 11/11/17 16:18 Ferritin 141.0 ng/mL 11/11/17 16:18 Total Bilirubin 0.5 mg/dL (0.2-1.3) 11/16/17 07:45 AST 69 U/L (17-59) H 11/16/17 07:45 ALT 45 U/L (21-72) 11/16/17 07:45 Alkaline Phosphatase 269 U/L (38-126) H 11/16/17 07:45 Total Creatine Kinase 4180 U/L (55-170) H 11/08/17 20:35 CK-MB (Mass) 2.42 ng/mL (0.0-3.38) 11/08/17 20:35 Troponin I 0.2280 ng/mL (0.00-0.120) H* 11/08/17 20:35 NT-Pro-B Natriuret Pep 24487 pg/mL (0-900) H 11/08/17 01:09 Total Protein 7.0 g/dL (6.3-8.3) 11/16/17 07:45 Albumin 2.9 g/dL (3.5-5.0) L 11/16/17 07:45 Globulin 4.1 gm/dL (2.2-3.9) H 11/16/17 07:45 Albumin/Globulin Ratio 0.7 (1.0-2.1) L 11/16/17 07:45 Triglycerides 76 mg/dL (0-149) D 11/09/17 06:11 Cholesterol 85 mg/dL (0-199) 11/09/17 06:11 LDL Cholesterol Direct < 30 mg/dL (0-129) 11/09/17 06:11 HDL Cholesterol 32 mg/dL (30-70) 11/09/17 06:11 Procalcitonin > 200.00 NG/ML (0.19-0.49) H 11/09/17 06:11 PTH Intact Whole Molec 49 pg/mL (14-64) 11/11/17 16:18 Arterial Blood Potassium 4.8 mmol/L (3.6-5.2) 11/08/17 08:54 Urine Color Yellow (YELLOW) 11/09/17 01:22 Urine Clarity Hazy (Clear) 11/09/17 01:22 Urine pH 5.0 (5.0-8.0) 11/09/17 01:22 Ur Specific [place] 1.017 (1.003-1.030) 11/09/17 01:22 Urine Protein 2+ mg/dL (NEGATIVE) H 11/09/17 01:22 Urine Glucose (UA) Normal mg/dL (Normal) 11/09/17 01:22 Urine Ketones Negative mg/dL (NEGATIVE) 11/09/17 01:22 Urine Blood Negative (NEGATIVE) 11/09/17 01:22 Urine Nitrate Negative (NEGATIVE) 11/09/17 01:22 Urine Bilirubin Negative (NEGATIVE) 11/09/17 01:22 Urine Urobilinogen Normal mg/dL (0.2-1.0) 11/09/17 01:22 Ur Leukocyte Esterase Neg Armando/uL (Negative) 11/09/17 01:22 Urine WBC (Auto) 12 /hpf (0-5) H 11/09/17 01:22 Urine RBC (Auto) 4 /hpf (0-3) H 11/09/17 01:22 Urine WBC Clumps (Auto) Few /hpf (NONE) H 11/09/17 01:22 Ur Squamous Epith Cells < 1 /hpf (0-5) 11/09/17 01:22 Urine Bacteria Rare (<OCC) 11/09/17 01:22 Urine Yeast (Budding) Mod /hpf (NEGATIVE) H 11/09/17 01:22 U Random Total Protein 156.0 mg/dL (0.0-12.0) H 11/08/17 13:39 Ur Random Sodium 49 mmol/L 11/08/17 13:39 Urine Collection Time 24 HRS 11/11/17 18:00 Urine Total Volume 1000 mL 11/11/17 18:00 Ur Protein 24 Hr Calc 670.0 mg/24hr (42-225) H 11/11/17 18:00 Random Vancomycin < 5.0 ug/mL 11/08/17 23:10 Influenza Typ A,B (EIA) Negative for flu a/b (NEGATIVE) 11/08/17 20:56 H.influenzae Type B Ag Negative (NEGATIVE) 11/08/17 23:10 Ur L.pneumophila Ag Negative (NEGATIVE) 11/08/17 23:10 Mycoplasma pneumon IgM Negative (NEGATIVE) 11/08/17 23:10 N.meningitidis ACY/W135 Negative (NEGATIVE) 11/08/17 23:10 N.meningi B/E.coli K1 Ag Negative (NEGATIVE) 11/08/17 23:10 Group B Strep Antigen Negative (NEGATIVE) 11/08/17 23:10 S. pneumoniae Antigen Negative (NEGATIVE) 11/08/17 23:10 - Hospital Course Hospital Course: On admission: Patient is a 67 year old male with past medical history of HTN, hyperlipidemia, T2DM, diastolic CHF, psoriasis, gout presenting with chief complaint of shortness of breath that began about two days prior, accompanied by a mildly productive cough, shortness of breath, subjective fever, and chills. He also admits to one episode of diarrhea yesterday. Patient has been admitted a year prior for similar symptoms and was treated for acute exacerbation of CHF and CAP. He has also been admitted to ICU in the [facility] for similar symptoms however was not intubated at that time. Patient does not follow up with a PMD secondary to insurance issues, however he is able to refill his medications by coming to the ED and states that he has been compliant. He denies nausea, vomiting, headache, chest pain, myalgias, abdominal pain, dysuria. Hospital course: Pt noted to have leukocytosis, with NSTEMI and AMPARO. Admitted to ICU for heparin gtt. Broad spectrum antibiotics started. Repeat troponins trended down. Blood culture grew GPC, pneumonia noted on CXR (along with cardiomegaly and pulmonary edema). Treated with Lasix and broad spectrum antibiotics. CT chest shows small-medium right sided effusions w/mild right basilar atelectasis. Trace left effusion. Minor atelectasis and or scarring left lingular region. Cardiomegaly, marked enlargement of pulmonary trunk. Dr. Lauren, nephrology, consulted for AMPARO. Renal US showed increased echogenicity of the bilateral renal parenchymal cortices suggestive for medical renal disease. Underdistended urinary bladder. Dr. Odell consulted, infectious disease, for treatment of pneumonia. Dr. Hennessy consulted, cardiology, for management of CHF, NSTEMI, HTN. Pt started on dual antiplatelet therapy with Plavix and ASA. Echo 11/08 demonstrated mild LV systolic dysfunction, dilated L atrium, mild-mod MR with eccentric jet, and mild TR, EF 38% LM 11/11 left ventricular function, left ventricular ejection fraction, right ventricle is mildly to moderate, PFO with bubble crossover noted. Moderate posterior mitral valve prolapse is present. Vegetation of the mitral valve is moderate. Blood culture final grew group G strep. Pt switched to rocephin IV. Echocardiogram showed vegetation on mitral valve, indicative of endocarditis. Pt completed course of azithromycin for suspected CAP, with improvement on CXR and exam. Repeat blood cultures are negative. Pt is feeling much better; as CHF, pneumonia and amparo have been well-controlled. Pt will continue to have Rocephin 2G IV for a total of 4 weeks via PICC line for treatment of endocarditis. This is a summary of the hospital course. Please see chart for full details. Discharge Exam - Head Exam Head Exam: NORMAL INSPECTION, NORMOCEPHALIC - Eye Exam Eye Exam: EOMI, Normal appearance - ENT Exam ENT Exam: Mucous Membranes Moist - Neck Exam Neck exam: Normal Inspection - Respiratory Exam Respiratory Exam: Rales (at the bases), NORMAL BREATHING PATTERN. absent: Rhonchi, Wheezes, Respiratory Distress - Cardiovascular Exam Cardiovascular Exam: REGULAR RHYTHM, Systolic Murmur - GI/Abdominal Exam GI & Abdominal Exam: Normal Bowel Sounds, Soft. absent: Distended, Firm, Guarding, Rebound, Rigid, Tenderness - Extremities Exam Extremities exam: pedal edema (trace bilateral pitting edema) - Neurological Exam Neurological exam: Alert, Oriented x3 - Psychiatric Exam Psychiatric exam: Normal Affect, Normal Mood - Skin Skin Exam: Dry, Normal Color, Warm Additional comments: (+) chronic venous stasis changes bilateral lower extremities with dark pigmentated papules Discharge Plan - Discharge Medications Prescriptions: Aspirin [Aspirin Chewable] 81 mg PO DAILY 30 Days #30 chew cefTRIAXone [Rocephin] 2 gm IVPB Q24H 120 Days vial Clopidogrel [Plavix] 75 mg PO DAILY 30 Days #30 tab Famotidine [Pepcid] 20 mg PO DAILY #30 tab Furosemide [Lasix] 20 mg PO DAILY 30 Days #30 tablet Metoprolol Succinate XL [Toprol XL] 25 mg PO DAILY 30 Days #30 tab Simvastatin 40 mg PO HS #30 tablet - Follow Up Plan Condition: STABLE Disposition: HOME/ ROUTINE Instructions: Coronary Heart Disease, Heart Healthy Diet, Heart Failure, Adult (DC), Heart Attack (DC), Pneumonia, Adult (DC), Diabetes Type 2 (DC), Fluid Restricted Diet Additional Instructions: Patient is medically stable and safe for discharge home as per Dr. Ruelas. Patient should continue his home medications as originally prescribed, except for Amlodipine, Spironolactone. Patient should stop taking home Amlodipine, Spironolactone. Patient should start taking Plavix 75 mg by mouth once daily, Aspirin 81 mg by mouth once daily, Metoprolol succinate XL 25 mg by mouth once daily, Furosemide 20 mg by mouth daily. Patient requires daily Ceftriaxone 2g IV infusions for four weeks. Pt should limit his fluid intake to 2 L daily. If symptoms worsen, please return to nearest Emergency Department for evaluation. Patient should follow up with [facility] in 2 weeks for establishing medical care, cardio care. Patient should follow up with [facility] infusion center for antibiotic infusion tomorrow (aapt set up by BRET/MICHELA). Instructions explained to patient, who understands and agrees with discharge plan. Referrals: [facility] [place] [facility]Outside] [email or web address] [Outside] - 12/01/17 9:00 am [facility] [Outside] Everton Hennessy MD [Staff Provider] - Driss Odell MD [Staff Provider] - 11/30/17 4:15 pm
--- NOTE | 2017-11-16 22:17 | CP.PCM.PN ---
<Av Feliciano - Last Filed: 11/16/17 22:13> Subjective - Date & Time of Evaluation Date of Evaluation: 11/16/17 Time of Evaluation: 09:00 - Subjective Subjective: Av Feliciano PGY-1, Medicine progress note Pt was seen and examined at bedside. Pt is resting comfortably upon starting of interview. Pt reports that he is feeling better than yesterday. No acute events overnight. Pt has no complaints at this time. Pt denies fever, chills, headache, dizzziness, weakness, chest pain, sob, abdominal pain, n/v/d. Objective - Vital Signs/Intake and Output Vital Signs (last 24 hours): Temp Pulse Resp BP Pulse Ox 98 F 110 H 20 110/70 100 11/16/17 15:00 11/16/17 15:00 11/16/17 15:00 11/16/17 15:00 11/16/17 15:00 - Medications Medications: Current Medications Acetaminophen (Tylenol 325mg Tab) 650 mg PO Q6 PRN PRN Reason: for temperature >100.4 Last Admin: 11/13/17 11:25 Dose: 650 mg Acetaminophen (Tylenol 325mg Tab) 650 mg PO Q6 PRN PRN Reason: Pain, Mild (1-3) Last Admin: 11/16/17 21:53 Dose: 650 mg Allopurinol (Zyloprim) 100 mg PO DAILY [facility] Last Admin: 11/16/17 10:25 Dose: 100 mg Aspirin (Aspirin Chewable) 81 mg PO DAILY [facility] Last Admin: 11/16/17 10:26 Dose: 81 mg Benzonatate (Tessalon Perles) 100 mg PO TID [facility] Last Admin: 11/16/17 17:15 Dose: 100 mg Clopidogrel Bisulfate (Plavix) 75 mg PO DAILY [facility] Last Admin: 11/16/17 10:25 Dose: 75 mg Dextrose (Dextrose 50% Inj) 0 ml IV STAT PRN; Protocol PRN Reason: Hypoglycemia Protocol Dextrose (Glutose 15) 0 gm PO ONCE PRN; Protocol PRN Reason: Hypoglycemia Protocol Famotidine (Pepcid) 20 mg PO DAILY [facility] Last Admin: 11/16/17 10:25 Dose: 20 mg Furosemide (Lasix) 40 mg PO DAILY [facility] Last Admin: 11/16/17 11:32 Dose: 40 mg Glucagon (Glucagen Diagnostic Kit) 0 mg IM STAT PRN; Protocol PRN Reason: Hypoglycemia Protocol Guaifenesin/Dextromethorphan (Robitussin Dm) 10 ml PO Q4H PRN PRN Reason: Cough and congestion Last Admin: 11/16/17 21:53 Dose: 10 ml Ceftriaxone Sodium 2 gm/ (Sodium Chloride) 100 mls @ 100 mls/hr IVPB Q24H [facility]; Protocol Last Admin: 11/16/17 11:33 Dose: 100 mls/hr Insulin Aspart (Novolog) 0 unit SC ACHS [facility]; Protocol Last Admin: 11/16/17 17:15 Dose: 2 u Metoprolol Succinate (Toprol Xl) 12.5 mg PO DAILY [facility] Last Admin: 11/16/17 10:26 Dose: 12.5 mg Potassium Chloride (K-Dur 20 Meq Er Tab) 40 meq PO DAILY [facility] Stop: 11/17/17 10:01 Last Admin: 11/16/17 11:32 Dose: 40 meq Rosuvastatin Calcium (Crestor) 10 mg PO HS [facility] Last Admin: 11/16/17 21:49 Dose: 10 mg - Labs Labs: 11/16/17 07:45 11/16/17 07:45 PT 12.6 SECONDS (9.7-12.2) H 11/12/17 06:21 INR 1.2 11/12/17 06:21 APTT 35 SECONDS (21-34) H 11/08/17 01:09 - Constitutional Appears: Non-toxic, No Acute Distress - Head Exam Head Exam: NORMAL INSPECTION, NORMOCEPHALIC - Eye Exam Eye Exam: EOMI, Normal appearance - ENT Exam ENT Exam: Mucous Membranes Moist - Neck Exam Neck Exam: Normal Inspection - Respiratory Exam Respiratory Exam: Clear to Ausculation Bilateral. absent: Rales, Rhonchi, Wheezes, Respiratory Distress - Cardiovascular Exam Cardiovascular Exam: REGULAR RHYTHM, +S1, +S2, Murmur (systolic murmur, 3/6) - GI/Abdominal Exam GI & Abdominal Exam: Soft, Normal Bowel Sounds. absent: Firm, Guarding, Rigid, Tenderness - Extremities Exam Extremities Exam: Pedal Edema (trace bilateral pitting edema) - Back Exam Back Exam: NORMAL INSPECTION - Neurological Exam Neurological Exam: Alert, Awake, Oriented x3 - Psychiatric Exam Psychiatric exam: Normal Affect, Normal Mood - Skin Skin Exam: Dry, Warm Additional comments: (+) chronic venous stasis changes bilateral lower extremities with dark pigmentated papules Assessment and Plan - Assessment and Plan (Free Text) Assessment: This is a 67 year old male with PMH of HTN, hyperlipidemia, T2DM, diastolic CHF, psoriasis, gout who presented to the ED with sob found to have endocarditis. Plan: Acute on chronic diastolic CHF * Cardiology, Dr. Hennessy, consulted * Aspirin 81mg Po daily * Lasix 40mg IVP daily * Plavix 75mg PO daily * Crestor 10mg POqHS * CT chest shows small-medium right sided effusions w/mild right basilar atelectasis. Trace left effusion. Minor atelectasis and or scarring left lingular region. Cardiomegaly, marked enlargement of pulmonary trunk * Nasal cannula as tolerated, Maintain SPO2 > 92% * Echo 11/08 demonstrated mild LV systolic dysfunction, dilated L atrium, mild- mod MR with eccentric jet, and mild TR, EF 38% * no MARLEN or ARB for now per nephrology * monitor daily weights * monitor intake and output Bacteremia Mitral Valve Endocarditis * Infectious Disease (Dr. Odell) on consult * pt will need rocephin 2g IVPB q24h for four weeks * Blood cx: Group G streptococcus X2 * Blood cx 11/11: no growth after 5 days x2 * Echo (11/14/17): left ventricular function, left ventricular ejection fraction, right ventricle is mildly to moderate, PFO with bubble crossover noted. Moderate posterior mitral valve prolapse is present. Vegetation of the mitral valve is moderate. * IR consulted for PICC line placement tomorrow so that pt can receive antibiotics as outpatient in the [facility] clinic Tachycardia * Will start metoprolol xl 12.5 mg PO * no leukocytosis, pt remains afebrile Acute renal failure on CKD stage 4 * Nephrology (Dr. Lauren) on consult * discontinue sodium bicarbonate tabs * creatinine is stable * continue to avoid nephrotoxic medications wherever possible Pneumonia * tessalon perles added for cough * Azithromycin 500mg IVPB Q24h (active since 11/09/17) * discontinued 11/15/17 * pt has completed recommended treatment * Rocephin 2m IVPB Q24 (active since 11/13/17) * will be continued for 4 weeks for treatment of endocarditis Hypokalemia * magnesium of 1.7 today; Magnesium Oxide 400 mg PO x 1 * continue to monitor Hypokalemia * potassium of 3.5 repleted with kdur 40 meq * continue to monitor Hyperkalemia resolved * continue to monitor Hx of DMII * ISS low * continue Accucheck ACHS * Hypoglycemic protocol * Aspirin 81mg PO daily * hgba1c: 6.7 * Crestor 10mg POqHS * Aspirin 81mg PO daily PPX: * Pepcid 20mg Po daily * Continue Heparin 5,000 units Q8, PLTs improved * SCDs contraindicated due to edema of lower extremity * Altered GI diet, soft 2 gm sodium, low fat, moderate consistency diet, fluid restriction at 1.5 L * Pain management: tylenol 650 mg PO Q6 PRN for mild pain (1-3) * Fever: Tylenol 650 mg po Q6 PRN for fever > 100.4 * PT dispo: sub-acute rehab * mid line right upper extremity will be removed and replaced with PICC line Dispo: Pt can follow up in outpatient clinic for daily Rocephin infusions. IR consulted for PICC line placement, likely tomorrow. Case was reviewed and discussed with attending physician, Dr. Eleanor feliciano PGY-1 <Charissa Webster V - Last Filed: 11/17/17 23:13> Objective - Vital Signs/Intake and Output Vital Signs (last 24 hours): Temp Pulse Resp BP Pulse Ox 99.3 F 110 H 20 104/72 97 11/17/17 15:00 11/17/17 15:00 11/17/17 15:00 11/17/17 15:00 11/17/17 15:00 Intake and Output: 11/17/17 11/18/17 18:59 06:59 Intake Total 100 Output Total 150 Balance -50 - Medications Medications: Current Medications Acetaminophen (Tylenol 325mg Tab) 650 mg PO Q6 PRN PRN Reason: for temperature >100.4 Last Admin: 11/13/17 11:25 Dose: 650 mg Acetaminophen (Tylenol 325mg Tab) 650 mg PO Q6 PRN PRN Reason: Pain, Mild (1-3) Last Admin: 11/16/17 21:53 Dose: 650 mg Allopurinol (Zyloprim) 100 mg PO DAILY [facility] Last Admin: 11/17/17 09:18 Dose: 100 mg Aspirin (Aspirin Chewable) 81 mg PO DAILY [facility] Last Admin: 11/17/17 09:21 Dose: 81 mg Benzonatate (Tessalon Perles) 100 mg PO TID [facility] Last Admin: 11/17/17 18:20 Dose: 100 mg Clopidogrel Bisulfate (Plavix) 75 mg PO DAILY [facility] Last Admin: 11/17/17 09:18 Dose: 75 mg Dextrose (Dextrose 50% Inj) 0 ml IV STAT PRN; Protocol PRN Reason: Hypoglycemia Protocol Dextrose (Glutose 15) 0 gm PO ONCE PRN; Protocol PRN Reason: Hypoglycemia Protocol Famotidine (Pepcid) 20 mg PO DAILY [facility] Last Admin: 11/17/17 09:18 Dose: 20 mg Furosemide (Lasix) 40 mg PO DAILY [facility] Last Admin: 11/17/17 09:21 Dose: 40 mg Glucagon (Glucagen Diagnostic Kit) 0 mg IM STAT PRN; Protocol PRN Reason: Hypoglycemia Protocol Guaifenesin/Dextromethorphan (Robitussin Dm) 10 ml PO Q4H PRN PRN Reason: Cough and congestion Last Admin: 11/17/17 09:17 Dose: 10 ml Ceftriaxone Sodium 2 gm/ (Sodium Chloride) 100 mls @ 100 mls/hr IVPB Q24H [facility]; Protocol Last Admin: 11/17/17 10:40 Dose: 100 mls/hr Insulin Aspart (Novolog) 0 unit SC ACHS [facility]; Protocol Last Admin: 11/17/17 21:35 Dose: Not Given Metoprolol Succinate (Toprol Xl) 12.5 mg PO DAILY [facility] Last Admin: 11/17/17 09:18 Dose: 12.5 mg Rosuvastatin Calcium (Crestor) 10 mg PO HS [facility] Last Admin: 11/17/17 21:36 Dose: 10 mg - Labs Labs: 11/17/17 06:59 11/17/17 06:59 PT 12.6 SECONDS (9.7-12.2) H 11/12/17 06:21 INR 1.2 11/12/17 06:21 APTT 35 SECONDS (21-34) H 11/08/17 01:09 Assessment and Plan (1) CKD (chronic kidney disease) stage 3, GFR 30-59 ml/min Status: Acute (2) DM type 2 (diabetes mellitus, type 2) Status: Acute (3) Pneumonia Status: Acute (4) Prophylactic measure Status: Chronic Attending/Attestation - Attestation I have personally seen and examined this patient.: Yes I have fully participated in the care of the patient.: Yes I have reviewed all pertinent clinical information, including history, physical exam and plan: Yes Notes (Text): Patient seen, examined, case discussed with medical staff services manager. Patient is in good spirits. Patient awaiting to go home. We are awaiting PICC line placement for long-term antibiotics. There is no PICC line nurse available today. In IR assessment unavailable today PICC line today. We will reevaluate tomorrow hopefully PICC line nurse will be available to give PICC line for patient so we begin discharge tomorrow so patient is established in the clinic prior to to the weekend. Patient to receive Rocephin 2 g IV every 24 with weekly labs including CBC, CMP, ESR, CRP. Patient is recommended to have a repeat echo 5 days prior to completion of IV antibiotic. This will determine if patient will still need continue IV antibiotics per ID. Patient's PICC line should not be removed until repeat echo and follow-up with repeat echo. 1) Acute on chronic diastolic CHF Assessment/Plan * Cardiology (Dr. Hennessy) on case-->help appreciated * Aspirin 81mg Po daily * Lasix 40mg IVP daily * Plavix 75mg PO daily * Crestor 10mg POqHS * Lasix 40 mg by mouth once a day * Toprol-XL 12.5 mg by mouth once a day * CT chest shows small-medium right sided effusions w/mild right basilar atelectasis. Trace left effusion. Minor atelectasis and or scarring left lingular region. Cardiomegaly, marked enlargement of pulmonary trunk * Nasal cannula as tolerated, Maintain SPO2 > 92% * Echo 11/08 demonstrated mild LV systolic dysfunction, dilated L atrium, mild- mod MR with eccentric jet, and mild TR, EF 38% * no MARLEN or ARB for now per nephrology * monitor daily weights * monitor intake and output 2) Bacteremia Mitral Valve Endocarditis Assessment/Plan * Infectious Disease (Dr. Odell) on consult * Blood cx: Group G streptococcus X2 * Blood cx: no growth after 5 days 2 * Echo (11/14/17): left ventricular function, left ventricular ejection fraction, right ventricle is mildly to moderalte, PFO with buble cross coverm moderate posterior mitral valve prolapse is present. vegetation of the mitral velve is moderate * Ceftin 2 g IV every 24 for 4 weeks. With weekly labs including CBC, CMP, ESR, CRP while on antibiotic treatment * Patient is awaiting PICC line placement to be set up for the outpatient transfusion center * 3) Acute renal failure on CKD stage 4 Assessment/Plan * Nephrology (Dr. Lauren) on consult-->help appreciated * Renal function is improving. 4) Pneumonia Assessment/Plan * Completed Azithromycin 500mg IVPB Q24h * Rocephin 2m IVPB Q24 (active since 27/07/17) 5) Hyperkalemia * monitor 6) Hx of DMII * ISS low * continue Accucheck ACHS * Hypoglycemic protocol * Aspirin 81mg PO daily * hgba1c: 6.7 * Crestor 10mg POqHS * Aspirin 81mg PO daily 7) PPX: * Pepcid 20mg Po daily * heparin 5,000 units Q8 * SCDs contraindicated due to edema of lower extremity * altered GI diet, soft 2 gm sodium, low fat, moderate consistency diet, fluid restriction at 1.5 L * Pain management: tylenol 650 mg PO Q6 PRN for mild pain (1-3) * fever: tylenol 650 mg po Q6 PRN for fever > 100.4 * PT dispo: Home pending establishment at the transfusion center * As midline awaiting PICC line PICC line right upper extremity Disposition pending PICC line placement. Case management has set up patient for outpatient transfusion center. Patient has PICC line can be discharge. Will need 4 weeks of antibiotics with weekly labs. Will need repeat echo per ID prior to removal PICC line to make sure improvement in regards vegetation over the mitral valve.
[2017-11-17 07:21] LABS: BASO # 0.1 K/uL (0.0-0.2); BASO % 1.4 % (0.0-2.0); EOS # 0.1 K/uL (0.0-0.7); EOS % 0.9 % (0.0-4.0); HEMOGLOBIN 9.8 g/dL (12.0-18.0); LYMPH # 1.3 K/uL (1.0-4.3); LYMPH % 18.7 % (20.0-40.0); MEAN CELL VOLUME 86.8 fL (80.0-94.0); MEAN CORPUSCULAR HGB CONC 33.4 g/dL (33.0-37.0); MEAN PLATELET VOLUME 7.8 fL (7.2-11.7); MONO # 0.8 K/uL (0.0-0.8); NEUT # 4.7 K/uL (1.8-7.0); NRBC % 0.1 % (0.0-2.0); RBC 3.37 Mil/uL (4.40-5.90); RED CELL DISTRIBUTION WIDTH 16.8 % (11.5-14.5)
[2017-11-17 07:35] LABS: ALB/GLOB RATIO 0.7 (1.0-2.1); ALBUMIN 3.2 g/dL (3.5-5.0); ALT/SGPT 41 U/L (21-72); AST/SGOT 73 U/L (17-59); BLOOD UREA NITROGEN 28 mg/dL (9-20); GFR NON-AFRICAN AMERICAN 51
[2017-11-17] MEDS: (Novolog) Insulin Aspart, Recombinant 100 u/ml 10 ml vial SC SCH ×4 (07:50→21:35)
[2017-11-17] MEDS: guaiFENesin DM 200 mg-20 mg/10 ml UD PO PRN (09:17)
[2017-11-17] MEDS: Metoprolol Succinate 12.5 mg XL Tab PO SCH (09:18)
[2017-11-17] MEDS: cefTRIAXone 2 GM in Sodium Chloride 0.9% 100 ML IVPB SCH (10:40)
--- NOTE | 2017-11-17 14:02 | CP.PCM.PN ---
Subjective - Date & Time of Evaluation Date of Evaluation: 11/17/17 Time of Evaluation: 14:00 - Subjective Subjective: dictated Objective - Vital Signs/Intake and Output Vital Signs (last 24 hours): Temp Pulse Resp BP Pulse Ox 97.6 F 110 H 20 110/70 96 11/17/17 07:45 11/17/17 07:45 11/17/17 07:45 11/17/17 09:21 11/17/17 07:45 - Medications Medications: Current Medications Acetaminophen (Tylenol 325mg Tab) 650 mg PO Q6 PRN PRN Reason: for temperature >100.4 Last Admin: 11/13/17 11:25 Dose: 650 mg Acetaminophen (Tylenol 325mg Tab) 650 mg PO Q6 PRN PRN Reason: Pain, Mild (1-3) Last Admin: 11/16/17 21:53 Dose: 650 mg Allopurinol (Zyloprim) 100 mg PO DAILY [facility] Last Admin: 11/17/17 09:18 Dose: 100 mg Aspirin (Aspirin Chewable) 81 mg PO DAILY [facility] Last Admin: 11/17/17 09:21 Dose: 81 mg Benzonatate (Tessalon Perles) 100 mg PO TID [facility] Last Admin: 11/17/17 13:49 Dose: 100 mg Clopidogrel Bisulfate (Plavix) 75 mg PO DAILY [facility] Last Admin: 11/17/17 09:18 Dose: 75 mg Dextrose (Dextrose 50% Inj) 0 ml IV STAT PRN; Protocol PRN Reason: Hypoglycemia Protocol Dextrose (Glutose 15) 0 gm PO ONCE PRN; Protocol PRN Reason: Hypoglycemia Protocol Famotidine (Pepcid) 20 mg PO DAILY [facility] Last Admin: 11/17/17 09:18 Dose: 20 mg Furosemide (Lasix) 40 mg PO DAILY [facility] Last Admin: 11/17/17 09:21 Dose: 40 mg Glucagon (Glucagen Diagnostic Kit) 0 mg IM STAT PRN; Protocol PRN Reason: Hypoglycemia Protocol Guaifenesin/Dextromethorphan (Robitussin Dm) 10 ml PO Q4H PRN PRN Reason: Cough and congestion Last Admin: 11/17/17 09:17 Dose: 10 ml Ceftriaxone Sodium 2 gm/ (Sodium Chloride) 100 mls @ 100 mls/hr IVPB Q24H [facility]; Protocol Last Admin: 11/17/17 10:40 Dose: 100 mls/hr Insulin Aspart (Novolog) 0 unit SC ACHS [facility]; Protocol Last Admin: 11/17/17 12:30 Dose: 1 u Metoprolol Succinate (Toprol Xl) 12.5 mg PO DAILY [facility] Last Admin: 11/17/17 09:18 Dose: 12.5 mg Rosuvastatin Calcium (Crestor) 10 mg PO HS [facility] Last Admin: 11/16/17 21:49 Dose: 10 mg - Labs Labs: 11/17/17 06:59 11/17/17 06:59 PT 12.6 SECONDS (9.7-12.2) H 11/12/17 06:21 INR 1.2 11/12/17 06:21 APTT 35 SECONDS (21-34) H 11/08/17 01:09
--- NOTE | 2017-11-17 21:00 | PN ---
DATE: 11/17/2017 SUBJECTIVE: The patient is feeling better. He is waiting for a PICC line. He has been given Rocephin 2 g a day for his endocarditis. There are no other problems going on. He denies any fever or chills. His leg swellings have been gone. No chest pain. No abdominal pain. PHYSICAL EXAMINATION: GENERAL: He does have obesity. VITAL SIGNS: Stable at this time. LUNGS: Clear. HEART: S1, S2 are regular. ABDOMEN: Soft, nontender. No guarding, no rigidity present. EXTREMITIES: Have no edema. White count is 7, hemoglobin 9.8, hematocrit 29.2. BUN is 28, creatinine is 1.4. Cultures, we are treating him for group G Streptococcus and he tolerated Rocephin well and will be continued on it for 4 weeks to complete for endocarditis and will need a repeat echo. His echo on 11/14/2017 showed mitral valve prolapse is present, vegetation of the mitral valve is moderate, moderate posterior mitral valve prolapse and IR consulted for PICC line at this time and he will be on Rocephin 2 g a day and will need labs, CBC, CMP, ESR, and CRP weekly for 4 weeks. We will probably need an echo before we cut down on the Rocephin. Driss Odell MD
[2017-11-18] MEDS: (Novolog) Insulin Aspart, Recombinant 100 u/ml 10 ml vial SC SCH ×3 (07:00→17:49)
[2017-11-18 07:33] LABS: BASO % 0.7 % (0.0-2.0); EOS # 0.1 K/uL (0.0-0.7); EOS % 0.8 % (0.0-4.0); HEMOGLOBIN 9.5 g/dL (12.0-18.0); LYMPH # 1.3 K/uL (1.0-4.3); LYMPH % 20.4 % (20.0-40.0); MEAN CORPUSCULAR HEMOGLOBIN 29.3 pg (27.0-31.0); MEAN CORPUSCULAR HGB CONC 33.7 g/dL (33.0-37.0); MEAN PLATELET VOLUME 7.4 fL (7.2-11.7); MONO # 0.7 K/uL (0.0-0.8); MONO % 10.8 % (0.0-10.0); NEUT # 4.4 K/uL (1.8-7.0); NEUT % 67.3 % (50.0-75.0); RBC 3.25 Mil/uL (4.40-5.90); RED CELL DISTRIBUTION WIDTH 17.1 % (11.5-14.5); WHITE BLOOD COUNT 6.5 K/uL (4.8-10.8)
[2017-11-18 07:49] LABS: ALB/GLOB RATIO 0.7 (1.0-2.1); ALBUMIN 3.4 g/dL (3.5-5.0); CALCIUM 9.4 mg/dl (8.6-10.4)
[2017-11-18] MEDS: cefTRIAXone 2 GM in Sodium Chloride 0.9% 100 ML IVPB SCH (10:30)
[2017-11-18] MEDS: Metoprolol Succinate 12.5 mg XL Tab PO SCH (10:36)
--- NOTE | 2017-11-18 11:13 | RAD ---
Date of service: 11/18/2017 HISTORY: PICC Insertion COMPARISON: 11/08/2017. FINDINGS: The right PICC line terminates at the cavoatrial junction. LUNGS: The lungs are well inflated and clear. PLEURA: No significant pleural effusion identified, no pneumothorax apparent. CARDIOVASCULAR: There is persistent severe cardiomegaly. OSSEOUS STRUCTURES: No significant abnormalities. VISUALIZED UPPER ABDOMEN: Normal. OTHER FINDINGS: None. IMPRESSION: Right PICC line terminates at the cavoatrial junction. No pneumothorax. Persistent severe cardiomegaly.
--- NOTE | 2017-11-18 13:32 | CP.PCM.PN ---
Subjective - Date & Time of Evaluation Date of Evaluation: 11/18/17 Time of Evaluation: 13:32 - Subjective Subjective: wants to go home, no complaints at bedside Objective - Vital Signs/Intake and Output Vital Signs (last 24 hours): Temp Pulse Resp BP Pulse Ox 97.4 F L 114 H 20 99/66 L 98 11/18/17 08:11 11/18/17 08:11 11/18/17 08:11 11/18/17 10:30 11/18/17 08:11 - Medications Medications: Current Medications Acetaminophen (Tylenol 325mg Tab) 650 mg PO Q6 PRN PRN Reason: for temperature >100.4 Last Admin: 11/13/17 11:25 Dose: 650 mg Acetaminophen (Tylenol 325mg Tab) 650 mg PO Q6 PRN PRN Reason: Pain, Mild (1-3) Last Admin: 11/18/17 03:39 Dose: 650 mg Allopurinol (Zyloprim) 100 mg PO DAILY [facility] Last Admin: 11/18/17 10:34 Dose: 100 mg Aspirin (Aspirin Chewable) 81 mg PO DAILY [facility] Last Admin: 11/18/17 10:35 Dose: 81 mg Benzonatate (Tessalon Perles) 100 mg PO TID [facility] Last Admin: 11/18/17 10:36 Dose: 100 mg Clopidogrel Bisulfate (Plavix) 75 mg PO DAILY [facility] Last Admin: 11/18/17 10:38 Dose: 75 mg Dextrose (Dextrose 50% Inj) 0 ml IV STAT PRN; Protocol PRN Reason: Hypoglycemia Protocol Dextrose (Glutose 15) 0 gm PO ONCE PRN; Protocol PRN Reason: Hypoglycemia Protocol Famotidine (Pepcid) 20 mg PO DAILY [facility] Last Admin: 11/18/17 10:34 Dose: 20 mg Glucagon (Glucagen Diagnostic Kit) 0 mg IM STAT PRN; Protocol PRN Reason: Hypoglycemia Protocol Guaifenesin/Dextromethorphan (Robitussin Dm) 10 ml PO Q4H PRN PRN Reason: Cough and congestion Last Admin: 11/17/17 09:17 Dose: 10 ml Ceftriaxone Sodium 2 gm/ (Sodium Chloride) 100 mls @ 100 mls/hr IVPB Q24H [facility]; Protocol Insulin Aspart (Novolog) 0 unit SC ACHS [facility]; Protocol Last Admin: 11/18/17 12:17 Dose: 1 u Metoprolol Succinate (Toprol Xl) 12.5 mg PO DAILY [facility] Last Admin: 11/18/17 10:36 Dose: Not Given Rosuvastatin Calcium (Crestor) 10 mg PO [facility] Last Admin: 11/17/17 21:36 Dose: 10 mg - Labs Labs: 11/18/17 07:24 11/18/17 07:24 PT 12.6 SECONDS (9.7-12.2) H 11/12/17 06:21 INR 1.2 11/12/17 06:21 APTT 35 SECONDS (21-34) H 11/08/17 01:09 - Constitutional Appears: No Acute Distress - Head Exam Head Exam: NORMAL INSPECTION, NORMOCEPHALIC - Eye Exam Eye Exam: Normal appearance, PERRL - ENT Exam ENT Exam: Mucous Membranes Moist, Normal Exam - Neck Exam Neck Exam: Full ROM, Normal Inspection - Respiratory Exam Respiratory Exam: Clear to Ausculation Bilateral, NORMAL BREATHING PATTERN - Cardiovascular Exam Cardiovascular Exam: REGULAR RHYTHM, RRR - GI/Abdominal Exam GI & Abdominal Exam: Soft, Normal Bowel Sounds - Extremities Exam Extremities Exam: Normal Inspection (chronic skin changes) - Neurological Exam Neurological Exam: Alert, Awake - Psychiatric Exam Psychiatric exam: Normal Affect, Normal Mood - Skin Skin Exam: Intact Assessment and Plan (1) DM type 2 (diabetes mellitus, type 2) Status: Acute (2) Non-ST elevation [place] (NSTEMI) Status: Acute (3) Pneumonia Status: Acute (4) Renal insufficiency Status: Acute - Assessment and Plan (Free Text) Assessment: low bp dc lasix antibiotics per ID stable renal cervantes
[2017-11-18] MEDS ORDERED: cefTRIAXone 2 GM in Sodium Chloride 0.9% 100 ML IVPB SCH (14:30)
[2017-11-18 16:16] VITALS: BP 105/66; PULSE 113; TEMP 98.8; O2SAT 97
--- NOTE | 2017-11-18 22:26 | CP.PCM.PN ---
Subjective - Date & Time of Evaluation Date of Evaluation: 11/17/17 Time of Evaluation: 09:00 - Subjective Subjective: Av Feliciano PGY-1, Medicine progress note Pt was seen and examined at bedside. Pt reports that he feels better. No acute events overnight. Pt has no complaints at this time. Pt denies fever, chills, headache, dizzziness, weakness, chest pain, sob, abdominal pain, n/v/d. Objective - Vital Signs/Intake and Output Vital Signs (last 24 hours): Temp Pulse Resp BP Pulse Ox 98.8 F 113 H 20 105/66 97 11/18/17 16:00 11/18/17 16:00 11/18/17 16:00 11/18/17 16:00 11/18/17 16:00 - Labs Labs: 11/18/17 07:24 11/18/17 07:24 PT 12.6 SECONDS (9.7-12.2) H 11/12/17 06:21 INR 1.2 11/12/17 06:21 APTT 35 SECONDS (21-34) H 11/08/17 01:09 - Constitutional Appears: Non-toxic, No Acute Distress - Head Exam Head Exam: NORMAL INSPECTION, NORMOCEPHALIC - Eye Exam Eye Exam: EOMI, Normal appearance - ENT Exam ENT Exam: Mucous Membranes Moist - Neck Exam Neck Exam: Full ROM, Normal Inspection - Respiratory Exam Respiratory Exam: Clear to Ausculation Bilateral, NORMAL BREATHING PATTERN. absent: Decreased Breath Sounds, Rales, Rhonchi, Wheezes, Respiratory Distress - Cardiovascular Exam Cardiovascular Exam: REGULAR RHYTHM, Murmur - GI/Abdominal Exam GI & Abdominal Exam: Soft, Normal Bowel Sounds. absent: Distended, Firm, Guarding, Rigid, Tenderness, Rebound - Extremities Exam Extremities Exam: Normal Capillary Refill, Normal Inspection, Pedal Edema (trace) - Back Exam Back Exam: NORMAL INSPECTION - Neurological Exam Neurological Exam: Alert, Awake, Oriented x3 - Psychiatric Exam Psychiatric exam: Normal Affect, Normal Mood - Skin Skin Exam: Dry, Normal Color, Warm Additional comments: (+) chronic venous stasis changes bilateral lower extremities with dark pigmentated papules Assessment and Plan (1) Endocarditis Status: Acute (2) AMPARO (acute kidney injury) Status: Acute (3) Acute on chronic diastolic heart failure Status: Acute (4) Pneumonia Status: Acute (5) Diabetes Status: Chronic - Assessment and Plan (Free Text) Assessment: This is a 67 year old male with PMH of HTN, hyperlipidemia, T2DM, diastolic CHF, psoriasis, gout who presented to the ED with sob found to have endocarditis. Plan: Acute on chronic diastolic CHF * Cardiology, Dr. Hennessy, consulted * Aspirin 81mg Po daily * Lasix 40mg IVP daily * Plavix 75mg PO daily * Crestor 10mg POqHS * CT chest shows small-medium right sided effusions w/mild right basilar atelectasis. Trace left effusion. Minor atelectasis and or scarring left lingular region. Cardiomegaly, marked enlargement of pulmonary trunk * Nasal cannula as tolerated, Maintain SPO2 > 92% * Echo 11/08 demonstrated mild LV systolic dysfunction, dilated L atrium, mild- mod MR with eccentric jet, and mild TR, EF 38% * no MARLEN or ARB for now per nephrology * monitor daily weights * monitor intake and output Bacteremia Mitral Valve Endocarditis * Infectious Disease (Dr. Odell) on consult * pt will need rocephin 2g IVPB q24h for four months * Blood cx: Group G streptococcus X2 * Blood cx 11/11: no growth after 4 days x2 * Echo (11/14/17): left ventricular function, left ventricular ejection fraction, right ventricle is mildly to moderate, PFO with bubble crossover noted. Moderate posterior mitral valve prolapse is present. Vegetation of the mitral valve is moderate. Tachycardia * Will start metoprolol xl 12.5 mg PO * no leukocytosis, pt remains afebrile Acute renal failure on CKD stage 4 * Nephrology (Dr. Lauren) on consult * continue sodium bicarbonate tabs * creatinine is improving * continue to avoid nephrotoxic medications wherever possible Pneumonia * tessalon perles added for cough * Azithromycin 500mg IVPB Q24h (active since 11/09/17) * discontinued 11/15/17 * pt has completed recommended treatment * Rocephin 2m IVPB Q24 (active since 11/13/17) * will be continued for treatment of endocarditis Hypokalemia * magnesium of 1.5 repleted on 11/15/17 * continue to monitor Hypokalemia * potassium of 2.6 repleted with kdur 20 meq on 11/15/17 * continue to monitor Hyperkalemia resolved * continue to monitor Hx of DMII * ISS low * continue Accucheck ACHS * Hypoglycemic protocol * Aspirin 81mg PO daily * hgba1c: 6.7 * Crestor 10mg POqHS * Aspirin 81mg PO daily PPX: * Pepcid 20mg Po daily * Continue Heparin 5,000 units Q8, PLTs improved * SCDs contraindicated due to edema of lower extremity * Altered GI diet, soft 2 gm sodium, low fat, moderate consistency diet, fluid restriction at 1.5 L * Pain management: tylenol 650 mg PO Q6 PRN for mild pain (1-3) * Fever: tylenol 650 mg po Q6 PRN for fever > 100.4 * PT dispo: sub-acute rehab * PICC line right upper extremity Dispo: Pt can follow up in outpatient clinic for daily Rocephin infusions. Pending PICC line placement. Case was reviewed and discussed with attending physician, Dr. Eleanor feliciano PGY-1
== END 2017-11-18 21:14 | disposition home or self-care (01) | DRG 871 ==
LOC: C.ER 00:38 → C.9E 09:51 → C.9I 10:03 → C.5S 11-15 21:10
PROVIDERS: ADMIT Hospitalist; ATTEND Hospitalist
PROC: 02HV33Z Insertion of Infusion Device into Superior Vena Cava, Percutaneous Approach (ICD-10-PCS; principal; 2017-11-18)
DX: A41.9 Sepsis, unspecified organism (principal); I50.33 Acute on chronic diastolic (congestive) heart failure; I21.4 Non-ST elevation (NSTEMI) myocardial infarction; J15.4 Pneumonia due to other streptococci; A48.1 Legionnaires' disease; I13.0 Hypertensive heart and chronic kidney disease with heart failure and stage 1 through stage 4 chronic kidney disease, or unspecified chronic kidney disease; J98.11 Atelectasis; N17.9 Acute kidney failure, unspecified; N18.4 Chronic kidney disease, stage 4 (severe); E87.2 Acidosis; Q21.1 Atrial septal defect; I05.9 Rheumatic mitral valve disease, unspecified; I25.10 Atherosclerotic heart disease of native coronary artery without angina pectoris; L40.9 Psoriasis, unspecified; M10.9 Gout, unspecified; G89.29 Other chronic pain; E87.5 Hyperkalemia; E78.5 Hyperlipidemia, unspecified; Z87.891 Personal history of nicotine dependence; E11.22 Type 2 diabetes mellitus with diabetic chronic kidney disease; E11.51 Type 2 diabetes mellitus with diabetic peripheral angiopathy without gangrene